=== PATIENT | male | born 1940 | race Caucasian/White ===

== ENCOUNTER 2016-09-04 11:33 | Inpatient (IN) | payer MEDICARE, BC ==
[~2016-09-04] VITALS: Ht 177.8 cm; Wt 83.3 kg
[2016-09-04 12:04] LABS: BASO % 0.4 % (0.0-1.0); EOS # 0.2 K/mm3 (0.0-0.50); EOS % 2.7 % (0.0-3.0); LARGE UNSTAINED CELL # 0.1 K/mm3 (0.0-0.4); LYMPH # 1.4 K/mm3 (1.5-4.5); LYMPH % 18.3 % (24.0-44.0); MEAN CORPUSCULAR HEMOGLOBIN 28.9 pg (27.0-33.0); MEAN CORPUSCULAR HGB CONC 33.6 g/dl (32.0-36.5); MEAN CORPUSCULAR VOLUME 85.9 fl (80.0-96.0); MONO # 0.4 K/mm3 (0.0-0.8); MONO % 5.7 % (0.0-5.0); NEUTROPHILS # 5.2 K/mm3 (1.8-7.7); PLATELET COUNT, AUTOMATED 232 k/mm3 (150-450); RED CELL DISTRIBUTION WIDTH 12.6 % (11.5-14.5); WHITE BLOOD COUNT 7.2 K/mm3 (4.0-10.0)
--- NOTE | 2016-09-04 12:14 | REP ---
AP PORTABLE CHEST: 09/04/2016 Comparison: Right ribs 08/28/2016. Clinical history: CVA less than 4.5 hours. Findings: Lungs are well inflated. The CP angles sharply defined without effusion, lateral pleural thickening or apical scarring. There is no definite infiltrate. Some minor basilar fibrotic changes are seen. No gross cardiomegaly, vascular redistribution or pulmonary edema. The aorta is mildly tortuous but normal for age. Airway intact. There are degenerative changes in the spine and shoulders. Impression: 1. Minor basilar fibrotic change without dense consolidation or effusion, cardiomegaly, edema or other acute finding. Signed by Tj Perez MD 09/04/2016 12:48 P
[2016-09-04 12:20] LABS: ALBUMIN 3.8 GM/DL (3.2-5.2); ALBUMIN/GLOBULIN RATIO 1.03 (1.00-1.93); ALKALINE PHOSPHATASE 84 U/L (45-117); ALT/SGPT 30 U/L (12-78); ANION GAP 6 MEQ/L (8-16); AST/SGOT 23 U/L (15-37); BILIRUBIN,DIRECT 0.1 MG/DL (0.0-0.2); BILIRUBIN,TOTAL 0.7 MG/DL (0.2-1.0); BLOOD UREA NITROGEN 50 MG/DL (7-18); CARBON DIOXIDE LEVEL 33 MEQ/L (21-32); CHLORIDE LEVEL 101 MEQ/L (98-107); CREATININE FOR GFR 1.58 MG/DL (0.70-1.30); GLOMERULAR FILTRATION RATE 45.7 (>42); GLUCOSE, FASTING 120 MG/DL (83-110); POTASSIUM SERUM 4.4 MEQ/L (3.5-5.1); SODIUM LEVEL 140 MEQ/L (136-145); TOTAL PROTEIN 7.5 GM/DL (6.4-8.2)
[2016-09-04] MEDS ORDERED: ATROPINE SULF 1MG/10ML SYRINGE (J0461) As Ordered ONE (12:20)
[2016-09-04 12:30] LABS: INR 0.95
--- NOTE | 2016-09-04 12:37 | ECGEPIP ---
Stationary ECG Study [facility] - ED Test Date: 2016-09-04 Pat Name: PETE OCONNOR Department: Room: - Gender: M Multimedia Journalist: ZANE : 1940 Requested By: HERMELINDA Nuñez Order Number: [id number] Reading MD: Isaac Morales Measurements Intervals [place] Rate: 46 P: 35 TX: 189 QRS: 1 QRSD: 105 T: 15 QT: 431 QTc: 381 Interpretive Statements SINUS BRADYCARDIA MODERATE VOLTAGE CRITERIA FOR LVH, CONSIDER NORMAL VARIANT ANTEROLATERAL ST ELEVATION, INFERIOR ST DEPRESSION CONSIDER ACUTE INJURY Electronically Signed On 09-04-2016 12:36:52 EST by Iasac Morales
--- NOTE | 2016-09-04 13:13 | REP ---
CT HEAD WITHOUT CONTRAST: HISTORY: Infarction. Areas of decreased attenuation are present in the periventricular white matter. This represents small vessel ischemic disease. A 4.1 cm cystic lesion is present in the right frontal and parietal lobes. There is mass effect with partial effacement of the overlying cortical sulci. There is no intraparenchymal hemorrhage or midline shift. The ventricular system and cortical sulci as well as subarachnoid space in the posterior fossa are dilated consistent with mild volume loss. There is no extracerebral collection. Mucosal thickening is present in the ethmoid sinuses. A 3 mm osteoma is present in the right ethmoid sinus. IMPRESSION: 1. Small vessel ischemic disease. 2. Mild volume loss. 3. There is a 4.1 cm cystic lesion in the right frontal and parietal lobes. This most likely represents an arachnoid cyst, however, contrast enhanced CT or MR may be helpful for further evaluation. Signed by Ren Mishra MD 09/04/2016 06:38 P
[2016-09-04] MEDS ORDERED: GLUCOSE 4 GM CHEW TABLET PO PRN (14:45)
[2016-09-04] MEDS ORDERED: GLUCAGON FOR INJ 1 MG VIAL (J1610) SC PRN (14:45)
[2016-09-04] MEDS ORDERED: DEXTROSE 50% 50 ML SYRINGE IV PRN (14:45)
--- NOTE | 2016-09-04 15:07 | REP ---
LEFT KNEE SERIES, COMPLETE: 09/04/2016. Clinical history: Trauma. Patient fell with knee contusion and pain. Findings: No prior studies. [place] view shows narrowing of the patellofemoral joint laterally and a few millimeters of lateral subluxation of the marginal osteophytes patellofemoral joint calcifications and ossifications just above the patella at its articular margin on the lateral view were a fabella is also seen. There are small ossific densities posterior to the proximal tibiofibular articulation and another along the posterior margin of the tibial plafond on the lateral view. Medial compartment shows marginal osteophytes and tibial spine spurs without joint space narrowing. The medial and lateral compartments are without narrowing. Impression: 1. 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 This suggests chondromalacia. No definite joint effusion. Some marginal osteophytes and small ossific densities adjacent to the upper pole of the patella and posterior margin of the tibial plateau suggesting avulsions or osteochondral defects, likewise 3-4 small calcifications along the posterior margin of the proximal tibiofibular joint. No definite fractures. Signed by Tj Perez MD 09/04/2016 03:30 P
[2016-09-04 15:12] LABS: FREE T4 1.04 NG/DL (0.76-1.46)
[2016-09-04] MEDS ORDERED: NAME28CA PO (15:14)
[2016-09-04] MEDS ORDERED: COLA100C PO (15:14)
[2016-09-04] MEDS ORDERED: ASPI1TAB PO (15:14)
[2016-09-04] MEDS ORDERED: BIMA01SOL OU (15:14)
[2016-09-04] MEDS ORDERED: METF500T PO (15:14)
[2016-09-04] MEDS ORDERED: COMB0.2S OU (15:14)
[2016-09-04] MEDS ORDERED: VITMTA PO (15:14)
[2016-09-04] MEDS ORDERED: HYDR62TA PO (15:14)
[2016-09-04] MEDS ORDERED: SIMV20TA2 PO (15:14)
[2016-09-04] MEDS ORDERED: LISI10TA4 PO (15:14)
--- NOTE | 2016-09-04 15:21 | HPE ---
DATE OF ADMISSION: 09/04/2016 PRIMARY CARE PROVIDER: Dr. Ray King MD HISTORY OF PRESENT ILLNESS: This patient is a 76-year-old male with a past medical history significant for hypertension, hypercholesterolemia, diabetes, dementia, presented to [facility] on 09/04/2016, after a fall. Patient was visiting his in [facility] and patient started feeling weak and fell on the floor and patient was brought into [facility] for further evaluation. Information was also obtained from the two daughters present during encounter. Patient started having multiple falls in the past month, at least three witnessed falls so far, and on 08/28/2016, patient fell and landed on the right ribs and resulted in rib fractures. Patient does not remember any specific triggers for the fall. He said that he just started to have sudden weakness. Denied any lightheadedness. Denies any loss of consciousness. Denies any numbness or tingling. Per family members, patient does not have a diagnosis of dementia, however they have noticed patient demonstrating some slowing of memory issues. Patient lives with older daughter. When patient arrived in the emergency room, patient had a blood pressure of 91/50. Patient also was found to have a heart rate of 49. Gentle intravenous (IV) fluids given which temporarily increased the blood pressure. Atropine 0.5 mg IV times one was given, however patient's heart rate maintained around 50s and hospitalist team was called for admission. ALLERGIES: No known drug allergies. HOME MEDICATIONS: - metformin 500 mg by mouth twice a day - lisinopril 10 mg by mouth daily - hydrochlorothiazide 6.25 mg daily - simvastatin 20 mg by mouth daily - Namenda 28 mg by mouth daily PAST MEDICAL HISTORY: 1. Hypertension. 2. Hypercholesterolemia. 3. Dementia. 4. Diabetes. PAST SURGICAL HISTORY: Right knee surgery. SOCIAL HISTORY: Patient smoked one pack daily for approximately 25 years, quit 11 years ago. Drinks 1-2 beers every week. Denies any recreational drug use. Patient is a FULL CODE. REVIEW OF SYSTEMS: GENERAL: No fever, no chills. HEENT: No vision changes, no auditory changes. CARDIOVASCULAR: No chest pain, no palpitations. RESPIRATORY: No shortness of breath, no cough, no sputum production. GASTROINTESTINAL (GI): No abdominal pain, no nausea, no vomiting, no diarrhea. GENITOURINARY (): Denies any dysuria or hematuria. OBJECTIVE: VITAL SIGNS: Blood pressure 95/51, pulse 48, respirations 16, temperature 97.4, pulse oximetry 97% in room air. Body weight is 83.91 kg, body height 175.26 cm. GENERAL: Fatigued, alert and awake, oriented to name, place, and the president, however patient demonstrates some signs of difficulty with long-term memory. HEENT: Normocephalic, atraumatic. Extraocular motors grossly intact. CARDIOVASCULAR: Distant heart sounds, positive S1, S2, but bradycardic with heart rate wandering around 50s. RESPIRATORY: Clear to auscultation bilaterally. No wheezes or rhonchi. ABDOMEN: Soft, nontender, nondistended. Bowel sounds present. No rebound, no guarding. EXTREMITIES: No edema. No sign of cyanosis. NEUROLOGICAL: Sensation to fine touch grossly intact. Muscle strength 5/5. LABORATORY DATA: WBC 7.2, hemoglobin 14, hematocrit 41.5, platelet count 232. Sodium 140, potassium 4.4, chloride 101, carbon dioxide 33, BUN 50, creatinine 1.58, GFR 45.7, fasting glucose 120, calcium 9, total bilirubin 0.7, direct bilirubin 0.1, AST 23, ALT 30, alkaline phosphatase 83, total CK 208, troponin I less than 0.02, total protein 7.5, albumin 3.8, TSH 0.315. PT 0.8, INR 0.95. CT of the head without contrast shows small vessel ischemic disease. Mild volume loss. 4.1 cm cystic lesion in the right frontal and parietal lobe. ASSESSMENT AND PLAN: 1. Frequent falls. Patient will be admitted to the progressive care unit (PCU) under observation status. Patient does have bradycardia with a heart rate wandering around 50s. We will obtain outpatient records to see patient's baseline heart rate. We will also try to rule out any possible cardiac arrhythmia. Follow with orthostatic vital signs measurements. Follow with physical therapy evaluation and treatment. 2. Acute kidney injury. We do not know if patient has baseline chronic kidney disease. At this moment, patient has a BUN of 50, creatinine 1.58. Patient was started on gentle hydration which will also help with patient's hypotension. 3. Hypotension. Responds briefly with 0.5 liters bolus times two. Currently patient will be on continuous gentle hydration. 4. Cyst lesion in the right frontal and parietal lobe. The case has been discussed with Dr. Davis. Patient will have an MRI of the brain without contrast followed by with contrast. 5. Diabetes. Follow with A1c. Continue with consistent carbohydrate diet. Continue with insulin sliding scale. 6. History of hypercholesterolemia. Continue statin. 7. History of hypertension. Currently patient is hypotensive. Will hold the blood pressure medications. 8. Dementia. Continue Namenda. 9. Elevated thyroid stimulating hormone (TSH). Will follow with free T4. Patient does not have a history of thyroid disease. 10. Deep venous thrombosis (DVT) prophylaxis. Due to frequent falls, currently patient will be on thromboembolism deterrents (TEDs) and sequential compression device.
[2016-09-04] MEDS: HumaLOG INSULIN (NovoLOG) PER UNIT SC SCH ×2 (17:30→20:51)
[2016-09-04 18:00] VITALS: BP 133/65
[2016-09-04] MEDS: NS 1,000 ML IV SCH (18:20)
--- NOTE | 2016-09-04 18:40 | REP ---
MR BRAIN WITHOUT AND WITH CONTRAST: HISTORY: Cystic lesion. CONTRAST: ProHance 8 mL. COMPARISON: CT 09/04/2016 Areas of increased signal intensity on T2 weighted images are present in the periventricular and subcortical white matter. This represents small vessel ischemic disease. There is no intraparenchymal hemorrhage, infarct or mass. The ventricular system and cortical sulci are dilated consistent with mild volume loss. An arachnoid cyst is present overlying the posterior right parietal lobe. The arachnoid cyst measure 4.4 cm in transverse x 5.3 cm in AP x 4.1 cm in cephalocaudal dimensions. There is mass effect on the adjacent right parietal lobe without midline shift. There is no abnormal enhancement . There is no extracerebral collection. Mucosal thickening is present in the maxillary and left sphenoid sinuses. IMPRESSION: 1. Small vessel ischemic disease. 2. Mild volume loss. 3. There is an arachnoid cyst overlying the posterior right parietal lobe. There is no midline shift. Signed by Ren Mishra MD 09/04/2016 06:43 P
[2016-09-04 20:00] VITALS: BP 121/66
[2016-09-04] MEDS ORDERED: DOCUSATE SODIUM 100 MG CAP As Ordered ONE (20:57)
[2016-09-04] MEDS ORDERED: SIMVASTATIN 20 MG TAB As Ordered ONE (20:57)
[2016-09-04] MEDS: SIMVASTATIN 20 MG TAB PO SCH (21:04)
[2016-09-04] MEDS: DOCUSATE SODIUM 100 MG CAP PO SCH (21:04)
--- NOTE | 2016-09-04 23:19 | EDDOCDS ---
Physician Documentation [facility] Name: Ravin Palencia Age: 76 yrs Sex: Male : 1940 Arrival Date: 09/04/2016 Time: 11:33 Bed Admit Hold Private MD: Ray King M.D. Disposition: 09/04/16 14:13 Hospitalization ordered by Marisela Abdullahi for Inpatient Admission. Preliminary diagnosis are Gastrointestinal hemorrhage, unspecified, Hypotension, Bradycardia, unspecified, Abrasion, left knee, Abnormal brain scan - likely arachnoid cyst. - Bed requested for PCU. - Status is Inpatient Admission. sls1 - Condition is Stable. - Problem is new. - Symptoms are unchanged. Historical: - Allergies: no known allergies; - Home Meds: 1. metformin 500 mg Oral tab 1 tab 2 times per day (Last dose: Unknown) 2. lisinopril 10 mg Oral tab 1 tab once daily (Last dose: Unknown) 3. hydrochlorothiazide 12.5 mg Oral cap 6.25 mg once daily (Last dose: Unknown) 4. simvastatin 20 mg Oral tab 1 tab once daily (Last dose: Unknown) 5. Namenda XR 28 mg oral CSpX 1 cap once daily (Last dose: Unknown) - PMHx: Hypertension; Hypercholesterolemia; Dementia; - PSHx: Knee surgery- Right; - Social history: Smoking status: Patient states former smoker of tobacco. No barriers to communication noted. - : The pt / caregiver states he / she is not on anticoagulants. Home medication list is obtained from patients' pharmacy. - Exposure Risk Screening:: None identified. Vital Signs: 09/04 11:45 BP 92 / 53 (auto/); ml6 11:45 Pulse 54 MON; Resp 16; Temp 97.4(O); Pulse Ox 98% on R/A; Weight 83.91 kg / 184.99 lbs ml6 (R); Height 5 ft. 9 in. (175.26 cm) (R); Pain 0/10; 12:01 BP 91 / 50 (auto/); ml6 12:01 Pulse 50 MON; Resp 16; Pulse Ox 99% on R/A; ml6 12:16 BP 99 / 73 (auto/); ml6 12:16 Pulse 57 MON; Resp 16; Pulse Ox 97% on R/A; ml6 12:23 BP 92 / 54 (auto/); ml6 12:23 Pulse 49 MON; Resp 16; Pulse Ox 98% on R/A; Pain 0/10; ml6 12:28 BP 125 / 68 (auto/); ml6 12:28 Pulse 51; Resp 16; Pulse Ox 94% on R/A; ml6 12:33 BP 112 / 57 (auto/); ml6 12:33 Pulse 50; Resp 16; Pulse Ox 98% on R/A; ml6 12:38 BP 95 / 51 (auto/); ml6 12:38 Pulse 48; Resp 16; Pulse Ox 97% on R/A; ml6 12:58 BP 85 / 53 (auto/); ml6 12:58 Pulse 51 MON; Resp 16; Pulse Ox 97% on R/A; ml6 13:03 BP 85 / 52 (auto/); ml6 13:03 Pulse 50 MON; Resp 16; Pulse Ox 96% on R/A; ml6 13:08 BP 88 / 53 (auto/); ml6 13:08 Pulse 50 MON; Resp 16; Pulse Ox 98% on R/A; ml6 13:13 BP 86 / 52 (auto/); ml6 13:13 Pulse 50 MON; Resp 16; Pulse Ox 98% on R/A; Pain 0/10; ml6 13:18 BP 74 / 45 (auto/); ml6 13:18 Pulse 52 MON; Resp 16; Pulse Ox 98% on R/A; Pain 0/10; ml6 13:23 BP 73 / 43 (auto/); ml6 13:23 Pulse 50 MON; Resp 16; Pulse Ox 97% on R/A; ml6 13:28 BP 73 / 40 (auto/); ml6 13:28 Pulse 50 MON; Resp 16; Pulse Ox 94% on R/A; Pain 0/10; ml6 13:38 BP 81 / 45 (auto/); ml6 13:38 Pulse 52 MON; Resp 16; Pulse Ox 97% on R/A; ml6 13:48 BP 105 / 57 (auto/); ml6 13:48 Pulse 61 MON; Resp 16; Pulse Ox 98% on R/A; Pain 0/10; ml6 14:30 BP 109 / 62 (auto/); ml6 16:29 BP 130 / 65 (auto/); sls1 16:31 Pulse 60 MON; Pulse Ox 97% ; sls1 20:28 BP 106 / 56 (auto/); sls1 20:30 Pulse 52 MON; Pulse Ox 93% ; sls1 11:45 Body Mass Index 27.32 (83.91 kg, 175.26 cm) ml6 MDM: 11:43 ECG WITH READING ER PHYS+CARDIAG ordered. EDMS 11:43 Baggage Smasher/Pulse Ox/q 15 min VS ordered. ml6 11:43 IV Saline Lock ordered. ml6 11:43 Oxygen at 4L/Min NC or Home dosage ordered. ml6 11:43 Rhythm Strip to chart ordered. ml6 11:44 CBC with Diff Ordered. EDMS 11:44 Cardiac Injury Profile Ordered. EDMS 11:44 Liver Profile Ordered. EDMS 11:44 MED Profile Ordered. EDMS 11:44 Thyroid Stimulating Hormone Ordered. EDMS 11:44 Troponin Ordered. EDMS 11:46 Chest, 1 View Ordered. EDMS 12:18 NS 0.9% 500 ml IV at bolus once ordered. br1 12:18 Atropine 0.5 mg IVP once ordered. br1 12:18 CT Head Without Contrast Ordered. EDMS 12:18 PT/INR Ordered. EDMS 12:18 PTT Ordered. EDMS 12:19 Knee, Complete Ordered. EDMS 12:19 Type & Screen Ordered. EDMS 12:38 Financial registration complete. lg 12:51 [facility] [place] was [place] into [employer] and attached to record. lg 13:36 CBC with Diff Reviewed. br1 13:36 Cardiac Injury Profile Reviewed. br1 13:36 MED Profile Reviewed. br1 13:36 Thyroid Stimulating Hormone Reviewed. br1 13:36 Liver Profile Reviewed. br1 13:36 Troponin Reviewed. br1 13:36 Type & Screen Reviewed. br1 13:36 PT/INR Reviewed. br1 13:36 PTT Reviewed. br1 13:36 EKG-ADULT Reviewed. br1 13:36 Chest, 1 View Reviewed. br1 13:36 CT Head Without Contrast Reviewed. br1 13:38 NS 0.9% 500 ml IV at bolus once ordered. br1 13:38 BED REQUEST+ADM ordered. EDMS 14:30 Admission / Observation Status ordered. EDMS 14:30 CONSISTENT CARBOHYDRATES ordered. EDMS 14:31 PHYSICAL THERAPY EVAL & TREAT ordered. EDMS 14:41 FREE T4 Ordered. EDMS 14:45 HEMOGLOBIN A1C Ordered. EDMS 14:46 MRI Brain W/O FOLL BY WITH Ordered. EDMS 14:48 URINALYSIS Ordered. EDMS 15:12 T-Sheet-- Draft Copy was scanned into [employer] and attached to record. gb 18:15 Fingerstick Blood Sugar Ordered. EDMS 19:31 COMPLETE BLOOD COUNT Ordered. EDMS 19:31 BASIC METABOLIC PROFILE Ordered. EDMS 20:45 Fingerstick Blood Sugar Ordered. EDMS Administered Medications: 12:19 Drug: NS 0.9% 500 ml [sodium chloride 0.9 % intravenous solution] Route: IV; Rate: ml6 bolus; Site: right forearm; 13:15 Follow up: IV Status: Completed infusion; Infusion discontinued; IV Intake: 500ml ml6 12:27 Drug: Atropine 0.5 mg [atropine 0.1 mg/mL injection syringe (5 mL)] Route: IVP; Site: ml6 right antecubital; 13:42 Drug: NS 0.9% 500 ml [sodium chloride 0.9 % intravenous solution] Route: IV; Rate: ml6 bolus; Site: right antecubital; 16:35 Follow up: IV Status: Completed infusion; Infusion discontinued; IV Intake: 500ml ml6 Signatures: Dispatcher [employer] EDMS Louise Jordan, RN RN daq Tari Wilson, Reg Reg gb Frantz Chou, Reg Reg lg Michael Irizarry MD MD br1 Wyatt Gómez RN RN ml6 Dawn Forrester RN RN sls1 The chart was reviewed and I authenticate all verbal orders and agree with the evaluation and treatment provided.Corrections: (The following items were deleted from the chart) 14:41 14:36 FREE T4 ordered. EDMS EDMS 14:48 14:41 HEMOGLOBIN A1C ordered. EDMS EDMS Attachments: 12:51 [facility] [place] lg 15:12 T-Sheet-- Draft Copy gb MTDD
--- NOTE | 2016-09-04 23:19 | EDDOCDS ---
Nurse's Notes [facility] Name: Pete Palencia Age: 76 yrs Sex: Male : 1940 Arrival Date: 09/04/2016 Time: 11:33 Bed Admit Hold Private MD: Ray King M.D. Diagnosis: Gastrointestinal hemorrhage, unspecified;Hypotension;Bradycardia, unspecified;Abrasion, left knee;Abnormal brain scan-likely arachnoid cyst Presentation: 09/04 11:40 Presenting complaint: EMS states: states was up visiting at [facility], became disorient ml6 and fell x 3. Adult Sepsis Screening: Patient has new or worsening altered mentation (1 point). Patient's respiratory rate is less than 22. Systolic blood pressure is less than or equal to 100 (1 point). Patient has a qSOFA score of 2. No known or suspected infection- Negative Sepsis Screen. Suicide/Homicide risk assessment- the patient denies having any suicidal and/or homicidal ideations and does not present with any other emotional, behavioral or mental health complaints. 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 Transition of care: patient was not received from another setting of care. 11:40 Acuity: PORTER Level 2 ml6 11:40 Method Of Arrival: Ambulance ml6 Triage Assessment: 11:40 General: Appears in no apparent distress, Behavior is appropriate for age, cooperative. ml6 Pain: Denies pain. Neurological: No deficits noted. Level of Consciousness is awake, alert, Oriented to person, place, time. Cardiovascular: No deficits noted. Capillary refill < 3 seconds is brisk in bilateral fingers toes. Respiratory: No deficits noted. GI: No deficits noted. Musculoskeletal: Circulation, motion, and sensation intact Capillary refill < 3 seconds is brisk in bilateral fingers toes Range of motion intact in all extremities. No deformity noted Swelling absent Signs and Symptoms of Compartment Syndrome: no signs of compartment syndrome. Historical: - Allergies: no known allergies; - Home Meds: 1. metformin 500 mg Oral tab 1 tab 2 times per day (Last dose: Unknown) 2. lisinopril 10 mg Oral tab 1 tab once daily (Last dose: Unknown) 3. hydrochlorothiazide 12.5 mg Oral cap 6.25 mg once daily (Last dose: Unknown) 4. simvastatin 20 mg Oral tab 1 tab once daily (Last dose: Unknown) 5. Namenda XR 28 mg oral CSpX 1 cap once daily (Last dose: Unknown) - PMHx: Hypertension; Hypercholesterolemia; Dementia; - PSHx: Knee surgery- Right; - Social history: Smoking status: Patient states former smoker of tobacco. No barriers to communication noted. - : The pt / caregiver states he / she is not on anticoagulants. Home medication list is obtained from patients' pharmacy. - Exposure Risk Screening:: None identified. Screenin:47 Screening information is obtained from the patient. Fall risk: At risk due to apparent ml6 cognitive impairment, prior history of falls. Assistance ADL's: requires no assistance with activities of daily living. Abuse/DV Screen: The patient / caregiver reports he/she is: not in a situation that causes fear, pain or injury. Nutritional screening: No deficits noted. Advance Directives: Currently, there is no health care proxy. home support is adequate. Assessment: 11:40 General: Appears in no apparent distress, see triage assessment. ml6 12:40 General: Appears in no apparent distress, comfortable, Behavior is appropriate for age, ml6 cooperative. Pain: Denies pain. Neurological: Level of Consciousness is awake, alert, Oriented to person, place, time, Insole Tack Puller Hand are equal bilaterally Moves all extremities. Full function Gait is steady, Speech with expressive aphasia noted, Facial symmetry appears normal, Pupils are PERRLA, per daughter patient normally has expressive aphasia . 13:40 Reassessment: Patient appears in no apparent distress at this time. Patient denies pain ml6 at this time. Patient states feeling better. Patient states symptoms have improved. patient states that fatigue and weakness have improved after IVF. 14:40 Reassessment: Patient appears in no apparent distress at this time. Patient denies pain ml6 at this time. Patient states feeling better. Patient states symptoms have improved. no change from previous assessment. 15:40 General: Appears in no apparent distress, comfortable, Behavior is appropriate for age, ml6 cooperative. Pain: Denies pain. Neurological: No deficits noted. Level of Consciousness is awake, alert, Oriented to person, place, time, Insole Tack Puller Hand are equal bilaterally Moves all extremities. Full function Gait is steady, Speech with expressive aphasia noted. Cardiovascular: No deficits noted. Capillary refill < 3 seconds is brisk in bilateral fingers toes. Respiratory: No deficits noted. GI: No deficits noted. 16:29 General: patient transported to MRI. ml6 Vital Signs: 11:45 BP 92 / 53 (auto/); ml6 11:45 Pulse 54 MON; Resp 16; Temp 97.4(O); Pulse Ox 98% on R/A; Weight 83.91 kg (R); Height 5 ml6 ft. 9 in. (175.26 cm) (R); Pain 0/10; 12:01 BP 91 / 50 (auto/); ml6 12:01 Pulse 50 MON; Resp 16; Pulse Ox 99% on R/A; ml6 12:16 BP 99 / 73 (auto/); ml6 12:16 Pulse 57 MON; Resp 16; Pulse Ox 97% on R/A; ml6 12:23 BP 92 / 54 (auto/); ml6 12:23 Pulse 49 MON; Resp 16; Pulse Ox 98% on R/A; Pain 0/10; ml6 12:28 BP 125 / 68 (auto/); ml6 12:28 Pulse 51; Resp 16; Pulse Ox 94% on R/A; ml6 12:33 BP 112 / 57 (auto/); ml6 12:33 Pulse 50; Resp 16; Pulse Ox 98% on R/A; ml6 12:38 BP 95 / 51 (auto/); ml6 12:38 Pulse 48; Resp 16; Pulse Ox 97% on R/A; ml6 12:58 BP 85 / 53 (auto/); ml6 12:58 Pulse 51 MON; Resp 16; Pulse Ox 97% on R/A; ml6 13:03 BP 85 / 52 (auto/); ml6 13:03 Pulse 50 MON; Resp 16; Pulse Ox 96% on R/A; ml6 13:08 BP 88 / 53 (auto/); ml6 13:08 Pulse 50 MON; Resp 16; Pulse Ox 98% on R/A; ml6 13:13 BP 86 / 52 (auto/); ml6 13:13 Pulse 50 MON; Resp 16; Pulse Ox 98% on R/A; Pain 0/10; ml6 13:18 BP 74 / 45 (auto/); ml6 13:18 Pulse 52 MON; Resp 16; Pulse Ox 98% on R/A; Pain 0/10; ml6 13:23 BP 73 / 43 (auto/); ml6 13:23 Pulse 50 MON; Resp 16; Pulse Ox 97% on R/A; ml6 13:28 BP 73 / 40 (auto/); ml6 13:28 Pulse 50 MON; Resp 16; Pulse Ox 94% on R/A; Pain 0/10; ml6 13:38 BP 81 / 45 (auto/); ml6 13:38 Pulse 52 MON; Resp 16; Pulse Ox 97% on R/A; ml6 13:48 BP 105 / 57 (auto/); ml6 13:48 Pulse 61 MON; Resp 16; Pulse Ox 98% on R/A; Pain 0/10; ml6 14:30 BP 109 / 62 (auto/); ml6 16:29 BP 130 / 65 (auto/); sls1 16:31 Pulse 60 MON; Pulse Ox 97% ; sls1 20:28 BP 106 / 56 (auto/); sls1 20:30 Pulse 52 MON; Pulse Ox 93% ; sls1 11:45 Body Mass Index 27.32 (83.91 kg, 175.26 cm) ml6 Vitals: 11:51 Log In Time N/A - ambulance arrival. ml6 ED Course: 11:34 Patient visited by Christy Muhammad, Md Allergy Immunology. lbd 11:34 Patient moved to Waiting lbd 11:35 Ray King is Private Physician. lbd 11:35 Patient moved to 3 lbd 11:41 Triage Initiated ml6 11:47 The patient / caregiver is instructed regarding the plan of care and ED course. Cardiac ml6 monitor on. Pulse ox on. NIBP on. 11:47 Inserted peripheral IV: 16gauge IV in left antecubital area and blood collected. ml6 Patient tolerated the procedure well. Inserted peripheral IV: 18gauge IV in right antecubital area and blood collected. Patient tolerated the procedure well. No procedures done that require assistance. Labs drawn. (by ED staff). Sent per order to lab. 11:49 Patient visited by Ambrocio Patel. jml1 11:49 EKG done. (by ED staff). Reviewed by Michael Irizarry MD. jml1 12:04 Michael Irizarry MD is Attending Physician. br1 12:17 Patient visited by Michael Irizarry MD. br1 12:47 EKG-ADULT Returned. EDMS 12:49 Patient name changed from Pete\S\\S\Palencia\S\ to Pete\S\T\S\Palencia. EDMS 12:51 Patient visited by Wyatt Gómez RN. ml6 12:51 [facility] [place] was [place] into [employer] and attached to record. lg 12:51 Chest, 1 View Returned. EDMS 13:14 Patient visited by Wyatt Gómez RN. ml6 13:34 CT Head Without Contrast Returned. EDMS 13:45 Patient visited by Wyatt Gómez RN. ml6 13:[address] ml6 13:48 Patient moved to 3 ek2 14:05 Marisela Abdullahi wood finisher apprentice. ys2 14:06 Patient visited by Michael Irizarry MD. br1 14:12 Marisela Abdullahi is Hospitalizing Provider. br1 15:12 T-Sheet-- Draft Copy was scanned into [employer] and attached to record. gb 15:48 Knee, Complete Returned. EDMS 16:28 Patient moved to 18 ml6 19:06 CT Head Without Contrast Returned. EDMS 19:07 MRI Brain W/O FOLL BY WITH Returned. EDMS 19:34 Patient moved to Admit Hold sls1 Administered Medications: 12:19 Drug: NS 0.9% 500 ml [sodium chloride 0.9 % intravenous solution] Route: IV; Rate: ml6 bolus; Site: right forearm; 13:15 Follow up: IV Status: Completed infusion; Infusion discontinued; IV Intake: 500ml ml6 12:27 Drug: Atropine 0.5 mg [atropine 0.1 mg/mL injection syringe (5 mL)] Route: IVP; Site: ml6 right antecubital; 13:42 Drug: NS 0.9% 500 ml [sodium chloride 0.9 % intravenous solution] Route: IV; Rate: ml6 bolus; Site: right antecubital; 16:35 Follow up: IV Status: Completed infusion; Infusion discontinued; IV Intake: 500ml ml6 Intake: 13:15 IV: 500.00ml; Total: 500.00ml. ml6 16:35 IV: 500.00ml; Total: 1000.00ml. ml6 Order Results: Lab Order: CBC with Diff; SPEC'M 09/04/16 11:46 Test: WHITE BLOOD COUNT; Value: 7.2; Range: 4.0-10.0; Units: K/mm3; Status: F Test: RED BLOOD COUNT; Value: 4.83; Range: 4.30-6.10; Units: M/mm3; Status: F Test: HEMOGLOBIN; Value: 14.0; Range: 14.0-18.0; Units: g/dl; Status: F Test: HEMATOCRIT; Value: 41.5; Range: 42.0-52.0; Abnormal: Below low normal; Units: %; Status: F Test: MEAN CORPUSCULAR VOLUME; Value: 85.9; Range: 80.0-96.0; Units: fl; Status: F Test: MEAN CORPUSCULAR HEMOGLOBIN; Value: 28.9; Range: 27.0-33.0; Units: pg; Status: F Test: MEAN CORPUSCULAR HGB CONC; Value: 33.6; Range: 32.0-36.5; Units: g/dl; Status: F Test: RED CELL DISTRIBUTION WIDTH; Value: 12.6; Range: 11.5-14.5; Units: %; Status: F Test: PLATELET COUNT, AUTOMATED; Value: 232; Range: 150-450; Units: k/mm3; Status: F Test: NEUTROPHILS %; Value: 72.0; Range: 36.0-66.0; Abnormal: Above high normal; Units: %; Status: F Test: LYMPH %; Value: 18.3; Range: 24.0-44.0; Abnormal: Below low normal; Units: %; Status: F Test: MONO %; Value: 5.7; Range: 0.0-5.0; Abnormal: Above high normal; Units: %; Status: F Test: EOS %; Value: 2.7; Range: 0.0-3.0; Units: %; Status: F Test: BASO %; Value: 0.4; Range: 0.0-1.0; Units: %; Status: F Test: LARGE UNSTAINED CELL %; Value: 1.0; Range: 0.0-4.0; Units: %; Status: F Test: NEUTROPHILS #; Value: 5.2; Range: 1.8-7.7; Units: K/mm3; Status: F Test: LYMPH #; Value: 1.4; Range: 1.5-4.5; Abnormal: Below low normal; Units: K/mm3; Status: F Test: MONO #; Value: 0.4; Range: 0.0-0.8; Units: K/mm3; Status: F Test: EOS #; Value: 0.2; Range: 0.0-0.50; Units: K/mm3; Status: F Test: BASO #; Value: 0.0; Range: 0.0-0.2; Units: K/mm3; Status: F Test: LARGE UNSTAINED CELL #; Value: 0.1; Range: 0.0-0.4; Units: K/mm3; Status: F Lab Order: Cardiac Injury Profile; SPEC'M 09/04/16 11:46 Test: CPK CREATINE PHOSPHOKINASE; Value: 208; Range: 39-308; Units: U/L; Status: F Test: CK-MB VALUE MASS; Value: 4.3; Range: 0.0-3.6; Abnormal: Above high normal; Units: NG/ML; Status: F Test: MB/CK RELATIVE INDEX; Value: 2.06; Range: < OR =4; Status: F Test Note: ; DIAGNOSIS CRITERIA MMB ng/ml Relative Index (RI) NON-AMI < or = 5 N/A [place] > 5 < or = 4 AMI > 5 > 4 Lab Order: Liver Profile; SPEC'M 09/04/16 11:46 Test: AST/SGOT; Value: 23; Range: 15-37; Units: U/L; Status: F Test: ALT/SGPT; Value: 30; Range: 12-78; Units: U/L; Status: F Test: ALKALINE PHOSPHATASE; Value: 84; Range: 45-117; Units: U/L; Status: F Test: BILIRUBIN,TOTAL; Value: 0.7; Range: 0.2-1.0; Units: MG/DL; Status: F Test: BILIRUBIN,DIRECT; Value: 0.1; Range: 0.0-0.2; Units: MG/DL; Status: F Test: TOTAL PROTEIN; Value: 7.5; Range: 6.4-8.2; Units: GM/DL; Status: F Test: ALBUMIN; Value: 3.8; Range: 3.2-5.2; Units: GM/DL; Status: F Test: ALBUMIN/GLOBULIN RATIO; Value: 1.03; Range: 1.00-1.93; Status: F Lab Order: MED Profile; 09/04/16 11:46 Test: GLUCOSE, FASTING; Value: 120; Range: 83-110; Abnormal: Above high normal; Units: MG/DL; Status: F Test: BLOOD UREA NITROGEN; Value: 50; Range: 7-18; Abnormal: Above high normal; Units: MG/DL; Status: F Test: CREATININE FOR GFR; Value: 1.58; Range: 0.70-1.30; Abnormal: Above high normal; Units: MG/DL; Status: F Test: GLOMERULAR FILTRATION RATE; Value: 45.7; Range: >42; Status: F Test: SODIUM LEVEL; Value: 140; Range: 136-145; Units: MEQ/L; Status: F Test: POTASSIUM SERUM; Value: 4.4; Range: 3.5-5.1; Units: MEQ/L; Status: F Test: CHLORIDE LEVEL; Value: 101; Range: 98-107; Units: MEQ/L; Status: F Test: CARBON DIOXIDE LEVEL; Value: 33; Range: 21-32; Abnormal: Above high normal; Units: MEQ/L; Status: F Test: ANION GAP; Value: 6; Range: 8-16; Abnormal: Below low normal; Units: MEQ/L; Status: F Test: CALCIUM LEVEL; Value: 9.0; Range: 8.8-10.2; Units: MG/DL; Status: F Test Note: ; Units are mL/min/1.73 m2 Chronic Kidney Disease Staging per NKF: Stage I & II GFR >=60 Normal to Mildly Decreased Stage III GFR 30-59 Moderately Decreased Stage IV GFR 15-29 Severely Decreased Stage V GFR <15 Very Little GFR Left ESRD GFR <15 on ACTIVITIES DIRECTOR SCOUTING Lab Order: Thyroid Stimulating Hormone; 09/04/16 11:46 Test: THYROID STIMULATING HORMONE; Value: 0.315; Range: 0.358-3.740; Abnormal: Below low normal; Units: uIU/ML; Status: F Lab Order: Troponin; 09/04/16 11:46 Test: TROPONIN I; Value: < 0.02; Range: < 0.10; Units: NG/ML; Status: F Test Note: ; Troponin I Reference Interval for Siemens [place] LOCI: 99th Percentile= 0.00-0.045 ng/ml Risk Stratification: <= 0.10 ng/ml Decreased Risk for Adverse Clinical Events. 0.10-1.50 ng/ml Increased Risk for Adverse Clinical Events. Evaluation of additional criterion and/or repeat testing in 2-6 hours is suggested to rule out myocardial damage. >= 1.50 ng/ml Indicative of Myocardial Injury. Lab Order: Type & Screen; [facility]09/04/16 11:46 Test: BLOOD TYPE; Value: O POS; Status: F Test: AB SCREEN (INDIRECT PAU)VIS; Value: NEGATIVE; Status: F Lab Order: PT/INR; [facility]09/04/16 11:46 Test: PROTHROMBIN TIME; Value: 12.8; Range: 12.3-14.5; Units: SECONDS; Status: F Test: INR; Value: 0.95; Status: F Test Note: ; THERAPUTIC HUMAN INR VALUES INDICATIONS NORMAL RANGES PROPHYLAXIS/TREATMENT OF: VENOUS THROMBOSIS 2.0-3.0 PULMONARY EMBOLISM 2.0-3.0 PREVENTION OF SYSTEMIC EMBOLISM FROM: TISSUE HEART VALVES 2.0-3.0 ACUTE MYOCARDIAL INFARCTION 2.0-3.0 VALVULAR HEART DISEASE 2.0-3.0 ATRIAL FIBRILLATION 2.0-3.0 MECHANICAL VALVES(HIGH RISK) 2.5-3.5 RECURRENT MYOCARDIAL INFARCTION 2.5-3.5 Lab Order: PTT; [facility] 09/04/16 11:46 Test: PARTIAL THROMBOPLASTIN TIME; Value: 27.6; Range: 26.6-37.1; Units: SECONDS; Status: F Lab Order: FREE T4; [facility] 09/04/16 11:46 Test: FREE T4; Value: 1.04; Range: 0.76-1.46; Units: NG/DL; Status: F Lab Order: HEMOGLOBIN A1C; [facility] 09/04/16 11:46 Test: HEMOGLOBIN A1c; Value: 6.3; Range: 4.5-6.2; Abnormal: Above high normal; Units: %; Status: F Test: ESTIMATED AVERAGE GLUCOSE; Value: 134; Range: 60-110; Abnormal: Above high normal; Units: MG/DL; Status: F Lab Order: Fingerstick Blood Sugar; SPEC'M 09/04/16 18:07 Test: BEDSIDE GLUCOSE; Value: 97; Range: 83-110; Units: MG/DL; Status: F Lab Order: Fingerstick Blood Sugar; SPEC'M 09/04/16 20:27 Test: BEDSIDE GLUCOSE; Value: 141; Range: 83-110; Abnormal: Above high normal; Units: MG/DL; Status: F Radiology Order: EKG-ADULT Test: EKG-ADULT REASON FOR EXAMINATION: hypotension; Stationary ECG Study; [facility] - ED; ; Test Date: 2016-09-04; Pat Name: PETE PALENCIA Department:; Room: -; 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: 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; : 1940 Requested By: MICHAEL Nuñez; Order Number: [id number] Reading MD: Isaac Morales; Measurements; Intervals Fence; Rate: 46 P: 35; OR: 189 QRS: 1; QRSD: 105 T: 15; QT: 431; QTc: 381; Interpretive Statements; SINUS BRADYCARDIA; MODERATE VOLTAGE CRITERIA FOR LVH, CONSIDER NORMAL VARIANT; ANTEROLATERAL ST ELEVATION, INFERIOR ST DEPRESSION CONSIDER ACUTE INJURY; Electronically Signed On 09-04-2016 12:36:52 EST by Isaac Morales; Radiology Order: Chest, 1 View Test: Chest, 1 View REASON FOR EXAMINATION: CVA <4.5hrs; AP PORTABLE CHEST: 09/04/2016; ; Comparison: Right ribs 08/28/2016.; ; Clinical history: CVA less than 4.5 hours.; ; Findings: Lungs are well inflated. The CP angles sharply defined without; effusion, lateral pleural thickening or apical scarring. There is no definite; infiltrate. Some minor basilar fibrotic changes are seen. No gross; cardiomegaly, vascular redistribution or pulmonary edema. The aorta is mildly; tortuous but normal for age. Airway intact. There are degenerative changes in; the spine and shoulders.; ; Impression:; ; 1. Minor basilar fibrotic change without dense consolidation or effusion,; cardiomegaly, edema or other acute finding.; ; ; Signed by; Tj Perez MD 09/04/2016 12:48 P; Radiology Order: CT Head Without Contrast Test: CT Head Without Contrast REASON FOR EXAMINATION: CVA <4.5hrs; CT HEAD WITHOUT CONTRAST:; ; HISTORY: Infarction.; ; Areas of decreased attenuation are present in the periventricular white matter.; This represents small vessel ischemic disease. A 4.1 cm cystic lesion is present; in the right frontal and parietal lobes. There is mass effect with partial; effacement of the overlying cortical sulci. There is no intraparenchymal; hemorrhage or midline shift. The ventricular system and cortical sulci as well; as subarachnoid space in the posterior fossa are dilated consistent with mild; volume loss. There is no extracerebral collection. Mucosal thickening is; present in the ethmoid sinuses. A 3 mm osteoma is present in the right ethmoid; sinus.; ; IMPRESSION:; ; 1. Small vessel ischemic disease.; ; 2. Mild volume loss.; ; 3. There is a 4.1 cm cystic lesion in the right frontal and parietal lobes.; This most likely represents an arachnoid cyst, however, contrast enhanced CT or; MR may be helpful for further evaluation.; ; ; Signed by; Ren Mishra MD 09/04/2016 06:38 P; Radiology Order: Knee, Complete Test: Knee, Complete REASON FOR EXAMINATION: Trauma; LEFT KNEE SERIES, COMPLETE: 09/04/2016.; ; Clinical history: Trauma. Patient fell with knee contusion and pain.; ; Findings: No prior studies. [place] view shows narrowing of the patellofemoral; joint laterally and a few millimeters of lateral subluxation of the marginal; osteophytes patellofemoral joint calcifications and ossifications just above the; patella at its articular margin on the lateral view were a fabella is also seen.; There are small ossific densities posterior to the proximal tibiofibular; articulation and another along the posterior margin of the tibial plafond on the; lateral view. Medial compartment shows marginal osteophytes and tibial spine; spurs without joint space narrowing. The medial and lateral compartments are; without narrowing.; ; Impression:; ; 1. 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 This suggests chondromalacia. No definite joint; effusion. Some marginal osteophytes and small ossific densities adjacent to the; upper pole of the patella and posterior margin of the tibial plateau suggesting; avulsions or osteochondral defects, likewise 3-4 small calcifications along the; posterior margin of the proximal tibiofibular joint. No definite fractures.; ; ; Signed by; Tj Perez MD 09/04/2016 03:30 P; Radiology Order: MRI Brain W/O FOLL BY WITH Test: MRI Brain W/O FOLL BY WITH REASON FOR EXAMINATION: brain cystic lesion; MR BRAIN WITHOUT AND WITH CONTRAST:; ; HISTORY: Cystic lesion.; ; CONTRAST: ProHance 8 mL.; ; COMPARISON: CT 09/04/2016; ; Areas of increased signal intensity on T2 weighted images are present in the; periventricular and subcortical white matter. This represents small vessel; ischemic disease. There is no intraparenchymal hemorrhage, infarct or mass. The; ventricular system and cortical sulci are dilated consistent with mild volume; loss. An arachnoid cyst is present overlying the posterior right parietal lobe.; The arachnoid cyst measure 4.4 cm in transverse x 5.3 cm in AP x 4.1 cm in; cephalocaudal dimensions. There is mass effect on the adjacent right parietal; lobe without midline shift. There is no abnormal enhancement . There is no; extracerebral collection. Mucosal thickening is present in the maxillary and left; sphenoid sinuses.; ; IMPRESSION:; ; 1. Small vessel ischemic disease.; ; 2. Mild volume loss.; ; 3. There is an arachnoid cyst overlying the posterior right parietal lobe. There; is no midline shift.; ; ; Signed by; Ren Mishra MD 09/04/2016 06:43 P; Outcome: 14:13 Decision to Hospitalize by Provider. br1 23:18 Patient left the ED. sls1 Signatures: Dispatcher [employer] EDMS Christy Muhammad, Md Allergy Immunology Unit lbd Tari Wilson, Reg Reg gb Frantz Chou, Reg Reg lg Michael Irizarry MD MD br1 Wyatt Gómez RN RN ml6 Dawn Forrester RN RN sls1 Ambrocio Patell1 Raf Esparza ek2 Marisela Abdullahi ys2 MTDD
[2016-09-04 23:59] VITALS: BP_SYST 160; BP_SYST 162; BP_SYST 175; BP_DIAS 109; BP_DIAS 83; BP_DIAS 84
[2016-09-05 04:00] VITALS: BP 128/128
[2016-09-05] MEDS: NS 1,000 ML IV SCH ×2 (06:12→12:11)
[2016-09-05 06:18] LABS: MEAN CORPUSCULAR HEMOGLOBIN 29.2 pg (27.0-33.0); MEAN CORPUSCULAR VOLUME 85.8 fl (80.0-96.0); RED CELL DISTRIBUTION WIDTH 12.6 % (11.5-14.5); WHITE BLOOD COUNT 6.4 K/mm3 (4.0-10.0)
[2016-09-05 06:30] LABS: ANION GAP 8 MEQ/L (8-16); BLOOD UREA NITROGEN 37 MG/DL (7-18); CALCIUM LEVEL 9.1 MG/DL (8.8-10.2); CARBON DIOXIDE LEVEL 29 MEQ/L (21-32); CHLORIDE LEVEL 103 MEQ/L (98-107); CREATININE FOR GFR 0.88 MG/DL (0.70-1.30); GLOMERULAR FILTRATION RATE > 60.0 (>42); GLUCOSE, FASTING 105 MG/DL (83-110); POTASSIUM SERUM 3.8 MEQ/L (3.5-5.1); SODIUM LEVEL 140 MEQ/L (136-145)
[2016-09-05 08:00] VITALS: BP 132/72
[2016-09-05] MEDS: ASPIRIN 81 MG ENTERIC TAB PO SCH (09:42)
[2016-09-05] MEDS: HumaLOG INSULIN (NovoLOG) PER UNIT SC SCH ×4 (09:42→20:22)
[2016-09-05] MEDS: MULTIVITAMINS/MINERALS THERAP 1 TAB PO SCH (09:43)
[2016-09-05] MEDS: DOCUSATE SODIUM 100 MG CAP PO SCH ×2 (09:43→20:24)
[2016-09-05 12:00] VITALS: BP 128/70
--- NOTE | 2016-09-05 14:18 | IPNPDOC ---
Text Note Date of Service The patient was seen on 09/05/16. NOTE Subjective: Patient is a 76 year old male with a PMHx of HTN, DLP, DM2, Dementia, who presented to the ER with complaints of frequent falls (at least 3) for the last 3-4 weeks. He had a recent history of right rib fractures because of a fall. He notes that he does not have any LOC or symptoms with the falls. Patient denied chest pain or head trauma. Patient was seen and examined at the bedside. Objective: Vitals (See below) General: Lying in bed, no acute distress, comfortable, AAOx3 HEENT: NC, AT CVS: RRR, +S1S2 Lungs: Fair air entry b/l, -e/r/r Abdomen: Soft, ND, NT, +BSx4 Extremities: +PPx4, - edema, - calf tenderness Neuro: 5/5 strength in upper / lower extremities bilaterally Assessment and plan: 1. Frequent falls - possibly 2/2 arachnoid cyst, possibly 2/2 electrolyte / vitamin deficiency, possibly 2/2 dehydration - Presented with at least 3 falls over 1 month duration - Physical reveals no focal weakness - Orthostatic vital signs have been negative; however was hypotensive in ER - Vitamin D level low - CT reveals arachnoid cyst; MRI 09/04 revealed 4.4*5.3*4.1 cm arachnoid cyst in posterior right parietal lobe - Discussed case with Dr. Davis - will get [facility] MRI to evaluate CSF flow; base on imaging will determine need for intervention - Will supplement vitamin D orally 2. Acute kidney injury - likely 2/2 pre-renal etiology - Cr has trended back to normal - s/p IV fluid hydration 3. Hypotension - possibly 2/2 dehydration - s/p IV fluid hydration 4. DM2 - A1c of 6.3 - c/w ISS 5. DLP - c/w simvastatin 6. HTN - BP is now hypertensive - will restart BP medications; only Lisinopril 10 mg PO at this time 7. Dementia - Will restart memantine 8. Subclinical hyperthyroidism 9. DVT prophylaxis - will c/w SCDs VS,Fishbone, I+O VS, Fishbone, I+O Laboratory Tests 09/05/16 06:01 Calcium Level 9.1, Red Blood Count 4.60, Mean Corpuscular Volume 85.8, Mean Corpuscular Hemoglobin 29.2, Mean Corpuscular Hemoglobin Concent 34.0, Red Cell Distribution Width 12.6 Vital Signs Date Time Temp Pulse Resp B/P Pulse Ox O2 Delivery O2 Flow Rate FiO2 09/05/16 08:00 96.8 55 18 132/72 98 Room Air I&O- Last 24 Hours up to 6 AM 09/05/16 06:00 Intake Total 600 ml Output Total 1775 ml Balance -1175 ml RAMBO GIBBS MD Sep 05, 2016 14:18
[2016-09-05] MEDS: LISINOPRIL 10 MG TAB PO SCH (14:59)
[2016-09-05] MEDS: VITAMIN D 1,000 INTERNATIONAL UNITS TABLET PO SCH (14:59)
--- NOTE | 2016-09-05 15:34 | REP ---
MR CINE VIEWS: HISTORY: Arachnoid cyst. A 2D phase contrast CSF flow study was performed with a velocity encoding of 10 cm per second. CSF flow is present in the pre-pontine and medullary cisterns , [place] of [place] and outlet foramina. CSF flow is present in the subarachnoid space posterior to the cerebellar tonsils and in the anterior and posterior subarachnoid space at the cervicomedullary junction. The CSF flow appears normal. IMPRESSION: CSF flow study as described above. Signed by Ren Mishra MD 09/05/2016 03:35 P
[2016-09-05 16:00] VITALS: BP 114/60
[2016-09-05 20:00] VITALS: BP 177/89
[2016-09-05] MEDS: MEMANTINE 5MG TABLET (NAMENDA) PO SCH (20:25)
[2016-09-05] MEDS: SIMVASTATIN 20 MG TAB PO SCH (20:25)
[2016-09-06 05:38] LABS: MEAN CORPUSCULAR HGB CONC 33.9 g/dl (32.0-36.5); MEAN CORPUSCULAR VOLUME 85.4 fl (80.0-96.0); RED CELL DISTRIBUTION WIDTH 12.6 % (11.5-14.5); WHITE BLOOD COUNT 5.6 K/mm3 (4.0-10.0)
[2016-09-06 05:46] LABS: ANION GAP 8 MEQ/L (8-16); BLOOD UREA NITROGEN 21 MG/DL (7-18); CALCIUM LEVEL 8.8 MG/DL (8.8-10.2); CARBON DIOXIDE LEVEL 29 MEQ/L (21-32); CHLORIDE LEVEL 104 MEQ/L (98-107); GLOMERULAR FILTRATION RATE > 60.0 (>42); GLUCOSE, FASTING 111 MG/DL (83-110); POTASSIUM SERUM 3.4 MEQ/L (3.5-5.1); SODIUM LEVEL 141 MEQ/L (136-145)
[2016-09-06] MEDS: HumaLOG INSULIN (NovoLOG) PER UNIT SC SCH ×4 (07:40→21:17)
[2016-09-06] MEDS ORDERED: POTASSIUM CHLORIDE 10 MEQ SR TABLET PO ONE (07:45)
[2016-09-06 07:55] VITALS: BP 123/71
[2016-09-06] MEDS: VITAMIN D 1,000 INTERNATIONAL UNITS TABLET PO SCH (09:45)
[2016-09-06] MEDS: ASPIRIN 81 MG ENTERIC TAB PO SCH (09:45)
[2016-09-06] MEDS: LISINOPRIL 10 MG TAB PO SCH (09:45)
[2016-09-06] MEDS: DOCUSATE SODIUM 100 MG CAP PO SCH ×2 (09:46→21:12)
[2016-09-06] MEDS: MULTIVITAMINS/MINERALS THERAP 1 TAB PO SCH (09:46)
[2016-09-06 12:00] VITALS: BP 111/64
--- NOTE | 2016-09-06 13:00 | IPNPDOC ---
Text Note Date of Service The patient was seen on 09/06/16. NOTE Subjective: Patient is a 76 year old male with a PMHx of HTN, DLP, DM2, Dementia, who presented to the ER with complaints of frequent falls (at least 3) for the last 3-4 weeks. He had a recent history of right rib fractures because of a fall. He notes that he does not have any LOC or symptoms with the falls. Patient denied chest pain or head trauma. Patient was seen and examined at the bedside. Patient's daughter was available at the bedside. Patient has no concerns today. I have answered all of their questions at the bedside. Objective: Vitals (See below) General: Lying in bed, no acute distress, comfortable, AAOx3 HEENT: NC, AT CVS: RRR, +S1S2 Lungs: Fair air entry b/l, -e/r/r Abdomen: Soft, ND, NT, +BSx4 Extremities: +PPx4, - edema, - calf tenderness Neuro: 5/5 strength in upper / lower extremities bilaterally Assessment and plan: 1. Frequent falls - possibly 2/2 arachnoid cyst with compression of adjacent parietal lobe, possibly 2/2 electrolyte / vitamin deficiency, possibly 2/2 dehydration - Presented with at least 3 falls over 1 month duration - Physical reveals no focal weakness - Orthostatic vital signs have been negative; however was hypotensive in ER - Vitamin D level low - CT reveals arachnoid cyst; MRI 09/04 revealed 4.4*5.3*4.1 cm arachnoid cyst in posterior right parietal lobe - Discussed with Dr. Davis - will get Cisternogram completed on Friday ( pending arrival of intrathecal contrast) - Risks and benefits have been expressed to the patient by Dr. Davis - Will consult Neurology (Dr. Hanna) - appreciate their input - c/w vitamin D supplementation orally - Will continue with physical therapy 2. Acute kidney injury - likely 2/2 pre-renal etiology - Cr has trended back to normal - s/p IV fluid hydration 3. Hypotension - possibly 2/2 dehydration - s/p IV fluid hydration 4. DM2 - A1c of 6.3 - c/w ISS 5. DLP - c/w simvastatin 6. HTN - BP well controlled - c/w Lisinopril 10 mg PO at this time 7. Dementia - c/w memantine 8. Subclinical hyperthyroidism 9. DVT prophylaxis - c/w SCDs VS,Fishbone, I+O VS, Fishbone, I+O Laboratory Tests 09/06/16 05:15 Calcium Level 8.8, Red Blood Count 4.67, Mean Corpuscular Volume 85.4, Mean Corpuscular Hemoglobin 29.0, Mean Corpuscular Hemoglobin Concent 33.9, Red Cell Distribution Width 12.6 Vital Signs Date Time Temp Pulse Resp B/P Pulse Ox O2 Delivery O2 Flow Rate FiO2 09/06/16 09:45 123/71 09/06/16 07:55 96.6 73 20 98 Room Air I&O- Last 24 Hours up to 6 AM 09/06/16 06:00 Intake Total 2490 ml Output Total 3100 ml Balance -610 ml RAMBO GIBBS MD Sep 06, 2016 13:00
[2016-09-06 16:15] VITALS: BP 109/56
[2016-09-06 18:40] VITALS: BP 136/71
[2016-09-06] MEDS: NS 1,000 ML IV SCH (19:35)
[2016-09-06] MEDS: SIMVASTATIN 20 MG TAB PO SCH (21:12)
[2016-09-06] MEDS: MEMANTINE 5MG TABLET (NAMENDA) PO SCH (21:12)
[2016-09-06 22:00] VITALS: BP_SYST 139; BP_SYST 142; BP_SYST 151; BP_DIAS 72; BP_DIAS 77
--- NOTE | 2016-09-07 00:19 | EDDOCDS ---
Physician Documentation [facility] Name: Ravin Palencia Age: 76 yrs Sex: Male : 1940 Arrival Date: 09/04/2016 Time: 11:33 Bed Admit Hold Private MD: Ray King M.D. Disposition: 09/04/16 14:13 Hospitalization ordered by Marisela Abdullahi for Inpatient Admission. Preliminary diagnosis are Gastrointestinal hemorrhage, unspecified, Hypotension, Bradycardia, unspecified, Abrasion, left knee, Abnormal brain scan - likely arachnoid cyst. - Bed requested for PCU. - Status is Inpatient Admission. sls1 - Condition is Stable. - Problem is new. - Symptoms are unchanged. Historical: - Allergies: no known allergies; - Home Meds: 1. metformin 500 mg Oral tab 1 tab 2 times per day (Last dose: Unknown) 2. lisinopril 10 mg Oral tab 1 tab once daily (Last dose: Unknown) 3. hydrochlorothiazide 12.5 mg Oral cap 6.25 mg once daily (Last dose: Unknown) 4. simvastatin 20 mg Oral tab 1 tab once daily (Last dose: Unknown) 5. Namenda XR 28 mg oral CSpX 1 cap once daily (Last dose: Unknown) - PMHx: Hypertension; Hypercholesterolemia; Dementia; - PSHx: Knee surgery- Right; - Social history: Smoking status: Patient states former smoker of tobacco. No barriers to communication noted. - : The pt / caregiver states he / she is not on anticoagulants. Home medication list is obtained from patients' pharmacy. - Exposure Risk Screening:: None identified. Vital Signs: 09/04 11:45 BP 92 / 53 (auto/); ml6 11:45 Pulse 54 MON; Resp 16; Temp 97.4(O); Pulse Ox 98% on R/A; Weight 83.91 kg / 184.99 lbs ml6 (R); Height 5 ft. 9 in. (175.26 cm) (R); Pain 0/10; 12:01 BP 91 / 50 (auto/); ml6 12:01 Pulse 50 MON; Resp 16; Pulse Ox 99% on R/A; ml6 12:16 BP 99 / 73 (auto/); ml6 12:16 Pulse 57 MON; Resp 16; Pulse Ox 97% on R/A; ml6 12:23 BP 92 / 54 (auto/); ml6 12:23 Pulse 49 MON; Resp 16; Pulse Ox 98% on R/A; Pain 0/10; ml6 12:28 BP 125 / 68 (auto/); ml6 12:28 Pulse 51; Resp 16; Pulse Ox 94% on R/A; ml6 12:33 BP 112 / 57 (auto/); ml6 12:33 Pulse 50; Resp 16; Pulse Ox 98% on R/A; ml6 12:38 BP 95 / 51 (auto/); ml6 12:38 Pulse 48; Resp 16; Pulse Ox 97% on R/A; ml6 12:58 BP 85 / 53 (auto/); ml6 12:58 Pulse 51 MON; Resp 16; Pulse Ox 97% on R/A; ml6 13:03 BP 85 / 52 (auto/); ml6 13:03 Pulse 50 MON; Resp 16; Pulse Ox 96% on R/A; ml6 13:08 BP 88 / 53 (auto/); ml6 13:08 Pulse 50 MON; Resp 16; Pulse Ox 98% on R/A; ml6 13:13 BP 86 / 52 (auto/); ml6 13:13 Pulse 50 MON; Resp 16; Pulse Ox 98% on R/A; Pain 0/10; ml6 13:18 BP 74 / 45 (auto/); ml6 13:18 Pulse 52 MON; Resp 16; Pulse Ox 98% on R/A; Pain 0/10; ml6 13:23 BP 73 / 43 (auto/); ml6 13:23 Pulse 50 MON; Resp 16; Pulse Ox 97% on R/A; ml6 13:28 BP 73 / 40 (auto/); ml6 13:28 Pulse 50 MON; Resp 16; Pulse Ox 94% on R/A; Pain 0/10; ml6 13:38 BP 81 / 45 (auto/); ml6 13:38 Pulse 52 MON; Resp 16; Pulse Ox 97% on R/A; ml6 13:48 BP 105 / 57 (auto/); ml6 13:48 Pulse 61 MON; Resp 16; Pulse Ox 98% on R/A; Pain 0/10; ml6 14:30 BP 109 / 62 (auto/); ml6 16:29 BP 130 / 65 (auto/); sls1 16:31 Pulse 60 MON; Pulse Ox 97% ; sls1 20:28 BP 106 / 56 (auto/); sls1 20:30 Pulse 52 MON; Pulse Ox 93% ; sls1 11:45 Body Mass Index 27.32 (83.91 kg, 175.26 cm) ml6 MDM: 11:43 ECG WITH READING ER PHYS+CARDIAG ordered. 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 ml6 11:43 IV Saline Lock ordered. ml6 11:43 Oxygen at 4L/Min NC or Home dosage ordered. ml6 11:43 Rhythm Strip to chart ordered. ml6 11:44 CBC with Diff Ordered. EDMS 11:44 Cardiac Injury Profile Ordered. EDMS 11:44 Liver Profile Ordered. EDMS 11:44 MED Profile Ordered. EDMS 11:44 Thyroid Stimulating Hormone Ordered. EDMS 11:44 Troponin Ordered. EDMS 11:46 Chest, 1 View Ordered. EDMS 12:18 NS 0.9% 500 ml IV at bolus once ordered. br1 12:18 Atropine 0.5 mg IVP once ordered. br1 12:18 CT Head Without Contrast Ordered. EDMS 12:18 PT/INR Ordered. EDMS 12:18 PTT Ordered. EDMS 12:19 Knee, Complete Ordered. EDMS 12:19 Type & Screen Ordered. EDMS 12:38 Financial registration complete. lg 12:51 [facility] [place] was scanned into [employer] and attached to record. lg 13:36 CBC with Diff Reviewed. br1 13:36 Cardiac Injury Profile Reviewed. br1 13:36 MED Profile Reviewed. br1 13:36 Thyroid Stimulating Hormone Reviewed. br1 13:36 Liver Profile Reviewed. br1 13:36 Troponin Reviewed. br1 13:36 Type & Screen Reviewed. br1 13:36 PT/INR Reviewed. br1 13:36 PTT Reviewed. br1 13:36 EKG-ADULT Reviewed. br1 13:36 Chest, 1 View Reviewed. br1 13:36 CT Head Without Contrast Reviewed. br1 13:38 NS 0.9% 500 ml IV at bolus once ordered. br1 13:38 BED REQUEST+ADM ordered. EDMS 14:30 Admission / Observation Status ordered. EDMS 14:30 CONSISTENT CARBOHYDRATES ordered. EDMS 14:31 PHYSICAL THERAPY EVAL & TREAT ordered. EDMS 14:41 FREE T4 Ordered. EDMS 14:45 HEMOGLOBIN A1C Ordered. EDMS 14:46 MRI Brain W/O FOLL BY WITH Ordered. EDMS 14:48 URINALYSIS Ordered. EDMS 15:12 T-Sheet-- Draft Copy was scanned into [employer] and attached to record. gb 18:15 Fingerstick Blood Sugar Ordered. EDMS 19:31 COMPLETE BLOOD COUNT Ordered. EDMS 19:31 BASIC METABOLIC PROFILE Ordered. EDMS 20:45 Fingerstick Blood Sugar Ordered. EDMS Administered Medications: 12:19 Drug: NS 0.9% 500 ml [sodium chloride 0.9 % intravenous solution] Route: IV; Rate: ml6 bolus; Site: right forearm; 13:15 Follow up: IV Status: Completed infusion; Infusion discontinued; IV Intake: 500ml ml6 12:27 Drug: Atropine 0.5 mg [atropine 0.1 mg/mL injection syringe (5 mL)] Route: IVP; Site: ml6 right antecubital; 13:42 Drug: NS 0.9% 500 ml [sodium chloride 0.9 % intravenous solution] Route: IV; Rate: ml6 bolus; Site: right antecubital; 16:35 Follow up: IV Status: Completed infusion; Infusion discontinued; IV Intake: 500ml ml6 Signatures: Dispatcher [employer] EDMS Louise Jordan, RN RN daq Tari Wilson, Reg Reg gb Frantz Chou, Reg Reg lg Michael Irizarry MD MD br1 Wyatt Gómez RN RN ml6 Dawn Forrester RN RN sls1 The chart was reviewed and I authenticate all verbal orders and agree with the evaluation and treatment provided.Corrections: (The following items were deleted from the chart) 14:41 14:36 FREE T4 ordered. EDMS EDMS 14:48 14:41 HEMOGLOBIN A1C ordered. EDMS EDMS Attachments: 12:51 [facility] [place] Agreement lg 15:12 T-Sheet-- Draft Copy gb Chart Complete MTDD
--- NOTE | 2016-09-07 00:19 | EDDOCDS ---
Physician Documentation [facility] Name: Ravin Palencia Age: 76 yrs Sex: Male : 1940 Arrival Date: 09/04/2016 Time: 11:33 Bed Admit Hold Private MD: Ray King M.D. Disposition: 09/04/16 14:13 Hospitalization ordered by Marisela Abdullahi for Inpatient Admission. Preliminary diagnosis are Gastrointestinal hemorrhage, unspecified, Hypotension, Bradycardia, unspecified, Abrasion, left knee, Abnormal brain scan - likely arachnoid cyst. - Bed requested for PCU. - Status is Inpatient Admission. sls1 - Condition is Stable. - Problem is new. - Symptoms are unchanged. Historical: - Allergies: no known allergies; - Home Meds: 1. metformin 500 mg Oral tab 1 tab 2 times per day (Last dose: Unknown) 2. lisinopril 10 mg Oral tab 1 tab once daily (Last dose: Unknown) 3. hydrochlorothiazide 12.5 mg Oral cap 6.25 mg once daily (Last dose: Unknown) 4. simvastatin 20 mg Oral tab 1 tab once daily (Last dose: Unknown) 5. Namenda XR 28 mg oral CSpX 1 cap once daily (Last dose: Unknown) - PMHx: Hypertension; Hypercholesterolemia; Dementia; - PSHx: Knee surgery- Right; - Social history: Smoking status: Patient states former smoker of tobacco. No barriers to communication noted. - : The pt / caregiver states he / she is not on anticoagulants. Home medication list is obtained from patients' pharmacy. - Exposure Risk Screening:: None identified. Vital Signs: 09/04 11:45 BP 92 / 53 (auto/); ml6 11:45 Pulse 54 MON; Resp 16; Temp 97.4(O); Pulse Ox 98% on R/A; Weight 83.91 kg / 184.99 lbs ml6 (R); Height 5 ft. 9 in. (175.26 cm) (R); Pain 0/10; 12:01 BP 91 / 50 (auto/); ml6 12:01 Pulse 50 MON; Resp 16; Pulse Ox 99% on R/A; ml6 12:16 BP 99 / 73 (auto/); ml6 12:16 Pulse 57 MON; Resp 16; Pulse Ox 97% on R/A; ml6 12:23 BP 92 / 54 (auto/); ml6 12:23 Pulse 49 MON; Resp 16; Pulse Ox 98% on R/A; Pain 0/10; ml6 12:28 BP 125 / 68 (auto/); ml6 12:28 Pulse 51; Resp 16; Pulse Ox 94% on R/A; ml6 12:33 BP 112 / 57 (auto/); ml6 12:33 Pulse 50; Resp 16; Pulse Ox 98% on R/A; ml6 12:38 BP 95 / 51 (auto/); ml6 12:38 Pulse 48; Resp 16; Pulse Ox 97% on R/A; ml6 12:58 BP 85 / 53 (auto/); ml6 12:58 Pulse 51 MON; Resp 16; Pulse Ox 97% on R/A; ml6 13:03 BP 85 / 52 (auto/); ml6 13:03 Pulse 50 MON; Resp 16; Pulse Ox 96% on R/A; ml6 13:08 BP 88 / 53 (auto/); ml6 13:08 Pulse 50 MON; Resp 16; Pulse Ox 98% on R/A; ml6 13:13 BP 86 / 52 (auto/); ml6 13:13 Pulse 50 MON; Resp 16; Pulse Ox 98% on R/A; Pain 0/10; ml6 13:18 BP 74 / 45 (auto/); ml6 13:18 Pulse 52 MON; Resp 16; Pulse Ox 98% on R/A; Pain 0/10; ml6 13:23 BP 73 / 43 (auto/); ml6 13:23 Pulse 50 MON; Resp 16; Pulse Ox 97% on R/A; ml6 13:28 BP 73 / 40 (auto/); ml6 13:28 Pulse 50 MON; Resp 16; Pulse Ox 94% on R/A; Pain 0/10; ml6 13:38 BP 81 / 45 (auto/); ml6 13:38 Pulse 52 MON; Resp 16; Pulse Ox 97% on R/A; ml6 13:48 BP 105 / 57 (auto/); ml6 13:48 Pulse 61 MON; Resp 16; Pulse Ox 98% on R/A; Pain 0/10; ml6 14:30 BP 109 / 62 (auto/); ml6 16:29 BP 130 / 65 (auto/); sls1 16:31 Pulse 60 MON; Pulse Ox 97% ; sls1 20:28 BP 106 / 56 (auto/); sls1 20:30 Pulse 52 MON; Pulse Ox 93% ; sls1 11:45 Body Mass Index 27.32 (83.91 kg, 175.26 cm) ml6 MDM: 11:43 ECG WITH READING ER PHYS+CARDIAG ordered. 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 ml6 11:43 IV Saline Lock ordered. ml6 11:43 Oxygen at 4L/Min NC or Home dosage ordered. ml6 11:43 Rhythm Strip to chart ordered. ml6 11:44 CBC with Diff Ordered. EDMS 11:44 Cardiac Injury Profile Ordered. EDMS 11:44 Liver Profile Ordered. EDMS 11:44 MED Profile Ordered. EDMS 11:44 Thyroid Stimulating Hormone Ordered. EDMS 11:44 Troponin Ordered. EDMS 11:46 Chest, 1 View Ordered. EDMS 12:18 NS 0.9% 500 ml IV at bolus once ordered. br1 12:18 Atropine 0.5 mg IVP once ordered. br1 12:18 CT Head Without Contrast Ordered. EDMS 12:18 PT/INR Ordered. EDMS 12:18 PTT Ordered. EDMS 12:19 Knee, Complete Ordered. EDMS 12:19 Type & Screen Ordered. EDMS 12:38 Financial registration complete. lg 12:51 [facility] Agreement was scanned into [employer] and attached to record. lg 13:36 CBC with Diff Reviewed. br1 13:36 Cardiac Injury Profile Reviewed. br1 13:36 MED Profile Reviewed. br1 13:36 Thyroid Stimulating Hormone Reviewed. br1 13:36 Liver Profile Reviewed. br1 13:36 Troponin Reviewed. br1 13:36 Type & Screen Reviewed. br1 13:36 PT/INR Reviewed. br1 13:36 PTT Reviewed. br1 13:36 EKG-ADULT Reviewed. br1 13:36 Chest, 1 View Reviewed. br1 13:36 CT Head Without Contrast Reviewed. br1 13:38 NS 0.9% 500 ml IV at bolus once ordered. br1 13:38 BED REQUEST+ADM ordered. EDMS 14:30 Admission / Observation Status ordered. EDMS 14:30 CONSISTENT CARBOHYDRATES ordered. EDMS 14:31 PHYSICAL THERAPY EVAL & TREAT ordered. EDMS 14:41 FREE T4 Ordered. EDMS 14:45 HEMOGLOBIN A1C Ordered. EDMS 14:46 MRI Brain W/O FOLL BY WITH Ordered. EDMS 14:48 URINALYSIS Ordered. EDMS 15:12 T-Sheet-- Draft Copy was scanned into [employer] and attached to record. gb 18:15 Fingerstick Blood Sugar Ordered. EDMS 19:31 COMPLETE BLOOD COUNT Ordered. EDMS 19:31 BASIC METABOLIC PROFILE Ordered. EDMS 20:45 Fingerstick Blood Sugar Ordered. EDMS Administered Medications: 12:19 Drug: NS 0.9% 500 ml [sodium chloride 0.9 % intravenous solution] Route: IV; Rate: ml6 bolus; Site: right forearm; 13:15 Follow up: IV Status: Completed infusion; Infusion discontinued; IV Intake: 500ml ml6 12:27 Drug: Atropine 0.5 mg [atropine 0.1 mg/mL injection syringe (5 mL)] Route: IVP; Site: ml6 right antecubital; 13:42 Drug: NS 0.9% 500 ml [sodium chloride 0.9 % intravenous solution] Route: IV; Rate: ml6 bolus; Site: right antecubital; 16:35 Follow up: IV Status: Completed infusion; Infusion discontinued; IV Intake: 500ml ml6 Signatures: Dispatcher [employer] EDMS Louise Jordan, RN RN daq Tari Wilson, Reg Reg gb Frantz Chou, Reg Reg lg Michael Irizarry MD MD br1 Wyatt Gómez RN RN ml6 Dawn Forrester RN RN sls1 The chart was reviewed and I authenticate all verbal orders and agree with the evaluation and treatment provided.Corrections: (The following items were deleted from the chart) 14:41 14:36 FREE T4 ordered. EDMS EDMS 14:48 14:41 HEMOGLOBIN A1C ordered. EDMS EDMS Attachments: 12:51 [facility] [place] Agreement lg 15:12 T-Sheet-- Draft Copy gb Chart Complete MTDD
--- NOTE | 2016-09-07 00:19 | EDDOCDS ---
Nurse's Notes [facility] Name: Pete Palencia Age: 76 yrs Sex: Male : 1940 Arrival Date: 09/04/2016 Time: 11:33 Bed Admit Hold Private MD: Ray King M.D. Diagnosis: Gastrointestinal hemorrhage, unspecified;Hypotension;Bradycardia, unspecified;Abrasion, left knee;Abnormal brain scan-likely arachnoid cyst Presentation: 09/04 11:40 Presenting complaint: EMS states: states was up visiting at [facility], became disorient ml6 and fell x 3. Adult Sepsis Screening: Patient has new or worsening altered mentation (1 point). Patient's respiratory rate is less than 22. Systolic blood pressure is less than or equal to 100 (1 point). Patient has a qSOFA score of 2. No known or suspected infection- Negative Sepsis Screen. Suicide/Homicide risk assessment- the patient denies having any suicidal and/or homicidal ideations and does not present with any other emotional, behavioral or mental health complaints. Status: Patient is not a direct service worker or dependent. Transition of care: patient was not received from another setting of care. 11:40 Acuity: PORTER Level 2 ml6 11:40 Method Of Arrival: Ambulance ml6 Triage Assessment: 11:40 General: Appears in no apparent distress, Behavior is appropriate for age, cooperative. ml6 Pain: Denies pain. Neurological: No deficits noted. Level of Consciousness is awake, alert, Oriented to person, place, time. Cardiovascular: No deficits noted. Capillary refill < 3 seconds is brisk in bilateral fingers toes. Respiratory: No deficits noted. GI: No deficits noted. Musculoskeletal: Circulation, motion, and sensation intact Capillary refill < 3 seconds is brisk in bilateral fingers toes Range of motion intact in all extremities. No deformity noted Swelling absent Signs and Symptoms of Compartment Syndrome: no signs of compartment syndrome. Historical: - Allergies: no known allergies; - Home Meds: 1. metformin 500 mg Oral tab 1 tab 2 times per day (Last dose: Unknown) 2. lisinopril 10 mg Oral tab 1 tab once daily (Last dose: Unknown) 3. hydrochlorothiazide 12.5 mg Oral cap 6.25 mg once daily (Last dose: Unknown) 4. simvastatin 20 mg Oral tab 1 tab once daily (Last dose: Unknown) 5. Namenda XR 28 mg oral CSpX 1 cap once daily (Last dose: Unknown) - PMHx: Hypertension; Hypercholesterolemia; Dementia; - PSHx: Knee surgery- Right; - Social history: Smoking status: Patient states former smoker of tobacco. No barriers to communication noted. - : The pt / caregiver states he / she is not on anticoagulants. Home medication list is obtained from patients' pharmacy. - Exposure Risk Screening:: None identified. Screenin:47 Screening information is obtained from the patient. Fall risk: At risk due to apparent ml6 cognitive impairment, prior history of falls. Assistance ADL's: requires no assistance with activities of daily living. Abuse/DV Screen: The patient / caregiver reports he/she is: not in a situation that causes fear, pain or injury. Nutritional screening: No deficits noted. Advance Directives: Currently, there is no health care proxy. home support is adequate. Assessment: 11:40 General: Appears in no apparent distress, see triage assessment. ml6 12:40 General: Appears in no apparent distress, comfortable, Behavior is appropriate for age, ml6 cooperative. Pain: Denies pain. Neurological: Level of Consciousness is awake, alert, Oriented to person, place, time, It Senior Analyst are equal bilaterally Moves all extremities. Full function Gait is steady, Speech with expressive aphasia noted, Facial symmetry appears normal, Pupils are PERRLA, per daughter patient normally has expressive aphasia . 13:40 Reassessment: Patient appears in no apparent distress at this time. Patient denies pain ml6 at this time. Patient states feeling better. Patient states symptoms have improved. patient states that fatigue and weakness have improved after IVF. 14:40 Reassessment: Patient appears in no apparent distress at this time. Patient denies pain ml6 at this time. Patient states feeling better. Patient states symptoms have improved. no change from previous assessment. 15:40 General: Appears in no apparent distress, comfortable, Behavior is appropriate for age, ml6 cooperative. Pain: Denies pain. Neurological: No deficits noted. Level of Consciousness is awake, alert, Oriented to person, place, time, It Senior Analyst are equal bilaterally Moves all extremities. Full function Gait is steady, Speech with expressive aphasia noted. Cardiovascular: No deficits noted. Capillary refill < 3 seconds is brisk in bilateral fingers toes. Respiratory: No deficits noted. GI: No deficits noted. 16:29 General: patient transported to MRI. ml6 Vital Signs: 11:45 BP 92 / 53 (auto/); ml6 11:45 Pulse 54 MON; Resp 16; Temp 97.4(O); Pulse Ox 98% on R/A; Weight 83.91 kg (R); Height 5 ml6 ft. 9 in. (175.26 cm) (R); Pain 0/10; 12:01 BP 91 / 50 (auto/); ml6 12:01 Pulse 50 MON; Resp 16; Pulse Ox 99% on R/A; ml6 12:16 BP 99 / 73 (auto/); ml6 12:16 Pulse 57 MON; Resp 16; Pulse Ox 97% on R/A; ml6 12:23 BP 92 / 54 (auto/); ml6 12:23 Pulse 49 MON; Resp 16; Pulse Ox 98% on R/A; Pain 0/10; ml6 12:28 BP 125 / 68 (auto/); ml6 12:28 Pulse 51; Resp 16; Pulse Ox 94% on R/A; ml6 12:33 BP 112 / 57 (auto/); ml6 12:33 Pulse 50; Resp 16; Pulse Ox 98% on R/A; ml6 12:38 BP 95 / 51 (auto/); ml6 12:38 Pulse 48; Resp 16; Pulse Ox 97% on R/A; ml6 12:58 BP 85 / 53 (auto/); ml6 12:58 Pulse 51 MON; Resp 16; Pulse Ox 97% on R/A; ml6 13:03 BP 85 / 52 (auto/); ml6 13:03 Pulse 50 MON; Resp 16; Pulse Ox 96% on R/A; ml6 13:08 BP 88 / 53 (auto/); ml6 13:08 Pulse 50 MON; Resp 16; Pulse Ox 98% on R/A; ml6 13:13 BP 86 / 52 (auto/); ml6 13:13 Pulse 50 MON; Resp 16; Pulse Ox 98% on R/A; Pain 0/10; ml6 13:18 BP 74 / 45 (auto/); ml6 13:18 Pulse 52 MON; Resp 16; Pulse Ox 98% on R/A; Pain 0/10; ml6 13:23 BP 73 / 43 (auto/); ml6 13:23 Pulse 50 MON; Resp 16; Pulse Ox 97% on R/A; ml6 13:28 BP 73 / 40 (auto/); ml6 13:28 Pulse 50 MON; Resp 16; Pulse Ox 94% on R/A; Pain 0/10; ml6 13:38 BP 81 / 45 (auto/); ml6 13:38 Pulse 52 MON; Resp 16; Pulse Ox 97% on R/A; ml6 13:48 BP 105 / 57 (auto/); ml6 13:48 Pulse 61 MON; Resp 16; Pulse Ox 98% on R/A; Pain 0/10; ml6 14:30 BP 109 / 62 (auto/); ml6 16:29 BP 130 / 65 (auto/); sls1 16:31 Pulse 60 MON; Pulse Ox 97% ; sls1 20:28 BP 106 / 56 (auto/); sls1 20:30 Pulse 52 MON; Pulse Ox 93% ; sls1 11:45 Body Mass Index 27.32 (83.91 kg, 175.26 cm) ml6 Vitals: 11:51 Log In Time N/A - ambulance arrival. ml6 ED Course: 11:34 Patient visited by Christy Muhammad, Treating Machine Operator. lbd 11:34 Patient moved to Waiting lbd 11:35 Ray King is Private Physician. lbd 11:35 Patient moved to 3 lbd 11:41 Triage Initiated ml6 11:47 The patient / caregiver is instructed regarding the plan of care and ED course. Cardiac ml6 monitor on. Pulse ox on. NIBP on. 11:47 Inserted peripheral IV: 16gauge IV in left antecubital area and blood collected. ml6 Patient tolerated the procedure well. Inserted peripheral IV: 18gauge IV in right antecubital area and blood collected. Patient tolerated the procedure well. No procedures done that require assistance. Labs drawn. (by ED staff). Sent per order to lab. 11:49 Patient visited by Ambrocio Patel. jml1 11:49 EKG done. (by ED staff). Reviewed by Michael Irizarry MD. jml1 12:04 Michael Irizarry MD is Attending Physician. br1 12:17 Patient visited by Michael Irizarry MD. br1 12:47 EKG-ADULT Returned. EDMS 12:49 Patient name changed from Pete\S\\S\Palencia\S\ to Pete\S\T\S\Palencia. EDMS 12:51 Patient visited by Wyatt Gómez RN. ml6 12:51 [facility] [place] Agreement was scanned into [employer] and attached to record. lg 12:51 Chest, 1 View Returned. EDMS 13:14 Patient visited by Wyatt Gómez RN. ml6 13:34 CT Head Without Contrast Returned. EDMS 13:45 Patient visited by Wyatt Gómez RN. ml6 13:[address] ml6 13:48 Patient moved to 3 ek2 14:05 Marisela Abdullahi animal scientist. ys2 14:06 Patient visited by Michael Irizarry MD. br1 14:12 Marisela Abdullahi is Hospitalizing Provider. br1 15:12 T-Sheet-- Draft Copy was scanned into [employer] and attached to record. gb 15:48 Knee, Complete Returned. EDMS 16:28 Patient moved to 18 ml6 19:06 CT Head Without Contrast Returned. EDMS 19:07 MRI Brain W/O FOLL BY WITH Returned. EDMS 19:34 Patient moved to Admit Hold sls1 Administered Medications: 12:19 Drug: NS 0.9% 500 ml [sodium chloride 0.9 % intravenous solution] Route: IV; Rate: ml6 bolus; Site: right forearm; 13:15 Follow up: IV Status: Completed infusion; Infusion discontinued; IV Intake: 500ml ml6 12:27 Drug: Atropine 0.5 mg [atropine 0.1 mg/mL injection syringe (5 mL)] Route: IVP; Site: ml6 right antecubital; 13:42 Drug: NS 0.9% 500 ml [sodium chloride 0.9 % intravenous solution] Route: IV; Rate: ml6 bolus; Site: right antecubital; 16:35 Follow up: IV Status: Completed infusion; Infusion discontinued; IV Intake: 500ml ml6 Intake: 13:15 IV: 500.00ml; Total: 500.00ml. ml6 16:35 IV: 500.00ml; Total: 1000.00ml. ml6 Order Results: Lab Order: CBC with Diff; SPEC'M 09/04/16 11:46 Test: WHITE BLOOD COUNT; Value: 7.2; Range: 4.0-10.0; Units: K/mm3; Status: F Test: RED BLOOD COUNT; Value: 4.83; Range: 4.30-6.10; Units: M/mm3; Status: F Test: HEMOGLOBIN; Value: 14.0; Range: 14.0-18.0; Units: g/dl; Status: F Test: HEMATOCRIT; Value: 41.5; Range: 42.0-52.0; Abnormal: Below low normal; Units: %; Status: F Test: MEAN CORPUSCULAR VOLUME; Value: 85.9; Range: 80.0-96.0; Units: fl; Status: F Test: MEAN CORPUSCULAR HEMOGLOBIN; Value: 28.9; Range: 27.0-33.0; Units: pg; Status: F Test: MEAN CORPUSCULAR HGB CONC; Value: 33.6; Range: 32.0-36.5; Units: g/dl; Status: F Test: RED CELL DISTRIBUTION WIDTH; Value: 12.6; Range: 11.5-14.5; Units: %; Status: F Test: PLATELET COUNT, AUTOMATED; Value: 232; Range: 150-450; Units: k/mm3; Status: F Test: NEUTROPHILS %; Value: 72.0; Range: 36.0-66.0; Abnormal: Above high normal; Units: %; Status: F Test: LYMPH %; Value: 18.3; Range: 24.0-44.0; Abnormal: Below low normal; Units: %; Status: F Test: MONO %; Value: 5.7; Range: 0.0-5.0; Abnormal: Above high normal; Units: %; Status: F Test: EOS %; Value: 2.7; Range: 0.0-3.0; Units: %; Status: F Test: BASO %; Value: 0.4; Range: 0.0-1.0; Units: %; Status: F Test: LARGE UNSTAINED CELL %; Value: 1.0; Range: 0.0-4.0; Units: %; Status: F Test: NEUTROPHILS #; Value: 5.2; Range: 1.8-7.7; Units: K/mm3; Status: F Test: LYMPH #; Value: 1.4; Range: 1.5-4.5; Abnormal: Below low normal; Units: K/mm3; Status: F Test: MONO #; Value: 0.4; Range: 0.0-0.8; Units: K/mm3; Status: F Test: EOS #; Value: 0.2; Range: 0.0-0.50; Units: K/mm3; Status: F Test: BASO #; Value: 0.0; Range: 0.0-0.2; Units: K/mm3; Status: F Test: LARGE UNSTAINED CELL #; Value: 0.1; Range: 0.0-0.4; Units: K/mm3; Status: F Lab Order: Cardiac Injury Profile; SPEC'M 09/04/16 11:46 Test: CPK CREATINE PHOSPHOKINASE; Value: 208; Range: 39-308; Units: U/L; Status: F Test: CK-MB VALUE MASS; Value: 4.3; Range: 0.0-3.6; Abnormal: Above high normal; Units: NG/ML; Status: F Test: MB/CK RELATIVE INDEX; Value: 2.06; Range: < OR =4; Status: F Test Note: ; DIAGNOSIS CRITERIA MMB ng/ml Relative Index (RI) NON-AMI < or = 5 N/A [place] > 5 < or = 4 AMI > 5 > 4 Lab Order: Liver Profile; SPEC'M 09/04/16 11:46 Test: AST/SGOT; Value: 23; Range: 15-37; Units: U/L; Status: F Test: ALT/SGPT; Value: 30; Range: 12-78; Units: U/L; Status: F Test: ALKALINE PHOSPHATASE; Value: 84; Range: 45-117; Units: U/L; Status: F Test: BILIRUBIN,TOTAL; Value: 0.7; Range: 0.2-1.0; Units: MG/DL; Status: F Test: BILIRUBIN,DIRECT; Value: 0.1; Range: 0.0-0.2; Units: MG/DL; Status: F Test: TOTAL PROTEIN; Value: 7.5; Range: 6.4-8.2; Units: GM/DL; Status: F Test: ALBUMIN; Value: 3.8; Range: 3.2-5.2; Units: GM/DL; Status: F Test: ALBUMIN/GLOBULIN RATIO; Value: 1.03; Range: 1.00-1.93; Status: F Lab Order: MED Profile; 09/04/16 11:46 Test: GLUCOSE, FASTING; Value: 120; Range: 83-110; Abnormal: Above high normal; Units: MG/DL; Status: F Test: BLOOD UREA NITROGEN; Value: 50; Range: 7-18; Abnormal: Above high normal; Units: MG/DL; Status: F Test: CREATININE FOR GFR; Value: 1.58; Range: 0.70-1.30; Abnormal: Above high normal; Units: MG/DL; Status: F Test: GLOMERULAR FILTRATION RATE; Value: 45.7; Range: >42; Status: F Test: SODIUM LEVEL; Value: 140; Range: 136-145; Units: MEQ/L; Status: F Test: POTASSIUM SERUM; Value: 4.4; Range: 3.5-5.1; Units: MEQ/L; Status: F Test: CHLORIDE LEVEL; Value: 101; Range: 98-107; Units: MEQ/L; Status: F Test: CARBON DIOXIDE LEVEL; Value: 33; Range: 21-32; Abnormal: Above high normal; Units: MEQ/L; Status: F Test: ANION GAP; Value: 6; Range: 8-16; Abnormal: Below low normal; Units: MEQ/L; Status: F Test: CALCIUM LEVEL; Value: 9.0; Range: 8.8-10.2; Units: MG/DL; Status: F Test Note: ; Units are mL/min/1.73 m2 Chronic Kidney Disease Staging per NKF: Stage I & II GFR >=60 Normal to Mildly Decreased Stage III GFR 30-59 Moderately Decreased Stage IV GFR 15-29 Severely Decreased Stage V GFR <15 Very Little GFR Left ESRD GFR <15 on GLUER MACHINE SETUP OPERATOR Lab Order: Thyroid Stimulating Hormone; 09/04/16 11:46 Test: THYROID STIMULATING HORMONE; Value: 0.315; Range: 0.358-3.740; Abnormal: Below low normal; Units: uIU/ML; Status: F Lab Order: Troponin; 09/04/16 11:46 Test: TROPONIN I; Value: < 0.02; Range: < 0.10; Units: NG/ML; Status: F Test Note: ; Troponin I Reference Interval for Siemens Gray LOCI: 99th Percentile= 0.00-0.045 ng/ml Risk Stratification: <= 0.10 ng/ml Decreased Risk for Adverse Clinical Events. 0.10-1.50 ng/ml Increased Risk for Adverse Clinical Events. Evaluation of additional criterion and/or repeat testing in 2-6 hours is suggested to rule out myocardial damage. >= 1.50 ng/ml Indicative of Myocardial Injury. Lab Order: Type & Screen; [facility]09/04/16 11:46 Test: BLOOD TYPE; Value: O POS; Status: F Test: AB SCREEN (INDIRECT PAU)VIS; Value: NEGATIVE; Status: F Lab Order: PT/INR; [facility]09/04/16 11:46 Test: PROTHROMBIN TIME; Value: 12.8; Range: 12.3-14.5; Units: SECONDS; Status: F Test: INR; Value: 0.95; Status: F Test Note: ; THERAPUTIC HUMAN INR VALUES INDICATIONS NORMAL RANGES PROPHYLAXIS/TREATMENT OF: VENOUS THROMBOSIS 2.0-3.0 PULMONARY EMBOLISM 2.0-3.0 PREVENTION OF SYSTEMIC EMBOLISM FROM: TISSUE HEART VALVES 2.0-3.0 ACUTE MYOCARDIAL INFARCTION 2.0-3.0 VALVULAR HEART DISEASE 2.0-3.0 ATRIAL FIBRILLATION 2.0-3.0 MECHANICAL VALVES(HIGH RISK) 2.5-3.5 RECURRENT MYOCARDIAL INFARCTION 2.5-3.5 Lab Order: PTT; [facility] 09/04/16 11:46 Test: PARTIAL THROMBOPLASTIN TIME; Value: 27.6; Range: 26.6-37.1; Units: SECONDS; Status: F Lab Order: FREE T4; [facility] 09/04/16 11:46 Test: FREE T4; Value: 1.04; Range: 0.76-1.46; Units: NG/DL; Status: F Lab Order: HEMOGLOBIN A1C; [facility] 09/04/16 11:46 Test: HEMOGLOBIN A1c; Value: 6.3; Range: 4.5-6.2; Abnormal: Above high normal; Units: %; Status: F Test: ESTIMATED AVERAGE GLUCOSE; Value: 134; Range: 60-110; Abnormal: Above high normal; Units: MG/DL; Status: F Lab Order: Fingerstick Blood Sugar; SPEC'M 09/04/16 18:07 Test: BEDSIDE GLUCOSE; Value: 97; Range: 83-110; Units: MG/DL; Status: F Lab Order: Fingerstick Blood Sugar; SPEC'M 09/04/16 20:27 Test: BEDSIDE GLUCOSE; Value: 141; Range: 83-110; Abnormal: Above high normal; Units: MG/DL; Status: F Radiology Order: EKG-ADULT Test: EKG-ADULT REASON FOR EXAMINATION: hypotension; Stationary ECG Study; [facility] - ED; ; Test Date: 2016-09-04; Pat Name: PETE PALENCIA Department:; Room: -; Gender: M Analytical Strategist: JT; : 1940 Requested By: MICHAEL Nuñez; Order Number: [id number] Reading MD: Isaac Morales; Measurements; Intervals [place]; Rate: 46 P: 35; SC: 189 QRS: 1; QRSD: 105 T: 15; QT: 431; QTc: 381; Interpretive Statements; SINUS BRADYCARDIA; MODERATE VOLTAGE CRITERIA FOR LVH, CONSIDER NORMAL VARIANT; ANTEROLATERAL ST ELEVATION, INFERIOR ST DEPRESSION CONSIDER ACUTE INJURY; Electronically Signed On 09-04-2016 12:36:52 EST by Isaac Morales; Radiology Order: Chest, 1 View Test: Chest, 1 View REASON FOR EXAMINATION: CVA <4.5hrs; AP PORTABLE CHEST: 09/04/2016; ; Comparison: Right ribs 08/28/2016.; ; Clinical history: CVA less than 4.5 hours.; ; Findings: Lungs are well inflated. The CP angles sharply defined without; effusion, lateral pleural thickening or apical scarring. There is no definite; infiltrate. Some minor basilar fibrotic changes are seen. No gross; cardiomegaly, vascular redistribution or pulmonary edema. The aorta is mildly; tortuous but normal for age. Airway intact. There are degenerative changes in; the spine and shoulders.; ; Impression:; ; 1. Minor basilar fibrotic change without dense consolidation or effusion,; cardiomegaly, edema or other acute finding.; ; ; Signed by; Tj Perez MD 09/04/2016 12:48 P; Radiology Order: CT Head Without Contrast Test: CT Head Without Contrast REASON FOR EXAMINATION: CVA <4.5hrs; CT HEAD WITHOUT CONTRAST:; ; HISTORY: Infarction.; ; Areas of decreased attenuation are present in the periventricular white matter.; This represents small vessel ischemic disease. A 4.1 cm cystic lesion is present; in the right frontal and parietal lobes. There is mass effect with partial; effacement of the overlying cortical sulci. There is no intraparenchymal; hemorrhage or midline shift. The ventricular system and cortical sulci as well; as subarachnoid space in the posterior fossa are dilated consistent with mild; volume loss. There is no extracerebral collection. Mucosal thickening is; present in the ethmoid sinuses. A 3 mm osteoma is present in the right ethmoid; sinus.; ; IMPRESSION:; ; 1. Small vessel ischemic disease.; ; 2. Mild volume loss.; ; 3. There is a 4.1 cm cystic lesion in the right frontal and parietal lobes.; This most likely represents an arachnoid cyst, however, contrast enhanced CT or; MR may be helpful for further evaluation.; ; ; Signed by; Ren Mishra MD 09/04/2016 06:38 P; Radiology Order: Knee, Complete Test: Knee, Complete REASON FOR EXAMINATION: Trauma; LEFT KNEE SERIES, COMPLETE: 09/04/2016.; ; Clinical history: Trauma. Patient fell with knee contusion and pain.; ; Findings: No prior studies. [place] view shows narrowing of the patellofemoral; joint laterally and a few millimeters of lateral subluxation of the marginal; osteophytes patellofemoral joint calcifications and ossifications just above the; patella at its articular margin on the lateral view were a fabella is also seen.; There are small ossific densities posterior to the proximal tibiofibular; articulation and another along the posterior margin of the tibial plafond on the; lateral view. Medial compartment shows marginal osteophytes and tibial spine; spurs without joint space narrowing. The medial and lateral compartments are; without narrowing.; ; Impression:; ; 1. 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 This suggests chondromalacia. No definite joint; effusion. Some marginal osteophytes and small ossific densities adjacent to the; upper pole of the patella and posterior margin of the tibial plateau suggesting; avulsions or osteochondral defects, likewise 3-4 small calcifications along the; posterior margin of the proximal tibiofibular joint. No definite fractures.; ; ; Signed by; Tj Perez MD 09/04/2016 03:30 P; Radiology Order: MRI Brain W/O FOLL BY WITH Test: MRI Brain W/O FOLL BY WITH REASON FOR EXAMINATION: brain cystic lesion; MR BRAIN WITHOUT AND WITH CONTRAST:; ; HISTORY: Cystic lesion.; ; CONTRAST: ProHance 8 mL.; ; COMPARISON: CT 09/04/2016; ; Areas of increased signal intensity on T2 weighted images are present in the; periventricular and subcortical white matter. This represents small vessel; ischemic disease. There is no intraparenchymal hemorrhage, infarct or mass. The; ventricular system and cortical sulci are dilated consistent with mild volume; loss. An arachnoid cyst is present overlying the posterior right parietal lobe.; The arachnoid cyst measure 4.4 cm in transverse x 5.3 cm in AP x 4.1 cm in; cephalocaudal dimensions. There is mass effect on the adjacent right parietal; lobe without midline shift. There is no abnormal enhancement . There is no; extracerebral collection. Mucosal thickening is present in the maxillary and left; sphenoid sinuses.; ; IMPRESSION:; ; 1. Small vessel ischemic disease.; ; 2. Mild volume loss.; ; 3. There is an arachnoid cyst overlying the posterior right parietal lobe. There; is no midline shift.; ; ; Signed by; Ren Mishra MD 09/04/2016 06:43 P; Outcome: 14:13 Decision to Hospitalize by Provider. br1 23:18 Patient left the ED. sls1 Signatures: Dispatcher [employer] EDMS Christy Muhammad, Treating Machine Operator Unit lbd Tari Wilson, Reg Reg gb Frantz Chou, Reg Reg lg Michael Irizarry MD MD br1 Wyatt Gómez RN RN ml6 Dawn Forrester RN RN sls1 Ambrocio Patell1 Raf Esparza ek2 Marisela Abdullahi ys2 Chart Complete MTDD
[2016-09-07] MEDS: ACETAMINOPHEN TAB 650MG DOSE (2X325MG) PO PRN ×2 (00:50→22:32)
[2016-09-07 06:00] VITALS: BP_SYST 134; BP_SYST 141; BP_SYST 149; BP_DIAS 68; BP_DIAS 78
[2016-09-07 06:16] LABS: MEAN CORPUSCULAR HGB CONC 33.9 g/dl (32.0-36.5); MEAN CORPUSCULAR VOLUME 85.6 fl (80.0-96.0); RED CELL DISTRIBUTION WIDTH 12.6 % (11.5-14.5); WHITE BLOOD COUNT 5.8 K/mm3 (4.0-10.0)
[2016-09-07 06:20] LABS: ANION GAP 7 MEQ/L (8-16); BLOOD UREA NITROGEN 18 MG/DL (7-18); CALCIUM LEVEL 8.6 MG/DL (8.8-10.2); CARBON DIOXIDE LEVEL 28 MEQ/L (21-32); CHLORIDE LEVEL 107 MEQ/L (98-107); CREATININE FOR GFR 0.76 MG/DL (0.70-1.30); GLOMERULAR FILTRATION RATE > 60.0 (>42); GLUCOSE, FASTING 98 MG/DL (83-110); POTASSIUM SERUM 3.9 MEQ/L (3.5-5.1); SODIUM LEVEL 142 MEQ/L (136-145)
[2016-09-07] MEDS: HumaLOG INSULIN (NovoLOG) PER UNIT SC SCH ×4 (07:30→21:00)
[2016-09-07] MEDS: DOCUSATE SODIUM 100 MG CAP PO SCH ×2 (08:45→21:08)
[2016-09-07] MEDS: VITAMIN D 1,000 INTERNATIONAL UNITS TABLET PO SCH (08:46)
[2016-09-07] MEDS: ASPIRIN 81 MG ENTERIC TAB PO SCH (08:46)
[2016-09-07] MEDS: LISINOPRIL 10 MG TAB PO SCH (08:46)
[2016-09-07] MEDS: MULTIVITAMINS/MINERALS THERAP 1 TAB PO SCH (08:46)
--- NOTE | 2016-09-07 12:56 | IPNPDOC ---
Text Note Date of Service The patient was seen on 09/07/16. NOTE Subjective: Patient is a 76 year old male with a PMHx of HTN, DLP, DM2, Dementia, who presented to the ER with complaints of frequent falls (at least 3) for the last 3-4 weeks. He had a recent history of right rib fractures because of a fall. He notes that he does not have any LOC or symptoms with the falls. Patient denied chest pain or head trauma. Patient was seen and examined at the bedside. He has no concerns today - waiting for test to be performed on Friday. Objective: Vitals (See below) General: Lying in bed, no acute distress, comfortable, AAOx3 HEENT: NC, AT CVS: RRR, +S1S2 Lungs: Fair air entry b/l, -e/r/r Abdomen: Soft, ND, NT, +BSx4 Extremities: +PPx4, - edema, - calf tenderness Neuro: 5/5 strength in upper / lower extremities bilaterally Assessment and plan: 1. Frequent falls - possibly 2/2 arachnoid cyst with compression of adjacent parietal lobe, possibly 2/2 dehydration - Presented with at least 3 falls over 1 month duration - Physical reveals no focal weakness - Orthostatic vital signs have been negative; however was hypotensive in ER - CT reveals arachnoid cyst; MRI 09/04 revealed 4.4*5.3*4.1 cm arachnoid cyst in posterior right parietal lobe - Discussed with Dr. Davis - will get Cisternogram completed on Friday ( pending arrival of intrathecal contrast) - Risks and benefits have been expressed to the patient by Dr. Davis - Neurology (Dr. Hanna) will evaluate today - appreciate their input - c/w physical therapy 2. Vitamin D deficiency - c/w Vitamin D supplementation 2. s/p Acute kidney injury - likely 2/2 pre-renal etiology - Cr has trended back to normal - s/p IV fluid hydration 3. s/p Hypotension - possibly 2/2 dehydration - s/p IV fluid hydration 4. DM2 - A1c of 6.3 - c/w ISS 5. DLP - c/w simvastatin 6. HTN - BP well controlled - c/w Lisinopril 10 mg PO at this time 7. Dementia - c/w memantine 8. Subclinical hyperthyroidism 9. DVT prophylaxis - c/w SCDs VS,Fishbone, I+O VS, Fishbone, I+O Laboratory Tests 09/07/16 05:46 Calcium Level 8.6 L, Red Blood Count 4.44, Mean Corpuscular Volume 85.6, Mean Corpuscular Hemoglobin 29.0, Mean Corpuscular Hemoglobin Concent 33.9, Red Cell Distribution Width 12.6 Vital Signs Date Time Temp Pulse Resp B/P Pulse Ox O2 Delivery O2 Flow Rate FiO2 09/07/16 08:46 149/78 09/07/16 06:00 58 61 70 09/07/16 06:00 97.6 19 97 Room Air I&O- Last 24 Hours up to 6 AM 09/07/16 06:00 Intake Total 2620 ml Output Total 1775 ml Balance 845 ml RAMBO GIBBS MD Sep 07, 2016 12:56
[2016-09-07 14:00] VITALS: BP_SYST 123; BP_SYST 125; BP_SYST 137; BP_DIAS 62; BP_DIAS 63; BP_DIAS 69
[2016-09-07] MEDS: SIMVASTATIN 20 MG TAB PO SCH (21:08)
[2016-09-07] MEDS: MEMANTINE 5MG TABLET (NAMENDA) PO SCH (21:09)
[2016-09-07 22:00] VITALS: BP_SYST 159; BP_SYST 172; BP_SYST 178; BP_DIAS 82; BP_DIAS 86; BP_DIAS 89
[2016-09-08 06:00] VITALS: BP_SYST 158; BP_SYST 164; BP_SYST 178; BP_DIAS 83; BP_DIAS 88; BP_DIAS 90
[2016-09-08 06:38] LABS: MEAN CORPUSCULAR HEMOGLOBIN 29.1 pg (27.0-33.0); MEAN CORPUSCULAR HGB CONC 34.2 g/dl (32.0-36.5); MEAN CORPUSCULAR VOLUME 85.2 fl (80.0-96.0); RED CELL DISTRIBUTION WIDTH 12.5 % (11.5-14.5); WHITE BLOOD COUNT 5.6 K/mm3 (4.0-10.0)
[2016-09-08 07:03] LABS: ANION GAP 7 MEQ/L (8-16); BLOOD UREA NITROGEN 15 MG/DL (7-18); CALCIUM LEVEL 8.5 MG/DL (8.8-10.2); CARBON DIOXIDE LEVEL 27 MEQ/L (21-32); CHLORIDE LEVEL 107 MEQ/L (98-107); GLOMERULAR FILTRATION RATE > 60.0 (>42); GLUCOSE, FASTING 101 MG/DL (83-110); POTASSIUM SERUM 3.7 MEQ/L (3.5-5.1); SODIUM LEVEL 141 MEQ/L (136-145); TOTAL PROTEIN 6.8 GM/DL (6.4-8.2)
[2016-09-08] MEDS: HumaLOG INSULIN (NovoLOG) PER UNIT SC SCH ×4 (07:30→20:25)
[2016-09-08] MEDS: LISINOPRIL 10 MG TAB PO SCH (09:54)
[2016-09-08] MEDS: MULTIVITAMINS/MINERALS THERAP 1 TAB PO SCH (09:54)
[2016-09-08] MEDS: ASPIRIN 81 MG ENTERIC TAB PO SCH (09:54)
[2016-09-08] MEDS: DOCUSATE SODIUM 100 MG CAP PO SCH ×2 (09:54→20:23)
[2016-09-08] MEDS: VITAMIN D 1,000 INTERNATIONAL UNITS TABLET PO SCH (09:54)
--- NOTE | 2016-09-08 13:10 | IPNPDOC ---
Text Note Date of Service The patient was seen on 09/08/16. NOTE Subjective: Patient is a 76 year old male with a PMHx of HTN, DLP, DM2, Dementia, who presented to the ER with complaints of frequent falls (at least 3) for the last 3-4 weeks. He had a recent history of right rib fractures because of a fall. He notes that he does not have any LOC or symptoms with the falls. Patient denied chest pain or head trauma. Patient was seen and examined at the bedside. Patient wants to be taken off of fall precautions so that he can walk. Objective: Vitals (See below) General: Lying in bed, no acute distress, comfortable, AAOx3 HEENT: NC, AT CVS: RRR, +S1S2 Lungs: Fair air entry b/l, -e/r/r Abdomen: Soft, ND, NT, +BSx4 Extremities: +PPx4, - edema, - calf tenderness Assessment and plan: 1. Frequent falls - possibly 2/2 arachnoid cyst with compression of adjacent parietal lobe, possibly 2/2 dehydration - Presented with at least 3 falls over 1 month duration; found to be hypotensive in ER - Physical reveals no focal weakness - CT reveals arachnoid cyst; MRI 09/04 revealed 4.4*5.3*4.1 cm arachnoid cyst in posterior right parietal lobe - Neurosurgery (Dr. Davis) following - will get Cisternogram completed on Friday (pending arrival of intrathecal contrast) - Risks and benefits have been expressed to the patient by Dr. Davis - Neurology (Dr. Hanna) to evaluate - appreciate their input - c/w physical therapy 2. Vitamin D deficiency - c/w Vitamin D supplementation 2. s/p Acute kidney injury - likely 2/2 pre-renal etiology - Cr has trended back to normal - s/p IV fluid hydration 3. s/p Hypotension - possibly 2/2 dehydration - s/p IV fluid hydration 4. DM2 - A1c of 6.3 - c/w ISS 5. DLP - c/w simvastatin 6. HTN - BP well controlled - c/w Lisinopril 10 mg PO at this time 7. Dementia - c/w memantine 8. Subclinical hyperthyroidism 9. DVT prophylaxis - c/w SCDs Disposition: - Physical therapy recommends home with prior level of care - Advised that we can ambulate with assistance while inpatient Rafi KAT, I+O VS, Rafi I+O Laboratory Tests 09/08/16 06:09 Calcium Level 8.5 L, Red Blood Count 4.57, Mean Corpuscular Volume 85.2, Mean Corpuscular Hemoglobin 29.1, Mean Corpuscular Hemoglobin Concent 34.2, Red Cell Distribution Width 12.5 Vital Signs Date Time Temp Pulse Resp B/P Pulse Ox O2 Delivery O2 Flow Rate FiO2 09/08/16 09:54 158/90 09/08/16 06:00 96.8 59 19 98 Room Air I&O- Last 24 Hours up to 6 AM 09/08/16 06:00 Intake Total 1830 ml Output Total 2150 ml Balance -320 ml RAMBO GIBBS MD Sep 08, 2016 13:10
[2016-09-08 14:00] VITALS: BP 137/73
[2016-09-08] MEDS: MEMANTINE 5MG TABLET (NAMENDA) PO SCH (20:23)
[2016-09-08] MEDS: SIMVASTATIN 20 MG TAB PO SCH (20:23)
--- NOTE | 2016-09-08 20:52 | CR ---
DATE OF CONSULTATION: 09/08/2016 CONSULTATION REPORT FOR: Dr. Twyla Rowe REASON FOR CONSULTATION: Imbalance. HISTORY OF PRESENT ILLNESS: Mr. Palencia is a 76-year-old man with a history of hypertension, diabetes, and dementia who presented to [facility] due to three or four falls over the last two months. The patient states that he tends to go to his left side whenever he walks. He cannot walk straight. During his last fall, he felt that his leg started feeling weak and he fell to the ground. He has fallen three or four times over the last two months. He had a rib fracture in one of these falls. He denies any headaches, neck or back pain. He denies any loss of consciousness, seizures, dysphagia, dysarthria, diplopia or urinary incontinence. PAST MEDICAL HISTORY: 1. Type 2 diabetes. 2. Dyslipidemia. 3. Hypertension. 4. Dementia. CURRENT MEDICATIONS: - metformin 500 mg by mouth twice a day - lisinopril 10 mg by mouth daily - hydrochlorothiazide 6.25 mg by mouth daily - simvastatin 40 mg by mouth daily SOCIAL HISTORY: He quit smoking 11 years ago. He used to smoke one pack per day. He drinks one or two beers every week. He denies illicit drug use. FAMILY HISTORY: Father had dementia. ALLERGIES: None. REVIEW OF SYSTEMS: All systems were reviewed and were found to be noncontributory except as mentioned in the history present illness. PHYSICAL EXAMINATION: VITAL SIGNS: Temperature 97.6, pulse 58, respiratory 19, blood pressure 141/68, 97% saturation on room air. HEART: Regular rate and rhythm. LUNGS: Clear to auscultation. ABDOMEN: Soft, nontender, nondistended. EXTREMITIES: No pedal edema. Peripheral pulses are palpable. EARS, NOSE, AND THROAT: Examination is within normal limits. NEUROLOGIC EXAMINATION: The patient is awake, alert and oriented to place, person, month and president's name. He is unable to tell me the day, date and year. His speech is intact with normal comprehension and repetition. Extraocular muscles are intact. No facial weakness. Tongue and uvula are midline. He has 5/5 strength in all four extremities. Deep tendon flexes 2+ throughout. He has decreased cold, pinprick, vibration sensation in his feet. His gait is mildly unsteady. He cannot do tandem walking. There is no dysmetria. DIAGNOSTIC STUDIES: His CT scan of head and MRI scan of brain were reviewed and showed a 4 cm right parietal lobe cyst which most likely represents an arachnoid cyst which shows post central gyrus without any midline shift. There is no evidence of normal pressure hydrocephalus. ASSESSMENT: 1. Multifactorial gait difficulty. 2. Right parietal lobe arachnoid cyst which pushes on post central gyrus. 3. Suspected diabetic peripheral neuropathy. PLAN: 1. Check vitamin B12, serum copper, SPEP to rule out reversible causes, peripheral neuropathy and imbalance. 2. Surgical intervention for right arachnoid cyst and parietal lobe per discretion of Dr. Davis, his neurosurgeon. Cystic pleomorphic xanthoastrocytoma would be a less likely essential diagnosis for his right parietal lobe cyst. I do not see any evidence of normal pressure hydrocephalus. 3. Physical and occupational therapy along with use of his walker. Arachnoid cyst can affect his cortical sensations, coordination and depth perception. This may add to his gait difficulty. Edited: 09/08/2016, ashleigh
[2016-09-08 22:00] VITALS: BP 159/78
[2016-09-08] MEDS: ACETAMINOPHEN TAB 650MG DOSE (2X325MG) PO PRN (22:51)
[2016-09-09 05:57] LABS: MEAN CORPUSCULAR HEMOGLOBIN 29.3 pg (27.0-33.0); MEAN CORPUSCULAR HGB CONC 34.1 g/dl (32.0-36.5); MEAN CORPUSCULAR VOLUME 85.9 fl (80.0-96.0); RED CELL DISTRIBUTION WIDTH 12.6 % (11.5-14.5); WHITE BLOOD COUNT 6.4 K/mm3 (4.0-10.0)
[2016-09-09 06:00] VITALS: BP 149/79
[2016-09-09 06:17] LABS: ANION GAP 5 MEQ/L (8-16); BLOOD UREA NITROGEN 16 MG/DL (7-18); CALCIUM LEVEL 9.1 MG/DL (8.8-10.2); CARBON DIOXIDE LEVEL 31 MEQ/L (21-32); CHLORIDE LEVEL 108 MEQ/L (98-107); CREATININE FOR GFR 0.76 MG/DL (0.70-1.30); GLOMERULAR FILTRATION RATE > 60.0 (>42); GLUCOSE, FASTING 105 MG/DL (83-110); SODIUM LEVEL 144 MEQ/L (136-145)
[2016-09-09 06:19] LABS: POTASSIUM SERUM 5.5 MEQ/L (3.5-5.1)
[2016-09-09] MEDS: HumaLOG INSULIN (NovoLOG) PER UNIT SC SCH ×4 (08:04→21:00)
[2016-09-09 08:05] VITALS: BP 164/84
[2016-09-09] MEDS: DOCUSATE SODIUM 100 MG CAP PO SCH ×2 (08:05→21:22)
[2016-09-09] MEDS: MULTIVITAMINS/MINERALS THERAP 1 TAB PO SCH (08:05)
[2016-09-09] MEDS: VITAMIN D 1,000 INTERNATIONAL UNITS TABLET PO SCH (08:05)
[2016-09-09] MEDS: ASPIRIN 81 MG ENTERIC TAB PO SCH (08:05)
[2016-09-09] MEDS: LISINOPRIL 10 MG TAB PO SCH (08:05)
[2016-09-09 10:13] LABS: VITAMIN B12 LEVEL 465 PG/ML (247-911)
[2016-09-09 13:00] VITALS: BP 176/84
--- NOTE | 2016-09-09 13:30 | IPNPDOC ---
Text Note Date of Service The patient was seen on 09/09/16. NOTE Subjective: Patient is a 76 year old male with a PMHx of HTN, DLP, DM2, Dementia, who presented to the ER with complaints of frequent falls (at least 3) for the last 3-4 weeks. He had a recent history of right rib fractures because of a fall. He notes that he does not have any LOC or symptoms with the falls. Patient denied chest pain or head trauma. Patient was seen and examined at the bedside. Patient has no problems this morning. Objective: Vitals (See below) General: Lying in bed, no acute distress, comfortable, AAOx3 HEENT: NC, AT CVS: RRR, +S1S2 Lungs: Fair air entry b/l, -e/r/r Abdomen: Soft, ND, NT, +BSx4 Extremities: +PPx4, - edema, - calf tenderness Assessment and plan: 1. Frequent falls - possibly 2/2 arachnoid cyst with compression of adjacent parietal lobe, possibly 2/2 dehydration - Presented with at least 3 falls over 1 month duration; found to be hypotensive in ER - Physical reveals no focal weakness - CT reveals arachnoid cyst; MRI 09/04 revealed 4.4*5.3*4.1 cm arachnoid cyst in posterior right parietal lobe - Cisternogram will be started today - Risks and benefits have been expressed to the patient by Dr. Davis - Neurosurgery (Dr. Davis) following - c/w physical therapy 2. Dementia - possibly Alzheimer's - Evaluated by neurology - Neurology (Dr. Hanna) following - evaluating for reversible causes of dementia 3. Vitamin D deficiency - c/w Vitamin D supplementation 4. s/p Acute kidney injury - likely 2/2 pre-renal etiology - Cr has trended back to normal - s/p IV fluid hydration 5. s/p Hypotension - possibly 2/2 dehydration - s/p IV fluid hydration 6. DM2 - A1c of 6.3 - c/w ISS 7. DLP - c/w simvastatin 8. HTN - BP uncontrolled - Will increase Lisinopril to 40 mg PO at this time; with holding parameters 9. Dementia - c/w memantine 10. Subclinical hyperthyroidism 11. DVT prophylaxis - c/w SCDs Disposition: - Awaiting results of cisternogram to see if contrast does not drain from cyst as per Dr. Davis - Based on findings may require intervention VS,Fishbone, I+O VS, Fishbone, I+O Laboratory Tests 09/09/16 05:47 Calcium Level 9.1, Red Blood Count 4.50, Mean Corpuscular Volume 85.9, Mean Corpuscular Hemoglobin 29.3, Mean Corpuscular Hemoglobin Concent 34.1, Red Cell Distribution Width 12.6 Vital Signs Date Time Temp Pulse Resp B/P Pulse Ox O2 Delivery O2 Flow Rate FiO2 09/09/16 13:00 96.8 60 20 176/84 97 Room Air I&O- Last 24 Hours up to 6 AM 09/09/16 06:00 Intake Total 2640 ml Output Total 1100 ml Balance 1540 ml RAMBO GIBBS MD Sep 09, 2016 13:30
[2016-09-09 14:00] VITALS: BP 148/75
--- NOTE | 2016-09-09 16:36 | REP ---
Procedure: For guidance for lumbar puncture. History: Unsteady gait, dementia The procedure was performed under the direct supervision of Dr. Mishra. The risks and benefits of the procedure were explained and informed consent was obtained by the healthcare proxy. The L3-4 interspace was localized using fluoroscopic guidance. The skin was prepped and draped in a sterile fashion. 1% lidocaine was used as a local anesthetic. Using fluoroscopic guidance a 22-gauge spinal needle was inserted and advanced into the thecal sac. 12 ml of spinal fluid was withdrawn and sent to lab. The the patient tolerated the procedure well and there were no immediate complications. 22 seconds of fluoro time was utilized for this procedure. Reviewed by BEAR Webb 09/09/2016 04:25 PSigned by Ren Mishra MD 09/09/2016 04:28 P
[2016-09-09] MEDS: MEMANTINE 5MG TABLET (NAMENDA) PO SCH (21:21)
[2016-09-09] MEDS: SIMVASTATIN 20 MG TAB PO SCH (21:22)
[2016-09-09 22:00] VITALS: BP 149/72
[2016-09-09] MEDS: ACETAMINOPHEN TAB 650MG DOSE (2X325MG) PO PRN (23:06)
[2016-09-10 06:00] VITALS: BP 125/62
[2016-09-10 06:01] LABS: MEAN CORPUSCULAR HEMOGLOBIN 28.9 pg (27.0-33.0); MEAN CORPUSCULAR VOLUME 85.1 fl (80.0-96.0); RED CELL DISTRIBUTION WIDTH 12.5 % (11.5-14.5)
[2016-09-10 06:23] LABS: ANION GAP 7 MEQ/L (8-16); BLOOD UREA NITROGEN 14 MG/DL (7-18); CALCIUM LEVEL 8.4 MG/DL (8.8-10.2); CARBON DIOXIDE LEVEL 30 MEQ/L (21-32); CHLORIDE LEVEL 106 MEQ/L (98-107); CREATININE FOR GFR 0.78 MG/DL (0.70-1.30); GLOMERULAR FILTRATION RATE > 60.0 (>42); GLUCOSE, FASTING 100 MG/DL (83-110); POTASSIUM SERUM 3.9 MEQ/L (3.5-5.1); SODIUM LEVEL 143 MEQ/L (136-145)
[2016-09-10] MEDS: HumaLOG INSULIN (NovoLOG) PER UNIT SC SCH ×4 (07:30→20:21)
[2016-09-10 10:08] VITALS: BP 134/70
[2016-09-10] MEDS: ASPIRIN 81 MG ENTERIC TAB PO SCH (10:15)
[2016-09-10] MEDS: VITAMIN D 1,000 INTERNATIONAL UNITS TABLET PO SCH (10:15)
[2016-09-10] MEDS: LISINOPRIL 40 MG TAB PO SCH (10:15)
[2016-09-10] MEDS: MULTIVITAMINS/MINERALS THERAP 1 TAB PO SCH (10:15)
[2016-09-10] MEDS: DOCUSATE SODIUM 100 MG CAP PO SCH ×2 (10:15→20:34)
[2016-09-10 13:41] LABS: ALBUMIN 4.05 GM/DL (3.29-5.55); ALBUMIN % 59.6 % (55.8-66.1); GAMMA GLOBULIN % 13.3 % (11.1-18.8)
[2016-09-10 14:00] VITALS: BP 145/82
--- NOTE | 2016-09-10 14:08 | IPNPDOC ---
Subjective Date Seen The patient was seen on 09/10/16. Subjective Chief Complaint/HPI The patient is a 76-year-old male admitted with a reason for visit of FALL. General: Denies: Chills, Night Sweats Constitutional: Denies: Chills, Fever Eyes: Denies: Pain, Vision change ENT: Denies: Ear Pain, Head Aches Skin: Denies: Lesions, Rash Pulmonary: Denies: Cough, Dyspnea Cardiovascular: Denies: Chest Pain, Palpitations Gastrointestinal: Denies: Nausea, Vomiting Hematologic: Denies: Bleeding Excessively, Bruising Musculoskeletal: Denies: Back Pain, Neck Pain Objective Physical Examination General Exam: Positive: Alert, Cooperative, No Acute Distress ENT Exam: Positive: Atraumatic, Mucous membr. moist/pink Neck Exam: Negative: JVD Chest Exam: Positive: Clear to auscultation, Normal air movement Heart Exam: Positive: Normal S1, Normal S2, Rate Normal Abdomen Exam: Positive: Soft, Negative: Tenderness Extremity Exam: Negative: Swelling, Tenderness Neuro Exam: Positive: Strength at 5/5 X4 ext Assessment /Plan Plan/VTE VTE Prophylaxis Ordered?: Yes Plan 1. Frequent falls - possibly 2/2 arachnoid cyst with compression of adjacent parietal lobe versus dehydration CT Head revealed an arachnoid cyst; MRI 09/04 revealed 4.4 x 5.3 x 4.1 cm arachnoid cyst in posterior right parietal lobe Patient with no acute focal neurological deficits Cisternogram pending Dr. Davis of Neurosurgery Cleared by physical therapy Will f/u with Cisternogram results and NeuroSx recommends 2. Dementia - possibly Alzheimer's Dr. Hanna of Neurology on board for reversible causes of dementia 3. Vitamin D deficiency c/w Vitamin D supplementation 4. s/p Acute kidney injury - likely 2/2 pre-renal etiology, resolved 5. s/p Hypotension - possibly 2/2 dehydration s/p IV fluid hydration 6. DM2 A1c of 6.3 c/w ISS 7. DLP c/w simvastatin 8. HTN Cont Current Regimen 9. Dementia c/w memantine 10. Subclinical hyperthyroidism 11. DVT prophylaxis c/w SCDs Dispo: We will f/u with Cisternogram results and NeuroSx recommendations VS, I&O, 24H, Fishbone Vital Signs/I&O Vital Signs Date Time Temp Pulse Resp B/P Pulse Ox O2 Delivery O2 Flow Rate FiO2 09/10/16 10:08 63 134/70 09/10/16 06:00 96.6 18 96 Room Air I&O- Last 24 Hours up to 6 AM 09/10/16 06:00 Intake Total 1800 ml Output Total 300 ml Balance 1500 ml Laboratory Data 24H LABS Laboratory Tests 2 09/09/16 16:35: Bedside Glucose (Misc Panel) 108 09/09/16 20:55: Bedside Glucose (Misc Panel) 126H 09/10/16 05:41: Anion Gap 7L, Blood Urea Nitrogen 14, Creatinine 0.78, Sodium Level 143, Potassium Level 3.9#, Chloride Level 106, Carbon Dioxide Level 30, Calcium Level 8.4L, Glomerular Filtration Rate > 60.0 09/10/16 11:53: Bedside Glucose (Misc Panel) 104 CBC/BMP Laboratory Tests 09/10/16 05:41 Calcium Level 8.4 L, Red Blood Count 4.34, Mean Corpuscular Volume 85.1, Mean Corpuscular Hemoglobin 28.9, Mean Corpuscular Hemoglobin Concent 34.0, Red Cell Distribution Width 12.5 MIGUEL BIRMINGHAM MD Sep 10, 2016 14:08
[2016-09-10] MEDS: MEMANTINE 5MG TABLET (NAMENDA) PO SCH (20:34)
[2016-09-10] MEDS: SIMVASTATIN 20 MG TAB PO SCH (20:34)
[2016-09-10 22:00] VITALS: BP 149/72
[2016-09-10] MEDS: ACETAMINOPHEN TAB 650MG DOSE (2X325MG) PO PRN (23:31)
[2016-09-11 06:00] VITALS: BP 137/66
[2016-09-11 06:27] LABS: MEAN CORPUSCULAR HEMOGLOBIN 29.6 pg (27.0-33.0); MEAN CORPUSCULAR HGB CONC 34.3 g/dl (32.0-36.5); MEAN CORPUSCULAR VOLUME 86.3 fl (80.0-96.0); RED CELL DISTRIBUTION WIDTH 13.1 % (11.5-14.5); WHITE BLOOD COUNT 5.9 K/mm3 (4.0-10.0)
[2016-09-11 06:40] LABS: ANION GAP 7 MEQ/L (8-16); BLOOD UREA NITROGEN 21 MG/DL (7-18); CALCIUM LEVEL 8.3 MG/DL (8.8-10.2); CARBON DIOXIDE LEVEL 27 MEQ/L (21-32); CHLORIDE LEVEL 106 MEQ/L (98-107); CREATININE FOR GFR 0.72 MG/DL (0.70-1.30); GLOMERULAR FILTRATION RATE > 60.0 (>42); GLUCOSE, FASTING 98 MG/DL (83-110); POTASSIUM SERUM 3.9 MEQ/L (3.5-5.1); SODIUM LEVEL 140 MEQ/L (136-145)
--- NOTE | 2016-09-11 07:02 | EEG ---
DATE OF EE09/10/2016 REFERRING PHYSICIAN: Twyla Rowe MD DIAGNOSIS: Recent onset dementia, rule out seizures. EEG NUMBER: 17-50. HISTORY: Patient is a 76-year-old man who was admitted at [facility] due to recent falls and history of dementia. This EEG was done to rule out epileptic potential. His current medication list was not provided. TECHNICAL DESCRIPTION: This digital EEG was recorded by 21 scalp, ear and two EKG electrodes and was reviewed in bipolar and referential montages following reformatting in 10-20 international electrode placement system. INTERPRETATION: The patient was noted to be in awake and drowsy states during this EEG. Resting awake background consisted of 7-8 Hz theta activity measuring 15-40 microvolts in amplitude. Stage 1 and 2 sleep was reviewed and was symmetric bilaterally. Hyperventilation and photic stimulation remained unremarkable. EKG revealed normal sinus rhythm. No focal, lateralizing or epileptiform abnormalities were seen. No clinical or electrographic seizures were recorded. CONCLUSION: This EEG in awake, drowsy states, stage 1 and 2 sleep is mildly abnormal due to presence of mild generalized slowing and disorganization of background consistent with nonspecific diffuse cerebral dysfunction such as seen in dementia and encephalopathy due to multiple potential causes. No epileptiform abnormalities were seen. Clinical correlation is recommended.
[2016-09-11] MEDS: HumaLOG INSULIN (NovoLOG) PER UNIT SC SCH ×4 (07:30→21:00)
[2016-09-11] MEDS: LISINOPRIL 40 MG TAB PO SCH (12:15)
[2016-09-11] MEDS: DOCUSATE SODIUM 100 MG CAP PO SCH ×2 (12:15→20:35)
[2016-09-11] MEDS: ASPIRIN 81 MG ENTERIC TAB PO SCH (12:15)
[2016-09-11] MEDS: MULTIVITAMINS/MINERALS THERAP 1 TAB PO SCH (12:15)
[2016-09-11] MEDS: VITAMIN D 1,000 INTERNATIONAL UNITS TABLET PO SCH (12:15)
[2016-09-11 14:00] VITALS: BP 145/70
--- NOTE | 2016-09-11 14:20 | IPNPDOC ---
Subjective Date Seen The patient was seen on 09/11/16. Subjective Chief Complaint/HPI The patient is a 76-year-old male admitted with a reason for visit of FALL. General: Denies: Chills, Night Sweats Constitutional: Denies: Chills, Fever Eyes: Denies: Pain, Vision change ENT: Denies: Ear Pain, Head Aches Skin: Denies: Lesions, Rash Pulmonary: Denies: Cough, Dyspnea Cardiovascular: Denies: Chest Pain, Palpitations Gastrointestinal: Denies: Nausea, Vomiting Genitourinary: Denies: Dysuria, Frequency Hematologic: Denies: Bleeding Excessively, Bruising Objective Physical Examination General Exam: Positive: Alert, Cooperative, No Acute Distress ENT Exam: Positive: Atraumatic, Mucous membr. moist/pink Neck Exam: Negative: JVD Chest Exam: Positive: Clear to auscultation, Normal air movement Heart Exam: Positive: Normal S1, Normal S2, Rate Normal Abdomen Exam: Positive: Soft, Negative: Tenderness Extremity Exam: Negative: Swelling, Tenderness Neuro Exam: Positive: Strength at 5/5 X4 ext Assessment /Plan Plan/VTE VTE Prophylaxis Ordered?: Yes Plan 1. Frequent falls - possibly 2/2 arachnoid cyst with compression of adjacent parietal lobe versus dehydration CT Head revealed an arachnoid cyst; MRI 09/04 revealed 4.4 x 5.3 x 4.1 cm arachnoid cyst in posterior right parietal lobe Patient with no acute focal neurological deficits Cisternogram pending Dr. Davis of Neurosurgery Cleared by physical therapy Will f/u with Cisternogram results and NeuroSx recommends 2. Dementia - possibly Alzheimer's Dr. Hanna of Neurology on board for reversible causes of dementia 3. Vitamin D deficiency c/w Vitamin D supplementation 4. s/p Acute kidney injury - likely 2/2 pre-renal etiology, resolved 5. s/p Hypotension - possibly 2/2 dehydration s/p IV fluid hydration 6. DM2 A1c of 6.3 c/w ISS 7. DLP c/w simvastatin 8. HTN Cont Current Regimen 9. Dementia c/w memantine 10. Subclinical hyperthyroidism 11. DVT prophylaxis c/w SCDs Dispo: We will f/u with Cisternogram results and NeuroSx recommendations VS, I&O, 24H, Fishbone Vital Signs/I&O Vital Signs Date Time Temp Pulse Resp B/P Pulse Ox O2 Delivery O2 Flow Rate FiO2 09/11/16 06:00 97.1 67 15 137/66 97 Room Air I&O- Last 24 Hours up to 6 AM 09/11/16 06:00 Intake Total 1560 ml Output Total 525 ml Balance 1035 ml Laboratory Data 24H LABS Laboratory Tests 2 09/10/16 16:48: Bedside Glucose (Misc Panel) 111H 09/10/16 20:19: Bedside Glucose (Misc Panel) 118H 09/11/16 06:08: Anion Gap 7L, Blood Urea Nitrogen 21H, Creatinine 0.72, Sodium Level 140, Potassium Level 3.9, Chloride Level 106, Carbon Dioxide Level 27, Calcium Level 8.3L, Glomerular Filtration Rate > 60.0 09/11/16 11:45: Bedside Glucose (Misc Panel) 107 CBC/BMP Laboratory Tests 09/11/16 06:08 Calcium Level 8.3 L, Red Blood Count 4.30, Mean Corpuscular Volume 86.3, Mean Corpuscular Hemoglobin 29.6, Mean Corpuscular Hemoglobin Concent 34.3, Red Cell Distribution Width 13.1 MIGUEL BIRMINGHAM MD Sep 11, 2016 14:20
[2016-09-11] MEDS: SIMVASTATIN 20 MG TAB PO SCH (20:34)
[2016-09-11] MEDS: MEMANTINE 5MG TABLET (NAMENDA) PO SCH (20:35)
[2016-09-11 22:00] VITALS: BP 118/64
[2016-09-11] MEDS: ACETAMINOPHEN TAB 650MG DOSE (2X325MG) PO PRN (23:20)
[2016-09-12 06:00] VITALS: BP 128/86
[2016-09-12] MEDS: ASPIRIN 81 MG ENTERIC TAB PO SCH (09:39)
[2016-09-12] MEDS: DOCUSATE SODIUM 100 MG CAP PO SCH ×2 (09:39→21:33)
[2016-09-12] MEDS: MULTIVITAMINS/MINERALS THERAP 1 TAB PO SCH (09:39)
[2016-09-12] MEDS: VITAMIN D 1,000 INTERNATIONAL UNITS TABLET PO SCH (09:39)
[2016-09-12] MEDS: HumaLOG INSULIN (NovoLOG) PER UNIT SC SCH ×4 (09:40→21:00)
[2016-09-12] MEDS: LISINOPRIL 40 MG TAB PO SCH (09:40)
--- NOTE | 2016-09-12 10:18 | IPNPDOC ---
Subjective Date Seen The patient was seen on 09/12/16. Subjective Chief Complaint/HPI The patient is a 76-year-old male admitted with a reason for visit of FALL. General: Denies: Chills, Night Sweats Constitutional: Denies: Chills, Fever Eyes: Denies: Pain, Vision change ENT: Denies: Ear Pain, Head Aches Skin: Denies: Lesions, Rash Pulmonary: Denies: Cough, Dyspnea Cardiovascular: Denies: Chest Pain, Palpitations Gastrointestinal: Denies: Abdominal Pain, Nausea, Vomiting Genitourinary: Denies: Dysuria, Frequency Hematologic: Denies: Bleeding Excessively, Bruising Endocrine: Denies: Polydipsia, Polyphagia Objective Physical Examination General Exam: Positive: Alert, Cooperative, No Acute Distress ENT Exam: Positive: Atraumatic, Mucous membr. moist/pink Neck Exam: Negative: JVD Chest Exam: Positive: Clear to auscultation, Normal air movement Heart Exam: Positive: Normal S1, Normal S2, Rate Normal Abdomen Exam: Positive: Soft, Negative: Tenderness Extremity Exam: Negative: Swelling, Tenderness Neuro Exam: Positive: Strength at 5/5 X4 ext Assessment /Plan Plan/VTE VTE Prophylaxis Ordered?: Yes Plan 1. Frequent falls - possibly 2/2 arachnoid cyst with compression of adjacent parietal lobe versus dehydration CT Head revealed an arachnoid cyst; MRI 09/04 revealed 4.4 x 5.3 x 4.1 cm arachnoid cyst in posterior right parietal lobe Patient with no acute focal neurological deficits Cisternogram pending Dr. Davis of Neurosurgery Cleared by physical therapy Will f/u with Cisternogram results and NeuroSx recommends 2. Dementia - possibly Alzheimer's Dr. Hanna of Neurology on board for reversible causes of dementia 3. Vitamin D deficiency c/w Vitamin D supplementation 4. s/p Acute kidney injury - likely 2/2 pre-renal etiology, resolved 5. s/p Hypotension - possibly 2/2 dehydration s/p IV fluid hydration 6. DM2 A1c of 6.3 c/w ISS 7. DLP c/w simvastatin 8. HTN Cont Current Regimen 9. Dementia c/w memantine 10. Subclinical hyperthyroidism 11. DVT prophylaxis c/w SCDs Dispo: We will f/u with Cisternogram results and NeuroSx recommendations VS, I&O, 24H, Fishbone Vital Signs/I&O Vital Signs Date Time Temp Pulse Resp B/P Pulse Ox O2 Delivery O2 Flow Rate FiO2 09/12/16 06:00 96.9 78 17 128/86 98 Room Air I&O- Last 24 Hours up to 6 AM 09/12/16 06:00 Intake Total 1800 ml Output Total 700 ml Balance 1100 ml Laboratory Data 24H LABS Laboratory Tests 2 09/11/16 11:45: Bedside Glucose (Misc Panel) 107 09/11/16 16:47: Bedside Glucose (Misc Panel) 150H 09/11/16 20:42: Bedside Glucose (Misc Panel) 109 09/12/16 05:36: Bedside Glucose (Misc Panel) 107 MIGUEL BIRMINGHAM MD Sep 12, 2016 10:18
--- NOTE | 2016-09-12 13:02 | REP ---
NUCLEAR CISTERNOGRAM: 09/12/2016 CLINICAL HISTORY: Frontoparietal cystic lesion right hemisphere of the brain, evaluate for communication with cerebral spinal fluid. TECHNIQUE: The patient had fluoroscopic guidance for tracer injection via a 22-gauge spinal needle placed at the L3-4 level on 09/09/2016. Injection of 0.895 mCi Indium-111 DTPA intrathecally via that lumbar puncture. 1-hour spine images, 6-hour static images of the brain anterior, posterior, and bilateral projections of 24- and 48-hour static images, and a final 72 hour set of static images of the brain. Tracer distribution was normal into the ventricular system by 6 hours with activity extending over the convexities at 24, 48 and 72 hours. There is a photopenic zone in the right hemisphere in the posterior frontal anterior parietal region correspond to the cyst. There is no accumulation of tracer in this region of the cyst. IMPRESSION: The intraparenchymal cyst in the right hemisphere does not communicate to the cerebral spinal fluid with no tracer activity reaching it out to 72 hours. Normal progression of the tracer through the spine into the ventricular system and around the convexities without other finding present. Signed by Tj Perez MD 09/12/2016 01:22 P
[2016-09-12 14:00] VITALS: BP 127/60
[2016-09-12] MEDS: MEMANTINE 5MG TABLET (NAMENDA) PO SCH (21:33)
[2016-09-12] MEDS: SIMVASTATIN 20 MG TAB PO SCH (21:33)
[2016-09-12 22:00] VITALS: BP 133/69
[2016-09-13] MEDS: ACETAMINOPHEN TAB 650MG DOSE (2X325MG) PO PRN ×2 (00:08→23:50)
[2016-09-13 06:00] VITALS: BP 131/74
[2016-09-13] MEDS: DOCUSATE SODIUM 100 MG CAP PO SCH ×2 (08:08→21:11)
[2016-09-13] MEDS: HumaLOG INSULIN (NovoLOG) PER UNIT SC SCH ×4 (08:08→21:00)
[2016-09-13] MEDS: ASPIRIN 81 MG ENTERIC TAB PO SCH (08:08)
[2016-09-13] MEDS: MULTIVITAMINS/MINERALS THERAP 1 TAB PO SCH (08:08)
[2016-09-13] MEDS: LISINOPRIL 40 MG TAB PO SCH (08:08)
[2016-09-13] MEDS: VITAMIN D 1,000 INTERNATIONAL UNITS TABLET PO SCH (08:08)
[2016-09-13 14:00] VITALS: BP 150/62
--- NOTE | 2016-09-13 14:16 | IPNPDOC ---
Subjective Date Seen The patient was seen on 09/13/16. Subjective Chief Complaint/HPI The patient is a 76-year-old male admitted with a reason for visit of FALL. General: Denies: Chills, Night Sweats Constitutional: Denies: Chills, Fever Eyes: Denies: Pain, Vision change ENT: Denies: Ear Pain, Head Aches Skin: Denies: Lesions, Rash Pulmonary: Denies: Cough, Dyspnea Cardiovascular: Denies: Chest Pain, Palpitations Gastrointestinal: Denies: Nausea, Vomiting Genitourinary: Denies: Dysuria, Frequency Hematologic: Denies: Bleeding Excessively, Bruising Objective Physical Examination General Exam: Positive: Alert, Cooperative, No Acute Distress ENT Exam: Positive: Atraumatic, Mucous membr. moist/pink Neck Exam: Negative: JVD Chest Exam: Positive: Clear to auscultation, Normal air movement Heart Exam: Positive: Normal S1, Normal S2, Rate Normal Abdomen Exam: Positive: Soft, Negative: Tenderness Extremity Exam: Negative: Swelling, Tenderness Neuro Exam: Positive: Strength at 5/5 X4 ext Assessment /Plan Plan/VTE VTE Prophylaxis Ordered?: Yes Plan 1. Frequent falls - possibly 2/2 arachnoid cyst with compression of adjacent parietal lobe versus dehydration CT Head revealed an arachnoid cyst; MRI 09/04 revealed 4.4 x 5.3 x 4.1 cm arachnoid cyst in posterior right parietal lobe Patient with no acute focal neurological deficits Cisternogram results noted Dr. Davis of Neurosurgery on board Cisternogram results noted, surgical intervention for Cystic Mass planned for Saturday 09/[address] Davis of NeuroSx 2. Dementia - possibly Alzheimer's Dr. Hanna of Neurology on board for reversible causes of dementia 3. Vitamin D deficiency c/w Vitamin D supplementation 4. s/p Acute kidney injury - likely 2/2 pre-renal etiology, resolved 5. s/p Hypotension - possibly 2/2 dehydration s/p IV fluid hydration 6. DM2 A1c of 6.3 c/w ISS 7. DLP c/w simvastatin 8. HTN Cont Current Regimen 9. Dementia c/w memantine 10. Subclinical hyperthyroidism 11. DVT prophylaxis c/w SCDs Dispo: Patient scheduled for NeuroSx intervention for Cystic Mass after review of Cisternogram results and discussion with Patient + Family as per Dr. Davis VS, I&O, 24H, Fishbone Vital Signs/I&O Vital Signs Date Time Temp Pulse Resp B/P Pulse Ox O2 Delivery O2 Flow Rate FiO2 09/13/16 06:00 96.9 66 15 131/74 98 Room Air I&O- Last 24 Hours up to 6 AM 09/13/16 06:00 Intake Total 3120 ml Output Total 1050 ml Balance 2070 ml Laboratory Data 24H LABS Laboratory Tests 2 09/12/16 16:44: Bedside Glucose (Misc Panel) 198H 09/12/16 20:41: Bedside Glucose (Misc Panel) 84 09/13/16 06:07: Bedside Glucose (Misc Panel) 107 09/13/16 11:26: Bedside Glucose (Misc Panel) 113H MIGUEL BIRMINGHAM MD Sep 13, 2016 14:16
[2016-09-13] MEDS: SIMVASTATIN 20 MG TAB PO SCH (21:11)
[2016-09-13] MEDS: MEMANTINE 5MG TABLET (NAMENDA) PO SCH (21:11)
[2016-09-13 22:00] VITALS: BP 152/79
[2016-09-14 06:00] VITALS: BP 155/76
[2016-09-14] MEDS: HumaLOG INSULIN (NovoLOG) PER UNIT SC SCH ×4 (07:40→21:02)
[2016-09-14 07:45] LABS: MEAN CORPUSCULAR HEMOGLOBIN 28.9 pg (27.0-33.0); MEAN CORPUSCULAR HGB CONC 33.8 g/dl (32.0-36.5); MEAN CORPUSCULAR VOLUME 85.7 fl (80.0-96.0); RED CELL DISTRIBUTION WIDTH 13.1 % (11.5-14.5); WHITE BLOOD COUNT 5.7 K/mm3 (4.0-10.0)
[2016-09-14 08:40] LABS: COLLAGEN ADP 118 SECONDS (56-103)
[2016-09-14] MEDS: VITAMIN D 1,000 INTERNATIONAL UNITS TABLET PO SCH (09:04)
[2016-09-14] MEDS: LISINOPRIL 40 MG TAB PO SCH (09:04)
[2016-09-14] MEDS: DOCUSATE SODIUM 100 MG CAP PO SCH ×2 (09:04→21:02)
--- NOTE | 2016-09-14 10:06 | IPNPDOC ---
Subjective Date Seen The patient was seen on 09/14/16. Subjective Chief Complaint/HPI The patient is a 76-year-old male admitted with a reason for visit of FALL. General: Denies: Chills, Night Sweats Constitutional: Denies: Chills, Fever Eyes: Denies: Pain, Vision change ENT: Denies: Ear Pain, Head Aches Skin: Denies: Lesions, Rash Pulmonary: Denies: Dyspnea Cardiovascular: Denies: Chest Pain, Palpitations Gastrointestinal: Denies: Nausea Genitourinary: Denies: Dysuria, Frequency Hematologic: Denies: Bleeding Excessively, Bruising Objective Physical Examination General Exam: Positive: Alert, Cooperative, No Acute Distress ENT Exam: Positive: Atraumatic, Mucous membr. moist/pink Neck Exam: Negative: JVD Chest Exam: Positive: Clear to auscultation, Normal air movement Heart Exam: Positive: Normal S1, Normal S2, Rate Normal Abdomen Exam: Positive: Soft, Negative: Tenderness Extremity Exam: Negative: Swelling, Tenderness Neuro Exam: Positive: Strength at 5/5 X4 ext Assessment /Plan Plan/VTE VTE Prophylaxis Ordered?: Yes Plan 1. Frequent falls - possibly 2/2 arachnoid cyst with compression of adjacent parietal lobe versus dehydration CT Head revealed an arachnoid cyst; MRI 09/04 revealed 4.4 x 5.3 x 4.1 cm arachnoid cyst in posterior right parietal lobe Patient with no acute focal neurological deficits Dr. Davis of Neurosurgery on board Cisternogram results noted, surgical intervention for Cystic Mass planned for Saturday 09/[address] Davis of NeuroSx 2. Dementia - possibly Alzheimer's Dr. Hanna of Neurology on board for reversible causes of dementia 3. Vitamin D deficiency c/w Vitamin D supplementation 4. s/p Acute kidney injury - likely 2/2 pre-renal etiology, resolved 5. s/p Hypotension - possibly 2/2 dehydration s/p IV fluid hydration 6. DM2 A1c of 6.3 c/w ISS 7. DLP c/w simvastatin 8. HTN Cont Current Regimen 9. Dementia c/w memantine 10. Subclinical hyperthyroidism 11. DVT prophylaxis c/w SCDs Dispo: Patient scheduled for NeuroSx intervention for Cystic Mass after review of Cisternogram results and discussion with Patient + Family as per Dr. Davis VS, I&O, 24H, Fishbone Vital Signs/I&O Vital Signs Date Time Temp Pulse Resp B/P Pulse Ox O2 Delivery O2 Flow Rate FiO2 09/14/16 06:00 96.6 54 17 155/76 95 Room Air I&O- Last 24 Hours up to 6 AM 09/14/16 06:00 Intake Total 2040 ml Output Total 1400 ml Balance 640 ml Laboratory Data 24H LABS Laboratory Tests 2 09/13/16 11:26: Bedside Glucose (Misc Panel) 113H 09/13/16 17:00: Bedside Glucose (Misc Panel) 120H 09/13/16 20:39: Bedside Glucose (Misc Panel) 102 09/14/16 05:52: Bedside Glucose (Misc Panel) 97 09/14/16 07:31: Activated Partial Thromboplast Time 29.1, Platelet Func Collagen/Epinephrine > 300H, Platelet Function Collagen/ADP 118H CBC/BMP Laboratory Tests 09/14/16 07:31 Red Blood Count 4.47, Mean Corpuscular Volume 85.7, Mean Corpuscular Hemoglobin 28.9, Mean Corpuscular Hemoglobin Concent 33.8, Red Cell Distribution Width 13.1 MIGUEL BIRMINGHAM MD Sep 14, 2016 10:06
[2016-09-14 14:00] VITALS: BP 144/69
[2016-09-14] MEDS: MEMANTINE 5MG TABLET (NAMENDA) PO SCH (21:01)
[2016-09-14] MEDS: SIMVASTATIN 20 MG TAB PO SCH (21:02)
[2016-09-14 22:00] VITALS: BP 136/70
[2016-09-14] MEDS: ACETAMINOPHEN TAB 650MG DOSE (2X325MG) PO PRN (23:59)
[2016-09-15 05:50] LABS: MEAN CORPUSCULAR HEMOGLOBIN 28.8 pg (27.0-33.0); MEAN CORPUSCULAR HGB CONC 33.4 g/dl (32.0-36.5); MEAN CORPUSCULAR VOLUME 86.3 fl (80.0-96.0); RED CELL DISTRIBUTION WIDTH 13.1 % (11.5-14.5); WHITE BLOOD COUNT 6.1 K/mm3 (4.0-10.0)
[2016-09-15 06:00] VITALS: BP_SYST 132; BP_SYST 134; BP_DIAS 62
[2016-09-15 06:03] LABS: ANION GAP 7 MEQ/L (8-16); BLOOD UREA NITROGEN 25 MG/DL (7-18); CALCIUM LEVEL 8.2 MG/DL (8.8-10.2); CARBON DIOXIDE LEVEL 28 MEQ/L (21-32); CHLORIDE LEVEL 107 MEQ/L (98-107); CREATININE FOR GFR 0.77 MG/DL (0.70-1.30); GLOMERULAR FILTRATION RATE > 60.0 (>42); GLUCOSE, FASTING 100 MG/DL (83-110); POTASSIUM SERUM 3.8 MEQ/L (3.5-5.1); SODIUM LEVEL 142 MEQ/L (136-145)
[2016-09-15] MEDS: HumaLOG INSULIN (NovoLOG) PER UNIT SC SCH ×4 (07:30→20:59)
[2016-09-15] MEDS: VITAMIN D 1,000 INTERNATIONAL UNITS TABLET PO SCH (08:52)
[2016-09-15] MEDS: DOCUSATE SODIUM 100 MG CAP PO SCH ×2 (08:52→20:02)
[2016-09-15] MEDS: LISINOPRIL 40 MG TAB PO SCH (08:52)
--- NOTE | 2016-09-15 11:22 | IPNPDOC ---
Subjective Date Seen The patient was seen on 09/15/16. Subjective Chief Complaint/HPI The patient is a 76-year-old male admitted with a reason for visit of FALL. General: Denies: Chills, Night Sweats Constitutional: Denies: Chills, Fever Eyes: Denies: Pain, Vision change ENT: Denies: Ear Pain, Head Aches Skin: Denies: Lesions, Rash Pulmonary: Denies: Cough, Dyspnea Cardiovascular: Denies: Chest Pain, Palpitations Gastrointestinal: Denies: Nausea, Vomiting Genitourinary: Denies: Dysuria, Frequency Hematologic: Denies: Bleeding Excessively, Bruising Objective Physical Examination General Exam: Positive: Alert, Cooperative, No Acute Distress ENT Exam: Positive: Atraumatic, Mucous membr. moist/pink Neck Exam: Negative: JVD Chest Exam: Positive: Clear to auscultation, Normal air movement Heart Exam: Positive: Normal S1, Normal S2, Rate Normal Abdomen Exam: Positive: Soft, Negative: Tenderness Extremity Exam: Negative: Swelling, Tenderness Neuro Exam: Positive: Strength at 5/5 X4 ext Assessment /Plan Plan/VTE VTE Prophylaxis Ordered?: Yes Plan 1. Frequent falls - possibly 2/2 arachnoid cyst with compression of adjacent parietal lobe versus dehydration CT Head revealed an arachnoid cyst; MRI 09/04 revealed 4.4 x 5.3 x 4.1 cm arachnoid cyst in posterior right parietal lobe Patient with no acute focal neurological deficits Dr. Davis of Neurosurgery on board Cisternogram results noted, surgical intervention for Cystic Mass planned for Saturday 09/[address] Davis of NeuroSx NPO for procedure in the AM EKG from admission reviewed, notable for Left Ventricular Hypertrophy, no acute ST changes The patient able to tolerate 4 METs of activity, and has been ambulating in the corridors here in the hospital with no acute complaints of chest pain/SOB while also being monitored on Telemetry Revised Cardiac Risk Index of 0, Class 1 Risk (0.4% of Major Cardiac Event) Risk Factors Discussed with Dr. Bar of Anesthesia Patient medically optimized for surgery, risks and benefits of surgery discussed between Dr. Davis and Patient/Family 2. Dementia - possibly Alzheimer's Dr. Hanna of Neurology on board for reversible causes of dementia 3. Vitamin D deficiency c/w Vitamin D supplementation 4. s/p Acute kidney injury - likely 2/2 pre-renal etiology, resolved 5. s/p Hypotension - possibly 2/2 dehydration s/p IV fluid hydration 6. DM2 A1c of 6.3 c/w ISS 7. DLP c/w simvastatin 8. HTN Cont Current Regimen 9. Dementia c/w memantine 10. Subclinical hyperthyroidism 11. DVT prophylaxis c/w SCDs Dispo: Patient scheduled for NeuroSx intervention for Cystic Mass after review of Cisternogram results and discussion with Patient + Family as per Dr. Davis VS, I&O, 24H, Fishbone Vital Signs/I&O Vital Signs Date Time Temp Pulse Resp B/P Pulse Ox O2 Delivery O2 Flow Rate FiO2 09/15/16 06:00 97.4 60 20 132/62 98 09/14/16 14:00 Room Air I&O- Last 24 Hours up to 6 AM 09/15/16 06:00 Intake Total 1960 ml Output Total 1550 ml Balance 410 ml Laboratory Data 24H LABS Laboratory Tests 2 09/14/16 11:21: Bedside Glucose (Misc Panel) 126H 09/14/16 16:27: Bedside Glucose (Misc Panel) 128H 09/14/16 21:00: Bedside Glucose (Misc Panel) 117H 09/15/16 05:39: Anion Gap 7L, Blood Urea Nitrogen 25H, Creatinine 0.77, Sodium Level 142, Potassium Level 3.8, Chloride Level 107, Carbon Dioxide Level 28, Calcium Level 8.2L, Glomerular Filtration Rate > 60.0 CBC/BMP Laboratory Tests 09/15/16 05:39 Calcium Level 8.2 L, Red Blood Count 4.30, Mean Corpuscular Volume 86.3, Mean Corpuscular Hemoglobin 28.8, Mean Corpuscular Hemoglobin Concent 33.4, Red Cell Distribution Width 13.1 MIGUEL BIRMINGHAM MD Sep 15, 2016 11:22
[2016-09-15 14:00] VITALS: BP 125/70
[2016-09-15] MEDS: SIMVASTATIN 20 MG TAB PO SCH (20:02)
[2016-09-15] MEDS: MEMANTINE 5MG TABLET (NAMENDA) PO SCH (20:02)
[2016-09-15 22:00] VITALS: BP 136/73
[2016-09-15] MEDS: ACETAMINOPHEN TAB 650MG DOSE (2X325MG) PO PRN (23:52)
[2016-09-16] MEDS: HumaLOG INSULIN (NovoLOG) PER UNIT SC SCH ×5 (00:27→20:44)
[2016-09-16] MEDS: D5W 1,000 ML IV SCH ×2 (00:27→10:00)
[2016-09-16 06:00] VITALS: BP 132/69
[2016-09-16 06:28] LABS: MEAN CORPUSCULAR HEMOGLOBIN 28.6 pg (27.0-33.0); MEAN CORPUSCULAR HGB CONC 33.1 g/dl (32.0-36.5); MEAN CORPUSCULAR VOLUME 86.4 fl (80.0-96.0); PLATELET COUNT, AUTOMATED 208 k/mm3 (150-450); RED CELL DISTRIBUTION WIDTH 13.2 % (11.5-14.5); WHITE BLOOD COUNT 5.9 K/mm3 (4.0-10.0)
[2016-09-16 06:33] LABS: INR 0.94
[2016-09-16 06:40] LABS: ANION GAP 7 MEQ/L (8-16); BLOOD UREA NITROGEN 27 MG/DL (7-18); CALCIUM LEVEL 7.9 MG/DL (8.8-10.2); CARBON DIOXIDE LEVEL 28 MEQ/L (21-32); CHLORIDE LEVEL 106 MEQ/L (98-107); GLOMERULAR FILTRATION RATE > 60.0 (>42); GLUCOSE, FASTING 105 MG/DL (83-110); POTASSIUM SERUM 3.5 MEQ/L (3.5-5.1); SODIUM LEVEL 141 MEQ/L (136-145)
[2016-09-16 07:03] LABS: COLLAGEN ADP 103 SECONDS (56-103)
[2016-09-16] MEDS: VITAMIN D 1,000 INTERNATIONAL UNITS TABLET PO SCH (08:31)
[2016-09-16] MEDS: DOCUSATE SODIUM 100 MG CAP PO SCH ×2 (08:31→20:48)
[2016-09-16 08:48] LABS: BASO % 0.7 % (0.0-1.0); EOS # 0.2 K/mm3 (0.0-0.50); EOS % 5.1 % (0.0-3.0); LARGE UNSTAINED CELL # 0.1 K/mm3 (0.0-0.4); LARGE UNSTAINED CELL % 2.7 % (0.0-4.0); LYMPH # 1.3 K/mm3 (1.5-4.5); LYMPH % 26.4 % (24.0-44.0); MONO # 0.3 K/mm3 (0.0-0.8); MONO % 6.1 % (0.0-5.0); NEUTROPHILS % 59.1 % (36.0-66.0)
[2016-09-16 08:50] LABS: DIFF SLIDE NUMBER 50
--- NOTE | 2016-09-16 09:07 | REP ---
MR BRAIN WITHOUT CONTRAST: HISTORY: Intracranial cyst. COMPARISON: 09/04/2016 A cyst is present in the posterior right parietal lobe. The cyst measures 4.4 cm in transverse by 5.3 cm in AP dimensions. IMPRESSION: MR of the brain was performed for use with the Stealth navigation system. Signed by Ren Mishra MD 09/16/2016 09:10 A
--- NOTE | 2016-09-16 09:53 | IPNPDOC ---
Subjective Date Seen The patient was seen on 09/16/16. Subjective Chief Complaint/HPI The patient is a 76-year-old male admitted with a reason for visit of FALL. General: Denies: Chills, Night Sweats Constitutional: Denies: Chills, Fever Eyes: Denies: Pain, Vision change ENT: Denies: Ear Pain, Head Aches Skin: Denies: Lesions, Rash Pulmonary: Denies: Cough, Dyspnea Cardiovascular: Denies: Chest Pain, Palpitations Gastrointestinal: Denies: Nausea, Vomiting Genitourinary: Denies: Dysuria, Frequency Hematologic: Denies: Bleeding Excessively, Bruising Objective Physical Examination General Exam: Positive: Alert, Cooperative, No Acute Distress ENT Exam: Positive: Atraumatic, Mucous membr. moist/pink Neck Exam: Negative: JVD Chest Exam: Positive: Clear to auscultation, Normal air movement Heart Exam: Positive: Normal S1, Normal S2, Rate Normal Abdomen Exam: Positive: Soft, Negative: Tenderness Extremity Exam: Negative: Swelling, Tenderness Neuro Exam: Positive: Strength at 5/5 X4 ext Assessment /Plan Plan/VTE VTE Prophylaxis Ordered?: Yes Plan 1. Frequent falls - possibly 2/2 arachnoid cyst with compression of adjacent parietal lobe versus dehydration CT Head revealed an arachnoid cyst; MRI 09/04 revealed 4.4 x 5.3 x 4.1 cm arachnoid cyst in posterior right parietal lobe Patient with no acute focal neurological deficits Dr. Davis of Neurosurgery on board Cisternogram results noted Patient scheduled for Frameless Stealth Based Craniotomy today as per NeuroSx 2. Dementia - possibly Alzheimer's Dr. Hanna of Neurology on board for reversible causes of dementia 3. Vitamin D deficiency c/w Vitamin D supplementation 4. s/p Acute kidney injury - likely 2/2 pre-renal etiology, resolved 5. s/p Hypotension - possibly 2/2 dehydration s/p IV fluid hydration 6. DM2 A1c of 6.3 c/w ISS 7. DLP c/w simvastatin 8. HTN Cont Current Regimen 9. Dementia c/w memantine 10. Subclinical hyperthyroidism 11. DVT prophylaxis c/w SCDs Dispo: Patient scheduled for NeuroSx intervention for Cystic Mass after review of Cisternogram results and discussion with Patient + Family as per Dr. Davis VS, I&O, 24H, Fishbone Vital Signs/I&O Vital Signs Date Time Temp Pulse Resp B/P Pulse Ox O2 Delivery O2 Flow Rate FiO2 09/16/16 06:00 96.7 61 18 132/69 97 09/15/16 14:00 Room Air I&O- Last 24 Hours up to 6 AM 09/16/16 06:00 Intake Total 2780 ml Output Total 1675 ml Balance 1105 ml Laboratory Data 24H LABS Laboratory Tests 2 09/15/16 11:42: Bedside Glucose (Misc Panel) 90 09/15/16 16:35: Bedside Glucose (Misc Panel) 96 09/15/16 20:23: Bedside Glucose (Misc Panel) 123H 09/16/16 00:13: Bedside Glucose (Misc Panel) 104 09/16/16 05:27: Bedside Glucose (Misc Panel) 108 09/16/16 06:10: Activated Partial Thromboplast Time 28.3, Anion Gap 7L, Basophils # (Auto) 0.0, Basophils (%) (Auto) 0.7, Blood Urea Nitrogen 27H, Creatinine 0.70, Sodium Level 141, Potassium Level 3.5, Chloride Level 106, Carbon Dioxide Level 28, Calcium Level 7.9L, Eosinophils # (Auto) 0.2, Eosinophils (%) (Auto) 5.1H, Glomerular Filtration Rate > 60.0, Large Unclassified Cells # 0.1, Large Unclassified Cells % 2.7, Lymphocytes # (Auto) 1.3L, Lymphocytes (%) (Auto) 26.4 , Monocytes # (Auto) 0.3, Monocytes (%) (Auto) 6.1H, Neutrophils # (Auto) 3.0, Neutrophils (%) (Auto) 59.1, Platelet Estimate NORMAL, Platelet Func Collagen/ Epinephrine 199H, Platelet Function Collagen/ADP 103, Prothromb Time International Ratio 0.94, Prothrombin Time 12.7 CBC/BMP Laboratory Tests 09/16/16 06:10 Calcium Level 7.9 L, Red Blood Count 4.34, Mean Corpuscular Volume 86.4, Mean Corpuscular Hemoglobin 28.6, Mean Corpuscular Hemoglobin Concent 33.1, Red Cell Distribution Width 13.2 MIGUEL BIRMINGHAM MD Sep 16, 2016 09:53
[2016-09-16 11:00] VITALS: BP 146/77
[2016-09-16] MEDS ORDERED: fentaNYL 100 MCG/2 ML INJECTION (J3010) As Ordered ONE (12:02)
[2016-09-16] MEDS ORDERED: MIDAZOLAM INJ 2 MG/2 ML VIAL (J2250) As Ordered ONE (12:03)
[2016-09-16] MEDS ORDERED: NEOSTIGMINE 1MG/ML 5 ML SYRINGE (J2710) As Ordered ONE (12:03)
[2016-09-16] MEDS ORDERED: ROCURONIUM BROMIDE 50 MG/5 ML VIAL As Ordered ONE (12:03)
[2016-09-16] MEDS ORDERED: GLYCOPYRROLATE INJ 0.2 MG/ML 2 ML VIAL As Ordered ONE (12:03)
[2016-09-16] MEDS ORDERED: PROPOFOL 200 MG/20 ML VIAL As Ordered ONE (12:03)
[2016-09-16] MEDS ORDERED: ONDANSETRON 4MG/2ML VIAL (J2405) As Ordered ONE (12:03)
[2016-09-16] MEDS ORDERED: LIDOCAINE 2% INJ 100 MG/5 ML SDV (FOR ANES.) As Ordered ONE (12:08)
[2016-09-16 12:45] LABS: COLLAGEN ADP 114 SECONDS (56-103)
[2016-09-16 13:56] VITALS: BP 136/64
[2016-09-16 16:00] VITALS: BP 120/61
--- NOTE | 2016-09-16 17:06 | IPN ---
DATE: 09/16/2016 The patient is a 76-year-old male. He is accompanied by his daughter today, Betzaida. The patient is alert. He is oriented to person and place. He has some difficulty with the year but with help he is able to identify correctly. He is able to name six out of seven of his children. He is able to follow verbal commands but still with some mild confusion. There are no noted changes in his confusion state. He has no new symptoms or findings today. He was scheduled for a surgery today. This has been postponed due to acute changes on his EEG. In addition, his platelet function is abnormally high. Vitals are stable. The patient has been afebrile. His cerebrospinal fluid (CSF) is still pending. As previously mentioned, platelet function is abnormally high. Otherwise, laboratories have been stable. We will repeat platelet function in 48 hours. If platelet function has normalized, we will potentially move forward with surgery pending further clearance. Dr. Davis was present for this round.
[2016-09-16 17:24] VITALS: BP 116/58
[2016-09-16] MEDS: SIMVASTATIN 20 MG TAB PO SCH (20:48)
[2016-09-16] MEDS: MEMANTINE 5MG TABLET (NAMENDA) PO SCH (20:48)
[2016-09-16 22:00] VITALS: BP 131/66
[2016-09-17 06:00] VITALS: BP 150/75
[2016-09-17 06:55] LABS: MEAN CORPUSCULAR HEMOGLOBIN 29.1 pg (27.0-33.0); MEAN CORPUSCULAR HGB CONC 33.4 g/dl (32.0-36.5); MEAN CORPUSCULAR VOLUME 87.1 fl (80.0-96.0); RED CELL DISTRIBUTION WIDTH 13.4 % (11.5-14.5); WHITE BLOOD COUNT 6.4 K/mm3 (4.0-10.0)
[2016-09-17 07:14] LABS: ANION GAP 8 MEQ/L (8-16); BLOOD UREA NITROGEN 19 MG/DL (7-18); CALCIUM LEVEL 8.4 MG/DL (8.8-10.2); CARBON DIOXIDE LEVEL 28 MEQ/L (21-32); CHLORIDE LEVEL 106 MEQ/L (98-107); CREATININE FOR GFR 0.65 MG/DL (0.70-1.30); GLOMERULAR FILTRATION RATE > 60.0 (>42); GLUCOSE, FASTING 100 MG/DL (83-110); SODIUM LEVEL 142 MEQ/L (136-145)
[2016-09-17] MEDS: HumaLOG INSULIN (NovoLOG) PER UNIT SC SCH ×2 (07:30→12:31)
[2016-09-17] MEDS: DOCUSATE SODIUM 100 MG CAP PO SCH ×2 (07:35→20:14)
[2016-09-17] MEDS: VITAMIN D 1,000 INTERNATIONAL UNITS TABLET PO SCH (07:35)
[2016-09-17] MEDS: LISINOPRIL 40 MG TAB PO SCH (09:07)
--- NOTE | 2016-09-17 13:07 | IPNPDOC ---
Text Note Date of Service The patient was seen on 09/17/16. NOTE Subjective: Patient is a 76 year old male with a PMHx of HTN, DLP, DM2, Dementia, who presented to the ER with complaints of frequent falls (at least 3) for the last 3-4 weeks. He had a recent history of right rib fractures because of a fall. He notes that he does not have any LOC or symptoms with the falls. Patient denied chest pain or head trauma. Patient was seen and examined at the bedside. Denies any problems. Objective: Vitals (See below) General: Lying in bed, no acute distress, comfortable, AAOx3 HEENT: NC, AT CVS: RRR, +S1S2 Lungs: Fair air entry b/l, -e/r/r Abdomen: Soft, ND, NT, +BSx4 Extremities: +PPx4, - edema, - calf tenderness Assessment and plan: 1. Frequent falls - possibly 2/2 arachnoid cyst with compression of adjacent parietal lobe, possibly 2/2 dehydration - Presented with at least 3 falls over 1 month duration; found to be hypotensive in ER - Physical reveals no focal weakness - CT reveals arachnoid cyst; MRI 09/04 revealed 4.4*5.3*4.1 cm arachnoid cyst in posterior right parietal lobe - Cisternogram: reveals intraparenchymal cyst in right hemisphere does not communicate with CSF - Neurosurgery (Dr. Davis) following; planning for intervention - risks and benefits explained by Dr. Davis - Surgery delayed for platelet function abnormality - will be kept NPO post midnight 2. Dementia - possibly Alzheimer's - Evaluated by neurology - Neurology (Dr. Hanna) following - evaluating for reversible causes of dementia 3. Vitamin D deficiency - c/w Vitamin D supplementation 4. s/p Acute kidney injury - likely 2/2 pre-renal etiology - Cr has trended back to normal - s/p IV fluid hydration 5. s/p Hypotension - possibly 2/2 dehydration - s/p IV fluid hydration 6. DM2 - A1c of 6.3 - c/w ISS 7. DLP - c/w simvastatin 8. HTN - BP controlled - c/w Lisinopril to 40 mg PO at this time; with holding parameters 9. Dementia - c/w memantine 10. Subclinical hyperthyroidism 11. DVT prophylaxis - c/w SCDs Disposition: - Surgery with Dr. Davis planned for tomorrow VS,Brunobone, I+O VS, Fishbone, I+O Laboratory Tests 09/17/16 06:26 Calcium Level 8.4 L, Red Blood Count 4.46, Mean Corpuscular Volume 87.1, Mean Corpuscular Hemoglobin 29.1, Mean Corpuscular Hemoglobin Concent 33.4, Red Cell Distribution Width 13.4 Vital Signs Date Time Temp Pulse Resp B/P Pulse Ox O2 Delivery O2 Flow Rate FiO2 09/17/16 06:00 96.4 56 16 150/75 98 Room Air I&O- Last 24 Hours up to 6 AM 09/17/16 06:00 Intake Total 520 ml Output Total 1475 ml Balance -955 ml RAMBO GIBBS MD Sep 17, 2016 13:07
[2016-09-17 14:00] VITALS: BP 134/65
[2016-09-17] MEDS ORDERED: HumaLOG INSULIN (NovoLOG) PER UNIT SC SCH ×2 (17:30→21:00)
[2016-09-17] MEDS: MEMANTINE 5MG TABLET (NAMENDA) PO SCH (20:14)
[2016-09-17] MEDS: SIMVASTATIN 20 MG TAB PO SCH (20:14)
--- NOTE | 2016-09-17 20:24 | IPN ---
DATE: 09/17/2016 Patient is resting comfortably in his bed when I approach him. He is alert and oriented times three. He is participating in the conversation appropriately. He does not have any new symptoms or findings. He states he is eating well, and he did sleep well last night. Patient does remember seeing me yesterday, but he did not remember my name, which can be expected. Regarding his lab work, it appears that the platelet function did improve a little bit, although it is still high. Discussed this with Dr. Davis, and we will be sure to make sure the platelet function is ordered prior to his surgery to recheck this. Patient does not have any further questions. Dr. Davis was present for this round.
[2016-09-17 21:46] VITALS: BP 138/67
[2016-09-18] MEDS ORDERED: HumaLOG INSULIN (NovoLOG) PER UNIT SC SCH
[2016-09-18] MEDS ORDERED: D5W 1,000 ML IV SCH
[2016-09-18 06:43] VITALS: BP 126/73
[2016-09-18 07:05] LABS: MEAN CORPUSCULAR HEMOGLOBIN 28.4 pg (27.0-33.0); MEAN CORPUSCULAR HGB CONC 33.1 g/dl (32.0-36.5); RED CELL DISTRIBUTION WIDTH 13.3 % (11.5-14.5); WHITE BLOOD COUNT 5.7 K/mm3 (4.0-10.0)
[2016-09-18 07:25] LABS: ANION GAP 8 MEQ/L (8-16); BLOOD UREA NITROGEN 23 MG/DL (7-18); CALCIUM LEVEL 8.5 MG/DL (8.8-10.2); CARBON DIOXIDE LEVEL 28 MEQ/L (21-32); CHLORIDE LEVEL 105 MEQ/L (98-107); CREATININE FOR GFR 0.75 MG/DL (0.70-1.30); GLOMERULAR FILTRATION RATE > 60.0 (>42); GLUCOSE, FASTING 99 MG/DL (83-110); POTASSIUM SERUM 4.6 MEQ/L (3.5-5.1); SODIUM LEVEL 141 MEQ/L (136-145)
[2016-09-18] MEDS: VITAMIN D 1,000 INTERNATIONAL UNITS TABLET PO SCH (10:18)
[2016-09-18] MEDS: DOCUSATE SODIUM 100 MG CAP PO SCH ×2 (10:18→22:12)
--- NOTE | 2016-09-18 12:57 | IPNPDOC ---
Text Note Date of Service The patient was seen on 09/18/16. NOTE Subjective: Patient is a 76 year old male with a PMHx of HTN, DLP, DM2, Dementia, who presented to the ER with complaints of frequent falls (at least 3) for the last 3-4 weeks. He had a recent history of right rib fractures because of a fall. He notes that he does not have any LOC or symptoms with the falls. Patient denied chest pain or head trauma. Patient was seen and examined at the bedside. Again denies any new issues. Is a little concerned that there is a delay. Objective: Vitals (See below) General: Lying in bed, no acute distress, comfortable, AAOx3 HEENT: NC, AT CVS: RRR, +S1S2 Lungs: Fair air entry b/l, -e/r/r Abdomen: Soft, ND, NT, +BSx4 Extremities: +PPx4, - edema, - calf tenderness Assessment and plan: 1. Frequent falls - possibly 2/2 arachnoid cyst with compression of adjacent parietal lobe, possibly 2/2 dehydration - Presented with at least 3 falls over 1 month duration; found to be hypotensive in ER - Physical reveals no focal weakness - CT reveals arachnoid cyst; MRI 09/04 revealed 4.4*5.3*4.1 cm arachnoid cyst in posterior right parietal lobe - Cisternogram: reveals intraparenchymal cyst in right hemisphere does not communicate with CSF - Neurosurgery (Dr. Davis) following; planning for intervention - risks and benefits explained by Dr. Davis - Surgery delayed for platelet function abnormality - Plan for surgery on 09/[address] Davis 2. Dementia - possibly Alzheimer's - Evaluated by neurology - Neurology (Dr. Hanna) following - evaluating for reversible causes of dementia 3. Vitamin D deficiency - c/w Vitamin D supplementation 4. s/p Acute kidney injury - likely 2/2 pre-renal etiology - Cr has trended back to normal - s/p IV fluid hydration 5. s/p Hypotension - possibly 2/2 dehydration - s/p IV fluid hydration 6. DM2 - A1c of 6.3 - c/w ISS 7. DLP - c/w simvastatin 8. HTN - BP controlled - c/w Lisinopril to 40 mg PO at this time; with holding parameters 9. Dementia - c/w memantine 10. Subclinical hyperthyroidism 11. DVT prophylaxis - c/w SCDs Disposition: - Surgery with Dr. Davis - awaiting VS,Rafi, I+O VS, Rafi, I+O Laboratory Tests 09/18/16 06:14 Calcium Level 8.5 L, Red Blood Count 4.54, Mean Corpuscular Volume 86.0, Mean Corpuscular Hemoglobin 28.4, Mean Corpuscular Hemoglobin Concent 33.1, Red Cell Distribution Width 13.3 Vital Signs Date Time Temp Pulse Resp B/P Pulse Ox O2 Delivery O2 Flow Rate FiO2 09/18/16 06:43 98.1 64 18 126/73 97 Room Air I&O- Last 24 Hours up to 6 AM 09/18/16 06:00 Intake Total 1580 ml Output Total 2750 ml Balance -1170 ml RAMBO GIBBS MD Sep 18, 2016 12:57
[2016-09-18 14:00] VITALS: BP 109/56
--- NOTE | 2016-09-18 18:48 | IPN ---
DATE: 09/18/2016 Patient is sitting up comfortably in his chair. He is alert and oriented times three. He is able to remember driving directions to [facility] in [place] and to [place]. He is accompanied by his daughter, Kimber. Patient is also able to name each of his six children in birthing order. Patient does not have any new symptoms or findings today. Labs are noted. Discussed his upcoming surgery for tomorrow. All of his questions were answered to his satisfaction. Will be checking platelet function in the morning prior to surgery. Patient does not have any further questions. Dr. Davis was present for this round.
[2016-09-18 22:00] VITALS: BP 122/63
[2016-09-18] MEDS: SIMVASTATIN 20 MG TAB PO SCH (22:12)
[2016-09-18] MEDS: MEMANTINE 5MG TABLET (NAMENDA) PO SCH (22:12)
[2016-09-19] VITALS (12 sets, daily range): BP systolic 98–154; BP diastolic 43–71
[2016-09-19 06:43] LABS: MEAN CORPUSCULAR HEMOGLOBIN 28.3 pg (27.0-33.0); MEAN CORPUSCULAR HGB CONC 32.9 g/dl (32.0-36.5); MEAN CORPUSCULAR VOLUME 86.1 fl (80.0-96.0); RED CELL DISTRIBUTION WIDTH 13.3 % (11.5-14.5); WHITE BLOOD COUNT 6.6 K/mm3 (4.0-10.0)
[2016-09-19 06:49] LABS: ANION GAP 9 MEQ/L (8-16); BLOOD UREA NITROGEN 29 MG/DL (7-18); CARBON DIOXIDE LEVEL 27 MEQ/L (21-32); CHLORIDE LEVEL 105 MEQ/L (98-107); CREATININE FOR GFR 0.71 MG/DL (0.70-1.30); GLOMERULAR FILTRATION RATE > 60.0 (>42); GLUCOSE, FASTING 102 MG/DL (83-110); POTASSIUM SERUM 3.8 MEQ/L (3.5-5.1); SODIUM LEVEL 141 MEQ/L (136-145)
[2016-09-19] MEDS ORDERED: LIDOCAINE W/EPINEPHRINE 1% 20ML VIAL As Ordered ONE (07:46)
[2016-09-19] MEDS ORDERED: THROMBIN SOLN 20,000 UNITS KIT As Ordered ONE (07:46)
[2016-09-19] MEDS ORDERED: MIDAZOLAM INJ 2 MG/2 ML VIAL (J2250) As Ordered ONE (08:27)
[2016-09-19] MEDS ORDERED: fentaNYL 250 MCG/5 ML INJECTION (J3010) As Ordered ONE (08:28)
[2016-09-19] MEDS ORDERED: LIDOCAINE 2% INJ 100 MG/5 ML SDV (FOR ANES.) As Ordered ONE (08:28)
[2016-09-19] MEDS ORDERED: PROPOFOL 200 MG/20 ML VIAL As Ordered ONE (08:29)
[2016-09-19] MEDS ORDERED: ROCURONIUM BROMIDE 50 MG/5 ML VIAL As Ordered ONE (08:31)
[2016-09-19] MEDS: DOCUSATE SODIUM 100 MG CAP PO SCH ×2 (09:00→20:12)
[2016-09-19] MEDS: VITAMIN D 1,000 INTERNATIONAL UNITS TABLET PO SCH (09:00)
[2016-09-19] MEDS: LISINOPRIL 40 MG TAB PO SCH (09:00)
[2016-09-19] MEDS ORDERED: dexameTHASONE 4 MG/ML 1ML VIAL (J1100) As Ordered ONE (09:42)
[2016-09-19] MEDS ORDERED: CEFUROXIME INJ 1.5 GM VIAL (J0697) As Ordered ONE (09:59)
[2016-09-19] MEDS ORDERED: GLYCOPYRROLATE INJ 0.2 MG/ML 2 ML VIAL As Ordered ONE ×3 (10:09→11:57)
[2016-09-19] MEDS ORDERED: ePHEDrine SULFATE 25 MG/5 ML(5MG/ML) SYRINGE As Ordered ONE ×2 (10:12→11:31)
[2016-09-19] MEDS ORDERED: LIDOCAINE W/EPINEPHRINE 1% 20ML VIAL XX ONE (10:57)
[2016-09-19] MEDS ORDERED: THROMBIN SOLN 20,000 UNITS KIT XX ONE (10:57)
[2016-09-19] MEDS ORDERED: levETIRAcetam 500 MG/5 ML VIAL (KEPPRA IV)(J1953) As Ordered ONE (11:48)
--- NOTE | 2016-09-19 11:53 | IPNPDOC ---
Text Note Date of Service The patient was seen on 09/19/16. NOTE Subjective: Patient is a 76 year old male with a PMHx of HTN, DLP, DM2, Dementia, who presented to the ER with complaints of frequent falls (at least 3) for the last 3-4 weeks. He had a recent history of right rib fractures because of a fall. He notes that he does not have any LOC or symptoms with the falls. Patient denied chest pain or head trauma. Patient was seen and examined at the bedside. No issues Objective: Vitals (See below) General: Lying in bed, no acute distress, comfortable, AAOx3 HEENT: NC, AT CVS: RRR, +S1S2 Lungs: Fair air entry b/l, -e/r/r Abdomen: Soft, ND, NT, +BSx4 Extremities: +PPx4, - edema, - calf tenderness Assessment and plan: 1. Frequent falls - possibly 2/2 arachnoid cyst with compression of adjacent parietal lobe, possibly 2/2 dehydration - Presented with at least 3 falls over 1 month duration; found to be hypotensive in ER - Physical reveals no focal weakness - CT reveals arachnoid cyst; MRI 09/04 revealed 4.4*5.3*4.1 cm arachnoid cyst in posterior right parietal lobe - Cisternogram: reveals intraparenchymal cyst in right hemisphere does not communicate with CSF - Platelet function adequate for surgery today; Plan for surgery today with Dr. Davis - risks and benefits explained by Dr. Davis 2. Dementia - possibly Alzheimer's - Evaluated by neurology - Neurology (Dr. Hanna) following - evaluating for reversible causes of dementia 3. Vitamin D deficiency - c/w Vitamin D supplementation 4. s/p Acute kidney injury - likely 2/2 pre-renal etiology - Cr has trended back to normal - s/p IV fluid hydration 5. s/p Hypotension - possibly 2/2 dehydration - s/p IV fluid hydration 6. DM2 - A1c of 6.3 - c/w ISS 7. DLP - c/w simvastatin 8. HTN - BP controlled - c/w Lisinopril to 40 mg PO at this time; with holding parameters 9. Dementia - c/w memantine 10. Subclinical hyperthyroidism 11. DVT prophylaxis - c/w SCDs Disposition: - Surgery with Dr. Davis today VS,Rafi, I+O VS, Rafi, I+O Laboratory Tests 09/19/16 06:05 Calcium Level 8.0 L, Red Blood Count 4.52, Mean Corpuscular Volume 86.1, Mean Corpuscular Hemoglobin 28.3, Mean Corpuscular Hemoglobin Concent 32.9, Red Cell Distribution Width 13.3 Vital Signs Date Time Temp Pulse Resp B/P Pulse Ox O2 Delivery O2 Flow Rate FiO2 09/19/16 06:00 97.5 71 20 154/71 96 09/18/16 14:00 Room Air I&O- Last 24 Hours up to 6 AM 09/19/16 06:00 Intake Total 1560 ml Output Total 1250 ml Balance 310 ml RAMBO GIBBS MD Sep 19, 2016 11:53
[2016-09-19] MEDS ORDERED: NEOSTIGMINE 1MG/ML 5 ML SYRINGE (J2710) As Ordered ONE (11:59)
[2016-09-19] MEDS ORDERED: fentaNYL 100 MCG/2 ML INJECTION (J3010) As Ordered ONE (12:55)
[2016-09-19 13:04] LABS: OSMOLALITY SERUM 297 MOSM/KG (280-301)
[2016-09-19 13:11] LABS: ANION GAP 9 MEQ/L (8-16); BLOOD UREA NITROGEN 22 MG/DL (7-18); CALCIUM LEVEL 7.9 MG/DL (8.8-10.2); CARBON DIOXIDE LEVEL 26 MEQ/L (21-32); CHLORIDE LEVEL 107 MEQ/L (98-107); CREATININE FOR GFR 0.71 MG/DL (0.70-1.30); GLOMERULAR FILTRATION RATE > 60.0 (>42); GLUCOSE, FASTING 170 MG/DL (83-110); POTASSIUM SERUM 3.7 MEQ/L (3.5-5.1); SODIUM LEVEL 142 MEQ/L (136-145)
[2016-09-19] MEDS ORDERED: fentaNYL 100 MCG/2 ML INJECTION (J3010) IV PRN (14:00)
[2016-09-19] MEDS ORDERED: ONDANSETRON 4MG/2ML VIAL (J2405) IV PRN (14:00)
[2016-09-19] MEDS ORDERED: LR 1,000 ML IV SCH (14:00)
[2016-09-19] MEDS: KCL 20MEQ IN D5/0.45NS 1000ML 1,000 ML IV SCH (14:59)
[2016-09-19] MEDS: NAFCILLIN SOD 1 GM in D5W MINI-BAG PLUS 100 ML IV SCH ×2 (16:00→21:05)
[2016-09-19 18:24] LABS: OSMOLALITY URINE 596 MOSM/KG (500-800)
[2016-09-19 19:53] LABS: POTASSIUM SERUM 4.2 MEQ/L (3.5-5.1)
[2016-09-19] MEDS: SIMVASTATIN 20 MG TAB PO SCH (20:12)
[2016-09-19] MEDS: MEMANTINE 5MG TABLET (NAMENDA) PO SCH (20:12)
[2016-09-19] MEDS: HumaLOG INSULIN (NovoLOG) PER UNIT SC SCH (20:42)
[2016-09-20] VITALS (15 sets, daily range): BP systolic 100–153; BP diastolic 37–75
[2016-09-20] MEDS: KCL 20MEQ IN D5/0.45NS 1000ML 1,000 ML IV SCH (00:21)
[2016-09-20] MEDS: NAFCILLIN SOD 1 GM in D5W MINI-BAG PLUS 100 ML IV SCH (04:58)
[2016-09-20 05:00] LABS: BASO % 0.1 % (0.0-1.0); EOS % 0.5 % (0.0-3.0); LARGE UNSTAINED CELL # 0.2 K/mm3 (0.0-0.4); LARGE UNSTAINED CELL % 1.9 % (0.0-4.0); LYMPH # 1.3 K/mm3 (1.5-4.5); LYMPH % 14.2 % (24.0-44.0); MEAN CORPUSCULAR HEMOGLOBIN 28.9 pg (27.0-33.0); MEAN CORPUSCULAR HGB CONC 33.3 g/dl (32.0-36.5); MEAN CORPUSCULAR VOLUME 86.7 fl (80.0-96.0); MONO # 0.6 K/mm3 (0.0-0.8); MONO % 6.3 % (0.0-5.0); PLATELET COUNT, AUTOMATED 179 k/mm3 (150-450); RED CELL DISTRIBUTION WIDTH 13.5 % (11.5-14.5); WHITE BLOOD COUNT 9.1 K/mm3 (4.0-10.0)
[2016-09-20 05:18] LABS: ALBUMIN 3.1 GM/DL (3.2-5.2); ALBUMIN/GLOBULIN RATIO 1.07 (1.00-1.93); ALKALINE PHOSPHATASE 89 U/L (45-117); ALT/SGPT 19 U/L (12-78); ANION GAP 6 MEQ/L (8-16); AST/SGOT 10 U/L (15-37); BILIRUBIN,TOTAL 0.5 MG/DL (0.2-1.0); BLOOD UREA NITROGEN 14 MG/DL (7-18); CALCIUM LEVEL 8.3 MG/DL (8.8-10.2); CARBON DIOXIDE LEVEL 28 MEQ/L (21-32); CHLORIDE LEVEL 108 MEQ/L (98-107); CREATININE FOR GFR 0.69 MG/DL (0.70-1.30); GLOMERULAR FILTRATION RATE > 60.0 (>42); GLUCOSE, FASTING 89 MG/DL (83-110); POTASSIUM SERUM 3.7 MEQ/L (3.5-5.1); SODIUM LEVEL 142 MEQ/L (136-145)
[2016-09-20 06:31] LABS: OSMOLALITY URINE 296 MOSM/KG (500-800)
[2016-09-20] MEDS: HumaLOG INSULIN (NovoLOG) PER UNIT SC SCH ×4 (06:55→20:29)
[2016-09-20] MEDS: LISINOPRIL 40 MG TAB PO SCH (08:32)
[2016-09-20] MEDS: DOCUSATE SODIUM 100 MG CAP PO SCH ×2 (08:32→20:28)
[2016-09-20] MEDS: VITAMIN D 1,000 INTERNATIONAL UNITS TABLET PO SCH (08:32)
--- NOTE | 2016-09-20 09:59 | IPNPDOC ---
Text Note Date of Service The patient was seen on 09/20/16. NOTE Subjective: Patient is a 76 year old male with a PMHx of HTN, DLP, DM2, Dementia, who presented to the ER with complaints of frequent falls (at least 3) for the last 3-4 weeks. He had a recent history of right rib fractures because of a fall. He notes that he does not have any LOC or symptoms with the falls. Patient denied chest pain or head trauma. Patient was seen and examined at the bedside. He has received surgery yesterday. He denies any problems, other then mild pain around the incision site. He has been tolerating his diet. Objective: Vitals (See below) General: Lying in bed, no acute distress, comfortable, AAOx3 HEENT: Incision to scalp - in dressing CVS: RRR, +S1S2 Lungs: Fair air entry b/l, -e/r/r Abdomen: Soft, ND, NT, +BSx4 Extremities: +PPx4, - edema, - calf tenderness Assessment and plan: 1. Frequent falls - possibly 2/2 arachnoid cyst with compression of adjacent parietal lobe, less likely 2/2 dehydration - Presented with at least 3 falls over 1 month duration; found to be hypotensive in ER - Physical reveals no focal weakness - CT reveals arachnoid cyst; MRI 09/04 revealed 4.4*5.3*4.1 cm arachnoid cyst in posterior right parietal lobe - Cisternogram: reveals intraparenchymal cyst in right hemisphere does not communicate with CSF - s/p Frameless stereotactic right parietal craniotomy with marsupilization of subarachnoid cyst with Dr. Davis - Currently he has been transferred to the ICU for closer monitoring - will defer decision to downgrade to Dr. Davis 2. Dementia - possibly Alzheimer's - Evaluated by neurology - Neurology (Dr. Hanna) following - evaluating for reversible causes of dementia 3. Vitamin D deficiency - c/w Vitamin D supplementation 4. s/p Acute kidney injury - likely 2/2 pre-renal etiology - Cr has trended back to normal - s/p IV fluid hydration 5. s/p Hypotension - possibly 2/2 dehydration - s/p IV fluid hydration 6. DM2 - A1c of 6.3 - c/w ISS 7. DLP - c/w simvastatin 8. HTN - BP controlled - c/w Lisinopril 40 mg PO with holding parameters 9. Dementia - c/w memantine 10. Subclinical hyperthyroidism 11. DVT prophylaxis - c/w SCDs Disposition: - Will require physical therapy after he is out of the ICU VS,Brunobone, I+O VS, Fishbone, I+O Laboratory Tests 09/19/16 12:17 Calcium Level 7.9 L 09/19/16 19:23 Anion Gap 9 09/20/16 04:43 Calcium Level 8.3 L, Aspartate Amino Transf (AST/SGOT) 10 L, Alanine Aminotransferase (ALT/SGPT) 19, Alkaline Phosphatase 89, Total Bilirubin 0.5, Total Protein 6.0 L, Albumin 3.1 L, Red Blood Count 4.05 L, Mean Corpuscular Volume 86.7, Mean Corpuscular Hemoglobin 28.9, Mean Corpuscular Hemoglobin Concent 33.3, Red Cell Distribution Width 13.5, Neutrophils (%) (Auto) 77.0 H, Lymphocytes (%) (Auto) 14.2 L, Monocytes (%) (Auto) 6.3 H, Eosinophils (%) (Auto ) 0.5, Basophils (%) (Auto) 0.1, Neutrophils # (Auto) 7.0, Lymphocytes # (Auto) 1.3 L, Monocytes # (Auto) 0.6, Eosinophils # (Auto) 0.0, Basophils # (Auto) 0.0 Vital Signs Date Time Temp Pulse Resp B/P Pulse Ox O2 Delivery O2 Flow Rate FiO2 09/20/16 06:00 55 18 121/37 95 Room Air 107/55 09/20/16 04:00 96.9 09/20/16 02:00 1.0 I&O- Last 24 Hours up to 6 AM 09/20/16 06:00 Intake Total 5940 ml Output Total 5409 ml Balance 531 ml RAMBO GIBBS MD Sep 20, 2016 09:59
[2016-09-20] MEDS: MEMANTINE 5MG TABLET (NAMENDA) PO SCH (20:28)
[2016-09-20] MEDS: SIMVASTATIN 20 MG TAB PO SCH (20:28)
[2016-09-20] MEDS: ACETAMINOPHEN TAB 650MG DOSE (2X325MG) PO PRN (20:29)
[2016-09-21] VITALS (8 sets, daily range): BP systolic 127–155; BP diastolic 60–80
[2016-09-21] MEDS: ACETAMINOPHEN TAB 650MG DOSE (2X325MG) PO PRN ×2 (00:17→20:12)
[2016-09-21 02:37] LABS: POTASSIUM SERUM 3.8 MEQ/L (3.5-5.1)
[2016-09-21 06:23] LABS: BASO % 0.4 % (0.0-1.0); EOS # 0.1 K/mm3 (0.0-0.50); EOS % 1.3 % (0.0-3.0); LARGE UNSTAINED CELL # 0.2 K/mm3 (0.0-0.4); LYMPH # 1.3 K/mm3 (1.5-4.5); LYMPH % 13.6 % (24.0-44.0); MEAN CORPUSCULAR HEMOGLOBIN 28.5 pg (27.0-33.0); MEAN CORPUSCULAR HGB CONC 32.7 g/dl (32.0-36.5); MEAN CORPUSCULAR VOLUME 87.2 fl (80.0-96.0); MONO # 0.8 K/mm3 (0.0-0.8); MONO % 7.8 % (0.0-5.0); NEUTROPHILS # 7.2 K/mm3 (1.8-7.7); PLATELET COUNT, AUTOMATED 166 k/mm3 (150-450); RED CELL DISTRIBUTION WIDTH 13.3 % (11.5-14.5); WHITE BLOOD COUNT 9.7 K/mm3 (4.0-10.0)
[2016-09-21 06:37] LABS: ALBUMIN 3.1 GM/DL (3.2-5.2); ALBUMIN/GLOBULIN RATIO 0.97 (1.00-1.93); ALKALINE PHOSPHATASE 102 U/L (45-117); ALT/SGPT 23 U/L (12-78); ANION GAP 7 MEQ/L (8-16); AST/SGOT 13 U/L (15-37); BILIRUBIN,TOTAL 0.7 MG/DL (0.2-1.0); BLOOD UREA NITROGEN 12 MG/DL (7-18); CALCIUM LEVEL 8.5 MG/DL (8.8-10.2); CARBON DIOXIDE LEVEL 30 MEQ/L (21-32); CHLORIDE LEVEL 105 MEQ/L (98-107); CREATININE FOR GFR 0.68 MG/DL (0.70-1.30); GLOMERULAR FILTRATION RATE > 60.0 (>42); GLUCOSE, FASTING 107 MG/DL (83-110); SODIUM LEVEL 142 MEQ/L (136-145); TOTAL PROTEIN 6.3 GM/DL (6.4-8.2)
[2016-09-21] MEDS: DOCUSATE SODIUM 100 MG CAP PO SCH ×2 (07:50→20:11)
[2016-09-21] MEDS: VITAMIN D 1,000 INTERNATIONAL UNITS TABLET PO SCH (07:50)
[2016-09-21] MEDS: LISINOPRIL 40 MG TAB PO SCH (07:51)
[2016-09-21] MEDS: HumaLOG INSULIN (NovoLOG) PER UNIT SC SCH ×4 (07:53→20:10)
--- NOTE | 2016-09-21 10:00 | IPNPDOC ---
Text Note Date of Service The patient was seen on 09/21/16. NOTE Subjective: Patient is a 76 year old male with a PMHx of HTN, DLP, DM2, Dementia, who presented to the ER with complaints of frequent falls (at least 3) for the last 3-4 weeks. He had a recent history of right rib fractures because of a fall. He notes that he does not have any LOC or symptoms with the falls. Patient denied chest pain or head trauma. Patient was seen and examined at the bedside. He has received surgery. Again he denies any problems, and is eager to start rehab. Objective: Vitals (See below) General: Lying in bed, no acute distress, comfortable, AAOx3 HEENT: Incision to scalp - in dressing CVS: RRR, +S1S2 Lungs: Fair air entry b/l, -e/r/r Abdomen: Soft, ND, NT, +BSx4 Extremities: +PPx4, - edema, - calf tenderness Assessment and plan: 1. Frequent falls - possibly 2/2 arachnoid cyst with compression of adjacent parietal lobe, less likely 2/2 dehydration - Presented with at least 3 falls over 1 month duration; found to be hypotensive in ER - Physical reveals no focal weakness - CT reveals arachnoid cyst; MRI 09/04 revealed 4.4*5.3*4.1 cm arachnoid cyst in posterior right parietal lobe - Cisternogram: reveals intraparenchymal cyst in right hemisphere does not communicate with CSF - s/p Frameless stereotactic right parietal craniotomy with marsupialization of subarachnoid cyst with Dr. Davis - Dr. Davis on consult - appreciate their input - Will start physical therapy 2. Dementia - possibly Alzheimer's - Evaluated by neurology - Neurology (Dr. Hanna) following - evaluating for reversible causes of dementia 3. Vitamin D deficiency - c/w Vitamin D supplementation 4. s/p Acute kidney injury - likely 2/2 pre-renal etiology - Cr has trended back to normal - s/p IV fluid hydration 5. s/p Hypotension - possibly 2/2 dehydration - s/p IV fluid hydration 6. DM2 - A1c of 6.3 - c/w ISS 7. DLP - c/w simvastatin 8. HTN - BP controlled - c/w Lisinopril 40 mg PO with holding parameters 9. Dementia - c/w memantine 10. Subclinical hyperthyroidism 11. DVT prophylaxis - c/w SCDs Disposition: - Will require physical therapy today and determine disposition based on their recommendations VSRafi, I+O VS, Rafi, I+O Laboratory Tests 09/21/16 01:41 Anion Gap 7 L 09/21/16 05:57 Calcium Level 8.5 L, Aspartate Amino Transf (AST/SGOT) 13 L, Alanine Aminotransferase (ALT/SGPT) 23, Alkaline Phosphatase 102, Total Bilirubin 0.7, Total Protein 6.3 L, Albumin 3.1 L, Red Blood Count 4.18 L, Mean Corpuscular Volume 87.2, Mean Corpuscular Hemoglobin 28.5, Mean Corpuscular Hemoglobin Concent 32.7, Red Cell Distribution Width 13.3, Neutrophils (%) (Auto) 75.0 H, Lymphocytes (%) (Auto) 13.6 L, Monocytes (%) (Auto) 7.8 H, Eosinophils (%) (Auto ) 1.3, Basophils (%) (Auto) 0.4, Neutrophils # (Auto) 7.2, Lymphocytes # (Auto) 1.3 L, Monocytes # (Auto) 0.8, Eosinophils # (Auto) 0.1, Basophils # (Auto) 0.0 Vital Signs Date Time Temp Pulse Resp B/P Pulse Ox O2 Delivery O2 Flow Rate FiO2 09/21/16 08:00 98.0 72 18 131/75 100 Room Air 09/20/16 02:00 1.0 I&O- Last 24 Hours up to 6 AM 09/21/16 06:00 Intake Total 2280 ml Output Total 2895 ml Balance -615 ml RAMBO GIBBS MD Sep 21, 2016 10:00
[2016-09-21] MEDS: SIMVASTATIN 20 MG TAB PO SCH (20:11)
[2016-09-21] MEDS: MEMANTINE 5MG TABLET (NAMENDA) PO SCH (20:11)
[2016-09-22 04:00] VITALS: BP 168/79
[2016-09-22 05:25] LABS: BASO % 0.3 % (0.0-1.0); EOS # 0.2 K/mm3 (0.0-0.50); EOS % 2.2 % (0.0-3.0); LARGE UNSTAINED CELL # 0.2 K/mm3 (0.0-0.4); LARGE UNSTAINED CELL % 2.9 % (0.0-4.0); LYMPH # 1.3 K/mm3 (1.5-4.5); MEAN CORPUSCULAR HEMOGLOBIN 28.5 pg (27.0-33.0); MEAN CORPUSCULAR HGB CONC 33.4 g/dl (32.0-36.5); MEAN CORPUSCULAR VOLUME 85.5 fl (80.0-96.0); MONO # 0.5 K/mm3 (0.0-0.8); MONO % 6.1 % (0.0-5.0); NEUTROPHILS # 5.6 K/mm3 (1.8-7.7); NEUTROPHILS % 71.5 % (36.0-66.0); PLATELET COUNT, AUTOMATED 151 k/mm3 (150-450); RED CELL DISTRIBUTION WIDTH 13.1 % (11.5-14.5); WHITE BLOOD COUNT 7.8 K/mm3 (4.0-10.0)
[2016-09-22 05:57] LABS: ALBUMIN 2.8 GM/DL (3.2-5.2); ALBUMIN/GLOBULIN RATIO 0.74 (1.00-1.93); ALKALINE PHOSPHATASE 99 U/L (45-117); ALT/SGPT 26 U/L (12-78); ANION GAP 9 MEQ/L (8-16); AST/SGOT 15 U/L (15-37); BILIRUBIN,TOTAL 0.7 MG/DL (0.2-1.0); BLOOD UREA NITROGEN 15 MG/DL (7-18); CALCIUM LEVEL 8.2 MG/DL (8.8-10.2); CARBON DIOXIDE LEVEL 27 MEQ/L (21-32); CHLORIDE LEVEL 104 MEQ/L (98-107); CREATININE FOR GFR 0.65 MG/DL (0.70-1.30); GLOMERULAR FILTRATION RATE > 60.0 (>42); GLUCOSE, FASTING 118 MG/DL (83-110); POTASSIUM SERUM 3.4 MEQ/L (3.5-5.1); SODIUM LEVEL 140 MEQ/L (136-145); TOTAL PROTEIN 6.6 GM/DL (6.4-8.2)
--- NOTE | 2016-09-22 07:30 | REPUSA ---
CLINICAL HISTORY: Status post surgical changes. TECHNIQUE: Multiple axial brain CT scan sections were obtained from base to vertex without contrast a dministration. COMMENTS: Comparison is made to the prior exam performed on 09/04/2016. Recent right pterional craniotomy. Moderate pneumocephaly. CSF density right parietal extra-axial fluid collection measuring 1.1 cm in its maximum thickness. No significant associated mass effect. Interval appearance of a left extra-axial CSF density fluid collection measuring 4 mm in its largest transverse dimension. No associated mass effect. Air density is identified in the right frontal/parietal CSF density cyst. It measures 5.3 x 3.5 cm in its largest the anteroposterior and transverse dimensions respectively. Minimal hemorrhagic products are noted in the posterior aspect of the surgical cavity. The sinuses and mastoid air cells are patent. IMPRESSION: Recent right pterional craniotomy. Moderate pneumocephaly. This was not present on prior exam. Interval appearance of bilateral extra-axial CSF fluid collections. No significant mass effect. Surgical changes of the patient described right frontal/parietal cyst. Minimal hemorrhagic products in the posterior aspect of the surgical cavity. Thank you for your kind referral of this patient.
[2016-09-22] MEDS ORDERED: POTASSIUM CHLORIDE 10 MEQ SR TABLET PO ONE (07:45)
[2016-09-22 08:00] VITALS: BP 121/67
[2016-09-22] MEDS: DOCUSATE SODIUM 100 MG CAP PO SCH (08:59)
[2016-09-22] MEDS: VITAMIN D 1,000 INTERNATIONAL UNITS TABLET PO SCH (08:59)
[2016-09-22] MEDS: HumaLOG INSULIN (NovoLOG) PER UNIT SC SCH ×2 (08:59→12:00)
[2016-09-22] MEDS: LISINOPRIL 40 MG TAB PO SCH (08:59)
[2016-09-22] MEDS ORDERED: LISI40TAB PO (11:01)
[2016-09-22] MEDS ORDERED: VITAD1000T PO (11:01)
[2016-09-22 12:00] VITALS: BP 129/66
--- NOTE | 2016-09-22 14:03 | DSES ---
DATE OF ADMISSION: 09/05/2016 DATE OF DISCHARGE: 09/22/2016 ATTENDING PHYSICIAN: Dr. Twyla Rowe, Dr. Carlos Nichole PRIMARY CARE PHYSICIAN: Dr. Ray King REFERRING PHYSICIANS: None. CONSULTING PHYSICIANS: Dr. Toshia Hanna and Dr. Duarte Davis CONDITION ON DISCHARGE: Stable. FINAL DIAGNOSIS: Frequent falls, possibly secondary to arachnoid cyst with compression of adjacent parietal lobe. PROCEDURES: Patient had a frameless stereotactic right parietal craniotomy with marsupialization of subarachnoid cyst to the general subarachnoid space on 09/19/2016. HISTORY OF PRESENT ILLNESS: The patient is a 76-year-old male with a past medical history of hypertension, dyslipidemia, diabetes mellitus type 2, dementia, who presented to the emergency room with complaints of frequent falls at least three times for the past 3-4 weeks. He had recent history of right rib fractures because of the fall. He admits that he did not have any loss of consciousness or symptoms with the fall. Patient denied any chest pain or head trauma. HOSPITAL COURSE: 1. Frequent falls, possibly secondary to arachnoid cyst with compression of adjacent parietal lobe, less likely secondary to dehydration. Presented with at least three falls over 1 month duration. Found to be hypertensive in the emergency room. Physical revealed no focal neurologic deficits. CT revealed arachnoid cyst. MRI on 09/04/2016, revealed a 4.4 x 5.3 x 4.1 cm arachnoid cyst in the posterior right parietal lobe. Cisternogram was acquired over one week which revealed intraparenchymal cyst in the right hemisphere which does not communicate with the cerebral spinal fluid (CSF). Patient went for frameless stereotactic right parietal craniotomy with marsupialization of the subarachnoid cyst with Dr. Davis. Dr. Davis was on consult. Patient was started on physical therapy and was cleared by physical therapy after surgery. 2. Dementia, possible secondary to Alzheimer's. Evaluated by neurology and neurology was on board to evaluate for reversible cognitive dementia which was never found. 3. Vitamin D deficiency. Continue with vitamin D supplementation. 4. Status post acute kidney injury likely secondary to prerenal etiology. Creatinine has trended back to normal status post intravenous (IV) fluid hydration. 5. Status post hypotension, possibly secondary to dehydration. Status post IV fluid hydration. 6. Diabetes mellitus type 2. A1c of 6.3. Continue with insulin sliding scale. 7. Dyslipidemia. Continue with simvastatin. 8. Hypertension. Blood pressure remains well controlled. He is continued with lisinopril 40 mg by mouth daily. 9. Dementia. Continue with memantine. 10. Subclinical hyperthyroidism. 11. Deep venous thrombosis (DVT) prophylaxis. Continue with sequential compression devices. DISCHARGE MEDICATIONS: Patient was discharged home with the following medication list: - aspirin 81 mg by mouth daily - Lumigan one drop in each eye daily - Combigan one drop in each eye daily - docusate 100 mg by mouth twice a day - memantine 28 mg by mouth daily - metformin 500 mg by mouth daily - multivitamin one tablet by mouth daily - simvastatin 20 mg by mouth nightly Stopped medications include: - hydrochlorothiazide 6.25 mg by mouth daily - lisinopril 10 mg by mouth daily New prescriptions provided include: - lisinopril 40 mg by mouth daily - vitamin D 1000 units by mouth daily DISCHARGE INSTRUCTIONS: Patient was advised to followup with her primary care provider and neurosurgery within the next 7 days. He has been advised to remain compliant with treatment plan and recommendations and return to the emergency room if he experiences any problems. TIME SPENT ON DISCHARGE: 35 minutes.
[2016-09-22 16:00] VITALS: BP 130/68
--- NOTE | 2016-09-23 10:22 | RO ---
DATE OF PROCEDURE: 09/19/2016 PREOPERATIVE DIAGNOSIS: Right posterior parietal arachnoid cyst versus cystic mass with mass effect. POSTOPERATIVE DIAGNOSIS: Right posterior parietal arachnoid cyst versus cystic mass with mass effect. PROCEDURE: Frameless computer-assisted stereotactic right posterior parietal craniotomy using Stealth navigation system with marsupialization of the cyst into the general subarachnoid space, multiple biopsies of the wall of the cyst and that of the arachnoid matter, duraplasty, cranioplasty. SURGEON: Duarte Davis MD PORTABLE GRINDING MACHINE OPERATOR: SYLWIA Gunter ANESTHESIA: General. DESCRIPTION OF PROCEDURE: Patient was seen in the preoperative area, and an extensive family conference was held again. Patient and family were aware of all options, risks, scope, expected outcome, sequelae, and complications of the proposed salvage procedure. Patient has been showing some signs of rapid decline in his intellectual functions as well as imbalance. His workup showed a nonfilling cystic mass in the right posterior parietal region on the cisternogram. The CT scan and the MRI show considerable pressure on the adjoining brain from the cystic lesions. Spinal fluid was sent for Alzheimer markers at the time of his cisternogram. Patient and the family were aware of all options, risks, scope, expected outcome, sequelae, and all possible complications of surgery. They understood no guarantees of any kind could be given, including that of establishing a pathological diagnosis. They understood the risks of surgery include, but are not limited to, , paralysis, quadriplegia, persistent vegetative state, seizure disorder, status epilepticus, loss of any or all vital bodily functions, intracranial bleeding, infection, deep venous thrombosis (DVT), pulmonary embolism (PE), myocardial infarction (NM), and/or any catastrophic sequelae. The patient and family clearly understood the surgery is not curative. Patient and family wished to proceed with surgery. After all matters pertaining to the surgery, anesthesia, and followup care had been discussed again with the patient and family, he was taken to the operating room at their request and after informed consent. Once in the operating room, general endotracheal anesthesia was given by the anesthesia service. Patient's head was then positioned in a [place] headrest with three-point skeletal fixation system. [place] navigation hardware was attached to the [place] headrest. The data received from the computers and the MRI was fed into the computers in the operating room to get live navigation. Under live navigation, a skin incision was given for a few inches just above the right parietal buttress. Galeal region incised. Periosteum was scraped off the skull vault, and wound edges were held apart with the help of self-retaining retractors. Prior to the incision, the incision line was infiltrated with 1% lidocaine with 1:100,00 epinephrine. A kesha hole was created in the posterior aspect of the exposed skull vault; and using craniotome, an oval shaped bone flap was raised. There was considerable brain swelling. The dura was opened, and a large subarachnoid cyst appeared to be trapped. There was no egress of cerebrospinal fluid (CSF) flow from it. It was quite ballooned out and displacing the adjoining brain. Superior portion of the cyst was entered after excising several fragments of the wall of the cyst, and it was sent for electron microscopy to rule out presence of arachnoidal villi, which would indicate possible need for cystoperitoneal shunt down the road. Some pieces from adjoining arachnoid were also sent for the electron microscopy for comparison. At this time, the wound was closed in anatomic layers. Dural suture line was infiltrated with DuraSeal. The dura was tacked to the skull vault using flap #4-0 silk. The skull flap was placed back with the help of two Medicon plates and six screws. Subsequently, the galea and the skin were closed in two layers. Patient tolerated the procedure well and was transferred to the recovery room in stable condition. Blood loss appeared negligible, maybe 10 or 15 mL, if that. There was not much in the container.
--- NOTE | 2016-09-23 12:49 | IPN ---
DATE: 09/22/2016 NEUROSURGERY The patient is seen at the bedside today. He is alert and oriented. The patient is sitting in his chair comfortably eating lunch. The patient appears to be doing very well. He is participating in conversation appropriately. He appears to be excited about his discharge. He notes no new symptoms today. States that he has mild pain in the surgical incision, mainly when lying down when he is leaning toward the incision; however, he states that this pain is improving every day. He reports that his physical therapy (PT) went well. States that he did not have any difficulty with ambulation and that he feels stable on his feet. Overall, the patient states that he feels well. No new findings examination today. His incision looks to be healing well. There is trace dried blood spotting on his bandage. No erythema noted outside the bandage. No tenderness around the incision site. It is noted that his temperature was 99.7 on 09/21/2016; however, it has been within normal limits since that time. We will followup with the patient in the office after discharge.
[2016-09-26 11:05] LABS: CSF AMYLOID BETA PROTEIN SEE SEPARATE REPORT; CSF PHOSPHORYLATED-TAU PROTEIN SEE SEPARATE REPORT; CSF TOTAL-TAU PROTEIN SEE SEPARATE REPORT
== END 2016-09-22 17:14 | disposition home health service (06) | DRG 25 ==
LOC: M ED 11:33 → M PCU 14:21 → M ED INP 14:22 → M PCU 23:20 → OBSVTOIN 09-05 10:18 → M MSPAV 09-06 18:37 → M ICU 09-16 11:14 → M MSPAV 09-16 17:20 → M ICU 09-19 14:00 → M PCU 09-21 06:38
PROVIDERS: ADMIT Internal Medicine; ATTEND Internal Medicine
PROC: 3E0R3KZ Introduction of Other Diagnostic Substance into Spinal Canal, Percutaneous Approach (ICD-10-PCS; 2016-09-09)
PROC: 00B00ZX Excision of Brain, Open Approach, Diagnostic (ICD-10-PCS; principal; 2016-09-19 08:15)
DX: G93.0 Cerebral cysts (principal); G93.5 Compression of brain; N17.9 Acute kidney failure, unspecified; I10 Essential (primary) hypertension; E78.00 Pure hypercholesterolemia, unspecified; E11.42 Type 2 diabetes mellitus with diabetic polyneuropathy; M47.892 Other spondylosis, cervical region; G30.9 Alzheimer's disease, unspecified; E78.5 Hyperlipidemia, unspecified; R26.9 Unspecified abnormalities of gait and mobility; E55.9 Vitamin D deficiency, unspecified; F02.80 Dementia in other diseases classified elsewhere, unspecified severity, without behavioral disturbance, psychotic disturbance, mood disturbance, and anxiety; M47.896 Other spondylosis, lumbar region; I95.9 Hypotension, unspecified; R32 Unspecified urinary incontinence; E86.0 Dehydration; Z87.891 Personal history of nicotine dependence; Z79.84 Long term (current) use of oral hypoglycemic drugs; Z79.899 Other long term (current) drug therapy

== ENCOUNTER 2016-10-16 07:45 | Outpatient (RCR) | payer MEDICARE, BC ==
[~2016-10-16 07:45] MED LIST: ASPI1TAB PO; BIMA01SOL OU; COLA100C3 PO; COMB0.2S OU; HYDR25TA6 PO; LISI10TA4 PO; LISI40TAB PO; METF500T PO; NAME28CA PO; SIMV20TA2 PO; VITAD1000T PO; VITMTA PO
== END 2016-10-18 ==
LOC: M ST 07:45
PROVIDERS: ATTEND Nurse Practitioner Family
DX: Z51.89 Encounter for other specified aftercare (principal); G31.84 Mild cognitive impairment of uncertain or unknown etiology; R47.01 Aphasia
CPT/HCPCS: 92507; 92523; G9162; G9163

== ENCOUNTER → 2016-10-18 | Outpatient (CLI) | payer MEDICARE, BC ==
[~2016-10-18] MED LIST changes: +COLA100C PO; -COLA100C3 PO; -HYDR25TA6 PO; +HYDR62TA PO
--- NOTE | 2016-10-18 18:49 | REP ---
MR BRAIN WITHOUT CONTRAST: HISTORY: Confusion. COMPARISON: MR 09/04/[address] 09/22/2016 Areas of increased signal intensity on T2 weighted images are present in the periventricular and subcortical white matter. This represents small vessel ischemic disease. There is no intraparenchymal hemorrhage, infarct, or mass. The ventricular system and cortical sulci are dilated consistent with mild volume loss. An arachnoid cyst is present overlying the posterior right parietal lobe. The cyst measures 3.9 cm in transverse x 4.6 cm in AP x 3.2 cm in cephalocaudal dimensions and is decreased in size compared to the previous study. A small amount of gliosis and chronic hemorrhage are adjacent to the cyst. A chronic subdural hematoma with a small amount of rebleeding is present over the left cerebral hemisphere. This measures 1.4 cm in width and is decreased in size compared to the previous study. A chronic subdural hematoma is present overlying the anterior right frontal lobe. This measures 9 mm in width and is decreased in size compared to the previous study. Mucosal thickening is present in the maxillary sinuses. IMPRESSION:1. Small vessel ischemic disease. 2. Mild volume loss. 3. Right parietal arachnoid cyst decreased in size compared to the previous study. 4. There is a 1.4 cm chronic subdural hematoma over the left cerebral hemisphere with a small amount of rebleeding. That is decreased in sized compared to the previous study. 5. Small 9 mm chronic subdural hematoma over the anterior right frontal lobe, decreased in size compared to the previous study. Discussed with Dr. Davis at 5 p.m. this date. Signed by Ren Mishra MD 10/21/2016 09:18 A
== END ==
LOC: M RAD 15:51
PROVIDERS: ATTEND Neurological Surgery
DX: R47.01 Aphasia (principal); G31.84 Mild cognitive impairment of uncertain or unknown etiology

== ENCOUNTER 2016-11-14 08:00 | Outpatient (RCR) | payer MEDICARE, BC ==
[~2016-11-14 08:00] MED LIST changes: -COLA100C PO; +COLA100C3 PO; +HYDR25TA6 PO; -HYDR62TA PO
== END 2016-11-17 ==
LOC: M ST 08:00
PROVIDERS: ATTEND Nurse Practitioner Family
DX: Z51.89 Encounter for other specified aftercare (principal); G31.84 Mild cognitive impairment of uncertain or unknown etiology; R47.01 Aphasia; R26.9 Unspecified abnormalities of gait and mobility; G93.0 Cerebral cysts; G93.5 Compression of brain
CPT/HCPCS: 92507; 97110; 97162; 97532; G8978; G8979; G8980

== ENCOUNTER → 2016-11-26 | Outpatient (CLI) | payer MEDICARE, BC ==
--- NOTE | 2016-11-26 09:51 | REP ---
Chest x-ray: Two views. History: Communicating hydrocephalus. Comparison study September 04, 2016. Findings: The lungs are symmetrically aerated and free of infiltrate. Pleural angles are sharp. Heart is not enlarged. There are mild degenerative changes in the thoracic spine and aorta. There are two old somewhat displaced right posterolateral rib fractures. Impression: No active cardiopulmonary disease. Signed by Thomas Laird MD 11/26/2016 01:49 P
[2016-11-26 10:26] LABS: BASO % 0.9 % (0.0-1.0); EOS # 0.3 K/mm3 (0.0-0.50); EOS % 5.5 % (0.0-3.0); LARGE UNSTAINED CELL # 0.1 K/mm3 (0.0-0.4); LARGE UNSTAINED CELL % 2.7 % (0.0-4.0); LYMPH # 1.4 K/mm3 (1.5-4.5); LYMPH % 29.3 % (24.0-44.0); MEAN CORPUSCULAR HEMOGLOBIN 29.4 pg (27.0-33.0); MEAN CORPUSCULAR HGB CONC 33.4 g/dl (32.0-36.5); MONO # 0.2 K/mm3 (0.0-0.8); MONO % 4.8 % (0.0-5.0); NEUTROPHILS # 2.7 K/mm3 (1.8-7.7); NEUTROPHILS % 56.8 % (36.0-66.0); PLATELET COUNT, AUTOMATED 185 k/mm3 (150-450); WHITE BLOOD COUNT 4.8 K/mm3 (4.0-10.0)
[2016-11-26 10:38] LABS: INR 0.99
[2016-11-26 11:00] LABS: ALBUMIN 3.9 GM/DL (3.2-5.2); ALKALINE PHOSPHATASE 107 U/L (45-117); ALT/SGPT 34 U/L (12-78); ANION GAP 7 MEQ/L (8-16); AST/SGOT 22 U/L (15-37); BILIRUBIN,TOTAL 0.4 MG/DL (0.2-1.0); BLOOD UREA NITROGEN 25 MG/DL (7-18); CALCIUM LEVEL 8.5 MG/DL (8.8-10.2); CARBON DIOXIDE LEVEL 31 MEQ/L (21-32); CHLORIDE LEVEL 103 MEQ/L (98-107); CREATININE FOR GFR 0.76 MG/DL (0.70-1.30); GLOMERULAR FILTRATION RATE > 60.0 (>42); GLUCOSE, FASTING 142 MG/DL (83-110); POTASSIUM SERUM 4.2 MEQ/L (3.5-5.1); SODIUM LEVEL 141 MEQ/L (136-145); TOTAL PROTEIN 6.9 GM/DL (6.4-8.2)
[2016-11-26 11:12] LABS: COLLAGEN ADP 128 SECONDS (56-103)
--- NOTE | 2016-11-26 19:00 | ECGEPIP ---
Stationary ECG Study [facility] Test Date: 2016-11-26 Pat Name: PETE OCONNOR Department: Room: - Gender: M Director [employer]: EBER : 1940 Requested By: JASPREET Watosn Order Number: [id number] Reading MD: Josiane Patel Measurements Intervals [place] Rate: 56 P: 58 AL: 188 QRS: 24 QRSD: 102 T: 54 QT: 392 QTc: 380 Interpretive Statements SINUS BRADYCARDIA POSSIBLE LEFT VENTRICULAR HYPERTROPHY SIMILAR 09/04/16 Electronically Signed On 11-26-2016 19:00:16 EDT by Josiane Patel
[2016-11-26 19:42] LABS: CALCIUM OXALATE CRYSTALS MODERATE
== END ==
LOC: M LAB 08:42
PROVIDERS: ATTEND Neurological Surgery
DX: Z01.818 Encounter for other preprocedural examination (principal); G91.0 Communicating hydrocephalus; F03.90 Unspecified dementia, unspecified severity, without behavioral disturbance, psychotic disturbance, mood disturbance, and anxiety; G96.9 Disorder of central nervous system, unspecified

== ENCOUNTER → 2016-12-11 | Outpatient (REF) | payer MEDICARE, BC | LOC: M LAB REF 16:40 | PROVIDERS: ATTEND Neurological Surgery | DX: Z01.818 Encounter for other preprocedural examination (principal) ==

== ENCOUNTER → 2016-12-18 | Outpatient (CLI) | payer MEDICARE, BC | LOC: M LAB 09:27 | PROVIDERS: ATTEND Neurological Surgery | DX: Z79.82 Long term (current) use of aspirin (principal) ==

== ENCOUNTER 2016-12-20 06:01 | Day surgery (SDC) | payer MEDICARE, BC ==
[2016-12-20] VITALS (16 sets, daily range): BP systolic 108–159; BP diastolic 55–95
[~2016-12-20] VITALS: Ht 165.1 cm; Wt 85.2 kg
[~2016-12-20 06:01] MED LIST changes: +LR 1,000 ML IV ONE
[2016-12-20] MEDS ORDERED: dexameTHASONE 4 MG/ML 1ML VIAL (J1100) IV ONE (06:45)
[2016-12-20] MEDS ORDERED: THROMBIN SOLN 20,000 UNITS KIT As Ordered ONE (07:02)
[2016-12-20] MEDS ORDERED: LIDOCAINE W/EPINEPHRINE 1% 20ML VIAL As Ordered ONE (07:02)
[2016-12-20] MEDS ORDERED: NAFCILLIN SOD 1 GM VIAL (S0032) As Ordered ONE (07:02)
[2016-12-20] MEDS ORDERED: BACITRACIN PWD 50,000 UNITS VIAL As Ordered ONE (07:03)
[2016-12-20] MEDS ORDERED: MIDAZOLAM INJ 2 MG/2 ML VIAL (J2250) As Ordered ONE (07:23)
[2016-12-20] MEDS ORDERED: fentaNYL 250 MCG/5 ML INJECTION (J3010) As Ordered ONE (07:23)
[2016-12-20] MEDS ORDERED: LIDOCAINE 2% INJ 100 MG/5 ML SDV (FOR ANES.) As Ordered ONE (07:45)
[2016-12-20] MEDS ORDERED: ROCURONIUM BROMIDE 50 MG/5 ML VIAL As Ordered ONE ×2 (07:45→08:58)
[2016-12-20] MEDS ORDERED: ONDANSETRON 4MG/2ML VIAL (J2405) As Ordered ONE ×2 (07:45→09:09)
[2016-12-20] MEDS ORDERED: PROPOFOL 200 MG/20 ML VIAL As Ordered ONE (07:45)
[2016-12-20] MEDS ORDERED: GLYCOPYRROLATE INJ 0.2 MG/ML 2 ML VIAL As Ordered ONE ×4 (08:19→11:00)
[2016-12-20] MEDS ORDERED: PHENYLephrine HCL 500 MCG/5 ML (100MCG/ML) SYRINGE (J2370) As Ordered ONE (08:19)
[2016-12-20] MEDS ORDERED: ePHEDrine SULFATE 25 MG/5 ML(5MG/ML) SYRINGE As Ordered ONE (08:23)
[2016-12-20] MEDS ORDERED: PHENYLEPHRINE INJ 10MG/ML VIAL (J2370) As Ordered ONE (08:27)
[2016-12-20] MEDS ORDERED: LABETALOL HCL 100 MG/20 ML VIAL As Ordered ONE (09:27)
[2016-12-20] MEDS ORDERED: HYDROmorphone HCL 2 MG/ML 1ML VIAL (J1170) As Ordered ONE (09:40)
[2016-12-20] MEDS ORDERED: fentaNYL 100 MCG/2 ML INJECTION (J3010) IV PRN (11:30)
[2016-12-20] MEDS ORDERED: LR 1,000 ML IV SCH (11:30)
[2016-12-20] MEDS ORDERED: ONDANSETRON 4MG/2ML VIAL (J2405) IV PRN (11:30)
[2016-12-20] MEDS: PERCOCET 5MG/325MG TAB PO PRN ×2 (11:33→12:20)
[2016-12-20] MEDS ORDERED: hydrALAZINE INJ 20 MG/ML VIAL As Ordered ONE (11:40)
[2016-12-20] MEDS ORDERED: GLUCAGON FOR INJ 1 MG VIAL (J1610) SC PRN (11:45)
[2016-12-20] MEDS ORDERED: GLUCOSE 4 GM CHEW TABLET PO PRN (11:45)
[2016-12-20] MEDS ORDERED: KCL 20MEQ IN D5/0.45NS 1000ML 1,000 ML IV SCH (11:45)
[2016-12-20] MEDS ORDERED: DEXTROSE 50% 50 ML SYRINGE IV PRN (11:45)
[2016-12-20] MEDS: HumaLOG INSULIN (NovoLOG) PER UNIT SC SCH ×2 (12:00→17:27)
[2016-12-20] MEDS ORDERED: hydrALAZINE INJ 20 MG/ML VIAL IV ONE (12:15)
[2016-12-20 12:25] LABS: APPEARANCE, CSF CLOUDY (CLEAR); COLOR, CSF RED (COLORLESS); CSF DIFF IF INDICATED? ADD MANUAL DIFF (NO); CSF TUBE# CELL CNT TUBE 2; DILUTION RBC CSF 10 (0-10); DILUTION WBC CSF 10 (0-10)
[2016-12-20 12:26] LABS: RBC CALC CSF 50277 /mm3 (0-0); RBC COUNTED CSF 4525 /mm3 (0-0); WBC COUNTED CSF 33 /uL (0-10)
[2016-12-20 12:50] LABS: CC CSF DIFF EXAM CYTOCENTRIFUGE
[2016-12-20 13:10] LABS: GLUCOSE CSF 54 MG/DL (40-75)
[2016-12-20] MEDS ORDERED: ACETAMINOPHEN 500 MG TAB PO PRN (13:30)
[2016-12-20] MEDS: LISINOPRIL 40 MG TAB PO SCH (13:36)
[2016-12-20] MEDS: ceFAZolin SOD 1 GM in D5W MINI-BAG PLUS 50 ML IV SCH ×2 (13:37→20:58)
[2016-12-20] MEDS: ASPIRIN 81 MG ENTERIC TAB PO SCH (17:26)
[2016-12-20] MEDS: hydrALAZINE INJ 20 MG/ML VIAL IV SCH (20:00)
[2016-12-20] MEDS: DOCUSATE SODIUM 100 MG CAP PO SCH (20:59)
[2016-12-20] MEDS: LATANOPROST 0.005% OPHTH SOLN 2.5 ML OU SCH (20:59)
[2016-12-20] MEDS: MEMANTINE 5MG TABLET (NAMENDA) PO SCH (20:59)
[2016-12-20] MEDS: SIMVASTATIN 20 MG TAB PO SCH (20:59)
[2016-12-20] MEDS ORDERED: HumaLOG INSULIN (NovoLOG) PER UNIT SC SCH (21:00)
[2016-12-21] VITALS (15 sets, daily range): BP systolic 115–169; BP diastolic 53–103
[2016-12-21] MEDS: ceFAZolin SOD 1 GM in D5W MINI-BAG PLUS 50 ML IV SCH ×2 (01:23→08:20)
[2016-12-21] MEDS: ACETAMINOPHEN 500 MG TAB PO PRN ×3 (03:44→22:07)
[2016-12-21] MEDS: hydrALAZINE INJ 20 MG/ML VIAL IV SCH ×2 (03:51→12:00)
[2016-12-21 04:43] LABS: BASO % 0.1 % (0.0-1.0); EOS # 0.1 K/mm3 (0.0-0.50); EOS % 0.6 % (0.0-3.0); LARGE UNSTAINED CELL # 0.1 K/mm3 (0.0-0.4); LARGE UNSTAINED CELL % 1.3 % (0.0-4.0); LYMPH # 1.9 K/mm3 (1.5-4.5); LYMPH % 20.2 % (24.0-44.0); MEAN CORPUSCULAR HEMOGLOBIN 28.5 pg (27.0-33.0); MEAN CORPUSCULAR HGB CONC 33.7 g/dl (32.0-36.5); MEAN CORPUSCULAR VOLUME 84.6 fl (80.0-96.0); MONO # 0.7 K/mm3 (0.0-0.8); MONO % 7.2 % (0.0-5.0); NEUTROPHILS # 6.6 K/mm3 (1.8-7.7); NEUTROPHILS % 70.6 % (36.0-66.0); PLATELET COUNT, AUTOMATED 193 k/mm3 (150-450); RED CELL DISTRIBUTION WIDTH 13.1 % (11.5-14.5); WHITE BLOOD COUNT 9.3 K/mm3 (4.0-10.0)
[2016-12-21 04:59] LABS: ALBUMIN 3.7 GM/DL (3.2-5.2); ALBUMIN/GLOBULIN RATIO 1.06 (1.00-1.93); ALKALINE PHOSPHATASE 92 U/L (45-117); ALT/SGPT 33 U/L (12-78); ANION GAP 7 MEQ/L (8-16); AST/SGOT 23 U/L (15-37); BILIRUBIN,TOTAL 0.7 MG/DL (0.2-1.0); BLOOD UREA NITROGEN 14 MG/DL (7-18); CARBON DIOXIDE LEVEL 30 MEQ/L (21-32); CHLORIDE LEVEL 102 MEQ/L (98-107); CREATININE FOR GFR 0.91 MG/DL (0.70-1.30); GLOMERULAR FILTRATION RATE > 60.0 (>42); GLUCOSE, FASTING 107 MG/DL (83-110); POTASSIUM SERUM 4.4 MEQ/L (3.5-5.1); SODIUM LEVEL 139 MEQ/L (136-145); TOTAL PROTEIN 7.2 GM/DL (6.4-8.2)
[2016-12-21] MEDS: HumaLOG INSULIN (NovoLOG) PER UNIT SC SCH ×2 (08:19→12:00)
[2016-12-21] MEDS: metFORMIN (GLUCOPHAGE) 500 MG TAB PO SCH (08:20)
[2016-12-21] MEDS: DOCUSATE SODIUM 100 MG CAP PO SCH ×2 (08:20→22:06)
[2016-12-21] MEDS: ASPIRIN 81 MG ENTERIC TAB PO SCH (08:20)
[2016-12-21] MEDS: LISINOPRIL 40 MG TAB PO SCH (08:20)
[2016-12-21] MEDS: MEMANTINE 5MG TABLET (NAMENDA) PO SCH ×2 (08:20→22:06)
[2016-12-21] MEDS: SLF 3 ML SYR IV SCH ×2 (14:00→22:08)
[2016-12-21] MEDS ORDERED: SLF 3 ML SYR IV PRN (14:45)
[2016-12-21] MEDS ORDERED: **hydrALAZINE HCL** 25 MG TAB As Ordered ONE (16:45)
[2016-12-21] MEDS: **hydrALAZINE HCL** 25 MG TAB PO SCH ×2 (16:45→22:07)
[2016-12-21] MEDS: SIMVASTATIN 20 MG TAB PO SCH (22:06)
[2016-12-21] MEDS: LATANOPROST 0.005% OPHTH SOLN 2.5 ML OU SCH (22:07)
[2016-12-22] MEDS: SLF 3 ML SYR IV SCH ×3 (05:12→22:58)
[2016-12-22 06:00] VITALS: BP_SYST 160; BP_SYST 165; BP_DIAS 65; BP_DIAS 70
[2016-12-22 06:07] LABS: BASO % 0.4 % (0.0-1.0); EOS # 0.3 K/mm3 (0.0-0.50); EOS % 4.5 % (0.0-3.0); LARGE UNSTAINED CELL # 0.1 K/mm3 (0.0-0.4); LARGE UNSTAINED CELL % 1.9 % (0.0-4.0); LYMPH # 1.8 K/mm3 (1.5-4.5); LYMPH % 28.5 % (24.0-44.0); MEAN CORPUSCULAR HEMOGLOBIN 28.4 pg (27.0-33.0); MEAN CORPUSCULAR HGB CONC 33.6 g/dl (32.0-36.5); MEAN CORPUSCULAR VOLUME 84.7 fl (80.0-96.0); MONO # 0.5 K/mm3 (0.0-0.8); MONO % 7.5 % (0.0-5.0); NEUTROPHILS # 3.5 K/mm3 (1.8-7.7); NEUTROPHILS % 57.3 % (36.0-66.0); PLATELET COUNT, AUTOMATED 164 k/mm3 (150-450); RED CELL DISTRIBUTION WIDTH 13.3 % (11.5-14.5); WHITE BLOOD COUNT 6.2 K/mm3 (4.0-10.0)
[2016-12-22 06:38] LABS: ALBUMIN 3.2 GM/DL (3.2-5.2); ALBUMIN/GLOBULIN RATIO 1.07 (1.00-1.93); ALKALINE PHOSPHATASE 90 U/L (45-117); ALT/SGPT 22 U/L (12-78); ANION GAP 5 MEQ/L (8-16); AST/SGOT 17 U/L (15-37); BILIRUBIN,TOTAL 0.6 MG/DL (0.2-1.0); BLOOD UREA NITROGEN 13 MG/DL (7-18); CALCIUM LEVEL 8.2 MG/DL (8.8-10.2); CARBON DIOXIDE LEVEL 30 MEQ/L (21-32); CHLORIDE LEVEL 105 MEQ/L (98-107); CREATININE FOR GFR 0.79 MG/DL (0.70-1.30); GLOMERULAR FILTRATION RATE > 60.0 (>42); GLUCOSE, FASTING 101 MG/DL (83-110); POTASSIUM SERUM 3.7 MEQ/L (3.5-5.1); SODIUM LEVEL 140 MEQ/L (136-145); TOTAL PROTEIN 6.2 GM/DL (6.4-8.2)
[2016-12-22] MEDS: **hydrALAZINE HCL** 25 MG TAB PO SCH ×3 (09:00→21:00)
[2016-12-22] MEDS: amLODIPine 5 MG TAB PO SCH ×2 (09:35→21:00)
[2016-12-22] MEDS: DOCUSATE SODIUM 100 MG CAP PO SCH ×2 (09:35→22:55)
[2016-12-22] MEDS: metFORMIN (GLUCOPHAGE) 500 MG TAB PO SCH (09:35)
[2016-12-22] MEDS: ASPIRIN 81 MG ENTERIC TAB PO SCH (09:36)
[2016-12-22] MEDS: LISINOPRIL 40 MG TAB PO SCH (09:36)
[2016-12-22] MEDS: MEMANTINE 5MG TABLET (NAMENDA) PO SCH ×2 (09:36→22:55)
[2016-12-22 14:00] VITALS: BP 147/86
[2016-12-22 22:00] VITALS: BP 132/65
[2016-12-22] MEDS: ACETAMINOPHEN 500 MG TAB PO PRN (22:54)
[2016-12-22] MEDS: LATANOPROST 0.005% OPHTH SOLN 2.5 ML OU SCH (22:54)
[2016-12-22] MEDS: SIMVASTATIN 20 MG TAB PO SCH (22:55)
[2016-12-23] MEDS: SLF 3 ML SYR IV SCH ×3 (05:00→21:59)
[2016-12-23 06:00] VITALS: BP 124/63
[2016-12-23 06:28] LABS: BASO % 0.7 % (0.0-1.0); EOS # 0.3 K/mm3 (0.0-0.50); EOS % 5.3 % (0.0-3.0); LARGE UNSTAINED CELL # 0.1 K/mm3 (0.0-0.4); LARGE UNSTAINED CELL % 2.7 % (0.0-4.0); LYMPH # 1.7 K/mm3 (1.5-4.5); LYMPH % 30.5 % (24.0-44.0); MEAN CORPUSCULAR HEMOGLOBIN 28.6 pg (27.0-33.0); MEAN CORPUSCULAR HGB CONC 33.9 g/dl (32.0-36.5); MEAN CORPUSCULAR VOLUME 84.4 fl (80.0-96.0); MONO # 0.5 K/mm3 (0.0-0.8); MONO % 9.5 % (0.0-5.0); NEUTROPHILS # 2.6 K/mm3 (1.8-7.7); NEUTROPHILS % 51.4 % (36.0-66.0); PLATELET COUNT, AUTOMATED 159 k/mm3 (150-450); RED CELL DISTRIBUTION WIDTH 13.5 % (11.5-14.5); WHITE BLOOD COUNT 5.1 K/mm3 (4.0-10.0)
[2016-12-23 06:53] LABS: ALBUMIN 3.2 GM/DL (3.2-5.2); ALBUMIN/GLOBULIN RATIO 0.94 (1.00-1.93); ALKALINE PHOSPHATASE 97 U/L (45-117); ALT/SGPT 25 U/L (12-78); ANION GAP 5 MEQ/L (8-16); AST/SGOT 20 U/L (15-37); BILIRUBIN,TOTAL 0.5 MG/DL (0.2-1.0); BLOOD UREA NITROGEN 13 MG/DL (7-18); CALCIUM LEVEL 8.6 MG/DL (8.8-10.2); CARBON DIOXIDE LEVEL 30 MEQ/L (21-32); CHLORIDE LEVEL 105 MEQ/L (98-107); CREATININE FOR GFR 0.79 MG/DL (0.70-1.30); GLOMERULAR FILTRATION RATE > 60.0 (>42); GLUCOSE, FASTING 112 MG/DL (83-110); POTASSIUM SERUM 3.6 MEQ/L (3.5-5.1); SODIUM LEVEL 140 MEQ/L (136-145); TOTAL PROTEIN 6.6 GM/DL (6.4-8.2)
[2016-12-23] MEDS: **hydrALAZINE HCL** 25 MG TAB PO SCH ×3 (09:00→21:00)
[2016-12-23] MEDS: DOCUSATE SODIUM 100 MG CAP PO SCH ×2 (09:54→21:00)
[2016-12-23] MEDS: MEMANTINE 5MG TABLET (NAMENDA) PO SCH ×2 (09:54→21:58)
[2016-12-23] MEDS: metFORMIN (GLUCOPHAGE) 500 MG TAB PO SCH (09:54)
[2016-12-23] MEDS: ASPIRIN 81 MG ENTERIC TAB PO SCH (09:54)
[2016-12-23] MEDS: LISINOPRIL 40 MG TAB PO SCH (09:54)
[2016-12-23 14:30] VITALS: BP 133/68
[2016-12-23 21:00] VITALS: BP 149/74
[2016-12-23] MEDS: SIMVASTATIN 20 MG TAB PO SCH (21:58)
[2016-12-23] MEDS: LATANOPROST 0.005% OPHTH SOLN 2.5 ML OU SCH (21:58)
[2017-01-13 13:47] LABS: CSF AMYLOID BETA PROTEIN SEE SEPARATE REPORT; CSF PHOSPHORYLATED-TAU PROTEIN SEE SEPARATE REPORT; CSF TOTAL-TAU PROTEIN SEE SEPARATE REPORT
== END 2016-12-23 21:10 | disposition home or self-care (01) ==
LOC: M OR 06:01 → UNDOADMIN 06:01 → M SDC 06:01 → EDSTATUS 07:30 → M OR 11:26 → M ICU 12:50 → M OR 12:50 → UNDOFXSDCACCOM 16:13 → M OR 16:13 → M ICU 16:13 → M MS5PR 12-21 16:13 → M ICU 12-21 16:13 → UNDODISIN 12-23 21:10 → M SDC 12-23 21:10
PROVIDERS: ATTEND Neurological Surgery
DX: G91.0 Communicating hydrocephalus (principal); G93.0 Cerebral cysts; I10 Essential (primary) hypertension; E78.2 Mixed hyperlipidemia; E11.9 Type 2 diabetes mellitus without complications; E78.00 Pure hypercholesterolemia, unspecified; E07.9 Disorder of thyroid, unspecified; G31.84 Mild cognitive impairment of uncertain or unknown etiology; G30.9 Alzheimer's disease, unspecified; H40.9 Unspecified glaucoma; Z79.899 Other long term (current) drug therapy; Z79.82 Long term (current) use of aspirin; Z79.84 Long term (current) use of oral hypoglycemic drugs; Z87.891 Personal history of nicotine dependence; Z87.81 Personal history of (healed) traumatic fracture; Z96.1 Presence of intraocular lens; Z94.7 Corneal transplant status
CPT/HCPCS: 36415; 49406; 62223; 70450; 75809; 80053; 82945; 83520; 84157; 85025; 85576; 87015; 87070; 87205; 89051; 92523; 93005; 96125; 97161; A4649; C1713; C1729; J0690; J1100; J1170; J2250; J2370; J2405; J3010

== ENCOUNTER 2017-01-16 08:00 | Outpatient (RCR) | payer MEDICARE, BC ==
[~2017-01-16 08:00] MED LIST changes: -COLA100C3 PO; +COLA100C5 PO; -LR 1,000 ML IV ONE; -METF500T PO; +METF500T13 PO
== END 2017-01-17 | disposition home or self-care (01) ==
LOC: M ST 08:00
PROVIDERS: ATTEND Nurse Practitioner Family
DX: Z51.89 Encounter for other specified aftercare (principal); G31.84 Mild cognitive impairment of uncertain or unknown etiology; R47.01 Aphasia; R26.2 Difficulty in walking, not elsewhere classified; F09 Unspecified mental disorder due to known physiological condition
CPT/HCPCS: 92507; G9162; G9163; G9164

== ENCOUNTER → 2017-02-07 | Outpatient (CLI) | payer MEDICARE, BC ==
--- NOTE | 2017-02-07 17:39 | REP ---
CT HEAD WITHOUT CONTRAST: HISTORY: Cerebral cyst. COMPARISON: 12/21/2016 The patient is status-post right parietal craniotomy. Areas of decreased attentuation are present in the periventricular white matter. This represents small vessel ischemic disease. A cyst is present in the right frontal parietal region. The cyst measures 3 cm in width and is slightly increased in size compared to the previous study. There is no intraparenchymal hemorrhage, mass, or midline shift. The ventricular system and cortical sulci are dilated consistent with mild volume loss. There is no extracerebral collection. Mucosal thickening is present in the ethmoid and left sphenoid sinuses. IMPRESSION: 1. Small vessel ischemic disease. 2. Mild volume loss. 3. There has been a slight increase in size of the right frontal parietal cyst compared to the previous study. Signed by Ren Mishra MD 02/17/2017 08:19 A
== END ==
LOC: M RAD 16:32
PROVIDERS: ATTEND Neurological Surgery
DX: G93.0 Cerebral cysts (principal)

== ENCOUNTER 2017-08-12 18:16 | Inpatient (IN) | payer MEDICARE, BC ==
[2017-08-12] MEDS: NS 1,000 ML IV ×5 (18:30→23:16)
[2017-08-12] MEDS: ONDANSETRON 4MG/2ML VIAL (J2405) IV (18:42)
[2017-08-12] MEDS: PANTOPRAZOLE 40MG INJ (PROTONIX) (C9113) IV (18:44)
[2017-08-12 19:02] LABS: ADD MANUAL DIFFER YES; DIFF SLIDE NUMBER 351; HEMATOCRIT 54.1 % (42.0-52.0); HEMOGLOBIN 18.3 g/dl (14.0-18.0); MEAN CORPUSCULAR HEMOGLOBIN 28.1 pg (27.0-33.0); MEAN CORPUSCULAR HGB CONC 33.8 g/dl (32.0-36.5); PLATELET COUNT, AUTOMATED 292 10^3/uL (150-450); POSITIVE MORPH POS FLAG; RED BLOOD COUNT 6.52 10^6/uL (4.30-6.10); RED CELL DISTRIBUTION WIDTH 13.8 % (11.5-14.5); SUSPECT SAMPLE POS FLAG; WHITE BLOOD COUNT 10.8 10^3/uL (4.0-10.0)
[2017-08-12 19:13] LABS: INR 1.04; PROTHROMBIN TIME 13.7 SECONDS (12.4-14.5)
[2017-08-12 19:22] LABS: ALBUMIN 4.5 GM/DL (3.2-5.2); ALBUMIN/GLOBULIN RATIO 0.98 (1.00-1.93); ALKALINE PHOSPHATASE 97 U/L (45-117); ALT/SGPT 24 U/L (12-78); ANION GAP 16 MEQ/L (8-16); AST/SGOT 19 U/L (7-37); BILIRUBIN,DIRECT 0.2 MG/DL (0.0-0.2); BILIRUBIN,TOTAL 0.8 MG/DL (0.2-1.0); BLOOD UREA NITROGEN 76 MG/DL (7-18); CALCIUM LEVEL 9.6 MG/DL (8.8-10.2); CARBON DIOXIDE LEVEL 27 MEQ/L (21-32); CHLORIDE LEVEL 93 MEQ/L (98-107); CREATININE FOR GFR 4.57 MG/DL (0.70-1.30); GLOMERULAR FILTRATION RATE 13.4 (>42); GLUCOSE, FASTING 215 MG/DL (70-100); LIPASE 63 U/L (73-393); POTASSIUM SERUM 4.2 MEQ/L (3.5-5.1); SODIUM LEVEL 136 MEQ/L (136-145); TOTAL PROTEIN 9.1 GM/DL (6.4-8.2)
[2017-08-12 20:09] LABS: ATYPICAL LYMPH 2 % (0-5); BANDS 2 % (< 11); LYMPHOCYTES 15 % (16-52); METAMYELOCYTES 1 % (0-0); MONOCYTES 12 % (0-8); NEUTROPHILS 68 % (35-75)
[2017-08-12 20:10] LABS: PLATELET ESTIMATE NORMAL (NORMAL)
[2017-08-12] MEDS ORDERED: ONDANSETRON 4MG/2ML VIAL (J2405) IV (20:30)
[2017-08-12] MEDS ORDERED: ACETAMINOPHEN TAB 650MG DOSE (2X325MG) PO (20:30)
[2017-08-12 21:33] LABS: COMPLEMENT C3 141 MG/DL (90-180); COMPLEMENT C4 38.9 MG/DL (10-40)
[2017-08-12] MEDS ORDERED: DEXTROSE 50% 50 ML SYRINGE IV (21:45)
[2017-08-12] MEDS ORDERED: GLUCAGON FOR INJ 1 MG VIAL (J1610) SC (21:45)
[2017-08-12] MEDS ORDERED: GLUCOSE 4 GM CHEW TABLET PO (21:45)
[2017-08-12 22:24] LABS: ERYTHROCYTE SEDIMENTATION RATE 3 mm/hr (0-20)
[2017-08-12] MEDS: PANTOPRAZOLE SODIUM 40 MG in D5W 50 ML IV (23:15)
[2017-08-12 23:30] LABS: BASO % 0.3 % (0.0-1.0); HEMATOCRIT 50.3 % (42.0-52.0); HEMOGLOBIN 16.7 g/dl (14.0-18.0); IMMATURE GRANULOCYTE % 0.2 % (0-0); LYMPH # 1.9 10^3/uL (1.5-4.5); LYMPH % 18.3 % (24.0-44.0); MEAN CORPUSCULAR HEMOGLOBIN 28.1 pg (27.0-33.0); MEAN CORPUSCULAR HGB CONC 33.2 g/dl (32.0-36.5); MEAN CORPUSCULAR VOLUME 84.5 fl (80.0-96.0); MONO # 1.2 10^3/uL (0.0-0.8); MONO % 11.7 % (0.0-5.0); NEUTROPHILS # 7.2 10^3/uL (1.8-7.7); NEUTROPHILS % 69.5 % (36.0-66.0); PLATELET COUNT, AUTOMATED 255 10^3/uL (150-450); RED BLOOD COUNT 5.95 10^6/uL (4.30-6.10); RED CELL DISTRIBUTION WIDTH 13.6 % (11.5-14.5); WHITE BLOOD COUNT 10.3 10^3/uL (4.0-10.0)
[2017-08-12 23:57] LABS: ANION GAP 16 MEQ/L (8-16); BLOOD UREA NITROGEN 86 MG/DL (7-18); CALCIUM LEVEL 8.3 MG/DL (8.8-10.2); CARBON DIOXIDE LEVEL 26 MEQ/L (21-32); CHLORIDE LEVEL 99 MEQ/L (98-107); CREATININE FOR GFR 4.83 MG/DL (0.70-1.30); GLOMERULAR FILTRATION RATE 12.6 (>42); GLUCOSE, FASTING 144 MG/DL (70-100); POTASSIUM SERUM 4.9 MEQ/L (3.5-5.1); PSA SCREENING 6.66 NG/ML (< 4.0); SODIUM LEVEL 141 MEQ/L (136-145)
[2017-08-12 23:58] LABS: LACTIC ACID SEPSIS PROTOCOL 3.5 MMOL/L (0.4-2.0)
[2017-08-13] MEDS: PIPERACILLIN/TAZOBACTAM SOD 2.25 GM in APPROPRIATE DILUENT 1 EA IV ×4 (00:01→22:40)
[2017-08-13] MEDS: SUCRALFATE SUSP 1GM/10ML UD PO ×4 (00:04→17:21)
[2017-08-13 00:18] LABS: URINE TOTAL PROTEIN 103.3 MG/DL (0-12)
[2017-08-13 00:22] LABS: KETONE, URINE AUTO RFX NEGATIVE (NEGATIVE); LEUKOCYTE ESTERASE UR AUTO RFX NEGATIVE (NEGATIVE); MUCUS, URINE RFX SMALL (NEGATIVE); NITRITE, URINE AUTO RFX NEGATIVE (NEGATIVE); RBC, URINE AUTO RFX 1 /HPF (0-3); SPECIFIC GRAVITY UR AUTO RFX 1.021 (1.002-1.035); SQUAM EPITHELIAL CELL UR AURFX 0 /HPF (0-6); WBC, URINE AUTO RFX 2 /HPF (0-3)
[2017-08-13] MEDS: PANTOPRAZOLE SODIUM 40 MG in D5W 50 ML IV ×5 (02:32→21:15)
[2017-08-13] MEDS: NS 1,000 ML IV ×4 (02:45→19:31)
[2017-08-13 05:23] LABS: HEMATOCRIT 42.7 % (42.0-52.0)
[2017-08-13 05:29] LABS: HEMOGLOBIN 14.3 g/dl (14.0-18.0)
[2017-08-13 05:40] LABS: ESTIMATED AVERAGE GLUCOSE 126 MG/DL (60-110)
[2017-08-13 05:54] LABS: ANION GAP 15 MEQ/L (8-16); BLOOD UREA NITROGEN 92 MG/DL (7-18); CALCIUM LEVEL 7.6 MG/DL (8.8-10.2); CARBON DIOXIDE LEVEL 24 MEQ/L (21-32); CHLORIDE LEVEL 102 MEQ/L (98-107); CK-MB VALUE MASS 8.9 NG/ML (0.0-3.6); CPK CREATINE PHOSPHOKINASE 262 U/L (39-308); CREATININE FOR GFR 4.76 MG/DL (0.70-1.30); GLOMERULAR FILTRATION RATE 12.8 (>42); GLUCOSE, FASTING 131 MG/DL (70-100); MB/CK RELATIVE INDEX 3.39 (< OR =4); POTASSIUM SERUM 4.5 MEQ/L (3.5-5.1); SODIUM LEVEL 141 MEQ/L (136-145)
[2017-08-13] MEDS ORDERED: HEPARIN SOD (PORCINE) 5000 UNITS/ML VIAL SQ (06:00)
[2017-08-13 11:05] LABS: HEPATITIS B SURFACE ANTIGEN NEGATIVE (NEGATIVE)
[2017-08-13 11:16] LABS: HEMATOCRIT 43.8 % (42.0-52.0); HEMOGLOBIN 14.5 g/dl (14.0-18.0); MEAN CORPUSCULAR HEMOGLOBIN 28.3 pg (27.0-33.0); MEAN CORPUSCULAR HGB CONC 33.1 g/dl (32.0-36.5); MEAN CORPUSCULAR VOLUME 85.5 fl (80.0-96.0); PLATELET COUNT, AUTOMATED 182 10^3/uL (150-450); RED BLOOD COUNT 5.12 10^6/uL (4.30-6.10); RED CELL DISTRIBUTION WIDTH 13.7 % (11.5-14.5); WHITE BLOOD COUNT 8.8 10^3/uL (4.0-10.0)
[2017-08-13 11:33] LABS: HEPATITIS B CORE ANTIBODY IGM NEGATIVE (NEGATIVE)
[2017-08-13 11:35] LABS: HEPATITIS A ANTIBODY IGM NEGATIVE (NEGATIVE)
[2017-08-13 11:53] LABS: ANION GAP 8 MEQ/L (8-16); BLOOD UREA NITROGEN 87 MG/DL (7-18); CALCIUM LEVEL 7.6 MG/DL (8.8-10.2); CARBON DIOXIDE LEVEL 28 MEQ/L (21-32); CHLORIDE LEVEL 108 MEQ/L (98-107); CPK CREATINE PHOSPHOKINASE 354 U/L (39-308); CREATININE FOR GFR 3.59 MG/DL (0.70-1.30); GLOMERULAR FILTRATION RATE 17.7 (>42); GLUCOSE, FASTING 111 MG/DL (70-100); POTASSIUM SERUM 4.8 MEQ/L (3.5-5.1); SODIUM LEVEL 144 MEQ/L (136-145); TROPONIN I 0.18 NG/ML (< 0.10)
[2017-08-13 12:02] LABS: CK-MB VALUE MASS 11.1 NG/ML (0.0-3.6); MB/CK RELATIVE INDEX 3.13 (< OR =4)
[2017-08-13 12:23] LABS: BEDSIDE GLUCOSE 100 MG/DL (83-110)
[2017-08-13] MEDS ORDERED: PROPOFOL 200 MG/20 ML VIAL As Ordered (14:45)
[2017-08-13] MEDS ORDERED: LIDOCAINE 2% MDV 20 ML VIAL As Ordered (14:45)
[2017-08-13 17:29] LABS: BEDSIDE GLUCOSE 95 MG/DL (83-110)
[2017-08-13 18:01] LABS: HEMATOCRIT 43.1 % (42.0-52.0); HEMOGLOBIN 14.2 g/dl (14.0-18.0)
[2017-08-13 23:08] LABS: AMORPHOUS SEDIMENT SMALL (NEGATIVE); APPEARANCE, URINE HAZY (CLEAR); BACTERIA, URINE AUTO NEGATIVE (NEGATIVE); BILIRUBIN, URINE AUTO NEGATIVE (NEGATIVE); BLOOD, URINE BLOOD 3+ (NEGATIVE); COLOR, URINE YELLOW (YELLOW); GLUCOSE, URINE (UA) AUTO NEGATIVE (NEGATIVE); KETONE, URINE AUTO NEGATIVE (NEGATIVE); LEUKOCYTE ESTERASE, URINE AUTO NEGATIVE (NEGATIVE); MUCUS, URINE SMALL (NEGATIVE); NITRITE, URINE AUTO NEGATIVE (NEGATIVE); PROTEIN, URINE AUTO NEGATIVE (NEGATIVE); RBC, URINE AUTO 114 /HPF (0-3); SPECIFIC GRAVITY URINE AUTO 1.013 (1.002-1.035); SQUAMOUS EPITHELIAL CELL UR AU 0 /HPF (0-6); UROBILINOGEN, URINE AUTO 0.2 mg/dL (0.0-2.0); WBC, URINE AUTO 4 /HPF (0-3)
[2017-08-14] MEDS: SUCRALFATE SUSP 1GM/10ML UD PO ×5 (00:14→23:22)
[2017-08-14 00:29] LABS: HEMATOCRIT 39.3 % (42.0-52.0); HEMOGLOBIN 12.9 g/dl (14.0-18.0)
[2017-08-14] MEDS: PANTOPRAZOLE SODIUM 40 MG in D5W 50 ML IV ×2 (03:28→03:54)
[2017-08-14] MEDS: NS 1,000 ML IV (03:54)
[2017-08-14 05:48] LABS: HEMATOCRIT 39.8 % (42.0-52.0); HEMOGLOBIN 12.8 g/dl (14.0-18.0)
[2017-08-14] MEDS: PIPERACILLIN/TAZOBACTAM SOD 2.25 GM in APPROPRIATE DILUENT 1 EA IV ×3 (05:54→23:22)
[2017-08-14 06:40] LABS: ANION GAP 6 MEQ/L (8-16); BLOOD UREA NITROGEN 63 MG/DL (7-18); CALCIUM LEVEL 7.5 MG/DL (8.8-10.2); CARBON DIOXIDE LEVEL 25 MEQ/L (21-32); CHLORIDE LEVEL 114 MEQ/L (98-107); CREATININE FOR GFR 1.38 MG/DL (0.70-1.30); GLOMERULAR FILTRATION RATE 53.3 (>42); GLUCOSE, FASTING 103 MG/DL (70-100); POTASSIUM SERUM 3.8 MEQ/L (3.5-5.1); SODIUM LEVEL 145 MEQ/L (136-145)
[2017-08-14 08:25] LABS: TOTAL PROTEIN 9.1 GM/DL (6.4-8.2)
[2017-08-14 09:12] LABS: MEAN CORPUSCULAR HEMOGLOBIN 28.1 pg (27.0-33.0); MEAN CORPUSCULAR HGB CONC 32.6 g/dl (32.0-36.5); MEAN CORPUSCULAR VOLUME 86.4 fl (80.0-96.0); PLATELET COUNT, AUTOMATED 174 10^3/uL (150-450); RED BLOOD COUNT 4.55 10^6/uL (4.30-6.10); RED CELL DISTRIBUTION WIDTH 13.7 % (11.5-14.5); WHITE BLOOD COUNT 6.4 10^3/uL (4.0-10.0)
[2017-08-14] MEDS: PANTOPRAZOLE 40MG TAB (PROTONIX) PO ×2 (10:16→20:32)
[2017-08-14 10:34] LABS: ALBUMIN 5.23 GM/DL (3.29-5.55); ALBUMIN % 57.5 % (55.8-66.1); ALPHA-1-GLOBULIN % 5.8 % (2.9-4.9); ALPHA-1-GLOBULINS 0.53 GM/DL (0.17-0.41); ALPHA-2-GLOBULINS 0.98 GM/DL (0.42-0.99); ALPHA-2-GLOBULINS % 10.8 % (7.1-11.8); BETA-1-GLOBULINS % 5.7 % (4.7-7.2); BETA-2-GLOBULINS % 6.3 % (3.2-6.5); GAMMA GLOBULIN % 13.9 % (11.1-18.8)
[2017-08-14 10:35] LABS: BETA-1-GLOBULINS 0.52 GM/DL (0.28-0.60); BETA-2-GLOBULINS 0.57 GM/DL (0.19-0.55); GAMMA GLOBULINS 1.26 GM/DL (0.65-1.58)
[2017-08-14 11:58] LABS: BEDSIDE GLUCOSE 103 MG/DL (83-110)
[2017-08-14 11:59] LABS: HEMATOCRIT 40.2 % (42.0-52.0); HEMOGLOBIN 13.1 g/dl (14.0-18.0)
[2017-08-14 13:23] LABS: UPEP INTERPRETATION NO M-SPIKE NOTED; URINE VOLUME RANDOM ML
[2017-08-14 18:20] LABS: HEMATOCRIT 40.1 % (42.0-52.0); HEMOGLOBIN 13.1 g/dl (14.0-18.0)
[2017-08-14 21:19] LABS: BEDSIDE GLUCOSE 128 MG/DL (83-110)
[2017-08-15 00:09] LABS: ANTINUCLEAR ANTIBODIES DIRECT Negative (Negative); COMPLEMENT TOTAL (CH50) > 63 U/mL (42-60)
[2017-08-15 00:47] LABS: HEMATOCRIT 37.6 % (42.0-52.0); HEMOGLOBIN 12.3 g/dl (14.0-18.0)
[2017-08-15] MEDS: PIPERACILLIN/TAZOBACTAM SOD 2.25 GM in APPROPRIATE DILUENT 1 EA IV (06:10)
[2017-08-15] MEDS: SUCRALFATE SUSP 1GM/10ML UD PO ×4 (06:10→23:01)
[2017-08-15 07:05] LABS: HEMATOCRIT 38.4 % (42.0-52.0); HEMOGLOBIN 12.3 g/dl (14.0-18.0); MEAN CORPUSCULAR VOLUME 87.5 fl (80.0-96.0); PLATELET COUNT, AUTOMATED 159 10^3/uL (150-450); RED BLOOD COUNT 4.39 10^6/uL (4.30-6.10); RED CELL DISTRIBUTION WIDTH 13.3 % (11.5-14.5); WHITE BLOOD COUNT 6.5 10^3/uL (4.0-10.0)
[2017-08-15 07:28] LABS: ANION GAP 4 MEQ/L (8-16); BLOOD UREA NITROGEN 35 MG/DL (7-18); CALCIUM LEVEL 8.4 MG/DL (8.8-10.2); CARBON DIOXIDE LEVEL 32 MEQ/L (21-32); CHLORIDE LEVEL 107 MEQ/L (98-107); CREATININE FOR GFR 0.93 MG/DL (0.70-1.30); GLOMERULAR FILTRATION RATE > 60.0 (>42); GLUCOSE, FASTING 107 MG/DL (70-100); SODIUM LEVEL 143 MEQ/L (136-145)
[2017-08-15] MEDS ORDERED: E-Z-PAQUE 96% w/w SUSP 176GM BTL As Ordered ×2 (08:25→11:48)
[2017-08-15] MEDS: PANTOPRAZOLE 40MG TAB (PROTONIX) PO ×2 (08:53→23:01)
[2017-08-16] MEDS: SUCRALFATE SUSP 1GM/10ML UD PO (06:00)
[2017-08-16 06:49] LABS: ANION GAP 8 MEQ/L (8-16); BLOOD UREA NITROGEN 20 MG/DL (7-18); CALCIUM LEVEL 8.2 MG/DL (8.8-10.2); CARBON DIOXIDE LEVEL 28 MEQ/L (21-32); CHLORIDE LEVEL 105 MEQ/L (98-107); CREATININE FOR GFR 0.66 MG/DL (0.70-1.30); GLOMERULAR FILTRATION RATE > 60.0 (>42); GLUCOSE, FASTING 103 MG/DL (70-100); POTASSIUM SERUM 3.8 MEQ/L (3.5-5.1); SODIUM LEVEL 141 MEQ/L (136-145)
[2017-08-16] MEDS: PANTOPRAZOLE 40MG TAB (PROTONIX) PO (08:40)
[2017-08-17 02:19] LABS: BEDSIDE GLUCOSE 82 MG/DL (83-110)
[2017-08-17 02:19] LABS: BEDSIDE GLUCOSE 105 MG/DL (83-110)
[2017-08-17 02:19] LABS: BEDSIDE GLUCOSE 95 MG/DL (83-110)
== END 2017-08-16 10:55 | disposition home or self-care (01) | DRG 378 ==
LOC: M MS5PR 08-14 14:05 → M ED 18:16 → M ED INP 20:30 → M ICU 22:47
PROC: 0DB58ZX Excision of Esophagus, Via Natural or Artificial Opening Endoscopic, Diagnostic (ICD-10-PCS; principal; 2017-08-13 14:30)
DX: K92.2 Gastrointestinal hemorrhage, unspecified (principal); N17.9 Acute kidney failure, unspecified; E87.2 Acidosis; K92.0 Hematemesis; K21.0 Gastro-esophageal reflux disease with esophagitis; E86.1 Hypovolemia; I10 Essential (primary) hypertension; E78.00 Pure hypercholesterolemia, unspecified; G30.9 Alzheimer's disease, unspecified; F02.80 Dementia in other diseases classified elsewhere, unspecified severity, without behavioral disturbance, psychotic disturbance, mood disturbance, and anxiety; E11.9 Type 2 diabetes mellitus without complications; Z79.84 Long term (current) use of oral hypoglycemic drugs; Z79.82 Long term (current) use of aspirin; Z79.899 Other long term (current) drug therapy; Z87.891 Personal history of nicotine dependence; M43.02 Spondylolysis, cervical region; M43.06 Spondylolysis, lumbar region; G62.9 Polyneuropathy, unspecified

== ENCOUNTER → 2017-09-02 | Outpatient (REF) | payer MEDICARE, BC ==
[2017-09-02 20:28] LABS: ERYTHROCYTE SEDIMENTATION RATE 7 mm/hr (0-20)
[2017-09-02 20:29] LABS: ESTIMATED AVERAGE GLUCOSE 126 MG/DL (60-110)
[2017-09-02 20:30] LABS: FOLATE > 24.0 NG/ML; VITAMIN B12 LEVEL 689 PG/ML
[2017-09-02 20:33] LABS: FREE T4 1.14 NG/DL (0.76-1.46); RHEUMATOID FACTOR QUANT < 10.0 IU/ML (0-15.0); THYROID STIMULATING HORMONE 0.335 uIU/ML (0.358-3.740); TOTAL PROTEIN 7.6 GM/DL (6.4-8.2)
[2017-09-03 12:56] LABS: ALBUMIN 4.45 GM/DL (3.29-5.55); ALBUMIN % 58.5 % (55.8-66.1); ALPHA-1-GLOBULIN % 4.7 % (2.9-4.9); ALPHA-1-GLOBULINS 0.36 GM/DL (0.17-0.41); ALPHA-2-GLOBULINS 0.82 GM/DL (0.42-0.99); ALPHA-2-GLOBULINS % 10.8 % (7.1-11.8); BETA-1-GLOBULINS 0.46 GM/DL (0.28-0.60); BETA-1-GLOBULINS % 6.1 % (4.7-7.2); BETA-2-GLOBULINS 0.43 GM/DL (0.19-0.55); BETA-2-GLOBULINS % 5.6 % (3.2-6.5); GAMMA GLOBULIN % 14.3 % (11.1-18.8); GAMMA GLOBULINS 1.09 GM/DL (0.65-1.58)
[2017-09-09 00:06] LABS: ANTINUCLEAR ANTIBODIES DIRECT Negative (Negative); CARDIOLIPIN IGA ANTIBODY <9 APL U/mL (0-11); CARDIOLIPIN IGG ANTIBODY <9 GPL U/mL (0-14); CARDIOLIPIN IGM ANTIBODY <9 MPL U/mL (0-12); VITAMIN B1 LEVEL WHOLE BLOOD 150.3 nmol/L (66.5-200.0); VITAMIN B6,PYRIDOXAL PHOSPHATE 19.6 ug/L (5.3-46.7); VITAMIN E LEVEL 20.5 mg/L (5.3-17.5)
== END ==
LOC: M LABNEURO 13:26
DX: G62.9 Polyneuropathy, unspecified (principal); R26.89 Other abnormalities of gait and mobility; R47.1 Dysarthria and anarthria
CPT/HCPCS: 82746

== ENCOUNTER 2017-09-30 23:12 | Emergency (ER) | payer MEDICARE, BC ==
[2017-10-01] MEDS: NS 500 ML IV ×2 (00:09→01:29)
[2017-10-01 00:39] LABS: ALKALINE PHOSPHATASE 118 U/L (45-117); ALT/SGPT 23 U/L (12-78); ANION GAP 9 MEQ/L (8-16); AST/SGOT 17 U/L (7-37); BILIRUBIN,TOTAL 0.8 MG/DL (0.2-1.0); BLOOD UREA NITROGEN 36 MG/DL (7-18); CALCIUM LEVEL 9.6 MG/DL (8.8-10.2); CARBON DIOXIDE LEVEL 28 MEQ/L (21-32); CHLORIDE LEVEL 100 MEQ/L (98-107); CREATININE FOR GFR 1.59 MG/DL (0.70-1.30); GLOMERULAR FILTRATION RATE 45.3 (>42); GLUCOSE, FASTING 153 MG/DL (70-100); POTASSIUM SERUM 4.3 MEQ/L (3.5-5.1); SODIUM LEVEL 137 MEQ/L (136-145)
[2017-10-01 00:40] LABS: ALBUMIN 4.3 GM/DL (3.2-5.2); BILIRUBIN,DIRECT 0.2 MG/DL (0.0-0.2); LIPASE 124 U/L (73-393); TOTAL PROTEIN 8.2 GM/DL (6.4-8.2)
[2017-10-01 00:42] LABS: BASO # 0.1 10^3/uL (0.0-0.2); BASO % 0.4 % (0.0-1.0); EOS % 0.3 % (0.0-3.0); HEMATOCRIT 50.1 % (42.0-52.0); HEMOGLOBIN 16.6 g/dl (14.0-18.0); IMMATURE GRANULOCYTE % 0.3 % (0-3.0); LYMPH # 1.1 10^3/uL (1.5-4.5); LYMPH % 7.8 % (24.0-44.0); MEAN CORPUSCULAR HGB CONC 33.1 g/dl (32.0-36.5); MEAN CORPUSCULAR VOLUME 84.5 fl (80.0-96.0); MONO # 0.7 10^3/uL (0.0-0.8); MONO % 4.9 % (0.0-5.0); NEUTROPHILS # 11.7 10^3/uL (1.8-7.7); NEUTROPHILS % 86.3 % (36.0-66.0); PLATELET COUNT, AUTOMATED 263 10^3/uL (150-450); RED BLOOD COUNT 5.93 10^6/uL (4.30-6.10); RED CELL DISTRIBUTION WIDTH 13.2 % (11.5-14.5); WHITE BLOOD COUNT 13.6 10^3/uL (4.0-10.0)
[2017-10-01 01:00] LABS: ETHYL ALCOHOL (ETHANOL) < 0.003 % (0.000-0.010)
== END 2017-10-01 03:00 | disposition home or self-care (01) ==
LOC: M ED 23:12
DX: E86.9 Volume depletion, unspecified (principal); E11.9 Type 2 diabetes mellitus without complications; I10 Essential (primary) hypertension; K21.9 Gastro-esophageal reflux disease without esophagitis; F03.90 Unspecified dementia, unspecified severity, without behavioral disturbance, psychotic disturbance, mood disturbance, and anxiety; Z86.69 Personal history of other diseases of the nervous system and sense organs; Z87.19 Personal history of other diseases of the digestive system; Z98.890 Other specified postprocedural states
CPT/HCPCS: 93005

== ENCOUNTER → 2017-10-06 | Outpatient (CLI) | payer MEDICARE, BC | LOC: M RAD 10:58 | DX: R94.39 Abnormal result of other cardiovascular function study (principal) | CPT/HCPCS: 75809 ==

== ENCOUNTER → 2017-10-07 | Outpatient (CLI) | payer MEDICARE, BC | LOC: M RAD 13:52 | DX: Z01.818 Encounter for other preprocedural examination (principal) | CPT/HCPCS: 75809 ==

== ENCOUNTER → 2018-05-29 | Outpatient (REF) | payer MEDICARE, BC ==
[2018-05-29 12:58] LABS: FREE T3 2.7 PG/ML (2.2-4.0)
== END ==
LOC: M LAB REF 12:14
DX: R79.89 Other specified abnormal findings of blood chemistry (principal)
CPT/HCPCS: 84481

== ENCOUNTER 2019-02-12 12:38 | Inpatient (IN) | payer MEDICARE, BC ==
[~2019-02-12] VITALS: Ht 172.7 cm; Wt 81.5 kg
[~2019-02-12 12:38] MED LIST changes: -ASPI1TAB PO; +ASPI81TA26 PO; +LISI40TA PO; -LISI40TAB PO; +LOTE0.5S OU; +MELA3CAP2 PO; +PANT40TA3 PO
[2019-02-12] MEDS ORDERED: METOCLOPRAMIDE INJ 10MG/2ML VIAL (J2765) IV ONE (13:00)
[2019-02-12] MEDS ORDERED: NS 1,000 ML IV SCH (13:00)
[2019-02-12] MEDS ORDERED: MIRA3350 PO (13:08)
[2019-02-12] MEDS ORDERED: ARTI99.0 OU (13:08)
[2019-02-12] MEDS ORDERED: TRUS1SOL OS (13:08)
[2019-02-12] MEDS ORDERED: MELA5TAB11 PO (13:08)
[2019-02-12] MEDS ORDERED: SIMV20TA2 PO (13:08)
[2019-02-12] MEDS ORDERED: OLOP0.2S OU (13:08)
[2019-02-12 13:34] LABS: HEMATOCRIT 58.2 % (42.0-52.0); HEMOGLOBIN 18.8 g/dl (13.5-17.5); MEAN CORPUSCULAR HEMOGLOBIN 28.3 pg (27.0-33.0); MEAN CORPUSCULAR HGB CONC 32.3 g/dl (32.0-36.5); MEAN CORPUSCULAR VOLUME 87.7 fl (80.0-96.0); PLATELET COUNT, AUTOMATED 237 10^3/uL (150-450); RED BLOOD COUNT 6.64 10^6/uL (4.30-6.10); WHITE BLOOD COUNT 9.2 10^3/uL (4.0-10.0)
[2019-02-12 14:03] LABS: BASOPHILS 1 % (0-4); LYMPHOCYTES 14 % (16-52); MONOCYTES 3 % (0-8); NEUTROPHILS 82 % (35-75); PLATELET ESTIMATE NORMAL (NORMAL)
[2019-02-12 14:13] LABS: ACETAMINOPHEN LEVEL < 2.0 UG/ML (10.0-30.0); ALBUMIN 4.8 GM/DL (3.2-5.2); ALT/SGPT 29 U/L (12-78); BILIRUBIN,DIRECT 0.3 MG/DL (0.0-0.2); BILIRUBIN,TOTAL 1.1 MG/DL (0.2-1.0); BLOOD UREA NITROGEN 33 MG/DL (7-18); CALCIUM LEVEL 10.6 MG/DL (8.8-10.2); CARBON DIOXIDE LEVEL 29 MEQ/L (21-32); CHLORIDE LEVEL 98 MEQ/L (98-107); CK-MB VALUE MASS 4.2 NG/ML (<3.6); CPK CREATINE PHOSPHOKINASE 176 U/L (39-308); CREATININE FOR GFR 2.12 MG/DL (0.70-1.30); ETHYL ALCOHOL (ETHANOL) < 0.003 % (0.000-0.010); GLOMERULAR FILTRATION RATE 32.3 (>42); GLUCOSE, FASTING 199 MG/DL (70-100); MB/CK RELATIVE INDEX 2.39 (< OR =4); POTASSIUM SERUM 4.3 MEQ/L (3.5-5.1); SALICYLATE LEVEL < 1.7 MG/DL (5.0-30.0); SODIUM LEVEL 140 MEQ/L (136-145); THYROID STIMULATING HORMONE 0.274 uIU/ML (0.358-3.740); TOTAL PROTEIN 9.1 GM/DL (6.4-8.2); TROPONIN I < 0.02 NG/ML (< 0.10)
--- NOTE | 2019-02-12 14:37 | REP ---
REASON: Altered mental status. COMPARISON EXAMINATION: Multiple, the latest two 08/12/2017 and 04/03/2018, with multiple older priors as well. The exam is unchanged from the latest two priors. There is encephalomalacial change in the right frontal lobe, status quo. Previous postoperative change from subdural drainage catheter placement, unchanged. Craniotomy defect on the right is unchanged. There is no evidence of an acute intracranial hemorrhagic or nonhemorrhagic event. IMPRESSION: There is no significant change compared to the prior exams, as described above. Electronically Signed by Kike Mobley DO 02/12/2019 03:21 P
--- NOTE | 2019-02-12 14:54 | REP ---
REASON: Altered mental status. COMPARISON: 10/07/2017 and 10/06/2017. There is no change in the appearance of the shunt when compared to 10/07/2017. When the more distal components of the shunt seen in the neck, chest, and abdomen are reviewed, the shunt appears contiguous. IMPRESSION: As above. Electronically Signed by Kike Mobley DO 02/12/2019 03:22 P
[2019-02-12] MEDS ORDERED: MELA3TAB41 PO (15:50)
[2019-02-12] MEDS ORDERED: DONE5TAB82 PO (15:51)
[2019-02-12] MEDS ORDERED: ONDANSETRON 4MG/2ML VIAL (J2405) IV PRN (16:00)
--- NOTE | 2019-02-12 17:08 | REP ---
CT ABDOMEN AND PELVIS WITHOUT CONTRAST: CT abdomen and pelvis performed without oral or IV contrast. Sagittal and coronal reconstruction images are performed. COMPARISON: Comparison made with prior study of 08/12/2017. In the visualized lung bases, there is a new nodule in the right middle lobe 1.3 cm in diameter. Another new nodule is seen in the lingula inferiorly, 7 mm in diameter. These were not seen on the prior study. Small hypodense nodule in the left lobe of the liver is stable 1.2 cm in diameter. The spleen is unremarkable. The adrenals and pancreas are grossly unremarkable. There appear to be a couple of subcentimeter cysts in the right kidney. Calcified nodule in the upper left kidney medially is unchanged. There appears to be a cyst in the lower pole of the left kidney. There is no hydroureteronephrosis. There is moderate atherosclerotic calcification of the abdominal aorta without aneurysm. I see no adenopathy. There is no free air or free fluid. There are scattered mildly dilated small bowel loops predominantly proximally. There is mesenteric edema. I do not see definite bowel wall thickening. There is evidence of prior bowel surgery in the right mid abdomen with surgical sutures noted. These were seen on the prior study. Although I do not see a discrete transition point, there may be some degree of small bowel obstruction, probably partial. The patient has had a prior appendectomy. There is moderate air and fecal material throughout the colon predominantly in the rectum. The urinary bladder is not well distended and not well evaluated. There is a small left inguinal hernia containing fat. There are degenerative changes of the spine. A ventricular peritoneal shunt is seen with the distal tip posterior to the liver. IMPRESSION: Two new pulmonary nodules appear suspicious, one in the right middle lobe 1.3 cm in diameter, one in the lingula 7 mm in diameter. Recommend CT of the chest. Scattered mild dilatation of small bowel predominantly proximally with some scattered mesenteric edema. Findings raise the possibility of some degree of small bowel obstruction probably partial. Potentially this could represent an ileus. No significant free fluid. No free air. No definite bowel inflammation. Electronically Signed by Suman Nielsen MD 02/16/2019 05:41 P
[2019-02-12] MEDS ORDERED: NS 1,000 ML IV ONE ×2 (17:15→21:30)
[2019-02-12] MEDS: SUCRALFATE 1 GM TAB PO SCH ×2 (17:30→20:47)
--- NOTE | 2019-02-12 17:32 | HPEPDOC ---
General Date of Admission Feb 12, 2019 at 15:53 Date of Service: Feb 12, 2019 Chief Complaint The patient is a 79-year-old male admitted with a reason for visit of Volume Depletion. History of Present Illness 79-year-old male with past medical history of hypertension, dyslipidemia, diabetes, subarachnoid cyst, Alzheimer's dementia, and chronic kidney disease presented to the ER with a chief complaint of nausea with vomiting. The patient's history is limited secondary to his underlying dementia. However, according to the patient's son who is at the bedside, he went to dinner with his dad yesterday evening when he was last well. This morning, the patient apparently woke up and had significant nausea and had about 10 episodes of brown-colored emesis. There was no fevers, chills, abdominal pain, or diarrhea noted. The patient's son states that he did not have any illness, but ate different food in his father who had roast beef. In the ER, the patient was noted to be dehydrated and had a borderline low blood pressure. The patient's lactic acid level was also noted to be elevated at 4.9. He will be admitted to the hospitalist service for further evaluation and management. Home Medications Scheduled Aspirin (Aspirin EC) 81 Mg Tab, 81 MG PO DAILY, (Reported) Docusate Sodium (Colace) 100 Mg Cap, 100 MG PO BID, (Reported) Donepezil HCl (Donepezil HCl) 5 Mg Tablet, 5 MG PO QHS, (Reported) Lisinopril (Lisinopril) 40 Mg Tab, 20 MG PO DAILY, (Reported) Melatonin (Melatonin) 3 Mg Tablet, 3 MG PO QHS, (Reported) Memantine HCl (Namenda Xr) 28 Mg Cap, 28 MG PO DAILY, (Reported) Metformin HCl (Metformin HCl) 500 Mg Tab, 500 MG PO DAILY, (Reported) Multivitamins (Thera M Plus Tablet) 1 Tab Tab, 1 TAB PO DAILY, (Reported) Olopatadine HCl (Olopatadine HCl) 0.2% 2.5ML Drops, 1 DROP OU BID, (Reported) Pantoprazole Sodium (Pantoprazole Sodium) 40 Mg Tab, 40 MG PO BID Simvastatin (Simvastatin) 20 Mg Tablet, 20 MG PO QHS, (Reported) Scheduled PRN Polyvinyl Alcohol (Artificial Tears) 15 Ml Drops, 1 DROP OU QID PRN for DRY EYES, (Reported) Allergies Coded Allergies: No Known Allergies (Unverified , 02/12/19) Past Medical History Medical History As noted in HPI. Surgical History Status post right parietal craniotomy with cystoperitoneal shunt placement in the past Social History * Smoker: former Smoker Alcohol: Denies Review of Systems Other systems Unable to fully obtain review of systems secondary to underlying dementia Physical Examination General Exam: Positive: Cooperative, No Acute Distress, Other (patient oriented to place, name, date of ) ENT Exam: Positive: Atraumatic; Negative: Mucous membr. moist/pink (dry mucous membranes) Neck Exam: Negative: JVD Chest Exam: Positive: Clear to auscultation, Normal air movement Heart Exam: Positive: Rate Normal, Normal S1, Normal S2 Abdomen Exam: Positive: Soft; Negative: Tenderness Extremity Exam: Negative: Tenderness, Swelling Vital Signs Vital Signs Date Time Temp Pulse Resp B/P (MAP) Pulse Ox O2 Delivery O2 Flow Rate FiO2 02/12/19 16:55 89 18 108/58 (75) 94 Room Air 02/12/19 12:45 96.6 Laboratory Data Labs 24H Laboratory Tests 2 02/12/19 13:17: Nucleated Red Blood Cells % (auto) 0.0, Neutrophils 82H, Lymphocytes (Manual) 14L, Monocytes (Manual) 3, Basophils (Manual) 1, Platelet Estimate NORMAL, Red Blood Cell Morphology NORMAL, Anion Gap 13, Glomerular Filtration Rate 32.3L, Lactic Acid Level 4.9*H, Calcium Level 10.6H, Aspartate Amino Transf (AST/SGOT) 24, Alanine Aminotransferase (ALT/SGPT) 29, Alkaline Phosphatase 113, Total Bi lirubin 1.1H, Direct Bilirubin 0.3H, Ammonia 11, Total Creatine Kinase 176, Creatine Kinase MB 4.2H, Creatine Kinase MB Relative Index 2.39, Troponin I < 0.02, Total Protein 9.1H, Albumin 4.8, Albumin/Globulin Ratio 1.12, Thyroid Stimulating Hormone (TSH) 0.274L, Salicylates Level < 1.7L, Acetaminophen Level < 2.0L, Ethyl Alcohol Level < 0.003 CBC/BMP Laboratory Tests 02/12/19 13:17 Red Blood Count 6.64 H, Mean Corpuscular Volume 87.7, Mean Corpuscular Hemoglobin 28.3, Mean Corpuscular Hemoglobin Concent 32.3, Red Cell Distribution Width 14.3 Plan / VTE VTE Prophylaxis Ordered?: Yes Plan Plan Intractable Nausea and Vomiting possibly 2/[address] Abd/Pel pending IVF Hydration and antiemetic therapy ordered We will keep the patient NPO for now We will cont to monitor his progress Lactic Acidosis 2/2 Above Patient with no signs of acute abdomen CT abdomen/pelvis pending IV fluid hydration ordered We will follow-up with a lactic acid level History of subarachnoid cyst Status post right parietal craniotomy with cystoperitoneal shunt placement in the past CT head/shunt study with no acute findings Follow-up as an outpatient History of chronic kidney disease stage III Baseline serum creatinine appears to be around 1.6 based on lab work from 2018 Serum creatinine 2.1 on admission Hold nephrotoxins Repeat BMP in the a.m. History of hypertension History of dyslipidemia History of diabetes mellitus History of dementia DVT prophylaxis--SCDs/MIGUEL Howard MD Feb 12, 2019 17:32
[2019-02-12] MEDS ORDERED: METOCLOPRAMIDE INJ 10MG/2ML VIAL (J2765) IV PRN (17:45)
--- NOTE | 2019-02-12 18:15 | REPVR ---
EXAM: CT Chest Without Contrast EXAM DATE/TIME: 02/12/2019 5:29 PM CLINICAL HISTORY: 79 years old, male; Abnormal findings; Lung mass or nodule; Multiple nodules; Additional info: ? Pulmonary nodules TECHNIQUE: Imaging protocol: Axial computed tomography images of the chest without intravenous contrast. Coronal and sagittal reformatted images were created and reviewed. 3D rendering: MIP reconstructed images were created and reviewed. Radiation optimization: All CT scans at this facility use at least one of these dose optimization techniques: automated exposure control; mA and/or kV adjustment per patient size (includes targeted exams where dose is matched to clinical indication); or iterative reconstruction. COMPARISON: CR Chest, 1 view 08/12/2017 6:58 PM FINDINGS: Lungs: Bilateral pulmonary parenchymal nodules measuring up to 11.6 cm in the right middle lobe. Although possibly postinfectious or inflammatory metastatic lesions not excluded. There is bibasilar compressive atelectasis. Pleural space: Unremarkable. No pneumothorax. No pleural effusion. Heart: There is mild atherosclerotic calcification of the coronary arteries. Mediastinum: A small hiatal hernia is present. Aorta: The aorta demonstrates mild atherosclerotic calcification. There is fusiform dilatation of the ascending thoracic aorta which measures 4.6 cm. maximally. There is no dissection or saccular component. Lymph nodes: Unremarkable. No enlarged lymph nodes. Bones/joints: The spine demonstrates mild degenerative changes. Diffuse decrease in bone mineralization consistent with osteoporosis or osteopenia. Soft tissues: Unremarkable. Kidneys and ureters: Peripherally calcified cystic lesion right kidney measures 1.6 cm. Lesion not fully characterized on this examination dedicated to the thorax without intravenous contrast. IMPRESSION: 1. Bilateral pulmonary parenchymal nodules measuring up to 11.6 cm in the right middle lobe. Although possibly postinfectious or inflammatory metastatic lesions not excluded. For patients at low risk (minimal or absent history of smoking and of other known risk factors), recommend CT at 3-6 months, then consider CT at 18-24 months. For patients at high risk (history of smoking or of other known risk factors), recommend CT at 3-6 months, then CT at 18-24 months. (Leatha et al., Fleischner Society, 2017). 2. There is fusiform dilatation of the ascending thoracic aorta which measures 4.6 cm. maximally. There is no dissection or saccular component. 3. Small hiatal hernia. Electronically signed by: Juan Ramon Prado On 02/12/2019 18:15:35 PM
[2019-02-12 18:59] VITALS: BP 109/61
[2019-02-12 20:00] VITALS: BP 89/54
[2019-02-12] MEDS: NS 1,000 ML IV SCH ×2 (20:47→23:15)
[2019-02-12] MEDS: PANTOPRAZOLE 40MG INJ (PROTONIX) (C9113) IV SCH (20:47)
[2019-02-12 22:25] VITALS: BP 96/56
[2019-02-13] VITALS: BP 102/56
[2019-02-13 04:00] VITALS: BP 101/59
[2019-02-13 05:33] LABS: HEMATOCRIT 43.5 % (42.0-52.0); MEAN CORPUSCULAR HEMOGLOBIN 27.8 pg (27.0-33.0); MEAN CORPUSCULAR HGB CONC 32.6 g/dl (32.0-36.5); MEAN CORPUSCULAR VOLUME 85.3 fl (80.0-96.0); PLATELET COUNT, AUTOMATED 203 10^3/uL (150-450); WHITE BLOOD COUNT 13.5 10^3/uL (4.0-10.0)
[2019-02-13 05:37] LABS: HEMOGLOBIN 14.2 g/dl (13.5-17.5)
[2019-02-13 05:55] LABS: ALBUMIN 3.2 GM/DL (3.2-5.2); CALCIUM LEVEL 8.2 MG/DL (8.8-10.2); CREATININE FOR GFR 2.67 MG/DL (0.70-1.30); GLOMERULAR FILTRATION RATE 24.8 (>42); POTASSIUM SERUM 4.5 MEQ/L (3.5-5.1); TOTAL PROTEIN 6.9 GM/DL (6.4-8.2)
[2019-02-13 08:00] VITALS: BP 110/58
--- NOTE | 2019-02-13 09:33 | ECGEPIP ---
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
[2019-02-13] MEDS: PANTOPRAZOLE 40MG INJ (PROTONIX) (C9113) IV SCH ×2 (09:47→20:09)
[2019-02-13] MEDS: SUCRALFATE 1 GM TAB PO SCH ×4 (09:47→20:10)
[2019-02-13 12:00] VITALS: BP 127/65
--- NOTE | 2019-02-13 12:57 | IPNPDOC ---
Subjective Date Seen The patient was seen on 02/13/19. Subjective Chief Complaint/HPI Patient seen and examined at the bedside. Reports that he is feeling better and ready to go home today. Denies any more episodes of nausea, vomiting, or abdominal pain. Objective Physical Examination General Exam: Positive: Alert, Cooperative, No Acute Distress ENT Exam: Positive: Atraumatic, Mucous membr. moist/pink Neck Exam: Negative: JVD Chest Exam: Positive: Clear to auscultation, Normal air movement Heart Exam: Positive: Rate Normal, Normal S1, Normal S2 Abdomen Exam: Positive: Soft; Negative: Tenderness Extremity Exam: Negative: Tenderness, Swelling Psych Exam: Positive: Other (patient oriented to place, birthdate, name but not year, situation) Assessment /Plan Plan/VTE VTE Prophylaxis Ordered?: Yes Plan Intractable Nausea and Vomiting possibly 2/[address] Abd/Pel notable for mild dilatation of small bowel predominantly proximally with some scattered mesenteric edema, possibility of partial small bowel obstruction versus ileus. I did discuss these findings and reviewed the imaging with Dr. Pinedo of General Surgery last night---He thinks this may be ileus related to gastroenteritis. We will start the patient on sips of water, and advance his diet as tolerated if he does not have any more vomiting, or complaints of abdominal pain. Reglan ordered We will cont to monitor his progress Lactic Acidosis 2/2 Above Resolved following IVF Hydration JONATHAN superimposed on chronic kidney disease stage III Baseline serum creatinine appears to be around 1.6 based on lab work from 2018 Serum creatinine 2.1-->2.67 this AM No hydronephrosis noted on CT abd/pel Likely 2/2 hypotension, dehydration on admission Cont IVF Hydration Hold Nephrotoxins UA ordered Monitor I/O's We will cont to follow up with BMP Bilateral Pulmonary nodules with measuring up to 11.6 cm in RML, postinfectious inflammatory vs metastatic lesions noted on CT Chest Patient will need to follow up with a repeat CT Chest to further assess this Discussed results, implications and the need to follow up with the patient's Daughter and Son at the bedside who have verbalized understanding of the same. History of subarachnoid cyst Status post right parietal craniotomy with cystoperitoneal shunt placement in the past CT head/shunt study with no acute findings Follow-up as an outpatient History of hypertension History of dyslipidemia History of diabetes mellitus History of dementia DVT prophylaxis--SCDs/TEDs VS, I&O, 24H, [facility] Vital Signs/I&O Vital Signs Date Time Temp Pulse Resp B/P (MAP) Pulse Ox O2 Delivery O2 Flow Rate FiO2 02/13/19 12:00 97.6 58 18 127/65 (85) 97 02/12/19 16:55 Room Air I&O- Last 24 Hours up to 6 AM 02/13/19 06:00 Intake Total 2600 ml Output Total 0 ml Balance 2600 ml Laboratory Data 24H LABS Laboratory Tests 2 02/12/19 13:17: Nucleated Red Blood Cells % (auto) 0.0, Neutrophils 82H, Lymphocytes (Manual) 14L, Monocytes (Manual) 3, Basophils (Manual) 1, Platelet Estimate NORMAL, Red Blood Cell Morphology NORMAL, Anion Gap 13, Glomerular Filtration Rate 32.3L, Lactic Acid Level 4.9*H, Calcium Level 10.6H, Aspartate Amino Transf (AST/SGOT) 24, Alanine Aminotransferase (ALT/SGPT) 29, Alkaline Phosphatase 113, Total Bilirubin 1.1H, Direct Bilirubin 0.3H, Ammonia 11, Total Creatine Kinase 176, Creatine Kinase MB 4.2H, Creatine Kinase MB Relative Index 2.39, Troponin I < 0.02, Total Protein 9.1H, Albumin 4.8, Albumin/Globulin Ratio 1.12, Thyroid Stimulating Hormone (TSH) 0.274L, Salicylates Level < 1.7L, Acetaminophen Level < 2.0L, Ethyl Alcohol Level < 0.003 02/12/19 18:12: Lactic Acid Followup at 4 Hours 4.1*H 02/12/19 21:04: Bedside Glucose (Misc Panel) 166H 02/13/19 05:11: Nucleated Red Blood Cells % (auto) 0.0, Anion Gap 6L, Glomerular Filtration Rate 24.8L, Calcium Level 8.2#L, Aspartate Amino Transf (AST/SGOT) 30, Alanine Aminotransferase (ALT/SGPT) 22, Alkaline Phosphatase 67, Total Bilirubin 1.0, Total Protein 6.9#, Albumin 3.2#, Albumin/Globulin Ratio 0.86L, Blood Urea Nitrogen 52#H, Creatinine 2.67H, Sodium Level 144, Potassium Level 4.5, Chloride Level 111H, Carbon Dioxide Level 27, Magnesium Level 2.0 02/13/19 07:51: Lactic Acid Level 1.0 CBC/BMP Laboratory Tests 02/12/19 13:17 Red Blood Count 6.64 H, Mean Corpuscular Volume 87.7, Mean Corpuscular Hemoglobin 28.3, Mean Corpuscular Hemoglobin Concent 32.3, Red Cell Distribution Width 14.3 02/13/19 05:11 Red Blood Count 5.10, Mean Corpuscular Volume 85.3, Mean Corpuscular Hemoglobin 27.8, Mean Corpuscular Hemoglobin Concent 32.6, Red Cell Distribution Width 14.2 , Calcium Level 8.2 #L, Aspartate Amino Transf (AST/SGOT) 30, Alanine Aminotransferase (ALT/SGPT) 22, Alkaline Phosphatase 67, Total Bilirubin 1.0, Total Protein 6.9 #, Albumin 3.2 # MIGUEL BIRMINGHAM MD Feb 13, 2019 12:57
[2019-02-13 17:00] VITALS: BP 128/70
[2019-02-13 20:00] VITALS: BP 143/74
[2019-02-13 22:32] LABS: APPEARANCE, URINE CLEAR (CLEAR); BACTERIA, URINE AUTO NEGATIVE (NEGATIVE); BILIRUBIN, URINE AUTO NEGATIVE (NEGATIVE); BLOOD, URINE BLOOD 1+ (NEGATIVE); COLOR, URINE YELLOW (YELLOW); GLUCOSE, URINE (UA) AUTO NEGATIVE (NEGATIVE); KETONE, URINE AUTO NEGATIVE (NEGATIVE); LEUKOCYTE ESTERASE, URINE AUTO NEGATIVE (NEGATIVE); MUCUS, URINE SMALL (NEGATIVE); NITRITE, URINE AUTO NEGATIVE (NEGATIVE); PROTEIN, URINE AUTO NEGATIVE (NEGATIVE); RBC, URINE AUTO 5 /HPF (0-3); SPECIFIC GRAVITY URINE AUTO 1.013 (1.002-1.035); SQUAMOUS EPITHELIAL CELL UR AU 0 /HPF (0-6); UROBILINOGEN, URINE AUTO 0.2 mg/dL (0.0-2.0); WBC, URINE AUTO 2 /HPF (0-3)
[2019-02-14] VITALS: BP 138/80
[2019-02-14 04:00] VITALS: BP 170/92
[2019-02-14 05:18] LABS: HEMATOCRIT 46.7 % (42.0-52.0); HEMOGLOBIN 15.2 g/dl (13.5-17.5); MEAN CORPUSCULAR HGB CONC 32.5 g/dl (32.0-36.5); PLATELET COUNT, AUTOMATED 178 10^3/uL (150-450); RED BLOOD COUNT 5.43 10^6/uL (4.30-6.10); WHITE BLOOD COUNT 11.2 10^3/uL (4.0-10.0)
[2019-02-14 05:38] LABS: ALBUMIN 3.5 GM/DL (3.2-5.2); ALT/SGPT 28 U/L (12-78); BILIRUBIN,TOTAL 1.2 MG/DL (0.2-1.0); BLOOD UREA NITROGEN 45 MG/DL (7-18); CALCIUM LEVEL 8.3 MG/DL (8.8-10.2); CARBON DIOXIDE LEVEL 26 MEQ/L (21-32); CHLORIDE LEVEL 105 MEQ/L (98-107); CREATININE FOR GFR 1.19 MG/DL (0.70-1.30); GLOMERULAR FILTRATION RATE > 60.0 (>42); GLUCOSE, FASTING 128 MG/DL (70-100); POTASSIUM SERUM 3.6 MEQ/L (3.5-5.1); SODIUM LEVEL 139 MEQ/L (136-145); TOTAL PROTEIN 7.6 GM/DL (6.4-8.2)
[2019-02-14 08:00] VITALS: BP 163/79
[2019-02-14] MEDS: SUCRALFATE 1 GM TAB PO SCH ×4 (08:53→21:52)
[2019-02-14] MEDS: PANTOPRAZOLE 40MG INJ (PROTONIX) (C9113) IV SCH ×2 (08:53→21:52)
[2019-02-14] MEDS ORDERED: DONEPEZIL 5 MG TAB PO SCH (09:00)
[2019-02-14] MEDS ORDERED: MEMANTINE 5MG TABLET (NAMENDA) PO SCH (09:00)
[2019-02-14 12:00] VITALS: BP 148/73
[2019-02-14] MEDS ORDERED: GLUCOSE 4 GM CHEW TABLET PO PRN (12:15)
[2019-02-14] MEDS ORDERED: DEXTROSE 50% 50 ML SYRINGE IV PRN (12:15)
[2019-02-14] MEDS ORDERED: GLUCAGON FOR INJ 1 MG VIAL (J1610) SC PRN (12:15)
--- NOTE | 2019-02-14 12:17 | IPNPDOC ---
Subjective Date Seen The patient was seen on 02/14/19. Subjective Chief Complaint/HPI Patient seen and examined at the bedside. No acute overnight events noted. Objective Physical Examination General Exam: Positive: Alert, Cooperative, No Acute Distress ENT Exam: Positive: Atraumatic, Mucous membr. moist/pink Neck Exam: Negative: JVD Chest Exam: Positive: Clear to auscultation, Normal air movement Heart Exam: Positive: Rate Normal, Normal S1, Normal S2 Abdomen Exam: Positive: Soft; Negative: Tenderness Extremity Exam: Negative: Tenderness, Swelling Psych Exam: Positive: Other (patient oriented to place, birthdate, name but not year, situation) Assessment /Plan Plan/VTE VTE Prophylaxis Ordered?: Yes Plan Intractable Nausea and Vomiting possibly 2/2 Gastroenteritis Patient tolerated a clear liquid diet yesterday without any acute complaints. Follow-up CT scan of the abdomen/pelvis revealed resolution of small bowel loop dilatation The patient did have a rather large formed bowel movement following CT scan of the abdomen/pelvis We will advance the patient's diet as tolerated Lactic Acidosis 2/2 Above Resolved following IVF Hydration JONATHAN superimposed on chronic kidney disease stage III, resolved Serum Cr back to baseline Bilateral Pulmonary nodules measuring up to 1.3 cm in RML, postinfectious inflammatory vs metastatic lesions noted on CT Chest Patient will need to follow up with a repeat CT Chest to further assess this Discussed results, implications and the need to follow up with the patient's Daughter and Son at the bedside who have verbalized understanding of the same. History of subarachnoid cyst Status post right parietal craniotomy with cystoperitoneal shunt placement in the past CT head/shunt study with no acute findings Follow-up as an outpatient History of hypertension Norvasc added to regimen, we'll hold DUONG-I for now History of dyslipidemia Cont Statin History of diabetes mellitus Insulin sliding scale ordered History of dementia Cont donepezil, memantine DVT prophylaxis Lovenox Disposition-pending functional optimization with PT VS, I&O, 24H, Fishbone Vital Signs/I&O Vital Signs Date Time Temp Pulse Resp B/P (MAP) Pulse Ox O2 Delivery O2 Flow Rate FiO2 02/14/19 08:00 98.1 96 18 163/79 (107) 93 02/12/19 16:55 Room Air I&O- Last 24 Hours up to 6 AM 02/14/19 06:00 Intake Total 1140 ml Output Total 2110 ml Balance -970 ml Laboratory Data 24H LABS Laboratory Tests 2 02/13/19 20:02: Bedside Glucose (Misc Panel) 118H 02/13/19 22:03: Urine Appearance CLEAR, Urine Color YELLOW, Urine pH 5.0, Urine Specific [place] 1.013, Urine Protein NEGATIVE, Urine Glucose (UA) NEGATIVE, Urine Ketones NEGATIVE, Urine Urobilinogen 0.2, Urine Bilirubin NEGATIVE, Urine Leukocyte Esterase NEGATIVE, Urine Blood 1+H, Urine Nitrite NEGATIVE, Urine WBC (Auto) 2, Urine RBC (Auto) 5H, Urine Hyaline Casts (Auto) 0, Urine Bacteria (Auto) NE GATIVE, Urine Squamous Epithelial Cells 0, Urine Mucus (Auto) SMALL, Urine Sperm (Auto) 02/14/19 04:47: Nucleated Red Blood Cells % (auto) 0.0, Anion Gap 8, Glomerular Filtration Rate > 60.0, Blood Urea Nitrogen 45H, Creatinine 1.19#, Sodium Level 139, Potassium Level 3.6, Chloride Level 105, Carbon Dioxide Level 26, Calcium Level 8.3L, Aspartate Amino Transf (AST/SGOT) 40H, Alanine Aminotransferase (ALT/SGPT) 28, Alkaline Phosphatase 77, Total Bilirubin 1.2H, Total Protein 7.6, Albumin 3.5, Albumin/Globulin Ratio 0.85L CBC/BMP Laboratory Tests 02/14/19 04:47 Red Blood Count 5.43, Mean Corpuscular Volume 86.0, Mean Corpuscular Hemoglobin 28.0, Mean Corpuscular Hemoglobin Concent 32.5, Red Cell Distribution Width 13.8, Calcium Level 8.3 L, Aspartate Amino Transf (AST/SGOT) 40 H, Alanine Aminotransferase (ALT/SGPT) 28, Alkaline Phosphatase 77, Total Bilirubin 1.2 H, Total Protein 7.6, Albumin 3.5 MIGUEL BIRMINGHAM MD Feb 14, 2019 12:17
[2019-02-14] MEDS: DOCUSATE SODIUM 100 MG CAP PO SCH ×2 (13:47→21:51)
[2019-02-14] MEDS: ASPIRIN 81 MG ENTERIC TAB PO SCH (13:48)
[2019-02-14] MEDS: MULTIVITAMINS/MINERALS THERAP 1 TAB PO SCH (13:48)
[2019-02-14] MEDS: MEMANTINE 5MG TABLET (NAMENDA) PO SCH ×2 (13:48→21:52)
[2019-02-14] MEDS: amLODIPine 5 MG TAB PO SCH (13:48)
[2019-02-14] MEDS: HumaLOG INSULIN (NovoLOG) PER UNIT SC SCH ×3 (13:50→21:00)
[2019-02-14] MEDS: ENOXAPARIN 40 MG/0.4 ML SYRINGE (J1650) SC SCH (13:50)
[2019-02-14 16:00] VITALS: BP 145/72
[2019-02-14 20:00] VITALS: BP 155/72
[2019-02-14] MEDS: SIMVASTATIN 20 MG TAB PO SCH (21:51)
[2019-02-14] MEDS: DONEPEZIL 5 MG TAB PO SCH (21:52)
[2019-02-15] VITALS: BP 116/59
[2019-02-15 04:00] VITALS: BP 146/68
[2019-02-15 06:02] LABS: HEMATOCRIT 42.3 % (42.0-52.0); HEMOGLOBIN 13.7 g/dl (13.5-17.5); MEAN CORPUSCULAR HEMOGLOBIN 27.7 pg (27.0-33.0); MEAN CORPUSCULAR HGB CONC 32.4 g/dl (32.0-36.5); MEAN CORPUSCULAR VOLUME 85.5 fl (80.0-96.0); PLATELET COUNT, AUTOMATED 120 10^3/uL (150-450); RED BLOOD COUNT 4.95 10^6/uL (4.30-6.10); WHITE BLOOD COUNT 7.2 10^3/uL (4.0-10.0)
[2019-02-15 06:33] LABS: ALT/SGPT 1321 U/L (12-78); BILIRUBIN,TOTAL 5.1 MG/DL (0.2-1.0); BLOOD UREA NITROGEN 39 MG/DL (7-18); CALCIUM LEVEL 8.5 MG/DL (8.8-10.2); CARBON DIOXIDE LEVEL 31 MEQ/L (21-32); CHLORIDE LEVEL 106 MEQ/L (98-107); CREATININE FOR GFR 1.13 MG/DL (0.70-1.30); GLOMERULAR FILTRATION RATE > 60.0 (>42); GLUCOSE, FASTING 124 MG/DL (70-100); POTASSIUM SERUM 3.3 MEQ/L (3.5-5.1); SODIUM LEVEL 141 MEQ/L (136-145); TOTAL PROTEIN 6.9 GM/DL (6.4-8.2)
[2019-02-15] MEDS: HumaLOG INSULIN (NovoLOG) PER UNIT SC SCH ×4 (07:30→21:00)
[2019-02-15] MEDS ORDERED: POTASSIUM CHLORIDE 10 MEQ SR TABLET PO ONE (07:45)
--- NOTE | 2019-02-15 07:52 | REP ---
CT of the abdomen and pelvis without IV or bowel contrast: Comparison is 02/12/2019. The within the visualized lower lung moon. The 1.3 cm right middle lobe lung nodule is unchanged and the 7 ml lingular lung nodule is unchanged. The small hypodensity in the left lobe of liver is unchanged. There is a tiny volume of ascites surrounding the liver as an interval change. The gallbladder wall is mildly thickened. This may be secondary to the ascites. The gallbladder is otherwise unremarkable. Pancreas, spleen, adrenals and kidneys are unchanged. The distended small bowel loops on the prior study have significantly improved. The mesentery is unremarkable. Abdominal aorta is unremarkable. Pelvis: The bladder is unremarkable. There is no ascites. The pelvic bowel loops are unremarkable. Impression: The distended bowel loops on the comparison CT have significantly improved. There is a small volume of ascites adjacent to the liver as an interval change. The two lung nodules are unchanged. There are surgical clips in relation to small bowel loops. 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 This is unchanged. Electronically Signed by Suman Miller MD 02/14/2019 10:01 A
[2019-02-15 08:00] VITALS: BP 129/61
[2019-02-15] MEDS: DOCUSATE SODIUM 100 MG CAP PO SCH ×2 (09:10→21:19)
[2019-02-15] MEDS: ASPIRIN 81 MG ENTERIC TAB PO SCH (09:10)
[2019-02-15] MEDS: SUCRALFATE 1 GM TAB PO SCH ×4 (09:11→21:22)
[2019-02-15] MEDS: MULTIVITAMINS/MINERALS THERAP 1 TAB PO SCH (09:11)
[2019-02-15] MEDS: amLODIPine 5 MG TAB PO SCH (09:11)
[2019-02-15] MEDS: PANTOPRAZOLE 40MG INJ (PROTONIX) (C9113) IV SCH ×2 (09:12→21:20)
[2019-02-15] MEDS: MEMANTINE 5MG TABLET (NAMENDA) PO SCH ×2 (09:12→21:20)
[2019-02-15] MEDS: ENOXAPARIN 40 MG/0.4 ML SYRINGE (J1650) SC SCH (09:12)
--- NOTE | 2019-02-15 10:19 | IPNPDOC ---
Subjective Date Seen The patient was seen on 02/15/19. Subjective Chief Complaint/HPI Patient seen and examined at the bedside this morning. He denies any new complaints at this time. States that he has been able to tolerate a diet, and had a large bowel movement yesterday. Denies any acute complaints at this time. Objective Physical Examination General Exam: Positive: Alert, Cooperative, No Acute Distress ENT Exam: Positive: Atraumatic, Mucous membr. moist/pink Neck Exam: Negative: JVD Chest Exam: Positive: Clear to auscultation, Normal air movement Heart Exam: Positive: Rate Normal, Normal S1, Normal S2 Abdomen Exam: Positive: Soft; Negative: Tenderness Extremity Exam: Negative: Tenderness, Swelling Psych Exam: Positive: Other (patient oriented to place, birthdate, name but not year, situation) Assessment /Plan Plan/VTE VTE Prophylaxis Ordered?: Yes Plan Elevated LFTs possibly 2/2 Biliary Obstruction? CT Abd/Pel from 02/14 did reveal small volume of ascites adjacent to the liver, gallbladder was noted to be mildly thickened, but otherwise unremarkable Unable to get an MRCP due to WOOD ROUTER HAND Shunt U/S of the Liver ordered for further evaluation of GB and biliary tract Hepatitis panel ordered We will cont to monitor LFTs Intractable Nausea and Vomiting possibly 2/2 Gastroenteritis, resolved Follow-up CT scan of the abdomen/pelvis revealed resolution of small bowel loop dilatation on 02/14 The patient did have a rather large formed bowel movement on 02/14 as well Tolerating a PO Diet Lactic Acidosis 2/2 Above Resolved following IVF Hydration JONATHAN superimposed on chronic kidney disease stage III, resolved Serum Cr back to baseline Bilateral Pulmonary nodules measuring up to 1.3 cm in RML, postinfectious inflammatory vs metastatic lesions noted on CT Chest Patient will need to follow up with a repeat CT Chest to further assess this Discussed results, implications and the need to follow up with the patient's Daughter and Son at the bedside who have verbalized understanding of the same. History of subarachnoid cyst Status post right parietal craniotomy with cystoperitoneal shunt placement in the past CT head/shunt study with no acute findings Follow-up as an outpatient History of hypertension Norvasc added to regimen, we'll hold DUONG-I for now History of dyslipidemia Cont Statin History of diabetes mellitus Insulin sliding scale ordered History of dementia Cont donepezil, memantine DVT prophylaxis Lovenox Disposition-pending functional optimization with PT VS, I&O, 24H, [facility] Vital Signs/I&O Vital Signs Date Time Temp Pulse Resp B/P (MAP) Pulse Ox O2 Delivery O2 Flow Rate FiO2 02/15/19 09:11 74 129/61 02/15/19 08:00 97.9 17 93 02/12/19 16:55 Room Air I&O- Last 24 Hours up to 6 AM 02/15/19 06:00 Intake Total 1080 ml Output Total 915 ml Balance 165 ml Laboratory Data 24H LABS Laboratory Tests 2 02/14/19 13:23: Bedside Glucose (Misc Panel) 148H 02/14/19 18:53: Bedside Glucose (Misc Panel) 176H 02/14/19 21:56: Bedside Glucose (Misc Panel) 115H 02/15/19 05:40: Nucleated Red Blood Cells % (auto) 0.0, Anion Gap 4L, Glomerular Filtration Rate > 60.0, Blood Urea Nitrogen 39H, Creatinine 1.13, Sodium Level 141, Potassium Level 3.3L, Chloride Level 106, Carbon Dioxide Level 31, Calcium Level 8.5L, Aspartate Amino Transf (AST/SGOT) 875H, Alanine Aminotransferase (ALT/SGPT) 1321H, Alkaline Phosphatase 396H, Total Bilirubin 5.1#H, Total Protein 6.9, Albumin 3.0L, Albumin/Globulin Ratio 0.77L CBC/BMP Laboratory Tests 02/15/19 05:40 Red Blood Count 4.95, Mean Corpuscular Volume 85.5, Mean Corpuscular Hemoglobin 27.7, Mean Corpuscular Hemoglobin Concent 32.4, Red Cell Distribution Width 13.7, Calcium Level 8.5 L, Aspartate Amino Transf (AST/SGOT) 875 H, Alanine Aminotransferase (ALT/SGPT) 1321 H, Alkaline Phosphatase 396 H, Total Bilirubin 5.1 #H, Total Protein 6.9, Albumin 3.0 L MIGUEL BIRMINGHAM MD Feb 15, 2019 10:19
[2019-02-15 10:30] LABS: HEPATITIS B SURFACE ANTIGEN NEGATIVE (NEGATIVE)
[2019-02-15] MEDS ORDERED: SLF 3 ML SYR IV PRN (10:45)
[2019-02-15 10:58] LABS: HEPATITIS B CORE ANTIBODY IGM NEGATIVE (NEGATIVE); HEPATITIS C VIRUS ABY INDEX 0.1 INDEX (<0.8)
[2019-02-15 11:00] LABS: HEPATITIS A ANTIBODY IGM NEGATIVE (NEGATIVE)
[2019-02-15 12:00] VITALS: BP 118/61
[2019-02-15] MEDS: SLF 3 ML SYR IV SCH ×2 (12:29→21:20)
--- NOTE | 2019-02-15 15:20 | REP ---
Clinical: Elevated liver function tests. Technique: Real time lin scale ultrasound examination using curved array transducer. Findings: Liver and visualized pancreas are normal in contour, size, echogenicity without focal hepatic or pancreatic lesion identified. Gallbladder demonstrates tumefactive sludge with subtle wall thickening, but no pericholecystic fluid. No biliary ductal dilatation is appreciated and the common bile duct measures 5 mm diameter. The right kidney is normal in reniform shape without hydronephrosis and measures 12.6 x 6.2 x 6.0 cm. No ascites. Impression: Tumefactive sludge within the gallbladder. Otherwise normal right upper quadrant abdominal ultrasound. Electronically Signed by Hal Boyd MD 02/15/2019 03:11 P
[2019-02-15 16:00] VITALS: BP 136/55
[2019-02-15 19:00] VITALS: BP 134/66
[2019-02-15] MEDS: DONEPEZIL 5 MG TAB PO SCH (21:19)
[2019-02-15] MEDS: SIMVASTATIN 20 MG TAB PO SCH (21:20)
[2019-02-16 00:18] VITALS: BP 116/63
[2019-02-16 04:00] VITALS: BP 102/62
[2019-02-16] MEDS: SLF 3 ML SYR IV SCH ×4 (04:53→23:12)
[2019-02-16 05:56] LABS: HEMATOCRIT 38.3 % (42.0-52.0); HEMOGLOBIN 12.5 g/dl (13.5-17.5); MEAN CORPUSCULAR HEMOGLOBIN 28.2 pg (27.0-33.0); MEAN CORPUSCULAR HGB CONC 32.6 g/dl (32.0-36.5); MEAN CORPUSCULAR VOLUME 86.3 fl (80.0-96.0); PLATELET COUNT, AUTOMATED 120 10^3/uL (150-450); RED BLOOD COUNT 4.44 10^6/uL (4.30-6.10); WHITE BLOOD COUNT 6.5 10^3/uL (4.0-10.0)
[2019-02-16 06:17] LABS: ALBUMIN 2.6 GM/DL (3.2-5.2); ALT/SGPT 744 U/L (12-78); BILIRUBIN,TOTAL 3.2 MG/DL (0.2-1.0); BLOOD UREA NITROGEN 34 MG/DL (7-18); CALCIUM LEVEL 8.4 MG/DL (8.8-10.2); CARBON DIOXIDE LEVEL 29 MEQ/L (21-32); CHLORIDE LEVEL 106 MEQ/L (98-107); CREATININE FOR GFR 0.91 MG/DL (0.70-1.30); GLOMERULAR FILTRATION RATE > 60.0 (>42); GLUCOSE, FASTING 137 MG/DL (70-100); POTASSIUM SERUM 3.4 MEQ/L (3.5-5.1); SODIUM LEVEL 141 MEQ/L (136-145); TOTAL PROTEIN 6.6 GM/DL (6.4-8.2)
[2019-02-16 08:00] VITALS: BP 112/59
[2019-02-16] MEDS: SUCRALFATE 1 GM TAB PO SCH ×4 (08:05→21:30)
[2019-02-16] MEDS ORDERED: POTASSIUM CHLORIDE 10 MEQ SR TABLET PO ONE (09:00)
[2019-02-16] MEDS: PANTOPRAZOLE 40MG INJ (PROTONIX) (C9113) IV SCH ×2 (10:06→21:32)
[2019-02-16] MEDS: HumaLOG INSULIN (NovoLOG) PER UNIT SC SCH ×4 (10:06→21:00)
[2019-02-16] MEDS: ENOXAPARIN 40 MG/0.4 ML SYRINGE (J1650) SC SCH (10:07)
[2019-02-16] MEDS: ASPIRIN 81 MG ENTERIC TAB PO SCH (10:07)
[2019-02-16] MEDS: amLODIPine 5 MG TAB PO SCH (10:08)
[2019-02-16] MEDS: DOCUSATE SODIUM 100 MG CAP PO SCH ×2 (10:08→21:30)
[2019-02-16] MEDS: MULTIVITAMINS/MINERALS THERAP 1 TAB PO SCH (10:08)
[2019-02-16] MEDS: MEMANTINE 5MG TABLET (NAMENDA) PO SCH ×2 (10:08→21:31)
--- NOTE | 2019-02-16 13:35 | IPNPDOC ---
Subjective Date Seen The patient was seen on 02/16/19. Time of service 2:40 PM Subjective Chief Complaint/HPI Nausea and vomiting, Events since last encounter Per discussion with the nursing staff. The patient has been on clear liquid diet since yesterday evening. The patient has dementia and is not sure why he came to the hospital. Currently, he denies having any pain. The patient's son was at the bedside reports that the patient's nausea and vomiting have improved significantly. Objective Physical Examination Other physical findings VITALS: Vitals see below GENERAL: Well-nourished, well-developed, seated up in bed in no apparent distress HEENT: Normocephalic, atraumatic. CHEST: Regular rate and rhythm, no murmurs, rubs or gallops, radial pulse intac t. LUNGS: Clear to auscultation bilaterally on room air. Abdomen: Positive Bowel Sounds, Abdomen Is Distended, but Soft, but Nontender on Palpation. NEURO: Cranial Nerves II through XII Grossly Intact, Speech, Not Dysarthric. PSYCH: Alert and oriented to person, place and time, able to understand and follow commands Assessment /Plan Assessment Mr. Palencia is a 79-year-old male with a past medical history of bilateral pulmonary nodules, subarachnoid cyst, status post right partial craniectomy with cystoscopy peritoneal shunt, chronic hypertension, dyslipidemia, diabetes mellitus, and dementia. He was admitted for evaluation of nausea and vomiting which is now resolved. The patient continues to have transaminitis whose causes to be determined. 1. Nausea and vomiting - resolving Possibly due to cholecystitis versus gastroenteritis. Lactic acidosis, which has resolved was likely due to dehydration and possibly infection The first CT of abdomen and pelvis showed findings consistent with mesenteric edema and partial SBO. The second CT of the abdomen and pelvis showed ascites and gallbladder wall thickening and resolution of the partial SBO Plan: Continue with clear liquid diet 2. Transaminitis. Appears jaundiced according to his daughter Not sure if this versus hepatic versus cholestatic. Unable to get MRCP because of EKG MONITOR TECH shunt. Ultrasound of the liver showed tumefactive sludge. Not sure if these findings represent a malignancy or gangrenous cholecystitis Plan: Consult general surgery and GI /nothing by mouth with IV fluids tonight / will follow up with general surgery prior to ordering HIDA scan HIDA scan 3. CKD2/3. JONATHAN has resolved. Plan: follow-up BMP daily 4. Bilateral pulmonary nodules. The nodule in the right middle lobe was 1.3 cm in size and may be post inflammatory or metastatic. Since this mass more than 1 cm in size the will may need a biopsy Plan: Repeat CT on an outpatient basis 5. Low TSH. May be secondary to euthyroid sick syndrome versus hypothyroidism. Plan follow-up today free T3 and T4. 6 History of subarachnoid cyst. Status post right partial craniectomy with CVP shunt. Recent CT of the head done was unremarkable Plan: Follow-up with neurologist on an outpatient basis 7 Chronic hypertension. Plan: Continue with Norvasc/continue to hold Edwardo inhibitor 8. Dyslipidemia. Plan continue statin 9. Diabetes mellitus. Plan follow-up Accu-Cheks, A1c, and continue with sliding scale insulin 10. Dementia. Plan: Hold donepezil as it can cause GI disturbance, continue with memantine DVT prophylaxis withLovenox Disposition-pending GI, general surgery, and PT Recommendations Plan/VTE VTE Prophylaxis Ordered?: Yes VS, I&O, 24H, [facility] Vital Signs/I&O Vital Signs Date Time Temp Pulse Resp B/P (MAP) Pulse Ox O2 Delivery O2 Flow Rate FiO2 02/16/19 10:08 64 112/59 02/16/19 08:00 98.2 18 95 02/12/19 16:55 Room Air I&O- Last 24 Hours up to 6 AM 02/16/19 06:00 Intake Total 1200 ml Output Total 500 ml Balance 700 ml Laboratory Data 24H LABS Laboratory Tests 2 02/15/19 15:38: Lipase 74 02/15/19 16:26: Bedside Glucose (Misc Panel) 108 02/15/19 21:11: Bedside Glucose (Misc Panel) 158H 02/16/19 05:30: Nucleated Red Blood Cells % (auto) 0.0, Anion Gap 6L, Glomerular Filtration Rate > 60.0, Blood Urea Nitrogen 34H, Creatinine 0.91, Sodium Level 141, Potassium Level 3.4L, Chloride Level 106, Carbon Dioxide Level 29, Calcium Level 8.4L, Aspartate Amino Transf (AST/SGOT) 216H, Alanine Aminotransferase (ALT/SGPT) 744H, Alkaline Phosphatase 326H, Total Bilirubin 3.2H, Total Protein 6.6, Albumin 2.6L, Albumin/Globulin Ratio 0.65L 02/16/19 11:47: Bedside Glucose (Misc Panel) 121H CBC/BMP Laboratory Tests 02/16/19 05:30 Red Blood Count 4.44, Mean Corpuscular Volume 86.3, Mean Corpuscular Hemoglobin 28.2, Mean Corpuscular Hemoglobin Concent 32.6, Red Cell Distribution Width 14.0, Calcium Level 8.4 L, Aspartate Amino Transf (AST/SGOT) 216 H, Alanine Aminotransferase (ALT/SGPT) 744 H, Alkaline Phosphatase 326 H, Total Bilirubin 3.2 H, Total Protein 6.6, Albumin 2.6 L JASON PACHECO MD Feb 16, 2019 13:35
[2019-02-16 16:00] VITALS: BP 114/62
[2019-02-16] MEDS: NS 1,000 ML IV SCH (16:16)
[2019-02-16] MEDS: SIMVASTATIN 20 MG TAB PO SCH (21:31)
[2019-02-16 23:59] VITALS: BP 130/69
[2019-02-17 05:50] LABS: BASO % 0.4 % (0.0-1.0); EOS # 0.3 10^3/uL (0.0-0.50); EOS % 6.8 % (0.0-3.0); HEMATOCRIT 36.5 % (42.0-52.0); HEMOGLOBIN 11.9 g/dl (13.5-17.5); LYMPH # 0.8 10^3/uL (1.5-4.5); LYMPH % 15.3 % (24.0-44.0); MEAN CORPUSCULAR HEMOGLOBIN 27.2 pg (27.0-33.0); MEAN CORPUSCULAR HGB CONC 32.6 g/dl (32.0-36.5); MEAN CORPUSCULAR VOLUME 83.3 fl (80.0-96.0); MONO # 0.6 10^3/uL (0.0-0.8); MONO % 11.8 % (0.0-5.0); NEUTROPHILS # 3.2 10^3/uL (1.8-7.7); NEUTROPHILS % 64.3 % (36.0-66.0); PLATELET COUNT, AUTOMATED 132 10^3/uL (150-450); RED BLOOD COUNT 4.38 10^6/uL (4.30-6.10)
[2019-02-17 06:02] LABS: HEMOGLOBIN A1c 6.3 %
[2019-02-17 06:13] LABS: ALBUMIN 2.5 GM/DL (3.2-5.2); ALT/SGPT 509 U/L (12-78); BILIRUBIN,TOTAL 1.8 MG/DL (0.2-1.0); BLOOD UREA NITROGEN 19 MG/DL (7-18); CALCIUM LEVEL 7.5 MG/DL (8.8-10.2); CARBON DIOXIDE LEVEL 29 MEQ/L (21-32); CHLORIDE LEVEL 106 MEQ/L (98-107); FREE T4 1.39 NG/DL (0.76-1.46); GLOMERULAR FILTRATION RATE > 60.0 (>42); GLUCOSE, FASTING 110 MG/DL (70-100); POTASSIUM SERUM 3.3 MEQ/L (3.5-5.1); SODIUM LEVEL 139 MEQ/L (136-145); TOTAL PROTEIN 5.8 GM/DL (6.4-8.2)
[2019-02-17] MEDS: HumaLOG INSULIN (NovoLOG) PER UNIT SC SCH ×4 (07:30→21:00)
[2019-02-17] MEDS: SUCRALFATE 1 GM TAB PO SCH ×4 (07:30→22:11)
[2019-02-17 08:00] VITALS: BP 127/59
[2019-02-17] MEDS: NS 1,000 ML IV SCH ×2 (08:48→23:48)
[2019-02-17] MEDS: DOCUSATE SODIUM 100 MG CAP PO SCH ×2 (09:06→22:11)
[2019-02-17 09:07] VITALS: BP 127/59
[2019-02-17] MEDS: amLODIPine 5 MG TAB PO SCH (09:07)
[2019-02-17] MEDS: MEMANTINE 5MG TABLET (NAMENDA) PO SCH ×2 (09:08→22:11)
[2019-02-17] MEDS: PANTOPRAZOLE 40MG INJ (PROTONIX) (C9113) IV SCH ×2 (09:08→22:12)
[2019-02-17] MEDS: MULTIVITAMINS/MINERALS THERAP 1 TAB PO SCH (09:08)
[2019-02-17] MEDS: ASPIRIN 81 MG ENTERIC TAB PO SCH (09:08)
[2019-02-17] MEDS: SLF 3 ML SYR IV SCH ×2 (14:00→22:12)
--- NOTE | 2019-02-17 14:21 | REP ---
HEPATOBILIARY SCAN: HISTORY: Rule out biliary dyskinesia. TECHNIQUE: 6.6 mCi of technetium 99m mebrofenin is injected, and sequential anterior abdominal images are acquired. Initial sequential imaging for 60 minutes as followed by a 3-hour delayed scan. SCINTIGRAPHIC FINDINGS: The initial hepatocellular parenchymal uptake phase is normal and homogeneous. The intrahepatic bile ducts and extrahepatic bile ducts are labeled at 15 minutes. The duodenum is labeled at 20 minutes, and subsequent scans demonstrate washout from the liver parenchyma into the small intestine. The gallbladder does not visualize during the first 60 minutes of imaging. However, delayed scanning at 3 hours demonstrates gallbladder visualization. IMPRESSION: Delayed visualization of the gallbladder consistent with chronic cholecystitis. Electronically Signed by Thomas Laird MD 02/17/2019 02:24 P
--- NOTE | 2019-02-17 16:58 | IPNPDOC ---
Subjective Date Seen The patient was seen on 02/17/19. Time of service 3:20 PM Subjective Chief Complaint/HPI nausea and vomiting Events since last encounter The patient doesn't have any acute c/o this morning. He went for a HIDA scan which showed delayed emptying c/w chronic cholecystitis. Objective Physical Examination Other physical findings VITALS: Vitals see below GENERAL: Well-nourished, well-developed, asleep but arousable with vocal HEENT: Normocephalic, atraumatic. CHEST: Regular rate and rhythm, no murmurs, rubs or gallops, radial pulse intact. LUNGS: Clear to auscultation bilaterally on room air. Abdomen: Positive Bowel Sounds, Abdomen Is Distended, but Soft, but Nontender on Palpation. NEURO: Cranial Nerves II through XII Grossly Intact, Speech, Not Dysarthric. PSYCH: Alert and oriented to person, able to understand and follow commands Assessment /Plan Assessment Mr. Palencia is a 79-year-old male with a past medical history of bilateral pulmonary nodules, subarachnoid cyst, status post right partial craniectomy with cystoscopy peritoneal shunt, chronic hypertension, dyslipidemia, diabetes mellitus, and dementia. He was admitted for evaluation of nausea and vomiting which is now resolved. The patient continues to have transaminitis whose causes to be determined. 1. Nausea and vomiting - resolving Possibly due to cholecystitis versus gastroenteritis. The first CT of abdomen and pelvis showed findings consistent with mesenteric edema and partial SBO. The second CT of the abdomen and pelvis showed ascites and gallbladder wall thickening and resolution of the partial SBO Plan: Advance to regular diet, follow-up on Drs. Walker and Gerardo's consults 2. Transaminitis Appears jaundiced according to his daughter Not sure if this versus hepatic versus cholestatic. Unable to get MRCP because of GALLERY ASSISTANT shunt. Ultrasound of the liver showed tumefactive sludge. HIDA scan showed findings consistent with chronic cholecystitis. 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 JONATHAN has resolved. ACEI and Metformin were held Plan: follow-up BMP daily 4. Bilateral pulmonary nodules. The nodule in the right middle lobe was 1.3 cm in size and may be post inflammatory or metastatic. Since this mass more than 1 cm in size the will may need a biopsy Plan: Repeat CT on an outpatient basis 5. Low TSH. May be secondary to euthyroid sick syndrome versus hypothyroidism. Plan follow-up today free T3 and T4. 6 History of subarachnoid cyst. Status post right partial craniectomy with CVP shunt. Recent CT of the head done was unremarkable Plan: Follow-up with neurologist on an outpatient basis 7 Chronic hypertension. Plan: Continue with Norvasc/ resume Edwardo inhibitor 8. Dyslipidemia. Plan continue statin 9. Diabetes mellitus. A1c 6.3% Plan follow-up Accu-Cheks, discontinue sliding scale insulin, patient may not need metformin (his target A1C at his age and w a limited life expectance is 8- 8.5%) he can follow up on this with his PCP 10. Dementia. Plan: Hold donepezil as it can cause GI disturbance, continue with memantine DVT prophylaxis with Lovenox Disposition home tomorrow if he tolerates a full diet and his LFTs continue to trend downwards Plan/VTE VTE Prophylaxis Ordered?: Yes VS, I&O, 24H, [facility] Vital Signs/I&O Vital Signs Date Time Temp Pulse Resp B/P (MAP) Pulse Ox O2 Delivery O2 Flow Rate FiO2 02/17/19 09:07 59 127/59 02/17/19 08:00 98.0 17 99 02/12/19 16:55 Room Air I&O- Last 24 Hours up to 6 AM 02/17/19 06:00 Intake Total 3420 ml Output Total 750 ml Balance 2670 ml Laboratory Data 24H LABS Laboratory Tests 2 02/16/19 21:22: Bedside Glucose (Misc Panel) 160H 02/17/19 05:20: Immature Granulocyte % (Auto) 1.4, White Blood Count 5.0, Red Blood Count 4.38, Hemoglobin 11.9L, Hematocrit 36.5L, Mean Corpuscular Volume 83.3, Mean Corpuscular Hemoglobin 27.2, Mean Corpuscular Hemoglobin Concent 32.6, Red Cell Distribution Width 13.8, Platelet Count 132L, Neutrophils (%) (Auto) 64.3, Lymphocytes (%) (Auto) 15.3L, Monocytes (%) (Auto) 11.8H, Eosinophils (%) (Auto) 6.8H, Basophils (%) (Auto) 0.4, Neutrophils # (Auto) 3.2, Lymphocytes # (Auto) 0.8L, Monocytes # (Auto) 0.6, Eosinophils # (Auto) 0.3, Basophils # (Auto) 0.0, Nucleated Red Blood Cells % (auto) 0.0, Anion Gap 4L, Glomerular Filtration Rate > 60.0, Estimated Mean Plasma Glucose 134H, Hemoglobin A1c 6.3, Blood Urea Nitrogen 19H, Creatinine 0.70, Sodium Level 139, Potassium Level 3.3L, Chloride Level 106, Carbon Dioxide Level 29, Calcium Level 7.5L, Aspartate Amino Transf (AST/SGOT) 90H, Alanine Aminotransferase (ALT/SGPT) 509H, Alkaline Phosphatase 306H, Total Bilirubin 1.8H, Total Protein 5.8L, Albumin 2.5L, Albumin/Globulin Ratio 0.76L, Free Thyroxine 1.39, Free Triiodothyronine 2.0L 02/17/19 12:19: Bedside Glucose (Misc Panel) 115H CBC/BMP Laboratory Tests 02/17/19 05:20 Red Blood Count 4.38, Mean Corpuscular Volume 83.3, Mean Corpuscular Hemoglobin 27.2, Mean Corpuscular Hemoglobin Concent 32.6, Red Cell Distribution Width 13 .8, Neutrophils (%) (Auto) 64.3, Lymphocytes (%) (Auto) 15.3 L, Monocytes (%) (Auto) 11.8 H, Eosinophils (%) (Auto) 6.8 H, Basophils (%) (Auto) 0.4, Neutrophils # (Auto) 3.2, Lymphocytes # (Auto) 0.8 L, Monocytes # (Auto) 0.6, Eosinophils # (Auto) 0.3, Basophils # (Auto) 0.0, Calcium Level 7.5 L, Aspartate Amino Transf (AST/SGOT) 90 H, Alanine Aminotransferase (ALT/SGPT) 509 H, Alkaline Phosphatase 306 H, Total Bilirubin 1.8 H, Total Protein 5.8 L, Albumin 2.5 L JASON PACHECO MD Feb 17, 2019 16:58
[2019-02-17 18:50] VITALS: BP 130/65
[2019-02-17 22:00] VITALS: BP 122/63
[2019-02-17] MEDS: SIMVASTATIN 20 MG TAB PO SCH (22:12)
[2019-02-18 05:39] LABS: BASO % 0.5 % (0.0-1.0); EOS # 0.5 10^3/uL (0.0-0.50); EOS % 7.9 % (0.0-3.0); HEMATOCRIT 38.2 % (42.0-52.0); HEMOGLOBIN 12.4 g/dl (13.5-17.5); LYMPH # 1.3 10^3/uL (1.5-4.5); LYMPH % 22.6 % (24.0-44.0); MEAN CORPUSCULAR HEMOGLOBIN 27.1 pg (27.0-33.0); MEAN CORPUSCULAR HGB CONC 32.5 g/dl (32.0-36.5); MEAN CORPUSCULAR VOLUME 83.4 fl (80.0-96.0); MONO # 0.7 10^3/uL (0.0-0.8); MONO % 12.3 % (0.0-5.0); NEUTROPHILS # 3.2 10^3/uL (1.8-7.7); NEUTROPHILS % 55.3 % (36.0-66.0); PLATELET COUNT, AUTOMATED 163 10^3/uL (150-450); RED BLOOD COUNT 4.58 10^6/uL (4.30-6.10); WHITE BLOOD COUNT 5.7 10^3/uL (4.0-10.0)
[2019-02-18] MEDS: SLF 3 ML SYR IV SCH (05:42)
[2019-02-18 06:00] VITALS: BP 127/67
[2019-02-18 06:02] LABS: ALBUMIN 2.6 GM/DL (3.2-5.2); ALT/SGPT 366 U/L (12-78); BILIRUBIN,TOTAL 1.3 MG/DL (0.2-1.0); BLOOD UREA NITROGEN 13 MG/DL (7-18); CALCIUM LEVEL 8.5 MG/DL (8.8-10.2); CARBON DIOXIDE LEVEL 28 MEQ/L (21-32); CHLORIDE LEVEL 106 MEQ/L (98-107); GLOMERULAR FILTRATION RATE > 60.0 (>42); GLUCOSE, FASTING 99 MG/DL (70-100); POTASSIUM SERUM 3.4 MEQ/L (3.5-5.1); SODIUM LEVEL 140 MEQ/L (136-145); TOTAL PROTEIN 6.6 GM/DL (6.4-8.2)
[2019-02-18] MEDS: HumaLOG INSULIN (NovoLOG) PER UNIT SC SCH (07:30)
[2019-02-18] MEDS: ASPIRIN 81 MG ENTERIC TAB PO SCH (08:17)
[2019-02-18] MEDS: MEMANTINE 5MG TABLET (NAMENDA) PO SCH (08:17)
[2019-02-18] MEDS: MULTIVITAMINS/MINERALS THERAP 1 TAB PO SCH (08:18)
[2019-02-18] MEDS: DOCUSATE SODIUM 100 MG CAP PO SCH (08:18)
[2019-02-18] MEDS: SUCRALFATE 1 GM TAB PO SCH (08:18)
[2019-02-18] MEDS: PANTOPRAZOLE 40MG INJ (PROTONIX) (C9113) IV SCH (08:18)
[2019-02-18] MEDS ORDERED: LISINOPRIL 20 MG TAB PO SCH (09:00)
[2019-02-18] MEDS ORDERED: SUCR1TA PO (10:58)
--- NOTE | 2019-02-18 11:59 | IPN ---
DATE: 02/17/2019 The patient essentially ended up having a HIDA scan this morning to rule out acute cholecystitis. No evidence of the acute cholecystitis was appreciated. However, the gallbladder did not really empty very well, slowly and may consider this as a possible chronic cholecystitis, although easily could be a normal finding in somebody who is n.p.o. and had poor diet for several days. In any case, his abdomen is still benign and nontender. He does not have any right upper quadrant pain and tenderness. His LFTs are still elevated but they are coming down nicely and his white count has been normal. All suggesting that this is not an evident episode of cholecystitis. What the etiology is as of yet I am not sure. Given the HIDA showed evidence of flow into the duodenum, it is unlikely that he has an obstructive common bile duct stone. Awaiting GI recommendations and consultation concerning this issue. Otherwise no surgical intervention is necessary. Overall proceeding with a lap cholecystectomy with him in the future will be somewhat more complicated given his of peritoneal shunt. Will have to discuss this as an outpatient at a later date. However, I would recommend continuing to progress his diet as tolerated given that there is no surgical intervention necessary.
--- NOTE | 2019-02-18 12:07 | CR ---
DATE OF CONSULTATION: 02/16/2019 REASON FOR CONSULTATION: Abnormal liver function tests and gallstones. BRIEF HISTORY OF PRESENT ILLNESS: The patient is an elderly male with some Alzheimer who had presented with nausea and vomiting. Did not complain of any abdominal pain. Did not complain of any right upper quadrant pain. Did not have any history of fatty food intolerance. Has not had any previous gallbladder/cholecystitis in the past. Has had a craniotomy with a peritoneal shunt placed in the past and ended up having a CAT scan on admission that showed some mild dilated small bowel and fluid in the abdomen. The peritoneal shunt did not actually see mention of that on their study. However, obviously with the fluid in the abdomen this was noted as well. The patient had some abnormal liver function tests on admission and because of these abnormal liver function tests had some followup studies the next few days. The bilirubin bumped up to 5.1 on 02/15/2019 and has been slowly decreasing. However, the aspartate aminotransferase (AST) and alanine transaminase (ALT) have been in the 100s. Alkaline phosphatase has been very high as well. No evidence of cholecystitis was appreciated on gallbladder ultrasound. However, some gallstones were appreciated. No gallbladder wall thickening and normal common bile duct. The patient does not complain of any abdominal pain at this time and I was asked to see the patient for possible cholecystitis causing this abnormal liver function tests. PAST MEDICAL HISTORY: Significant for history of Alzheimer disease, history of hypertension, history of dyslipidemia, history of diabetes mellitus, history of subarachnoid cyst, history of chronic kidney disease, history of peritoneal shunt. MEDICATIONS (include): - aspirin - Colace - donepezil - lisinopril - melatonin - metformin - Thera M Plus - olopatadine - pantoprazole - simvastatin PHYSICAL EXAMINATION: Reveals an elderly male who looks stated age. HEENT is unremarkable. He does have some mild scleral icterus. Neck: Supple without adenopathy. Lungs are clear to auscultation. Heart is regular. Abdomen is soft, nontender. IMPRESSION/PLAN: At this point, I am not seeing evidence of cholecystitis causing his major issue and some ileus that he has as suggested on the possible first CAT scan I am not really appreciating that as well. I would recommend progressing his diet as tolerated. However, more importantly with his liver function test abnormality I would recommend GI to evaluate him and make recommendations appropriate as deemed necessary. It seems unlikely that he has a common bile duct stone that has passed given the significantly elevated AST and ALT out of proportion to what it would typically anticipate a common bile duct stone obstruction and thus, given this finding if you have ongoing concerns of common bile duct obstruction an MRC might be reasonable. Once again, no evidence of acute cholecystitis.
--- NOTE | 2019-02-25 00:12 | DS.PDOC ---
Discharge Summary General Date of Admission Feb 12, 2019 at 15:53 Date of Discharge 8 Discharge Summary PROCEDURES PERFORMED DURING STAY: [None]. ADMITTING DIAGNOSES: 1. vomiting 2. dehydration DISCHARGE DIAGNOSES: 1. gastroenteritis 2. dehydration 3. transaminitis COMPLICATIONS/CHIEF COMPLAINT: Volume Depletion. HISTORY OF PRESENT ILLNESS: 79-year-old male with past medical history of hypertension, dyslipidemia, diabetes, subarachnoid cyst, Alzheimer's dementia, and chronic kidney disease presented to the ER with a chief complaint of nausea with vomiting. The patient's history is limited secondary to his underlying dementia. However, according to the patient's son who is at the bedside, he went to dinner with his dad yesterday evening when he was last well. This morning, the patient apparently woke up and had significant nausea and had about 10 episodes of brown-colored emesis. There was no fevers, chills, abdominal pain, or diarrhea noted. The patient's son states that he did not have any illness, but ate different food in his father who had roast beef. In the ER, the patient was noted to be dehydrated and had a borderline low blood pressure. The patient's lactic acid level was also noted to be elevated at 4.9. He will be admitted to the hospitalist service for further evaluation and management. HOSPITAL COURSE: Pt was admitted to the hospitalist service. He was hydrated and treated with antiemetics. Ct showed evidence of possible ileus. His bp and vomiting improved. However his lfts became markedly elevated. He was evaluated by surgery and gi. he was screened for possible causes of hepatitis with no obvious abnormalities. He also had a hida scan which showed delayed filling of GB. This was felt to be due to his prolonged npo status and not chronic cholecystitis. He had lung nodules seen on ct which he is to follow up with his pmd for. DISCHARGE MEDICATIONS: Please see below. ALLERGIES: Please see below. PHYSICAL EXAMINATION ON DISCHARGE: VITAL SIGNS: Please see below. GENERAL: Well-nourished, well-developed, asleep but arousable with vocal HEENT: Normocephalic, atraumatic. CHEST: Regular rate and rhythm, no murmurs, rubs or gallops, radial pulse intact. LUNGS: Clear to auscultation bilaterally on room air. Abdomen: Positive Bowel Sounds, Abdomen Is Distended, but Soft, but Nontender on Palpation. NEURO: Cranial Nerves II through XII Grossly Intact, Speech, Not Dysarthric. PSYCH: Alert and oriented to person, able to understand and follow commands LABORATORY DATA: Please see below. ACTIVITY: [As tolerated]. DIET: diabetic DISPOSITION: Home Health Service. DISCHARGE CONDITION: [Stable]. Discharge Medications Scheduled Aspirin (Aspirin EC) 81 Mg Tab, 81 MG PO DAILY, (Reported) Docusate Sodium (Colace) 100 Mg Cap, 100 MG PO BID, (Reported) Lisinopril (Lisinopril) 40 Mg Tab, 20 MG PO DAILY, (Reported) Melatonin (Melatonin) 3 Mg Tablet, 3 MG PO QHS, (Reported) Memantine HCl (Namenda Xr) 28 Mg Cap, 28 MG PO DAILY, (Reported) Multivitamins (Thera M Plus Tablet) 1 Tab Tab, 1 TAB PO DAILY, (Reported) Olopatadine HCl (Olopatadine HCl) 0.2% 2.5ML Drops, 1 DROP OU BID, (Reported) Pantoprazole Sodium (Pantoprazole Sodium) 40 Mg Tab, 40 MG PO BID Simvastatin (Simvastatin) 20 Mg Tablet, 20 MG PO QHS, (Reported) Sucralfate (Sucralfate) 1 Gm Tablet, 1 GM PO ACHS Scheduled PRN Polyvinyl Alcohol (Artificial Tears) 15 Ml Drops, 1 DROP OU QID PRN for DRY EYES, (Reported) Allergies Coded Allergies: No Known Allergies (Unverified , 02/12/19) TAQUERIA REED MD Feb 25, 2019 00:12
== END 2019-02-18 12:19 | disposition home health service (06) | DRG 392 ==
LOC: M ED 12:38 → EDBD 12:38 → M ED INP 15:53 → M PCU 18:33 → M MSPAV 02-17 18:46
PROVIDERS: ADMIT Internal Medicine; ATTEND Hospitalist
DX: K52.9 Noninfective gastroenteritis and colitis, unspecified (principal); E87.2 Acidosis; K56.7 Ileus, unspecified; N17.9 Acute kidney failure, unspecified; I12.9 Hypertensive chronic kidney disease with stage 1 through stage 4 chronic kidney disease, or unspecified chronic kidney disease; E78.5 Hyperlipidemia, unspecified; E11.22 Type 2 diabetes mellitus with diabetic chronic kidney disease; R91.8 Other nonspecific abnormal finding of lung field; E86.0 Dehydration; G30.9 Alzheimer's disease, unspecified; F02.80 Dementia in other diseases classified elsewhere, unspecified severity, without behavioral disturbance, psychotic disturbance, mood disturbance, and anxiety; N18.3 Chronic kidney disease, stage 3 (moderate); Z79.82 Long term (current) use of aspirin; Z79.899 Other long term (current) drug therapy; Z87.891 Personal history of nicotine dependence; Z98.2 Presence of cerebrospinal fluid drainage device

== ENCOUNTER → 2019-03-04 | Outpatient (REF) | payer MEDICARE, BC ==
[~2019-03-04] MED LIST changes: +ARTIDRO2 OU; +DONE5TAB82 PO; +MELA3TAB41 PO; +MELA5TAB11 PO; +MIRA3350 PO; +OLOP0.2S OU; +SUCR1TA PO; +TRUS1SOL OS
== END ==
LOC: M LAB REF 16:30
PROVIDERS: ATTEND Family Medicine
DX: R74.8 Abnormal levels of other serum enzymes (principal)

== ENCOUNTER → 2019-03-26 | Outpatient (REF) | payer MEDICARE, BC ==
[~2019-03-26] MED LIST changes: +CHOL100029 PO; -VITAD1000T PO
== END ==
LOC: M LAB REF 12:52
PROVIDERS: ATTEND Family Medicine
DX: E07.9 Disorder of thyroid, unspecified (principal)

== ENCOUNTER 2019-05-05 12:10 | Emergency (ER) | payer MEDICARE, BC ==
[~2019-05-05] VITALS: Ht 165.1 cm; Wt 77.3 kg
[2019-05-05] MEDS ORDERED: PANT40TA3 PO (12:52)
[2019-05-05] MEDS ORDERED: CENT50TA PO (12:52)
[2019-05-05] MEDS ORDERED: MIRA3350 PO (12:52)
[2019-05-05] MEDS ORDERED: LISI-538 PO (12:52)
[2019-05-05 13:16] LABS: BASO # 0.1 10^3/uL (0.0-0.2); BASO % 0.6 % (0.0-1.0); EOS % 0.5 % (0.0-3.0); HEMATOCRIT 50.9 % (42.0-52.0); HEMOGLOBIN 16.7 g/dl (13.5-17.5); LYMPH # 0.5 10^3/uL (1.5-5.0); LYMPH % 5.8 % (24.0-44.0); MEAN CORPUSCULAR HEMOGLOBIN 28.3 pg (27.0-33.0); MEAN CORPUSCULAR HGB CONC 32.8 g/dl (32.0-36.5); MEAN CORPUSCULAR VOLUME 86.1 fl (80.0-96.0); MONO # 0.9 10^3/uL (0.0-0.8); MONO % 10.5 % (0.0-5.0); NEUTROPHILS # 7.3 10^3/uL (1.5-8.5); NEUTROPHILS % 82.4 % (36.0-66.0); PLATELET COUNT, AUTOMATED 209 10^3/uL (150-450); RED BLOOD COUNT 5.91 10^6/uL (4.30-6.10); WHITE BLOOD COUNT 8.8 10^3/uL (4.0-10.0)
[2019-05-05] MEDS ORDERED: ONDANSETRON 4MG/2ML VIAL (J2405) IV ONE (13:30)
[2019-05-05] MEDS ORDERED: NS 1,000 ML IV ONE (13:30)
[2019-05-05 13:44] LABS: ALBUMIN 3.9 GM/DL (3.2-5.2); ALT/SGPT 35 U/L (12-78); BILIRUBIN,DIRECT 0.2 MG/DL (0.0-0.2); BILIRUBIN,TOTAL 0.8 MG/DL (0.2-1.0); BLOOD UREA NITROGEN 34 MG/DL (7-18); CALCIUM LEVEL 9.3 MG/DL (8.8-10.2); CARBON DIOXIDE LEVEL 27 MEQ/L (21-32); CHLORIDE LEVEL 104 MEQ/L (98-107); CREATININE FOR GFR 1.17 MG/DL (0.70-1.30); GLOMERULAR FILTRATION RATE > 60.0 (>42); GLUCOSE, FASTING 137 MG/DL (70-100); LIPASE 110 U/L (73-393); POTASSIUM SERUM 4.8 MEQ/L (3.5-5.1); SODIUM LEVEL 138 MEQ/L (136-145); TOTAL PROTEIN 7.4 GM/DL (6.4-8.2)
--- NOTE | 2019-05-05 14:07 | REP ---
Four views. The patient: 05/05/2019. Indication: Hydrocephalus. Emesis. Comparison: 02/12/2019. Findings: The shunt is clearly visualized throughout and shows complete integrity. There is no kinking or additional abnormalities that may explain obstructing flow. The configuration and appearance of the shunt is similar to earlier this year. Impression: The integrity of the ventriculoperitoneal shunt is maintained. Electronically Signed by Manoj Marcelino DO 05/05/2019 01:58 P
--- NOTE | 2019-05-05 14:23 | REP ---
CT brain: 05/05/2019. Indication: Hydrocephalus. Emesis. Comparison: 02/12/2019. Technique: Unenhanced axial CT images of the brain were obtained from skull base to vertex. Findings: There is no acute intracranial hemorrhage or acute cortical infarction. Volume loss is present. Ventricles remain stable in size and configuration. There is encephalomalacia within the high posterior right frontal lobe. Right frontoparietal craniotomy is noted. The placement of the catheter is unchanged. Patchy areas of white matter hypoattenuation are present most consistent with sequelae of chronic small vessel disease. Fraction: Stable examination compared to earlier this year. Mild ventriculomegaly is unchanged. Postoperative sequelae and shunt catheter are unchanged. Electronically Signed by Manoj Marcelino DO 05/05/2019 02:15 P
[2019-05-05 14:48] LABS: AMYLASE 63 U/L (25-115)
[2019-05-05] MEDS ORDERED: ZOFR4TAB16 PO (15:27)
[2019-05-05 15:31] VITALS: BP 97/53
== END 2019-05-05 15:38 | disposition home or self-care (01) ==
LOC: M ED 12:10 → EDBD 12:10 → M ED 15:38
DX: K52.9 Noninfective gastroenteritis and colitis, unspecified (principal); E11.9 Type 2 diabetes mellitus without complications; I12.9 Hypertensive chronic kidney disease with stage 1 through stage 4 chronic kidney disease, or unspecified chronic kidney disease; N18.3 Chronic kidney disease, stage 3 (moderate); Z79.899 Other long term (current) drug therapy; Z79.82 Long term (current) use of aspirin; Z87.891 Personal history of nicotine dependence
CPT/HCPCS: 70450; 75809; 80048; 80076; 82150; 83690; 85025; 93041; 96361; 96374; 99285; J2405

== ENCOUNTER → 2019-06-23 | Outpatient (REF) | payer MEDICARE, BC ==
[~2019-06-23] MED LIST changes: +CENT50TA PO; +LISI-538 PO; -SIMV20TA2 PO; +SIMV20TA22 PO; +ZOFR4TAB16 PO
[2019-06-23 20:12] LABS: APPEARANCE, URINE CLEAR (CLEAR); BACTERIA, URINE AUTO NEGATIVE (NEGATIVE); BILIRUBIN, URINE AUTO NEGATIVE (NEGATIVE); BLOOD, URINE BLOOD NEGATIVE (NEGATIVE); COLOR, URINE YELLOW (YELLOW); GLUCOSE, URINE (UA) AUTO NEGATIVE (NEGATIVE); KETONE, URINE AUTO NEGATIVE (NEGATIVE); LEUKOCYTE ESTERASE, URINE AUTO NEGATIVE (NEGATIVE); MUCUS, URINE SMALL (NEGATIVE); NITRITE, URINE AUTO NEGATIVE (NEGATIVE); PROTEIN, URINE AUTO 2+ mg/dL (NEGATIVE); RBC, URINE AUTO 3 /HPF (0-3); SPECIFIC GRAVITY URINE AUTO 1.025 (1.002-1.035); SQUAMOUS EPITHELIAL CELL UR AU 0 /HPF (0-6); UROBILINOGEN, URINE AUTO 0.2 mg/dL (0.0-2.0); WBC, URINE AUTO 1 /HPF (0-3)
== END ==
LOC: M LAB REF 19:27
PROVIDERS: ATTEND Family Medicine
DX: R30.0 Dysuria (principal)

== ENCOUNTER → 2019-06-24 | Outpatient (REF) | payer MEDICARE, BC | LOC: M LAB REF 10:51 | PROVIDERS: ATTEND Family Medicine | DX: R30.0 Dysuria (principal) ==

== ENCOUNTER → 2020-02-01 | Outpatient (REF) | payer MEDICARE, BC ==
[~2020-02-01] MED LIST changes: -ARTIDRO2 OU; +MELA3TAB30 PO; -MELA3TAB41 PO; +PANT40TA29 PO; -PANT40TA3 PO; +POLYOPD OU
[2020-02-01 13:53] LABS: BASO % 0.7 % (0.0-1.0); EOS # 0.1 10^3/uL (0.0-0.5); EOS % 2.2 % (0.0-3.0); HEMATOCRIT 41.5 % (42.0-52.0); HEMOGLOBIN 13.3 g/dl (13.5-17.5); LYMPH # 1.6 10^3/uL (1.5-5.0); LYMPH % 30.1 % (24.0-44.0); MEAN CORPUSCULAR HEMOGLOBIN 28.2 pg (27.0-33.0); MEAN CORPUSCULAR VOLUME 88.1 fl (80.0-96.0); MONO # 0.4 10^3/uL (0.0-0.8); MONO % 8.1 % (0.0-5.0); NEUTROPHILS # 3.2 10^3/uL (1.5-8.5); NEUTROPHILS % 58.2 % (36.0-66.0); PLATELET COUNT, AUTOMATED 263 10^3/uL (150-450); RED BLOOD COUNT 4.71 10^6/uL (4.30-6.10); WHITE BLOOD COUNT 5.4 10^3/uL (4.0-10.0)
[2020-02-01 14:21] LABS: ALBUMIN 3.6 GM/DL (3.2-5.2); ALT/SGPT 34 U/L (12-78); BILIRUBIN,TOTAL 0.6 MG/DL (0.2-1.0); BLOOD UREA NITROGEN 20 MG/DL (7-18); CALCIUM LEVEL 8.8 MG/DL (8.8-10.2); CARBON DIOXIDE LEVEL 30 MEQ/L (21-32); CHLORIDE LEVEL 103 MEQ/L (98-107); CREATININE FOR GFR 0.84 MG/DL (0.70-1.30); FREE T4 1.05 NG/DL (0.76-1.46); GLOMERULAR FILTRATION RATE > 60.0 (>42); GLUCOSE, FASTING 85 MG/DL (70-100); MAGNESIUM LEVEL 2.2 MG/DL (1.8-2.4); POTASSIUM SERUM 4.1 MEQ/L (3.5-5.1); SODIUM LEVEL 140 MEQ/L (136-145); THYROXINE (T4) 6.9 UG/DL (4.5-12.0); TOTAL PROTEIN 7.1 GM/DL (6.4-8.2)
== END ==
PROVIDERS: ATTEND Family Medicine
DX: E07.9 Disorder of thyroid, unspecified (principal); E11.40 Type 2 diabetes mellitus with diabetic neuropathy, unspecified

== ENCOUNTER → 2020-02-03 | Outpatient (REF) | payer MEDICARE, BC ==
[2020-02-03 19:32] LABS: FERRITIN 104 NG/ML (26-388)
[2020-02-03 20:16] LABS: FOLATE > 24.0 NG/ML; VITAMIN B12 LEVEL 438 PG/ML
== END ==
LOC: M LAB REF 16:42
PROVIDERS: ATTEND Family Medicine
DX: D64.9 Anemia, unspecified (principal)

== ENCOUNTER → 2020-02-10 | Outpatient (CLI) | payer MEDICARE, BC ==
[~2020-02-10] MED LIST changes: -MELA3TAB30 PO; +MELA3TAB62 PO; -PANT40TA29 PO; +PANT40TA3 PO
== END ==
LOC: M LABSMTC 09:52
PROVIDERS: ATTEND Family Medicine
DX: Z20.828 Contact with and (suspected) exposure to other viral communicable diseases (principal); Z11.59 Encounter for screening for other viral diseases
CPT/HCPCS: C9803; U0002

== ENCOUNTER → 2020-04-25 | Outpatient (REF) | payer MEDICARE, BC ==
[~2020-04-25] MED LIST changes: +MELA3TAB30 PO; -MELA3TAB62 PO; +PANT40TA29 PO; -PANT40TA3 PO
== END ==
PROVIDERS: ATTEND Physician Assistant
DX: Z20.828 Contact with and (suspected) exposure to other viral communicable diseases (principal)

== ENCOUNTER → 2020-05-11 | Outpatient (REF) ==
[2020-05-11 08:45] LABS: HEMATOCRIT 45.8 % (42.0-52.0); HEMOGLOBIN 14.5 g/dl (13.5-17.5); MEAN CORPUSCULAR HEMOGLOBIN 27.6 pg (27.0-33.0); MEAN CORPUSCULAR HGB CONC 31.7 g/dl (32.0-36.5); MEAN CORPUSCULAR VOLUME 87.2 fl (80.0-96.0); PLATELET COUNT, AUTOMATED 177 10^3/uL (150-450); RED BLOOD COUNT 5.25 10^6/uL (4.30-6.10); WHITE BLOOD COUNT 5.5 10^3/uL (4.0-10.0)
[2020-05-11 09:20] LABS: BLOOD UREA NITROGEN 20 MG/DL (7-18); CALCIUM LEVEL 8.3 MG/DL (8.8-10.2); CARBON DIOXIDE LEVEL 32 MEQ/L (21-32); CHLORIDE LEVEL 105 MEQ/L (98-107); CREATININE FOR GFR 0.77 MG/DL (0.70-1.30); GLOMERULAR FILTRATION RATE > 60.0 (>42); GLUCOSE, FASTING 87 MG/DL (70-100); POTASSIUM SERUM 4.3 MEQ/L (3.5-5.1); SODIUM LEVEL 141 MEQ/L (136-145)
== END ==
PROVIDERS: ATTEND Internal Medicine
DX: I10 Essential (primary) hypertension (principal)

== ENCOUNTER → 2020-06-01 | Outpatient (REF) | PROVIDERS: ATTEND Internal Medicine | DX: Z20.828 Contact with and (suspected) exposure to other viral communicable diseases (principal) ==

== ENCOUNTER → 2020-06-08 | Outpatient (REF) ==
[2020-06-08 09:06] LABS: HEMOGLOBIN 15.8 g/dl (13.5-17.5); MEAN CORPUSCULAR HEMOGLOBIN 27.4 pg (27.0-33.0); MEAN CORPUSCULAR HGB CONC 31.6 g/dl (32.0-36.5); MEAN CORPUSCULAR VOLUME 86.8 fl (80.0-96.0); PLATELET COUNT, AUTOMATED 189 10^3/uL (150-450); RED BLOOD COUNT 5.76 10^6/uL (4.30-6.10); WHITE BLOOD COUNT 5.4 10^3/uL (4.0-10.0)
[2020-06-08 09:35] LABS: BLOOD UREA NITROGEN 18 MG/DL (7-18); CALCIUM LEVEL 9.2 MG/DL (8.8-10.2); CARBON DIOXIDE LEVEL 31 MEQ/L (21-32); CHLORIDE LEVEL 103 MEQ/L (98-107); CREATININE FOR GFR 0.86 MG/DL (0.70-1.30); GLOMERULAR FILTRATION RATE > 60.0 (>42); GLUCOSE, FASTING 110 MG/DL (70-100); POTASSIUM SERUM 4.1 MEQ/L (3.5-5.1); SODIUM LEVEL 139 MEQ/L (136-145)
== END ==
PROVIDERS: ATTEND Internal Medicine
DX: I10 Essential (primary) hypertension (principal)

== ENCOUNTER → 2020-06-08 | Outpatient (REF) | payer MEDICARE, BC ==
[~2020-06-08] MED LIST changes: -LISI-538 PO; +LISI10TA22 PO; -LISI10TA4 PO; +LISI20TA33 PO; -LISI40TA PO; +LISI40TA4 PO
== END ==
LOC: EDSTATUS 07-18 14:07
PROVIDERS: ATTEND Internal Medicine
DX: Z20.828 Contact with and (suspected) exposure to other viral communicable diseases (principal)

== ENCOUNTER → 2020-06-14 | Outpatient (REF) | payer MEDICARE, BC | PROVIDERS: ATTEND Internal Medicine | DX: Z20.828 Contact with and (suspected) exposure to other viral communicable diseases (principal) ==

== ENCOUNTER → 2020-07-02 | Outpatient (REF) ==
[~2020-07-02] MED LIST changes: +LISI-538 PO; -LISI10TA22 PO; +LISI10TA4 PO; -LISI20TA33 PO; +LISI40TA PO; -LISI40TA4 PO
== END ==
PROVIDERS: ATTEND Internal Medicine
DX: Z20.828 Contact with and (suspected) exposure to other viral communicable diseases (principal)

== ENCOUNTER → 2020-07-05 | Outpatient (REF) ==
[2020-07-05 10:23] LABS: HEMATOCRIT 47.4 % (42.0-52.0); HEMOGLOBIN 14.6 g/dl (13.5-17.5); MEAN CORPUSCULAR HEMOGLOBIN 26.9 pg (27.0-33.0); MEAN CORPUSCULAR HGB CONC 30.8 g/dl (32.0-36.5); MEAN CORPUSCULAR VOLUME 87.5 fl (80.0-96.0); PLATELET COUNT, AUTOMATED 173 10^3/uL (150-450); RED BLOOD COUNT 5.42 10^6/uL (4.30-6.10); WHITE BLOOD COUNT 5.6 10^3/uL (4.0-10.0)
[2020-07-05 10:42] LABS: BLOOD UREA NITROGEN 25 MG/DL (7-18); CARBON DIOXIDE LEVEL 31 MEQ/L (21-32); CHLORIDE LEVEL 104 MEQ/L (98-107); CREATININE FOR GFR 0.84 MG/DL (0.70-1.30); GLOMERULAR FILTRATION RATE > 60.0 (>42); GLUCOSE, FASTING 95 MG/DL (70-100); POTASSIUM SERUM 3.9 MEQ/L (3.5-5.1); SODIUM LEVEL 141 MEQ/L (136-145)
== END ==
PROVIDERS: ATTEND Internal Medicine
DX: I10 Essential (primary) hypertension (principal)

== ENCOUNTER → 2020-07-18 | Outpatient (REF) | PROVIDERS: ATTEND Internal Medicine | DX: Z20.828 Contact with and (suspected) exposure to other viral communicable diseases (principal) ==

== ENCOUNTER → 2020-07-24 | Outpatient (REF) | payer MEDICARE, BC | PROVIDERS: ATTEND Internal Medicine | DX: Z20.822 Contact with and (suspected) exposure to COVID-19 (principal) ==

== ENCOUNTER → 2020-07-28 | Outpatient (REF) | payer MEDICARE, BC | PROVIDERS: ATTEND Internal Medicine | DX: Z20.822 Contact with and (suspected) exposure to COVID-19 (principal) ==

== ENCOUNTER → 2020-08-02 | Outpatient (REF) | payer MEDICARE, BC | PROVIDERS: ATTEND Internal Medicine | DX: Z20.822 Contact with and (suspected) exposure to COVID-19 (principal) ==

== ENCOUNTER → 2020-08-09 | Outpatient (REF) | payer MEDICARE, BC | PROVIDERS: ATTEND Internal Medicine | DX: Z20.822 Contact with and (suspected) exposure to COVID-19 (principal) ==

== ENCOUNTER → 2020-08-15 | Outpatient (REF) | payer MEDICARE, BC ==
[2020-08-15 11:59] LABS: HEMATOCRIT 44.3 % (42.0-52.0); HEMOGLOBIN 14.1 g/dl (13.5-17.5); MEAN CORPUSCULAR HEMOGLOBIN 27.9 pg (27.0-33.0); MEAN CORPUSCULAR HGB CONC 31.8 g/dl (32.0-36.5); MEAN CORPUSCULAR VOLUME 87.7 fl (80.0-96.0); PLATELET COUNT, AUTOMATED 177 10^3/uL (150-450); RED BLOOD COUNT 5.05 10^6/uL (4.30-6.10); WHITE BLOOD COUNT 6.1 10^3/uL (4.0-10.0)
[2020-08-15 12:28] LABS: BLOOD UREA NITROGEN 19 MG/DL (7-18); CALCIUM LEVEL 9.4 MG/DL (8.8-10.2); CARBON DIOXIDE LEVEL 32 MEQ/L (21-32); CHLORIDE LEVEL 103 MEQ/L (98-107); CREATININE FOR GFR 0.81 MG/DL (0.70-1.30); GLOMERULAR FILTRATION RATE > 60.0 (>42); GLUCOSE, FASTING 103 MG/DL (70-100); POTASSIUM SERUM 4.1 MEQ/L (3.5-5.1); SODIUM LEVEL 139 MEQ/L (136-145)
== END ==
PROVIDERS: ATTEND Internal Medicine
DX: I10 Essential (primary) hypertension (principal)

== ENCOUNTER → 2020-08-16 | Outpatient (REF) | payer MEDICARE, BC | PROVIDERS: ATTEND Internal Medicine | DX: Z20.822 Contact with and (suspected) exposure to COVID-19 (principal) ==

== ENCOUNTER → 2020-08-23 | Outpatient (REF) | payer MEDICARE, BC | PROVIDERS: ATTEND Internal Medicine | DX: Z20.822 Contact with and (suspected) exposure to COVID-19 (principal) ==

== ENCOUNTER → 2020-08-30 | Outpatient (REF) | payer MEDICARE, BC ==
[~2020-08-30] MED LIST changes: -LISI-538 PO; +LISI10TA22 PO; -LISI10TA4 PO; +LISI20TA33 PO; -LISI40TA PO; +LISI40TA4 PO
== END ==
PROVIDERS: ATTEND Internal Medicine
DX: Z20.822 Contact with and (suspected) exposure to COVID-19 (principal)

== ENCOUNTER → 2020-09-06 | Outpatient (REF) | payer MEDICARE, BC | PROVIDERS: ATTEND Internal Medicine | DX: Z20.822 Contact with and (suspected) exposure to COVID-19 (principal) ==

== ENCOUNTER → 2020-09-13 | Outpatient (REF) | payer MEDICARE, BC | PROVIDERS: ATTEND Internal Medicine | DX: Z20.822 Contact with and (suspected) exposure to COVID-19 (principal) ==

== ENCOUNTER → 2020-09-20 | Outpatient (REF) | payer MEDICARE, BC | PROVIDERS: ATTEND Internal Medicine | DX: Z20.822 Contact with and (suspected) exposure to COVID-19 (principal) ==

== ENCOUNTER → 2020-09-27 | Outpatient (REF) | payer MEDICARE, BC | PROVIDERS: ATTEND Internal Medicine | DX: Z11.52 Encounter for screening for COVID-19 (principal) ==

== ENCOUNTER → 2020-10-31 | Outpatient (REF) | payer MEDICARE, BC | PROVIDERS: ATTEND Internal Medicine | DX: Z20.822 Contact with and (suspected) exposure to COVID-19 (principal) ==

== ENCOUNTER → 2020-11-15 | Outpatient (REF) | payer MEDICARE, BC ==
[~2020-11-15] MED LIST changes: -OLOP0.2S OU; +OLOP2.5D7 OU
[2020-11-15 10:33] LABS: HEMATOCRIT 45.5 % (42.0-52.0); HEMOGLOBIN 14.6 g/dl (13.5-17.5); MEAN CORPUSCULAR HEMOGLOBIN 27.7 pg (27.0-33.0); MEAN CORPUSCULAR HGB CONC 32.1 g/dl (32.0-36.5); MEAN CORPUSCULAR VOLUME 86.3 fl (80.0-96.0); PLATELET COUNT, AUTOMATED 167 10^3/uL (150-450); RED BLOOD COUNT 5.27 10^6/uL (4.30-6.10); WHITE BLOOD COUNT 4.7 10^3/uL (4.0-10.0)
[2020-11-15 10:51] LABS: BLOOD UREA NITROGEN 21 MG/DL (7-18); CALCIUM LEVEL 8.7 MG/DL (8.8-10.2); CARBON DIOXIDE LEVEL 25 MEQ/L (21-32); CHLORIDE LEVEL 106 MEQ/L (98-107); CREATININE FOR GFR 0.81 MG/DL (0.70-1.30); GLOMERULAR FILTRATION RATE > 60.0 (>42); GLUCOSE, FASTING 141 MG/DL (70-100); POTASSIUM SERUM 3.8 MEQ/L (3.5-5.1); SODIUM LEVEL 139 MEQ/L (136-145)
== END ==
PROVIDERS: ATTEND Internal Medicine
DX: I10 Essential (primary) hypertension (principal)

== ENCOUNTER → 2021-01-30 | Outpatient (REF) | payer MEDICARE, BC ==
[2021-01-30 10:05] LABS: HEMATOCRIT 47.7 % (42.0-52.0); HEMOGLOBIN 15.2 g/dl (13.5-17.5); MEAN CORPUSCULAR HEMOGLOBIN 27.9 pg (27.0-33.0); MEAN CORPUSCULAR HGB CONC 31.9 g/dl (32.0-36.5); MEAN CORPUSCULAR VOLUME 87.7 fl (80.0-96.0); PLATELET COUNT, AUTOMATED 190 10^3/uL (150-450); RED BLOOD COUNT 5.44 10^6/uL (4.30-6.10); WHITE BLOOD COUNT 5.6 10^3/uL (4.0-10.0)
[2021-01-30 10:38] LABS: BLOOD UREA NITROGEN 17 MG/DL (7-18); CALCIUM LEVEL 8.7 MG/DL (8.8-10.2); CARBON DIOXIDE LEVEL 31 MEQ/L (21-32); CHLORIDE LEVEL 103 MEQ/L (98-107); CREATININE FOR GFR 0.78 MG/DL (0.70-1.30); GLOMERULAR FILTRATION RATE > 60.0 (>42); GLUCOSE, FASTING 118 MG/DL (70-100); POTASSIUM SERUM 3.8 MEQ/L (3.5-5.1); SODIUM LEVEL 138 MEQ/L (136-145)
== END ==
PROVIDERS: ATTEND Physician Assistant
DX: I10 Essential (primary) hypertension (principal)

== ENCOUNTER → 2021-04-09 | Outpatient (REF) | payer MEDICARE, BC ==
[2021-04-09 13:41] LABS: HEMATOCRIT 43.7 % (42.0-52.0); HEMOGLOBIN 14.1 g/dl (13.5-17.5); MEAN CORPUSCULAR HGB CONC 32.3 g/dl (32.0-36.5); MEAN CORPUSCULAR VOLUME 86.9 fl (80.0-96.0); PLATELET COUNT, AUTOMATED 202 10^3/uL (150-450); RED BLOOD COUNT 5.03 10^6/uL (4.30-6.10)
[2021-04-09 14:02] LABS: CALCIUM LEVEL 9.6 MG/DL (8.8-10.2); CREATININE FOR GFR 1.3 MG/DL (0.70-1.30); GLOMERULAR FILTRATION RATE 56.5 (>35); POTASSIUM SERUM 3.7 MEQ/L (3.5-5.1)
[2021-04-10 11:00] LABS: APPEARANCE, URINE CLOUDY (CLEAR); BILIRUBIN, URINE AUTO NEGATIVE (NEGATIVE); BLOOD, URINE BLOOD NEGATIVE (NEGATIVE); COLOR, URINE AMBER (YELLOW); GLUCOSE, URINE (UA) AUTO 1+ mg/dL (NEGATIVE); KETONE, URINE AUTO NEGATIVE (NEGATIVE); LEUKOCYTE ESTERASE, URINE AUTO NEGATIVE (NEGATIVE); NITRITE, URINE AUTO NEGATIVE (NEGATIVE); PROTEIN, URINE AUTO 2+ mg/dL (NEGATIVE); SPECIFIC GRAVITY URINE AUTO 1.018 (1.002-1.035)
[2021-04-10 11:01] LABS: BACTERIA, URINE AUTO NEGATIVE (NEGATIVE); MUCUS, URINE SMALL (NEGATIVE); RBC, URINE AUTO 3 /HPF (0-3); SQUAMOUS EPITHELIAL CELL UR AU 0 /HPF (0-6); WBC, URINE AUTO 3 /HPF (0-3)
== END ==
PROVIDERS: ATTEND Internal Medicine
DX: R41.82 Altered mental status, unspecified (principal)

== ENCOUNTER → 2021-04-10 | Outpatient (CLI) | payer MEDICARE, BC ==
--- NOTE | 2021-04-10 16:44 | REP ---
INDICATION: ALTERED MENTAL STATUS. COMPARISON: Most recent comparison study is from May 05, 2019. January 2019 and September 04, 2016 prior studies are also reviewed. TECHNIQUE: Helical scanning is acquired. 5 mm axial images were reformatted. Coronal MPR images were generated. 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 Bone window settings demonstrates a right parietal craniotomy defect with a shunt catheter in the right parietal lobe subarachnoid Edwardo.. Original CT study showed a large subarachnoid cyst in this location. There is some low-density encephalomalacia in the right parietal lobe adjacent to the shunt which is unchanged from the May 05, 2019 study. Ventricular size is somewhat enlarged, concordant with the generalized volume loss seen intracranially, and unchanged from comparison CT studies. There is no evidence of intracranial hemorrhage. No extra-axial fluid collection is appreciated. No mass, acute infarction or midline shift is seen. There are fairly extensive small-vessel atherosclerotic changes in the periventricular white matter of the supratentorial brain. Mild vascular calcification is present at the skull base. The visualized paranasal sinuses are clear. No intraorbital abnormality is seen. IMPRESSION: Generalized volume loss, small vessel changes, and an old area of encephalomalacia underlying a previously placed subarachnoid CT in the right parietal lobe region. Findings are unchanged from most recent prior study May 05, 2019. no acute intracranial abnormality. <Electronically signed by Deni Laird > 04/10/21 [id number]
== END ==
LOC: M RAD 16:10
PROVIDERS: ATTEND Physician Assistant
DX: R41.82 Altered mental status, unspecified (principal)

== ENCOUNTER → 2021-05-09 | Outpatient (REF) | payer MEDICARE, BC ==
[2021-05-09 10:49] LABS: HEMATOCRIT 45.4 % (42.0-52.0); HEMOGLOBIN 14.5 g/dl (13.5-17.5); MEAN CORPUSCULAR HGB CONC 31.9 g/dl (32.0-36.5); MEAN CORPUSCULAR VOLUME 87.8 fl (80.0-96.0); PLATELET COUNT, AUTOMATED 180 10^3/uL (150-450); RED BLOOD COUNT 5.17 10^6/uL (4.30-6.10); WHITE BLOOD COUNT 5.8 10^3/uL (4.0-10.0)
[2021-05-09 11:19] LABS: BLOOD UREA NITROGEN 16 MG/DL (7-18); CARBON DIOXIDE LEVEL 31 MEQ/L (21-32); CHLORIDE LEVEL 106 MEQ/L (98-107); CREATININE FOR GFR 0.74 MG/DL (0.70-1.30); GLOMERULAR FILTRATION RATE > 60.0 (>35); GLUCOSE, FASTING 98 MG/DL (70-100); POTASSIUM SERUM 4.1 MEQ/L (3.5-5.1); SODIUM LEVEL 139 MEQ/L (136-145)
== END ==
PROVIDERS: ATTEND Internal Medicine
DX: I10 Essential (primary) hypertension (principal)

== ENCOUNTER → 2021-08-15 | Outpatient (REF) | payer MEDICARE, BC ==
[2021-08-15 09:18] LABS: HEMOGLOBIN 14.9 g/dl (13.5-17.5); MEAN CORPUSCULAR HEMOGLOBIN 27.4 pg (27.0-33.0); MEAN CORPUSCULAR HGB CONC 31.7 g/dl (32.0-36.5); MEAN CORPUSCULAR VOLUME 86.6 fl (80.0-96.0); PLATELET COUNT, AUTOMATED 206 10^3/uL (150-450); RED BLOOD COUNT 5.43 10^6/uL (4.30-6.10); WHITE BLOOD COUNT 6.8 10^3/uL (4.0-10.0)
[2021-08-15 09:45] LABS: BLOOD UREA NITROGEN 20 MG/DL (7-18); CALCIUM LEVEL 9.1 MG/DL (8.8-10.2); CARBON DIOXIDE LEVEL 30 MEQ/L (21-32); CHLORIDE LEVEL 106 MEQ/L (98-107); CREATININE FOR GFR 0.74 MG/DL (0.70-1.30); GLOMERULAR FILTRATION RATE > 60.0 (>35); GLUCOSE, FASTING 94 MG/DL (70-100); POTASSIUM SERUM 4.2 MEQ/L (3.5-5.1); SODIUM LEVEL 140 MEQ/L (136-145)
== END ==
PROVIDERS: ATTEND Internal Medicine
DX: I10 Essential (primary) hypertension (principal)

== ENCOUNTER → 2021-08-28 | Outpatient (REF) | payer MEDICARE, BC | PROVIDERS: ATTEND Internal Medicine | DX: R41.82 Altered mental status, unspecified (principal) ==

== ENCOUNTER → 2021-09-12 | Outpatient (REF) | payer MEDICARE, BC ==
[2021-09-12 11:51] LABS: HEMATOCRIT 44.4 % (42.0-52.0); HEMOGLOBIN 14.3 g/dl (13.5-17.5); MEAN CORPUSCULAR HEMOGLOBIN 27.7 pg (27.0-33.0); MEAN CORPUSCULAR HGB CONC 32.2 g/dl (32.0-36.5); PLATELET COUNT, AUTOMATED 188 10^3/uL (150-450); RED BLOOD COUNT 5.16 10^6/uL (4.30-6.10); WHITE BLOOD COUNT 6.4 10^3/uL (4.0-10.0)
[2021-09-12 12:21] LABS: ALBUMIN 3.5 GM/DL (3.2-5.2); ALT/SGPT 29 U/L (12-78); BILIRUBIN,TOTAL 0.5 MG/DL (0.2-1.0); BLOOD UREA NITROGEN 15 MG/DL (7-18); CALCIUM LEVEL 8.8 MG/DL (8.8-10.2); CARBON DIOXIDE LEVEL 28 MEQ/L (21-32); CHLORIDE LEVEL 102 MEQ/L (98-107); CREATININE FOR GFR 0.76 MG/DL (0.70-1.30); GLOMERULAR FILTRATION RATE > 60.0 (>35); GLUCOSE, FASTING 99 MG/DL (70-100); POTASSIUM SERUM 3.8 MEQ/L (3.5-5.1); SODIUM LEVEL 138 MEQ/L (136-145); TOTAL PROTEIN 7.3 GM/DL (6.4-8.2)
== END ==
PROVIDERS: ATTEND Internal Medicine
DX: I11.9 Hypertensive heart disease without heart failure (principal)

== ENCOUNTER → 2021-10-08 | Outpatient (REF) | payer MEDICARE, BC ==
[2021-10-08 13:03] LABS: HEMATOCRIT 45.4 % (42.0-52.0); HEMOGLOBIN 14.5 g/dl (13.5-17.5); MEAN CORPUSCULAR HEMOGLOBIN 27.4 pg (27.0-33.0); MEAN CORPUSCULAR HGB CONC 31.9 g/dl (32.0-36.5); MEAN CORPUSCULAR VOLUME 85.8 fl (80.0-96.0); PLATELET COUNT, AUTOMATED 199 10^3/uL (150-450); RED BLOOD COUNT 5.29 10^6/uL (4.30-6.10); WHITE BLOOD COUNT 7.9 10^3/uL (4.0-10.0)
[2021-10-08 13:31] LABS: BLOOD UREA NITROGEN 18 MG/DL (7-18); CALCIUM LEVEL 9.3 MG/DL (8.8-10.2); CARBON DIOXIDE LEVEL 31 MEQ/L (21-32); CHLORIDE LEVEL 104 MEQ/L (98-107); GLOMERULAR FILTRATION RATE > 60.0 (>35); GLUCOSE, FASTING 92 MG/DL (70-100); POTASSIUM SERUM 3.9 MEQ/L (3.5-5.1); SODIUM LEVEL 141 MEQ/L (136-145)
== END ==
PROVIDERS: ATTEND Internal Medicine
DX: N18.9 Chronic kidney disease, unspecified (principal)

== ENCOUNTER → 2022-03-29 | Outpatient (REF) | payer MEDICARE, BC ==
[2022-03-29 13:20] LABS: HEMATOCRIT 58.2 % (42.0-52.0); HEMOGLOBIN 18.2 g/dl (13.5-17.5); MEAN CORPUSCULAR HEMOGLOBIN 27.5 pg (27.0-33.0); MEAN CORPUSCULAR HGB CONC 31.3 g/dl (32.0-36.5); PLATELET COUNT, AUTOMATED 244 10^3/uL (150-450); RED BLOOD COUNT 6.61 10^6/uL (4.30-6.10); WHITE BLOOD COUNT 7.5 10^3/uL (4.0-10.0)
[2022-03-29 13:49] LABS: ALBUMIN 4.4 GM/DL (3.2-5.2); BILIRUBIN,TOTAL 1.2 MG/DL (0.2-1.0); CALCIUM LEVEL 10.7 MG/DL (8.8-10.2); CREATININE FOR GFR 3.17 MG/DL (0.70-1.30); GLOMERULAR FILTRATION RATE 20.2 (>35); POTASSIUM SERUM 3.9 MEQ/L (3.5-5.1); TOTAL PROTEIN 9.1 GM/DL (6.4-8.2)
[2022-03-29 13:54] LABS: LYMPHOCYTES 16 % (16-44); METAMYELOCYTES 1 % (0-0); MONOCYTES 2 % (0-5); NEUTROPHILS 39 % (28-66)
[2022-03-29 13:55] LABS: PLATELET ESTIMATE NORMAL (NORMAL)
[2022-03-29 15:37] LABS: PHOSPHORUS LEVEL 5.2 MG/DL (2.5-4.9)
== END ==
PROVIDERS: ATTEND Internal Medicine
DX: R19.7 Diarrhea, unspecified (principal); N17.9 Acute kidney failure, unspecified

== ENCOUNTER → 2022-03-29 | Outpatient (REF) | payer MEDICARE, BC | PROVIDERS: ATTEND Nurse Practitioner Family | DX: N17.9 Acute kidney failure, unspecified (principal) ==

== ENCOUNTER → 2022-04-01 | Outpatient (REF) | payer MEDICARE, BC ==
[2022-04-01 10:08] LABS: BASO % 0.3 % (0.0-1.0); EOS # 0.1 10^3/uL (0.0-0.5); EOS % 1.2 % (0.0-3.0); HEMATOCRIT 42.3 % (42.0-52.0); HEMOGLOBIN 13.5 g/dl (13.5-17.5); LYMPH # 1.2 10^3/uL (1.5-5.0); LYMPH % 15.2 % (24.0-44.0); MEAN CORPUSCULAR HEMOGLOBIN 27.4 pg (27.0-33.0); MEAN CORPUSCULAR HGB CONC 31.9 g/dl (32.0-36.5); MONO # 0.5 10^3/uL (0.0-0.8); MONO % 6.4 % (2.0-8.0); NEUTROPHILS % 76.6 % (36.0-66.0); PLATELET COUNT, AUTOMATED 147 10^3/uL (150-450); RED BLOOD COUNT 4.92 10^6/uL (4.30-6.10); WHITE BLOOD COUNT 7.8 10^3/uL (4.0-10.0)
[2022-04-01 11:07] LABS: ALBUMIN 2.5 GM/DL (3.2-5.2); CALCIUM LEVEL 8.5 MG/DL (8.8-10.2); CREATININE FOR GFR 1.74 MG/DL (0.70-1.30); GLOMERULAR FILTRATION RATE 40.3 (>35); PHOSPHORUS LEVEL 2.4 MG/DL (2.5-4.9); POTASSIUM SERUM 4.4 MEQ/L (3.5-5.1)
== END ==
PROVIDERS: ATTEND Nurse Practitioner Family
DX: N19 Unspecified kidney failure (principal)

== ENCOUNTER → 2022-04-01 | Outpatient (CLI) | payer MEDICARE, BC | PROVIDERS: ATTEND Internal Medicine | DX: R91.8 Other nonspecific abnormal finding of lung field (principal) ==

== ENCOUNTER → 2022-04-03 | Outpatient (REF) | payer MEDICARE, BC ==
[2022-04-03 11:33] LABS: ALBUMIN 2.6 GM/DL (3.2-5.2); BLOOD UREA NITROGEN 35 MG/DL (7-18); CALCIUM LEVEL 8.6 MG/DL (8.8-10.2); CARBON DIOXIDE LEVEL 29 MEQ/L (21-32); CHLORIDE LEVEL 110 MEQ/L (98-107); CREATININE FOR GFR 0.79 MG/DL (0.70-1.30); GLOMERULAR FILTRATION RATE > 60.0 (>35); GLUCOSE, FASTING 135 MG/DL (70-100); PHOSPHORUS LEVEL 2.5 MG/DL (2.5-4.9); POTASSIUM SERUM 4.4 MEQ/L (3.5-5.1); SODIUM LEVEL 143 MEQ/L (136-145)
== END ==
PROVIDERS: ATTEND Internal Medicine
DX: N17.9 Acute kidney failure, unspecified (principal)

== ENCOUNTER → 2022-04-05 | Outpatient (REF) | payer MEDICARE, BC ==
[2022-04-05 17:38] LABS: BASO # 0.1 10^3/uL (0.0-0.2); BASO % 0.6 % (0.0-1.0); EOS # 0.3 10^3/uL (0.0-0.5); EOS % 2.9 % (0.0-3.0); HEMATOCRIT 41.8 % (42.0-52.0); HEMOGLOBIN 13.6 g/dl (13.5-17.5); LYMPH # 1.9 10^3/uL (1.5-5.0); LYMPH % 19.3 % (24.0-44.0); MEAN CORPUSCULAR HGB CONC 32.5 g/dl (32.0-36.5); MEAN CORPUSCULAR VOLUME 86.2 fl (80.0-96.0); MONO # 0.8 10^3/uL (0.0-0.8); MONO % 7.6 % (2.0-8.0); NEUTROPHILS # 6.7 10^3/uL (1.5-8.5); NEUTROPHILS % 67.2 % (36.0-66.0); PLATELET COUNT, AUTOMATED 222 10^3/uL (150-450); RED BLOOD COUNT 4.85 10^6/uL (4.30-6.10)
[2022-04-05 18:13] LABS: BLOOD UREA NITROGEN 27 MG/DL (7-18); CALCIUM LEVEL 8.5 MG/DL (8.8-10.2); CARBON DIOXIDE LEVEL 26 MEQ/L (21-32); CHLORIDE LEVEL 105 MEQ/L (98-107); CREATININE FOR GFR 0.66 MG/DL (0.70-1.30); GLOMERULAR FILTRATION RATE > 60.0 (>35); GLUCOSE, FASTING 104 MG/DL (70-100); POTASSIUM SERUM 4.2 MEQ/L (3.5-5.1); SODIUM LEVEL 139 MEQ/L (136-145)
== END ==
PROVIDERS: ATTEND Internal Medicine
DX: N18.9 Chronic kidney disease, unspecified (principal); J18.9 Pneumonia, unspecified organism

== ENCOUNTER → 2022-04-10 | Outpatient (REF) | payer MEDICARE, BC ==
[2022-04-10 12:21] LABS: HEMATOCRIT 44.3 % (42.0-52.0); HEMOGLOBIN 14.1 g/dl (13.5-17.5); MEAN CORPUSCULAR HEMOGLOBIN 27.2 pg (27.0-33.0); MEAN CORPUSCULAR HGB CONC 31.8 g/dl (32.0-36.5); MEAN CORPUSCULAR VOLUME 85.5 fl (80.0-96.0); PLATELET COUNT, AUTOMATED 363 10^3/uL (150-450); RED BLOOD COUNT 5.18 10^6/uL (4.30-6.10); WHITE BLOOD COUNT 8.3 10^3/uL (4.0-10.0)
[2022-04-10 13:35] LABS: ALBUMIN 3.1 GM/DL (3.2-5.2); ALT/SGPT 65 U/L (12-78); BILIRUBIN,TOTAL 0.5 MG/DL (0.2-1.0); BLOOD UREA NITROGEN 18 MG/DL (7-18); CALCIUM LEVEL 9.1 MG/DL (8.8-10.2); CARBON DIOXIDE LEVEL 25 MEQ/L (21-32); CHLORIDE LEVEL 105 MEQ/L (98-107); CREATININE FOR GFR 0.64 MG/DL (0.70-1.30); GLOMERULAR FILTRATION RATE > 60.0 (>35); GLUCOSE, FASTING 83 MG/DL (70-100); POTASSIUM SERUM 3.6 MEQ/L (3.5-5.1); SODIUM LEVEL 138 MEQ/L (136-145); TOTAL PROTEIN 7.6 GM/DL (6.4-8.2)
== END ==
PROVIDERS: ATTEND Internal Medicine
DX: N18.9 Chronic kidney disease, unspecified (principal)

== ENCOUNTER → 2022-04-24 | Outpatient (REF) | payer MEDICARE, BC ==
[2022-04-24 12:04] LABS: BASO % 0.7 % (0.0-1.0); EOS # 0.3 10^3/uL (0.0-0.5); EOS % 5.4 % (0.0-3.0); HEMATOCRIT 41.5 % (42.0-52.0); LYMPH # 1.8 10^3/uL (1.5-5.0); LYMPH % 31.8 % (24.0-44.0); MEAN CORPUSCULAR HEMOGLOBIN 27.8 pg (27.0-33.0); MEAN CORPUSCULAR HGB CONC 31.3 g/dl (32.0-36.5); MEAN CORPUSCULAR VOLUME 88.9 fl (80.0-96.0); MONO # 0.4 10^3/uL (0.0-0.8); NEUTROPHILS % 54.4 % (36.0-66.0); PLATELET COUNT, AUTOMATED 204 10^3/uL (150-450); RED BLOOD COUNT 4.67 10^6/uL (4.30-6.10); WHITE BLOOD COUNT 5.6 10^3/uL (4.0-10.0)
[2022-04-24 12:57] LABS: BLOOD UREA NITROGEN 13 MG/DL (7-18); CARBON DIOXIDE LEVEL 26 MEQ/L (21-32); CHLORIDE LEVEL 104 MEQ/L (98-107); CREATININE FOR GFR 0.72 MG/DL (0.70-1.30); GLOMERULAR FILTRATION RATE > 60.0 (>35); GLUCOSE, FASTING 146 MG/DL (70-100); POTASSIUM SERUM 3.4 MEQ/L (3.5-5.1); SODIUM LEVEL 138 MEQ/L (136-145)
== END ==
PROVIDERS: ATTEND Internal Medicine
DX: I11.9 Hypertensive heart disease without heart failure (principal)

== ENCOUNTER → 2022-04-25 | Outpatient (REF) | payer MEDICARE, BC ==
[2022-04-25 16:47] LABS: BLOOD UREA NITROGEN 13 MG/DL (7-18); CALCIUM LEVEL 8.8 MG/DL (8.8-10.2); CARBON DIOXIDE LEVEL 29 MEQ/L (21-32); CHLORIDE LEVEL 103 MEQ/L (98-107); CREATININE FOR GFR 0.68 MG/DL (0.70-1.30); GLOMERULAR FILTRATION RATE > 60.0 (>35); GLUCOSE, FASTING 97 MG/DL (70-100); POTASSIUM SERUM 4.2 MEQ/L (3.5-5.1); SODIUM LEVEL 138 MEQ/L (136-145)
== END ==
PROVIDERS: ATTEND Internal Medicine
DX: E87.6 Hypokalemia (principal)

== ENCOUNTER → 2022-06-03 | Outpatient (REF) | payer MEDICARE, BC ==
[2022-06-03 11:40] LABS: BASO % 0.5 % (0.0-1.0); EOS # 0.4 10^3/uL (0.0-0.5); EOS % 4.5 % (0.0-3.0); HEMATOCRIT 42.7 % (42.0-52.0); HEMOGLOBIN 13.4 g/dl (13.5-17.5); LYMPH # 2.1 10^3/uL (1.5-5.0); MEAN CORPUSCULAR HEMOGLOBIN 27.8 pg (27.0-33.0); MEAN CORPUSCULAR HGB CONC 31.4 g/dl (32.0-36.5); MEAN CORPUSCULAR VOLUME 88.6 fl (80.0-96.0); MONO # 0.5 10^3/uL (0.0-0.8); NEUTROPHILS % 62.6 % (36.0-66.0); PLATELET COUNT, AUTOMATED 258 10^3/uL (150-450); RED BLOOD COUNT 4.82 10^6/uL (4.30-6.10)
[2022-06-03 12:23] LABS: BLOOD UREA NITROGEN 20 MG/DL (7-18); CALCIUM LEVEL 8.9 MG/DL (8.8-10.2); CARBON DIOXIDE LEVEL 27 MEQ/L (21-32); CHLORIDE LEVEL 104 MEQ/L (98-107); CREATININE FOR GFR 0.66 MG/DL (0.70-1.30); GLOMERULAR FILTRATION RATE > 60.0 (>35); GLUCOSE, FASTING 90 MG/DL (70-100); POTASSIUM SERUM 3.9 MEQ/L (3.5-5.1); SODIUM LEVEL 139 MEQ/L (136-145)
== END ==
PROVIDERS: ATTEND Internal Medicine
DX: I10 Essential (primary) hypertension (principal)

== ENCOUNTER → 2022-07-08 | Outpatient (REF) | payer MEDICARE, BC ==
[2022-07-08 11:18] LABS: HEMATOCRIT 44.6 % (42.0-52.0); MEAN CORPUSCULAR HEMOGLOBIN 27.9 pg (27.0-33.0); MEAN CORPUSCULAR HGB CONC 31.4 g/dl (32.0-36.5); MEAN CORPUSCULAR VOLUME 88.8 fl (80.0-96.0); PLATELET COUNT, AUTOMATED 195 10^3/uL (150-450); RED BLOOD COUNT 5.02 10^6/uL (4.30-6.10); WHITE BLOOD COUNT 5.2 10^3/uL (4.0-10.0)
[2022-07-08 11:38] LABS: ALBUMIN 3.4 G/DL (3.2-5.2); ALKALINE PHOSPHATASE 95 U/L (46-116); ALT/SGPT 22 U/L (7.0-40); AST/SGOT 20 U/L (<34); BILIRUBIN,TOTAL 0.7 MG/DL (0.3-1.2); BLOOD UREA NITROGEN 17 MG/DL (9-23); CALCIUM LEVEL 8.8 MG/DL (8.3-10.6); CARBON DIOXIDE LEVEL 29 MMOL/L (20-31); CHLORIDE LEVEL 101 MMOL/L (98-107); CREATININE FOR GFR 0.67 MG/DL (0.70-1.30); GLOMERULAR FILTRATION RATE > 60.0 (>35); GLUCOSE, FASTING 128 MG/DL (74-106); POTASSIUM SERUM 3.6 MMOL/L (3.5-5.1); SODIUM LEVEL 139 MMOL/L (136-145); TOTAL PROTEIN 7.1 G/DL (5.7-8.2)
== END ==
PROVIDERS: ATTEND Internal Medicine
DX: N17.9 Acute kidney failure, unspecified (principal)

== ENCOUNTER → 2022-08-19 | Outpatient (REF) | payer MEDICARE, BC ==
[2022-08-19 10:54] LABS: BASO # 0.1 10^3/uL (0.0-0.2); BASO % 0.8 % (0.0-1.0); EOS # 0.3 10^3/uL (0.0-0.5); EOS % 4.9 % (0.0-3.0); HEMATOCRIT 47.8 % (42.0-52.0); HEMOGLOBIN 14.6 g/dl (13.5-17.5); LYMPH % 31.7 % (24.0-44.0); MEAN CORPUSCULAR HEMOGLOBIN 27.2 pg (27.0-33.0); MEAN CORPUSCULAR HGB CONC 30.5 g/dl (32.0-36.5); MONO # 0.4 10^3/uL (0.0-0.8); NEUTROPHILS # 3.4 10^3/uL (1.5-8.5); NEUTROPHILS % 55.4 % (36.0-66.0); PLATELET COUNT, AUTOMATED 191 10^3/uL (150-450); RED BLOOD COUNT 5.37 10^6/uL (4.30-6.10); WHITE BLOOD COUNT 6.2 10^3/uL (4.0-10.0)
[2022-08-19 11:10] LABS: ALBUMIN 3.6 G/DL (3.2-5.2); ALKALINE PHOSPHATASE 106 U/L (46-116); ALT/SGPT 29 U/L (7.0-40); AST/SGOT 21 U/L (<34); BILIRUBIN,TOTAL 0.4 MG/DL (0.3-1.2); BLOOD UREA NITROGEN 22 MG/DL (9-23); CALCIUM LEVEL 9.4 MG/DL (8.3-10.6); CARBON DIOXIDE LEVEL 28 MMOL/L (20-31); CHLORIDE LEVEL 105 MMOL/L (98-107); CREATININE FOR GFR 0.73 MG/DL (0.70-1.30); GLOMERULAR FILTRATION RATE > 60.0 (>35); GLUCOSE, FASTING 120 MG/DL (74-106); POTASSIUM SERUM 3.8 MMOL/L (3.5-5.1); SODIUM LEVEL 142 MMOL/L (136-145)
== END ==
PROVIDERS: ATTEND Internal Medicine
DX: I10 Essential (primary) hypertension (principal)

== ENCOUNTER → 2022-11-11 | Outpatient (REF) | payer MEDICARE, BC ==
[~2022-11-11] MED LIST changes: +ARTIDRO4 OU; -POLYOPD OU
== END ==
PROVIDERS: ATTEND Internal Medicine
DX: R05.9 Cough, unspecified (principal)

== ENCOUNTER → 2022-11-12 | Outpatient (REF) | payer MEDICARE, BC | PROVIDERS: ATTEND Internal Medicine | DX: R05.9 Cough, unspecified (principal) ==

== ENCOUNTER → 2022-12-27 | Outpatient (REF) | payer MEDICARE, BC ==
[2022-12-27 09:58] LABS: HEMATOCRIT 37.6 % (42.0-52.0); HEMOGLOBIN 12.3 g/dl (13.5-17.5); MEAN CORPUSCULAR HEMOGLOBIN 28.8 pg (27.0-33.0); MEAN CORPUSCULAR HGB CONC 32.7 g/dl (32.0-36.5); MEAN CORPUSCULAR VOLUME 88.1 fl (80.0-96.0); PLATELET COUNT, AUTOMATED 204 10^3/uL (150-450); RED BLOOD COUNT 4.27 10^6/uL (4.30-6.10); WHITE BLOOD COUNT 5.9 10^3/uL (4.0-10.0)
[2022-12-27 10:32] LABS: BLOOD UREA NITROGEN 15 MG/DL (9-23); CALCIUM LEVEL 8.9 MG/DL (8.3-10.6); CARBON DIOXIDE LEVEL 27 MMOL/L (20-31); CHLORIDE LEVEL 104 MMOL/L (98-107); CHOLESTEROL LEVEL 146 MG/DL (<200); CHOLESTEROL RISK RATIO 3.32 (<5); CREATININE FOR GFR 0.58 MG/DL (0.70-1.30); GLOMERULAR FILTRATION RATE > 60.0 (>35); GLUCOSE, FASTING 119 MG/DL (74-106); HDL CHOLESTEROL 43.9 MG/DL (>40); LDL CHOLESTEROL 65.9 MG/DL (<100); NON-HDL-C 102.1 MG/DL; POTASSIUM SERUM 3.8 MMOL/L (3.5-5.1); SODIUM LEVEL 139 MMOL/L (136-145); TRIGLYCERIDES LEVEL 181 MG/DL (<150)
[2022-12-27 10:37] LABS: TOTAL 25(OH) VITAMIN D 21.3 NG/ML (20.0-100.0)
== END ==
PROVIDERS: ATTEND Internal Medicine
DX: I10 Essential (primary) hypertension (principal); Z79.899 Other long term (current) drug therapy

== ENCOUNTER → 2023-02-19 | Outpatient (REF) | payer MEDICARE, BC | PROVIDERS: ATTEND Internal Medicine | DX: K92.1 Melena (principal) ==

== ENCOUNTER → 2023-02-20 | Outpatient (REF) | payer MEDICARE, BC ==
[2023-02-20 14:37] LABS: HEMOGLOBIN 14.6 g/dl (13.5-17.5); MEAN CORPUSCULAR HEMOGLOBIN 28.6 pg (27.0-33.0); MEAN CORPUSCULAR HGB CONC 32.4 g/dl (32.0-36.5); MEAN CORPUSCULAR VOLUME 88.2 fl (80.0-96.0); PLATELET COUNT, AUTOMATED 217 10^3/uL (150-450); WHITE BLOOD COUNT 11.9 10^3/uL (4.0-10.0)
[2023-02-20 14:58] LABS: BLOOD UREA NITROGEN 39 MG/DL (9-23); CALCIUM LEVEL 9.2 MG/DL (8.3-10.6); CARBON DIOXIDE LEVEL 23 MMOL/L (20-31); CHLORIDE LEVEL 102 MMOL/L (98-107); CREATININE FOR GFR 0.71 MG/DL (0.70-1.30); GLOMERULAR FILTRATION RATE > 60.0 (>35); GLUCOSE, FASTING 147 MG/DL (74-106); POTASSIUM SERUM 3.6 MMOL/L (3.5-5.1); SODIUM LEVEL 142 MMOL/L (136-145)
== END ==
PROVIDERS: ATTEND Internal Medicine
DX: K92.1 Melena (principal)

== ENCOUNTER → 2023-02-20 | Outpatient (REF) | PROVIDERS: ATTEND Internal Medicine | DX: K92.1 Melena (principal); Z53.8 Procedure and treatment not carried out for other reasons ==

== ENCOUNTER → 2023-02-21 | Outpatient (REF) | payer MEDICARE, BC ==
[2023-02-21 07:41] LABS: BASO % 0.4 % (0.0-1.0); EOS # 0.2 10^3/uL (0.0-0.5); HEMATOCRIT 43.2 % (42.0-52.0); HEMOGLOBIN 13.5 g/dl (13.5-17.5); LYMPH # 2.1 10^3/uL (1.5-5.0); LYMPH % 21.1 % (24.0-44.0); MEAN CORPUSCULAR HEMOGLOBIN 28.2 pg (27.0-33.0); MEAN CORPUSCULAR HGB CONC 31.3 g/dl (32.0-36.5); MEAN CORPUSCULAR VOLUME 90.2 fl (80.0-96.0); MONO # 0.9 10^3/uL (0.0-0.8); MONO % 8.5 % (2.0-8.0); NEUTROPHILS # 6.8 10^3/uL (1.5-8.5); NEUTROPHILS % 67.7 % (36.0-66.0); PLATELET COUNT, AUTOMATED 148 10^3/uL (150-450); RED BLOOD COUNT 4.79 10^6/uL (4.30-6.10)
[2023-02-21 07:59] LABS: BLOOD UREA NITROGEN 41 MG/DL (9-23); CALCIUM LEVEL 8.9 MG/DL (8.3-10.6); CARBON DIOXIDE LEVEL 26 MMOL/L (20-31); CHLORIDE LEVEL 108 MMOL/L (98-107); CREATININE FOR GFR 0.75 MG/DL (0.70-1.30); GLOMERULAR FILTRATION RATE > 60.0 (>35); GLUCOSE, FASTING 109 MG/DL (74-106); POTASSIUM SERUM 4.2 MMOL/L (3.5-5.1); SODIUM LEVEL 143 MMOL/L (136-145)
== END ==
PROVIDERS: ATTEND Internal Medicine
DX: K52.9 Noninfective gastroenteritis and colitis, unspecified (principal)

== ENCOUNTER → 2023-02-24 | Outpatient (REF) | payer MEDICARE, BC ==
[2023-02-24 08:17] LABS: BASO % 0.6 % (0.0-1.0); EOS # 0.4 10^3/uL (0.0-0.5); EOS % 6.2 % (0.0-3.0); HEMATOCRIT 40.6 % (42.0-52.0); HEMOGLOBIN 12.9 g/dl (13.5-17.5); LYMPH % 30.7 % (24.0-44.0); MEAN CORPUSCULAR HEMOGLOBIN 28.4 pg (27.0-33.0); MEAN CORPUSCULAR HGB CONC 31.8 g/dl (32.0-36.5); MEAN CORPUSCULAR VOLUME 89.4 fl (80.0-96.0); MONO # 0.5 10^3/uL (0.0-0.8); MONO % 7.3 % (2.0-8.0); NEUTROPHILS # 3.6 10^3/uL (1.5-8.5); NEUTROPHILS % 54.6 % (36.0-66.0); PLATELET COUNT, AUTOMATED 178 10^3/uL (150-450); RED BLOOD COUNT 4.54 10^6/uL (4.30-6.10); WHITE BLOOD COUNT 6.6 10^3/uL (4.0-10.0)
[2023-02-24 08:51] LABS: ALKALINE PHOSPHATASE 76 U/L (46-116); ALT/SGPT 17 U/L (7.0-40); AST/SGOT 9 U/L (<34); BILIRUBIN,TOTAL 0.4 MG/DL (0.3-1.2); BLOOD UREA NITROGEN 17 MG/DL (9-23); CALCIUM LEVEL 8.9 MG/DL (8.3-10.6); CARBON DIOXIDE LEVEL 27 MMOL/L (20-31); CHLORIDE LEVEL 106 MMOL/L (98-107); GLOMERULAR FILTRATION RATE > 60.0 (>35); GLUCOSE, FASTING 97 MG/DL (74-106); POTASSIUM SERUM 3.6 MMOL/L (3.5-5.1); SODIUM LEVEL 142 MMOL/L (136-145); TOTAL PROTEIN 6.3 G/DL (5.7-8.2)
== END ==
PROVIDERS: ATTEND Internal Medicine
DX: K92.2 Gastrointestinal hemorrhage, unspecified (principal)

== ENCOUNTER → 2023-12-16 | Outpatient (REF) | payer MEDICARE | PROVIDERS: ATTEND Internal Medicine | DX: R06.2 Wheezing (principal); R68.89 Other general symptoms and signs; Z79.899 Other long term (current) drug therapy ==

== ENCOUNTER → 2023-12-16 | Outpatient (REF) | payer MEDICARE ==
[2023-12-16 17:54] LABS: APPEARANCE, URINE CLEAR (CLEAR); BACTERIA, URINE AUTO NEGATIVE (NEGATIVE); BILIRUBIN, URINE AUTO NEGATIVE (NEGATIVE); BLOOD, URINE BLOOD NEGATIVE (NEGATIVE); COLOR, URINE YELLOW (YELLOW); GLUCOSE, URINE (UA) AUTO NEGATIVE (NEGATIVE); KETONE, URINE AUTO NEGATIVE (NEGATIVE); LEUKOCYTE ESTERASE, URINE AUTO NEGATIVE (NEGATIVE); MUCUS, URINE SMALL (NEGATIVE); NITRITE, URINE AUTO NEGATIVE (NEGATIVE); PROTEIN, URINE AUTO 1+ mg/dL (NEGATIVE); RBC, URINE AUTO 0 /HPF (0-3); SPECIFIC GRAVITY URINE AUTO 1.013 (1.002-1.035); SQUAMOUS EPITHELIAL CELL UR AU 0 /HPF (0-6); UROBILINOGEN, URINE AUTO 0.2 mg/dL (0.0-2.0); WBC, URINE AUTO 1 /HPF (0-3)
== END ==
PROVIDERS: ATTEND Internal Medicine
DX: R68.89 Other general symptoms and signs (principal)

== ENCOUNTER → 2023-12-16 | Outpatient (REF) | payer MEDICARE ==
[2023-12-16 10:10] LABS: BASO # 0.1 10^3/uL (0.0-0.2); BASO % 0.9 % (0.0-1.0); EOS # 0.4 10^3/uL (0.0-0.5); HEMATOCRIT 39.6 % (42.0-52.0); LYMPH # 2.2 10^3/uL (1.5-5.0); LYMPH % 31.4 % (24.0-44.0); MEAN CORPUSCULAR HEMOGLOBIN 29.1 pg (27.0-33.0); MEAN CORPUSCULAR HGB CONC 32.8 g/dl (32.0-36.5); MEAN CORPUSCULAR VOLUME 88.8 fl (80.0-96.0); MONO # 0.5 10^3/uL (0.0-0.8); MONO % 7.1 % (2.0-8.0); NEUTROPHILS # 3.8 10^3/uL (1.5-8.5); NEUTROPHILS % 54.2 % (36.0-66.0); PLATELET COUNT, AUTOMATED 225 10^3/uL (150-450); RED BLOOD COUNT 4.46 10^6/uL (4.30-6.10)
[2023-12-16 10:33] LABS: BLOOD UREA NITROGEN 19 MG/DL (9-23); CALCIUM LEVEL 8.7 MG/DL (8.3-10.6); CARBON DIOXIDE LEVEL 24 MMOL/L (20-31); CHLORIDE LEVEL 106 MMOL/L (98-107); CREATININE FOR GFR 0.62 MG/DL (0.70-1.30); GLOMERULAR FILTRATION RATE > 60.0 (>35); GLUCOSE, FASTING 117 MG/DL (74-106); POTASSIUM SERUM 3.6 MMOL/L (3.5-5.1); SODIUM LEVEL 139 MMOL/L (136-145)
== END ==
PROVIDERS: ATTEND Internal Medicine
DX: R68.89 Other general symptoms and signs (principal); Z79.899 Other long term (current) drug therapy

== ENCOUNTER → 2023-12-18 | Outpatient (REF) | payer MEDICARE | PROVIDERS: ATTEND Internal Medicine | DX: R09.02 Hypoxemia (principal); M47.9 Spondylosis, unspecified; M19.011 Primary osteoarthritis, right shoulder; M19.012 Primary osteoarthritis, left shoulder; Z96.89 Presence of other specified functional implants ==

== ENCOUNTER → 2023-12-19 | Outpatient (REF) | payer MEDICARE | PROVIDERS: ATTEND Internal Medicine | DX: F03.918 Unspecified dementia, unspecified severity, with other behavioral disturbance (principal) ==

== ENCOUNTER → 2024-01-07 | Outpatient (REF) | payer MEDICARE ==
[2024-01-07 10:10] LABS: HEMATOCRIT 41.7 % (42.0-52.0); HEMOGLOBIN 13.5 g/dl (13.5-17.5); MEAN CORPUSCULAR HEMOGLOBIN 28.8 pg (27.0-33.0); MEAN CORPUSCULAR HGB CONC 32.4 g/dl (32.0-36.5); MEAN CORPUSCULAR VOLUME 89.1 fl (80.0-96.0); PLATELET COUNT, AUTOMATED 199 10^3/uL (150-450); RED BLOOD COUNT 4.68 10^6/uL (4.30-6.10); WHITE BLOOD COUNT 6.3 10^3/uL (4.0-10.0)
[2024-01-07 10:35] LABS: TOTAL 25(OH) VITAMIN D 30.3 NG/ML (20.0-100.0)
[2024-01-07 10:36] LABS: ALBUMIN 3.6 G/DL (3.2-5.2); ALKALINE PHOSPHATASE 98 U/L (46-116); ALT/SGPT 15 U/L (7.0-40); AST/SGOT 8 U/L (<34); BILIRUBIN,TOTAL 0.6 MG/DL (0.3-1.2); BLOOD UREA NITROGEN 14 MG/DL (9-23); CALCIUM LEVEL 9.5 MG/DL (8.3-10.6); CARBON DIOXIDE LEVEL 27 MMOL/L (20-31); CHLORIDE LEVEL 105 MMOL/L (98-107); CHOLESTEROL LEVEL 258 MG/DL (<200); CHOLESTEROL RISK RATIO 5.75 (<5); CREATININE FOR GFR 0.56 MG/DL (0.70-1.30); GLOMERULAR FILTRATION RATE > 60.0 (>35); GLUCOSE, FASTING 93 MG/DL (74-106); HDL CHOLESTEROL 44.8 MG/DL (>40); NON-HDL-C 213.2 MG/DL; POTASSIUM SERUM 3.7 MMOL/L (3.5-5.1); SODIUM LEVEL 141 MMOL/L (136-145); TOTAL PROTEIN 7.4 G/DL (5.7-8.2); TRIGLYCERIDES LEVEL 629 MG/DL (<150)
== END ==
PROVIDERS: ATTEND Internal Medicine
DX: I10 Essential (primary) hypertension (principal); Z79.899 Other long term (current) drug therapy

== ENCOUNTER → 2024-07-19 | Outpatient (REF) | payer MEDICARE ==
[2024-07-19 10:20] LABS: HEMATOCRIT 43.8 % (42.0-52.0); HEMOGLOBIN 13.8 g/dl (13.5-17.5); MEAN CORPUSCULAR HEMOGLOBIN 27.4 pg (27.0-33.0); MEAN CORPUSCULAR HGB CONC 31.5 g/dl (32.0-36.5); MEAN CORPUSCULAR VOLUME 87.1 fl (80.0-96.0); PLATELET COUNT, AUTOMATED 204 10^3/uL (150-450); RED BLOOD COUNT 5.03 10^6/uL (4.30-6.10); WHITE BLOOD COUNT 6.5 10^3/uL (4.0-10.0)
[2024-07-19 10:53] LABS: ALBUMIN 3.4 G/DL (3.2-5.2); ALKALINE PHOSPHATASE 91 U/L (40-129); ALT/SGPT 16 U/L (7.0-40); AST/SGOT 12 U/L (<34); BILIRUBIN,TOTAL 0.6 MG/DL (0.3-1.2); BLOOD UREA NITROGEN 15 MG/DL (9-23); CALCIUM LEVEL 9.1 MG/DL (8.3-10.6); CARBON DIOXIDE LEVEL 25 MMOL/L (20-31); CHLORIDE LEVEL 103 MMOL/L (98-107); CREATININE FOR GFR 0.57 MG/DL (0.70-1.30); GLOMERULAR FILTRATION RATE > 60.0 (>35); GLUCOSE, FASTING 160 MG/DL (74-106); POTASSIUM SERUM 3.3 MMOL/L (3.5-5.1); SODIUM LEVEL 141 MMOL/L (136-145)
== END ==
PROVIDERS: ATTEND Internal Medicine
DX: I10 Essential (primary) hypertension (principal)

== ENCOUNTER → 2024-08-09 | Outpatient (REF) | payer MEDICARE | PROVIDERS: ATTEND Physician Assistant | DX: R91.8 Other nonspecific abnormal finding of lung field (principal); R09.02 Hypoxemia ==

== ENCOUNTER → 2024-08-09 | Outpatient (REF) | payer MEDICARE ==
[2024-08-09 12:01] LABS: HEMATOCRIT 42.7 % (42.0-52.0); HEMOGLOBIN 13.8 g/dl (13.5-17.5); MEAN CORPUSCULAR HEMOGLOBIN 27.5 pg (27.0-33.0); MEAN CORPUSCULAR HGB CONC 32.3 g/dl (32.0-36.5); MEAN CORPUSCULAR VOLUME 85.2 fl (80.0-96.0); PLATELET COUNT, AUTOMATED 203 10^3/uL (150-450); RED BLOOD COUNT 5.01 10^6/uL (4.30-6.10); WHITE BLOOD COUNT 8.8 10^3/uL (4.0-10.0)
[2024-08-09 12:28] LABS: BLOOD UREA NITROGEN 15 MG/DL (9-23); CALCIUM LEVEL 8.6 MG/DL (8.3-10.6); CARBON DIOXIDE LEVEL 28 MMOL/L (20-31); CHLORIDE LEVEL 104 MMOL/L (98-107); CREATININE FOR GFR 0.58 MG/DL (0.70-1.30); GLOMERULAR FILTRATION RATE > 60.0 (>35); GLUCOSE, FASTING 109 MG/DL (74-106); POTASSIUM SERUM 3.6 MMOL/L (3.5-5.1); SODIUM LEVEL 141 MMOL/L (136-145)
== END ==
PROVIDERS: ATTEND Internal Medicine
DX: J96.90 Respiratory failure, unspecified, unspecified whether with hypoxia or hypercapnia (principal)

== ENCOUNTER → 2024-10-08 | Outpatient (REF) | payer MEDICARE | PROVIDERS: ATTEND Internal Medicine | DX: R05.9 Cough, unspecified (principal); R91.8 Other nonspecific abnormal finding of lung field ==

== ENCOUNTER → 2024-10-08 | Outpatient (REF) | payer MEDICARE | PROVIDERS: ATTEND Physician Assistant | DX: R05.9 Cough, unspecified (principal); R91.8 Other nonspecific abnormal finding of lung field ==

== ENCOUNTER → 2025-07-06 | Outpatient (REF) | payer MEDICARE ==
[~2025-07-06] MED LIST changes: +LISI40TA10 PO; -LISI40TA4 PO
[2025-07-06 13:23] LABS: PLATELET COUNT, AUTOMATED 209 10^3/uL (150-450)
[2025-07-06 13:55] LABS: ALT/SGPT 21 U/L (7.0-40); AST/SGOT 16 U/L (<34); CALCIUM LEVEL 8.6 MG/DL (8.3-10.6); CARBON DIOXIDE LEVEL 28 MMOL/L (20-31); CHLORIDE LEVEL 101 MMOL/L (98-107); CREATININE FOR GFR 0.55 MG/DL (0.70-1.30); GLOMERULAR FILTRATION RATE > 90.0 (>35); POTASSIUM SERUM 3.8 MMOL/L (3.5-5.1); SODIUM LEVEL 137 MMOL/L (136-145)
== END ==
PROVIDERS: ATTEND Internal Medicine
DX: I10 Essential (primary) hypertension (principal)